=== PATIENT | female | born 1940 | race Caucasian/White ===

== ENCOUNTER 2016-09-17 12:41 | Inpatient (IN) | payer MEDICARE, MEDICAID ==
[~2016-09-17] VITALS: Ht 165.1 cm; Wt 102.2 kg
[2016-09-17] VITALS (13 sets, daily range): BP systolic 119–141; BP diastolic 63–98
[~2016-09-17 12:41] MED LIST: ANTIVERT GENERI25 MG PO; ASPIRIN 325MG325 MG PO; ATORVASTATIN CA10 M1 PO; CAPTOPRIL50 MG PO; CARTIA XT240 MG PO; DITROPAN 5MG TAB5 MG PO; FUROSEMIDE 40MG40 M1 PO; GLIMEPIRIDE 4MG4 MG PO; MELOXICAM15 MG PO; METFORMIN 500M500 M1 PO; METOPROLOL SUCC50 M4 PO
[2016-09-17] MEDS ORDERED: CARVEDILOL 25MG25 MG PO (13:00)
[2016-09-17] MEDS ORDERED: CLOPIDOGREL75 M2 PO (13:01)
[2016-09-17] MEDS ORDERED: ALDACTONE 25MG25 MG PO (13:01)
[2016-09-17] MEDS ORDERED: PANTOPRAZOLE SO40 M1 PO (13:01)
[2016-09-17] MEDS ORDERED: ISOSORBIDE DINI30 MG PO (13:02)
[2016-09-17] MEDS ORDERED: IRON325 M1 PO (13:02)
--- OUTSIDE RECORDS SUMMARY | 2016-09-17 13:04 | External Medical Summary Rpt ---
Author Author [facility] Organization [facility] Address Unknown Phone Unavailable Care Team Providers Care Records Officer Name Role Phone MATHEW, (REF) PCP [phone] Encounter [facility] [id number] Date(s): 12/15/15 - 01/17/16 [facility] [address] [place] [phone]- [phone] Discharge Disposition: OP Self Care or Home Attending Physician: VIKKI CANO MD Admitting Physician: VIKKI CANO MD Referring Physician: VIKKI CANO MD Reason for Visit PAROXYSMAL ATRIAL FIBRILLATION Vital Signs Most recent 1 2 3 to oldest [Reference Range]: Temperature Oral (01/17/16 Oral (01/17/16 Oral (01/17/16 Source 3:00 PM) 11:00 AM) 7:30 AM) Temperature Fahrenheit Fahrenheit Fahrenheit Mode (01/17/16 3:00 (01/17/16 11:00 (01/17/16 7:30 PM) AM) AM) Temperature, 98.1 Deg F 97.9 Deg F 97.6 Deg F Fahrenheit (01/17/16 3:00 (01/17/16 11:00 (01/17/16 7:30 [96.8-99.7 PM) AM) AM) Deg F] Clinical 36.7 Deg C 36.6 Deg C 36.4 Deg C Temperature, (01/17/16 3:00 (01/17/16 11:00 (01/17/16 7:30 C PM) AM) AM) Heart Rate, 70 bpm (01/17/16 Apical 10:45 AM) [60-100 bpm] Heart Rate 66 bpm (01/17/16 61 bpm (01/17/16 56 bpm Monitored 3:00 PM) 11:00 AM) *LOW*(01/17/16 [60-100 bpm] 7:30 AM) Respiratory 18 Breaths/Min 20 Breaths/Min 18 Breaths/Min Rate [14-20 (01/17/16 3:00 (01/17/16 11:00 (01/17/16 7:30 Breaths/Min] PM) AM) AM) Blood 135/67 mmHg 141/74 mmHg 147/53 mmHg Pressure (01/17/16 3:00 *HI*(01/17/16 *HI*(01/17/16 [90-140/60-9 PM) 11:00 AM) 7:30 AM) 0 mmHg] Mean 75 (01/17/16 3:00 102 (01/17/16 105 (01/17/16 Arterial PM) 11:00 AM) 7:30 AM) Pressure (MAP)-BMDI Oxygen 91 % 91 % 93 % Saturation *LOW*(01/17/16 *LOW*(01/17/16 *LOW*(01/17/16 [94-100 %] 3:00 PM) 11:00 AM) 9:31 AM) Oxygen Room air Room air Room air Therapy Mode (01/17/16 3:00 (01/17/16 11:00 (01/17/16 9:31 PM) AM) AM) Oxygen Flow 3 Liter/Min 2 Liter/Min 2 Liter/Min Rate (01/17/16 7:30 (01/16/16 8:00 (01/16/16 5:00 AM) PM) PM) Problem List Condition Effective Status Health Informant Dates Status Arthritis(Co Active patient nfirmed) Atrial Active patient fibrillation (Confirmed) Bronchitis(C Active patient onfirmed) Cataract(Con Active patient firmed) Coronary Active patient artery disease(Conf irmed) Diabetes Active patient mellitus type II(Confirmed ) H/O Active patient hyperlipidem ia(Confirmed ) Hyperlipidem Active patient ia(Confirmed ) Hypertension Active patient (Confirmed) Pneumonia(Co Active patient nfirmed) Sleep Active patient apnea(Confir med) Allergies, Adverse Reactions, Alerts Substance Reaction Severity Status codeine severe abdominal pain Active Medications atenolol (atenolol 25 mg oral tablet) 1 Tab, Oral, Every Day, Refills: 6 Ordering provider: Elisabeth Davis APRN potassium chloride (potassium chloride 20 mEq oral tablet, extended release)1 Tab, Oral, Every Day, Refills: 6Ordering provider: Elisabeth Davis APRN Results GENERAL CHEMISTRY Most recent 1 2 3 to oldest [Reference Range]: Sodium Level 139 mmol/L 142 mmol/L [136-146 (01/17/16 7:08 (01/16/16 9:25 mmol/L] AM) AM) Potassium 3.8 mmol/L 4.1 mmol/L Level (01/17/16 7:08 (01/16/16 9:25 [3.5-5.1 AM) AM) mmol/L] Chloride 98 mmol/L 100 mmol/L Level *LOW*(01/17/16 *LOW*(01/16/16 [102-112 7:08 AM) 9:25 AM) mmol/L] Carbon 32 mmol/L 37 mmol/L Dioxide (01/17/16 7:08 *HI*(01/16/16 Level [21-32 AM) 9:25 AM) mmol/L] Anion Gap 13 (01/17/16 7:08 9 (01/16/16 9:25 [9-20] AM) AM) Glucose 90 mg/dL 74 mg/dL Level (01/17/16 7:08 (01/16/16 9:25 [74-106 AM) AM) mg/dL] Blood Urea 23 mg/dL 25 mg/dL Nitrogen *HI*(01/17/16 *HI*(01/16/16 [7-22 mg/dL] 7:08 AM) 9:25 AM) Creatinine 1.10 mg/dL 1.20 mg/dL Level *HI*(01/17/16 *HI*(01/16/16 [0.55-1.02 7:08 AM) 9:25 AM) mg/dL] eGFR 59 mL/min/1.73m2 53 mL/min/1.73m2 [>=60 *LOW*(01/17/16 *LOW*(01/16/16 mL/min/1.73m 7:08 AM) 9:39 AM) 2] eGFR 49 mL/min/1.73m2 44 mL/min/1.73m2 NonAfrican *LOW*(01/17/16 *LOW*(01/16/16 [>=60 7:08 AM) 9:39 AM) mL/min/1.73m 2] Bun/Creatini 20.9 20.8 ne *HI*(01/17/16 *HI*(01/16/16 [8.0-20.0] 7:08 AM) 9:25 AM) Calcium 9.2 mg/dL 9.5 mg/dL Level (01/17/16 7:08 (01/16/16 9:25 [8.5-10.1 AM) AM) mg/dL] Protein 6.9 Gram/dL Total (01/16/16 9:25 [6.4-8.2 AM) Gram/dL] Albumin 3.6 Gram/dL Level (01/16/16 9:25 [3.4-5.0 AM) Gram/dL] Globulin 3.3 Gram/dL [1.5-4.5 (01/16/16 9:25 Gram/dL] AM) A/G Ratio 1.1 (01/16/16 [1.1-2.5] 9:25 AM) Bilirubin 0.5 mg/dL Total (01/16/16 9:25 [0.2-1.0 AM) mg/dL] Alk Phos 92 Units/Liter [27-136 (01/16/16 9:25 Units/Liter] AM) AST [5-37 10 Units/Liter Units/Liter] (01/16/16 9:25 AM) ALT [12-78 11 Units/Liter Units/Liter] *LOW*(01/16/16 9:25 AM) Magnesium 2.1 mg/dL Level (01/16/16 9:25 [1.5-2.4 AM) mg/dL] Glucose POC 77 mg/dL [70-105 (01/16/16 9:17 mg/dL] AM) Glucose POC2 128 mg/dL 101 mg/dL 88 mg/dL [60-110 1*HI*(01/17/16 2(01/17/16 11:42 3(01/17/16 6:35 mg/dL] 3:45 PM) AM) AM) 1Result Comment: Nurse Notified of [id number] Comment: Nurse Notified of [id number] Comment: Nurse Notified of ResultCARDIAC SPECIFIC MARKERS Most recent 1 2 3 to oldest [Reference Range]: ProBNP 2018 pg/mL [0-125 *HI*(01/16/16 pg/mL] 9:39 AM) HEMATOLOGY Most recent 1 2 3 to oldest [Reference Range]: WBC 7.3 K/uL 5.7 K/uL [4.0-10.0 (01/17/16 7:08 (01/16/16 9:39 K/uL] AM) AM) RBC 3.31 Million/uL 3.04 Million/uL [3.93-5.22 *LOW*(01/17/16 *LOW*(01/16/16 Million/uL] 7:08 AM) 9:39 AM) Hgb 9.6 g/dL 8.9 g/dL [11.2-15.7 *LOW*(01/17/16 *LOW*(01/16/16 g/dL] 7:08 AM) 9:39 AM) Hct 32.9 % 29.8 % [34.1-44.9 *LOW*(01/17/16 *LOW*(01/16/16 %] 7:08 AM) 9:39 AM) MCV 99.4 fL 98.0 fL [79.0-94.8 *HI*(01/17/16 *HI*(01/16/16 fL] 7:08 AM) 9:39 AM) MCH 29.0 pg (01/17/16 29.3 pg (01/16/16 [25.6-32.2 7:08 AM) 9:39 AM) pg] MCHC 29.2 Gram/dL 29.9 Gram/dL [32.2-36.5 *LOW*(01/17/16 *LOW*(01/16/16 Gram/dL] 7:08 AM) 9:39 AM) Platelet 247 K/uL 219 K/uL Count (01/17/16 7:08 (01/16/16 9:39 [163-369 AM) AM) K/uL] MPV 10.5 fL (01/17/16 10.4 fL (01/16/16 [9.4-12.4 7:08 AM) 9:39 AM) fL] RDW 17.0 % 17.2 % [11.6-14.4 *HI*(01/17/16 *HI*(01/16/16 %] 7:08 AM) 9:39 AM) Neut % 68.3 % (01/17/16 [34.0-71.0 7:08 AM) %] Neut # 4.98 K/uL [1.56-6.13 (01/17/16 7:08 K/uL] AM) Lymph % 18.5 % [19.3-53.1 *LOW*(01/17/16 %] 7:08 AM) Lymph # 1.35 x10(3)/uL [1.00-3.90 (01/17/16 7:08 x10(3)/uL] AM) [place] % 8.1 % (01/17/16 [3.0-9.0 %] 7:08 AM) [place] # 0.59 K/uL [0.16-1.00 (01/17/16 7:08 K/uL] AM) Eos % 4.2 % (01/17/16 [0.0-7.0 %] 7:08 AM) Eos # 0.31 x10(3)/uL [0.00-0.80 (01/17/16 7:08 x10(3)/uL] AM) Baso % 0.5 % (01/17/16 [0.0-1.5 %] 7:08 AM) Baso # 0.04 x10(3)/uL [0.00-0.20 (01/17/16 7:08 x10(3)/uL] AM) Slide Review No (01/17/16 7:08 No (01/16/16 9:39 AM) AM) IG# 0.03 x10(3)/uL [0.00-0.05 (01/17/16 7:08 x10(3)/uL] AM) IG% 0.40 % (01/17/16 [0.00-0.60 7:08 AM) %] ENDOCRINOLOGY Most recent 1 2 3 to oldest [Reference Range]: TSH 4.440 mcInt [0.358-3.740 Units/mL mcInt *HI*(01/16/16 Units/mL] 9:25 AM) Immunizations No data available for this section Procedures Procedure Date Related Body Site Diagnosis cardioversion Social History Social History Response Type Tobacco Use in Last 12 Months: No. Assessment and Plan Extracted from: Title: EP Progress Author: Ryan, Date: 01/17/16 Note- Shukri Nazario APRN SubjectiveFollow up: AT fib- persistent post ECV 10!7!6- recurrent At fib, SVR - now in high 50s- low 60s.Chief Complaint: none. Up in roomINDICATIONS:01/16/16Patient was seen in the [facility]. She did have moderate lower extremity edemaand some orthopnea. We gave her Lasix intravenously 80 mg and she did haverest diuresis. She is also getting a breathing treatment.DESCRIPTION OF PROCEDURE:Patient was then taken to the electrophysiology laboratory. AnesthesiaService provided Diprivan. After appropriate anesthesia level was achieved,200 joules was delivered synchronous to the QRS converting atrialfibrillation to sinus bradycardia, heart rate 38 to 50 beats per minute. Itseemed to be getting a little bit better and she went back to the [facility].After she was fully awake about a half hour after the case, her heart ratewas still 38 to 40 beats per minute, sinus bradycardia. At this time, and decided to admit the patient on a monitored bed. She had been onCardizem that should have been stopped one week ago when I saw her in theoffice. She has two beta blockers listed, atenolol and metoprolol. She was only on metoprolol and she has been on amiodarone. CardizemCD, atenolol, and metoprolol. We will leave her on the amiodarone. Cardizem that should have been stopped one week ago when I saw her in the office. She has two beta blockers listed, atenolol and metoprolol. She was only on metoprolol and she has been on amiodarone. Cardizem CD, atenolol, and metoprolol. We will leave her on the amiodarone. Health StatusAllergies:Allergic Reactions (All)Severity Not DocumentedCodeine- Severe abdominal pain.,Allergies (1) ActiveReactioncodeinesevere abdominal painCurrent medications: (Selected)Inpatient MedicationsOrderedDextrose 5% in Water 1,000 mL: 50 mL/Hr, IntraVENousLasix: 40 mg, Oral, DailyLovenox: 100 mg, SubCutaneous, [id number]: 200 mg, Oral, Dailyaspirin: 325 mg, Oral, Dailyatorvastatin: 10 mg, Oral, At Bedtimecaptopril: 50 mg, Oral, BIDglimepiride: 4 mg, Oral, BIDoxybutynin: 5 mg, Oral, BIDDocumented MedicationsDocumentedCartia XT 300 mg/24 hours oral capsule, extended release: 1 Cap, Oral, Daily, 30 Cap, 0 Refill(s)Lasix: 40 mg, Oral, Daily, 0 Refill(s)Metoprolol Succinate ER: 50 mg, Oral, Daily, 0 Refill(s)Xarelto: 20 mg, Oral, Daily, 0 Refill(s)amiodarone 200 mg oral tablet: 1 Tab, Oral, Daily, 30 Tab, 0 Refill(s)aspirin: 325 mg, Oral, Daily, 0 Refill(s)atorvastatin: 10 mg, Oral, At Bedtime, 0 Refill(s)captopril: 50 mg, Oral, BID, 0 Refill(s)glimepiride: 4 mg, Oral, BID, 0 Refill(s)meloxicam: 15 mg, Oral, Daily, 0 Refill(s)metFORMIN: 500 mg, Oral, BID, 0 Refill(s)oxybutynin: 5 mg, Oral, BID, 0 Refill(s),Home Medications (12) Activeamiodarone 200 mg oral tablet 200 mg = 1 Tab, Oral, Dailyaspirin 325 mg, Oral, Dailyatorvastatin 10 mg, Oral, At Bedtimecaptopril 50 mg, Oral, BIDCartia XT 300 mg/24 hours oral capsule, extended release 300 mg = 1 Cap, Oral, Dailyglimepiride 4 mg, Oral, BIDLasix 40 mg, Oral, Dailymeloxicam 15 mg, Oral, DailymetFORMIN 500 mg, Oral, BIDMetoprolol Succinate ER 50 mg, Oral, Dailyoxybutynin 5 mg, Oral, BIDXarelto 20 mg, Oral, Daily,Medications (9) ActiveScheduled: (8)amiodarone 200 mg tab 200 mg 1 Tab, Oral, Dailyaspirin 325 mg tab 325 mg 1 Tab, Oral, Dailyatorvastatin 10 mg tab 10 mg 1 Tab, Oral, At Bedtimecaptopril 12.5 mg tab 50 mg 4 Tab, Oral, BIDenoxaparin 100 mg/1 mL inj 100 mg 1 mL, SubCutaneous, [id number] 40 mg tab 40 mg 1 Tab, Oral, Dailyglimepiride 4 mg tab 4 mg 1 Tab, Oral, BIDoxybutynin 5 mg tab 5 mg 1 Tab, Oral, BIDContinuous: (1)Dextrose 5% in Water 1,000 mL 1,000 mL, IntraVENous, 50 mL/HrPRN: (0)Problem list:All ProblemsArthritis / SNOMED CT 4635141 / ConfirmedAtrial fibrillation / SNOMED CT 00422627 / ConfirmedBronchitis / SNOMED CT 40467274 / ConfirmedCataract / SNOMED CT 254963179 / ConfirmedCoronary artery disease / SNOMED CT 8111906250 / ConfirmedDiabetes mellitus type II / SNOMED CT 69278046 / ConfirmedH/O hyperlipidemia / SNOMED CT 921859975 / ConfirmedHyperlipidemia / SNOMED CT 89386779 / ConfirmedHypertension / SNOMED CT 71790048 / ConfirmedPneumonia / SNOMED CT 932553482 / ConfirmedSleep apnea / SNOMED CT 395868562 / Confirmed,Active Problems (11)Arthritis Atrial fibrillation Bronchitis Cataract Coronary artery disease Diabetes mellitus type II H/O hyperlipidemia Hyperlipidemia Hypertension Pneumonia Sleep apnea metFORMIN 500 mg, Oral, BID Metoprolol Succinate ER 50 mg, Oral, Daily oxybutynin 5 mg, Oral, BID Xarelto 20 mg, Oral, Daily , Medications (9) Active Scheduled: (8) amiodarone 200 mg tab 200 mg 1 Tab, Oral, Daily aspirin 325 mg tab 325 mg 1 Tab, Oral, Daily atorvastatin 10 mg tab 10 mg 1 Tab, Oral, At Bedtime captopril 12.5 mg tab 50 mg 4 Tab, Oral, BID enoxaparin 100 mg/1 mL inj 100 mg 1 mL, SubCutaneous, [id number] furosemide 40 mg tab 40 mg 1 Tab, Oral, Daily glimepiride 4 mg tab 4 mg 1 Tab, Oral, BID oxybutynin 5 mg tab 5 mg 1 Tab, Oral, BID Continuous: (1) Dextrose 5% in Water 1,000 mL 1,000 mL, IntraVENous, 50 mL/Hr PRN: (0) Problem list: All Problems Arthritis / SNOMED CT 0840892 / Confirmed Atrial fibrillation / SNOMED CT 15969469 / Confirmed Bronchitis / SNOMED CT 26879296 / Confirmed Cataract / SNOMED CT 062747624 / Confirmed Coronary artery disease / SNOMED CT 1929811821 / Confirmed Diabetes mellitus type II / SNOMED CT 41661626 / Confirmed H/O hyperlipidemia / SNOMED CT 288781349 / Confirmed Hyperlipidemia / SNOMED CT 19276714 / Confirmed Hypertension / SNOMED CT 08004848 / Confirmed Pneumonia / SNOMED CT 759022218 / Confirmed Sleep apnea / SNOMED CT 495110970 / Confirmed, Active Problems (11) Arthritis Atrial fibrillation Bronchitis Cataract Coronary artery disease Diabetes mellitus type II H/O hyperlipidemia Hyperlipidemia Hypertension Pneumonia Sleep apnea ObjectiveVitals Signs (last 24 hrs) Last Charted Minimum MaximumTemp 97.6 (OCT 18 07:30)97.6 (OCT 18 07:30)97.8 (OCT 17 16:45)Mon HR 56 (OCT 18 07:30)38 (OCT 17 12:45)68 (OCT 17 12:30)Resp Rate 18 (OCT 18 07:30)18 (OCT 17 19:30)H 36 (OCT 17 13:15)SBP H 147 (OCT 18 07:30)117 (OCT 17 12:30)H 187 (OCT 17 19:30)DBP L 53 (OCT 18 07:30)L 48 (OCT 17 12:30)90 (OCT 17 18:00)MAP 105 (OCT 18 07:30)77 (OCT 17 12:30)127 (OCT 17 19:30)SpO2 L 93 (OCT 18 09:31)L 93 (OCT 18 09:31)100 (OCT 17 12:30)Intake and OutputIntake & Output Totals Last 24 Hours (7a-7a)Intake (2 Events) Medications (54 mL)Output (2 Events) Vasques Catheter (1700 mL) Urine Voided (Volume) (800 mL)Input Total: 54 mLOutput Total: 2500 mLBalance: -2446 mLVS/MeasurementsVital Signs/Vital Zvofdcce63/18/2016 9:31 EDT Oxygen Saturation 93 % LOW Oxygen Therapy Mode Room air01/17/2016 7:30 EDT Temperature Source Oral Temperature Mode Fahrenheit Heart Rate Monitored 56 bpm LOW Respiratory Rate 18 Breaths/Min Systolic Blood Pressure 147 mmHg HI Diastolic Blood Pressure 53 mmHg LOW Mean Arterial Pressure (MAP)-BMDI 105 Oxygen Saturation 99 % Oxygen Therapy Mode Nasal cannula Oxygen Flow Rate 3 Liter/Min,Vitals Signs (last 24 hrs) Last Charted Minimum MaximumTemp 97.6 (JAN 16 07:30)97.6 (JAN 16 07:30)97.8 (JAN 15 16:45)Mon HR 56 (JAN 16 07:30)38 (JAN 15 12:45)68 (JAN 15 12:30)Resp Rate 18 (JAN 16 07:30)18 (JAN 15 19:30)H 36 (JAN 15 13:15)SBP H 147 (JAN 16 07:30)117 (JAN 15 12:30)H 187 (JAN 15 19:30)DBP L 53 (JAN 16 07:30)L 48 (JAN 15 12:30)90 (JAN 15 18:00)MAP 105 (JAN 16 07:30)77 (JAN 15 12:30)127 (JAN 15 19:30)SpO2 L 93 (JAN 16 09:31)L 93 (JAN 16 09:31)100 (JAN 15 12:30)TELE: EKG: PHYSICAL EXAM:Neuro -Neck -Heart -Lungs -Abd -Ext -Skin -Procedure Site - Radiology Results (Last 48 hours)[id number] -- 01/16/2016 08:34CR Chest 1 Vw Portable (01/16/2016 10:24) Result: PORTABLE CHEST 01/16/2016 10:11 AM HISTORY: Atrial fibrillation.COMPARISON: September 30, 2015.FINDINGS: The patient is status post median sternotomy. The heart isenlarged. The mediastinum is unremarkable. The lungs are clear. There isno pneumothorax. The osseous structures are unremarkable. IMPRESSION: No acute cardiopulmonary process.Images reviewed, interpreted, and dictated by Dr. Hunter.Transcribed by Syemour Collier (N), [facility] SERVICESI have personally viewed, interpreted and dictated the examination. Ihave read and agree with the above final transcribed report.General: Alert and oriented, No acute distress.Eye: Pupils are equal, round and reactive to light, Extraocular movements are intact, Normal conjunctiva.HENT: Normocephalic.Neck: Supple, Non-tender, No carotid bruit, No jugular venous distention.Respiratory: Breath sounds: Bilateral, Base, Diminished. Support: Oxygen.Cardiovascular: Irregularly irregular rhythm, Bradycardia. Edema: Bilateral, Lower extremity, 2+.Gastrointestinal: Soft, Non-tender, Non-distended, Normal bowel sounds. Abdomen: Obese.Musculoskeletal: Normal range of motion.Integumentary: Warm, Dry, [place].Neurologic: Alert, Oriented, No focal deficits.Psychiatric: Cooperative, Appropriate mood & affect. Neuro - Neck - Heart - Lungs - Abd - Ext - Skin - Procedure Site - Radiology Results (Last 48 hours) [id number] -- 01/16/2016 08:34 CR Chest 1 Vw Portable (01/16/2016 10:24) Result: PORTABLE CHEST 01/16/2016 10:11 AM HISTORY: Atrial fibrillation.COMPARISON: September 30, 2015.FINDINGS: The patient is status post median sternotomy. The heart isenlarged. The mediastinum is unremarkable. The lungs are clear. There isno pneumothorax. The osseous structures are unremarkable. IMPRESSION: No acute cardiopulmonary process.Images reviewed, interpreted, and dictated by Kleber Hunter.Transcribed by Seymour Collier (N), [facility] have personally viewed, interpreted and dictated the examination. Ihave read and agree with the above final transcribed report. General: Alert and oriented, No acute distress. Eye: Pupils are equal, round and reactive to light, Extraocular movements are intact, Normal conjunctiva. HENT: Normocephalic. Neck: Supple, Non-tender, No carotid bruit, No jugular venous distention. Respiratory: Breath sounds: Bilateral, Base, Diminished. Support: Oxygen. Cardiovascular: Irregularly irregular rhythm, Bradycardia. Edema: Bilateral, Lower extremity, 2+. Gastrointestinal: Soft, Non-tender, Non-distended, Normal bowel sounds. Abdomen: Obese. Musculoskeletal: Normal range of motion. Integumentary: Warm, Dry, [place]. Neurologic: Alert, Oriented, No focal deficits. Psychiatric: Cooperative, Appropriate mood & affect. Results Review JAN 16 07:08 139 | L 98 | H 23 / 90 3.8 | 32 | H 1.10 \\ JAN 16 07:08 \\ L 9.6 / 7.3 247 / L 32.9 \\Labs (Last four charted values)WBC 7.3(JAN 16)5.7(JAN 15)HB L 9.6(DEC 18)L 8.9(JAN 15)HCT L 32.9(DEC 18)L 29.8(JAN 15)Plt 247(JAN 16)219(JAN 15)Na 139(JAN 16)142(JAN 15)K 3.8(DEC 18)4.1(JAN 15)Cl L 98(DEC 18)L 100(JAN 15)CO2 32(DEC 18)H 37(JAN 15)BUN H 23(JAN 16)H 25(JAN 15)Cr H 1.10(JAN 16)H 1.20(JAN 15)Glu R 90(JAN 16)74(JAN 15)Ca 9.2(DEC 18)9.5(JAN 15)AST 10(JAN 15)ALT L 11(JAN 15)ALK P 92(JAN 15)T Bili 0.5(JAN 15)PTN 6.9(JAN 15)ALB 3.6(JAN 15)PROBNP H 2018(JAN 15)CMP Results (Current Encounter/Past 24 Hours)A/G Ratio 1.1 01/16/2016 10:19Globulin 3.3 Gram/dL 01/16/2016 10:19eGFR NonAfrican 49 mL/min/1.73m2 LOW 01/17/2016 07:42Bun/Creatinine 20.9 HI 01/17/2016 07:57Creatinine Level 1.10 mg/dL HI 01/17/2016 07:57eGFR 59 mL/min/1.73m2 LOW 01/17/2016 07:42Protein Total 6.9 Gram/dL 01/16/2016 10:19Sodium Level 139 mmol/L 01/17/2016 07:42Potassium Level 3.8 mmol/L 01/17/2016 07:42Chloride Level 98 mmol/L LOW 01/17/2016 07:57Carbon Dioxide Level 32 mmol/L 01/17/2016 07:42Anion Gap 13 01/17/2016 07:42Alk Phos 92 Units/Liter 01/16/2016 10:19ALT 11 Units/Liter LOW 01/16/2016 10:19AST 10 Units/Liter 01/16/2016 10:19Blood Urea Nitrogen 23 mg/dL HI 01/17/2016 07:57Glucose Level 90 mg/dL 01/17/2016 07:42Albumin Level 3.6 Gram/dL 01/16/2016 10:19Bilirubin Total 0.5 mg/dL 01/16/2016 10:19Calcium Level 9.2 mg/dL 01/17/2016 07:42Magnesium Level 2.1 mg/dL 01/16/2016 10:19 Ca 9.2(JAN 16)9.5(JAN 15) AST 10(JAN 15) ALT L 11(JAN 15) ALK P 92(JAN 15) T Bili 0.5(JAN 15) PTN 6.9(JAN 15) ALB 3.6(JAN 15) PROBNP H 2018(JAN 15) CMP Results (Current Encounter/Past 24 Hours)A/G Ratio 1.1 01/16/2016 10:19 Globulin 3.3 Gram/dL 01/16/2016 10:19 eGFR NonAfrican 49 mL/min/1.73m2 LOW 01/17/2016 07:42 Bun/Creatinine 20.9 HI 01/17/2016 07:57 Creatinine Level 1.10 mg/dL HI 01/17/2016 07:57 eGFR 59 mL/min/1.73m2 LOW 01/17/2016 07:42 Protein Total 6.9 Gram/dL 01/16/2016 10:19 Sodium Level 139 mmol/L 01/17/2016 07:42 Potassium Level 3.8 mmol/L 01/17/2016 07:42 Chloride Level 98 mmol/L LOW 01/17/2016 07:57 Carbon Dioxide Level 32 mmol/L 01/17/2016 07:42 Anion Gap 13 01/17/2016 07:42 Alk Phos 92 Units/Liter 01/16/2016 10:19 ALT 11 Units/Liter LOW 01/16/2016 10:19 AST 10 Units/Liter 01/16/2016 10:19 Blood Urea Nitrogen 23 mg/dL OH 01/17/2016 07:57 Glucose Level 90 mg/dL 01/17/2016 07:42 Albumin Level 3.6 Gram/dL 01/16/2016 10:19 Bilirubin Total 0.5 mg/dL 01/16/2016 10:19 Calcium Level 9.2 mg/dL 01/17/2016 07:42 Magnesium Level 2.1 mg/dL 01/16/2016 10:19 Impression and Plan 1. At fib- persistent, on Amiodarone , Xarelto. - post ECV 01/16/16- intially successful SB in 40s, back in at fib with SVR last evneign, now Hr 50s-low 60s2. CAD, prior CABg3. DM,II4. HTN5. Morbid obeisty6. DJD7. rEspinsufficiency- on chronic home O2Paln:1. HOme today , on Atenolol 25 daily - off Metoprolol and Diltiazem2. Resume Xarelto3. Fup EP 2 weeks. to eval rate and determine ?AVN / pacer as next step- not good candidate for at fib ablation 5. Morbid obeisty 6. DJD 7. rEspinsufficiency- on chronic home O2 Paln: 1. HOme today , on Atenolol 25 daily - off Metoprolol and Diltiazem 2. Resume Xarelto 3. Fup EP 2 weeks. to eval rate and determine ?AVN / pacer as next step- not good candidate for at fib ablation Hospital Discharge Instructions Patient EducationAtrial Fibrillation Electrical Cardioversion Heart-Healthy Eating Plan"
--- OUTSIDE RECORDS SUMMARY | 2016-09-17 13:04 | External Medical Summary Rpt ---
Author Author [facility] Organization [facility] Address Unknown Phone Unavailable Care Team Providers Care Records Management Director Name Role Phone MATHEW, (REF) PCP [phone] Encounter [facility] DANYA [id number] Date(s): 12/15/15 - 01/17/16 [facility] [address] [place] [address]- Discharge Disposition: OP Self Care or Home [...] AM) AM) 1Result Comment: Nurse Notified of [id number] Comment: Nurse Notified of [id number] Comment: Nurse Notified of ResultCARDIAC SPECIFIC MARKERS [...] 1.35 x10(3)/uL [1.00-3.90 (01/17/16 7:08 x10(3)/uL] AM) Whitley % 8.1 % (01/17/16 [3.0-9.0 %] 7:08 AM) Whitley # 0.59 K/uL [0.16-1.00 (01/17/16 7:08 K/uL] [...] Up in roomINDICATIONS:01/16/16Patient was seen in the [facility]. She did have moderate lower extremity edemaand [...] better and she went back to the [facility].After she was fully awake about a half [...] 40 mg, Oral, DailyLovenox: 100 mg, SubCutaneous, [id number]: 200 mg, Oral, Dailyaspirin: 325 mg, Oral, [...] mL inj 100 mg 1 mL, SubCutaneous, Z19KRqhadkrolbrws 40 mg tab 40 mg 1 Tab, Oral, Dailyglimepiride 4 mg tab 4 mg 1 Tab, Oral, BIDoxybutynin 5 mg tab 5 mg 1 Tab, Oral, BIDContinuous: (1)Dextrose 5% in Water 1,000 mL 1,000 mL, IntraVENous, 50 mL/HrPRN: (0)Problem list:All ProblemsArthritis / SNOMED CT 9309370 / ConfirmedAtrial fibrillation / SNOMED CT 23306890 / ConfirmedBronchitis / SNOMED CT 02831707 / ConfirmedCataract / SNOMED CT 592366849 / ConfirmedCoronary artery disease / SNOMED CT 4106649649 / ConfirmedDiabetes mellitus type II / SNOMED CT 14927879 / ConfirmedH/O hyperlipidemia / SNOMED CT 669417811 / ConfirmedHyperlipidemia / SNOMED CT 26179538 / ConfirmedHypertension / SNOMED CT 88047458 / ConfirmedPneumonia / SNOMED CT 020151721 / ConfirmedSleep apnea / SNOMED CT 256808033 / Confirmed,Active Problems (11)Arthritis Atrial fibrillation Bronchitis [...] mL inj 100 mg 1 mL, SubCutaneous, A94SDet furosemide 40 mg tab 40 mg 1 Tab, Oral, Daily glimepiride 4 mg tab 4 mg 1 Tab, Oral, BID oxybutynin 5 mg tab 5 mg 1 Tab, Oral, BID Continuous: (1) Dextrose 5% in Water 1,000 mL 1,000 mL, IntraVENous, 50 mL/Hr PRN: (0) Problem list: All Problems Arthritis / SNOMED CT 7809592 / Confirmed Atrial fibrillation / SNOMED CT 85758477 / Confirmed Bronchitis / SNOMED CT 89878623 / Confirmed Cataract / SNOMED CT 497363953 / Confirmed Coronary artery disease / SNOMED CT 7940576897 / Confirmed Diabetes mellitus type II / SNOMED CT 40949091 / Confirmed H/O hyperlipidemia / SNOMED CT 638377227 / Confirmed Hyperlipidemia / SNOMED CT 58453941 / Confirmed Hypertension / SNOMED CT 82564912 / Confirmed Pneumonia / SNOMED CT 787088738 / Confirmed Sleep apnea / SNOMED CT 691505999 / Confirmed, Active Problems (11) Arthritis Atrial [...] mLOutput Total: 2500 mLBalance: -2446 mLVS/MeasurementsVital Signs/Vital Ecytswwu17/18/2016 9:31 EDT Oxygen Saturation 93 % LOW [...] -Procedure Site - Radiology Results (Last 48 hours)[id number] -- 01/16/2016 08:34CR Chest 1 Vw Portable (01/16/2016 10:24) Result: PORTABLE CHEST 01/16/2016 10:11 AM HISTORY: Atrial fibrillation.COMPARISON: September 30, 2015.FINDINGS: The patient is status post median sternotomy. The heart isenlarged. The mediastinum is unremarkable. The lungs are clear. There isno pneumothorax. The osseous structures are unremarkable. IMPRESSION: No acute cardiopulmonary process.Images reviewed, interpreted, and dictated by Dr. Hunter.Transcribed by Seymour Collier (N), [facility] have personally viewed, interpreted and dictated the [...] Obese.Musculoskeletal: Normal range of motion.Integumentary: Warm, Dry, [place].Neurologic: Alert, Oriented, No focal deficits.Psychiatric: Cooperative, Appropriate mood & affect. Neuro - Neck - Heart - Lungs - Abd - Ext - Skin - Procedure Site - Radiology Results (Last 48 hours) [id number] -- 01/16/2016 08:34 CR Chest 1 Vw [...] by Kleber Hunter.Transcribed by Seymour Collier (N), [facility] have personally viewed, interpreted and dictated the [...] Normal range of motion. Integumentary: Warm, Dry, [place]. Neurologic: Alert, Oriented, No focal deficits. Psychiatric: [...] 01/16/2016 10:19 Blood Urea Nitrogen 23 mg/dL [place] 01/17/2016 07:57 Glucose Level 90 mg/dL 01/17/2016 [...]
--- OUTSIDE RECORDS SUMMARY | 2016-09-17 13:05 | External Medical Summary Rpt ---
Author Author [facility] Organization [facility] Address Unknown Phone Unavailable Care Team Providers Care Coal Screener Name Role Phone NO, (REF) PCP Unavailable Encounter [facility] DANYA [id number] Date(s): 03/14/16 - 03/19/16 [facility] [place] [address] [place] [address]- [phone] Discharge Disposition: OP Self Care or Home Attending Physician: ERIBERTO CASTILLO MD-CAR Admitting Physician: ERIBERTO CASTILLO MD-CAR Referring Physician: ERIBERTO CASTILLO MD-CAR Reason for Visit OTHER FATIGUE Vital Signs No data available for this section Problem List Condition Effective Status Health Informant [...] Status codeine severe abdominal pain Active Medications No data available for this section Results No data available for this section Immunizations No data available for this section Procedures No data available for this section Social History Social History Response Type Tobacco Use in Last 12 Months: No. Assessment and Plan No data available for this section Hospital Discharge Instructions No data available for this section
--- OUTSIDE RECORDS SUMMARY | 2016-09-17 13:05 | External Medical Summary Rpt ---
Author Author [facility] Organization [facility] Address Unknown Phone Unavailable Care Team Providers Care Property Insurance Claims Examiner Name Role Phone NO, (REF) PCP Unavailable Encounter [facility] DANYA [id number] Date(s): 03/14/16 - 03/19/16 [facility] [address] [place] [address]- [phone] Discharge Disposition: OP Self Care or Home [...]
--- OUTSIDE RECORDS SUMMARY | 2016-09-17 13:05 | External Medical Summary Rpt ---
Author Author [facility] Organization [facility] Address Unknown Phone Unavailable Care Team Providers Care Suggestion Clerk Name Role Phone MATHEW, (REF) PCP [phone] Encounter [facility] DANYA [id number] Date(s): 01/06/16 - 02/01/16 [facility] [address] [place] [address]- Discharge Disposition: OP Self Care or Home Attending Physician: GINA, UNKNOWN Admitting Physician: GINA, KRISTINA Referring Physician: VALENTINE STANLEY, APR Reason for Visit R09.02 Vital Signs No data available for this [...]
--- OUTSIDE RECORDS SUMMARY | 2016-09-17 13:05 | External Medical Summary Rpt ---
Author Author [facility] Organization [facility] Address Unknown Phone Unavailable Care Team Providers Care Esol Instructor Name Role Phone MATHEW, (REF) PCP [phone] Encounter [facility] DANYA [id number] Date(s): 01/06/16 - 02/01/16 [facility] [address] [place] [address]- Discharge Disposition: OP Self Care or Home [...]
--- OUTSIDE RECORDS SUMMARY | 2016-09-17 13:09 | External Medical Summary Rpt ---
Author Author , Organization [employer] Address Unknown Phone Unavailable Care Team Providers Care Bulk Picker Name Role Phone MATHEW, MATHEW Unavailable Unavailable MATHEW AMA, Unavailable Unavailable MATHEW AMA MATHEW AMA, Unavailable Unavailable MATHEW AMA MATHEW, FATMATA, Unavailable Unavailable MATHEW, FATMATA [facility], Unavailable Unavailable [facility], Unavailable Unavailable [facility] PENNY LES, PENNY Unavailable Unavailable LES DIAZ BEN, DIAZ BEN Unavailable Unavailable DIAZ BEN, DIAZ BEN Unavailable Unavailable VIKKI DIAZ G, Unavailable Unavailable DIAZVIKKI VILLEGAS G BROWN ALL, BROWN ALL Unavailable Unavailable [facility] GOODMAN, GOODMAN Unavailable Unavailable GOODMAN JENNIFER, GOODMAN JENNIFER Unavailable Unavailable GOODMAN, DONYA, Unavailable Unavailable GOODMAN, DONYA BREAZEALE GRA, Unavailable Unavailable BREAZEALE GRA JOSE MIGUEL GAUDENCIO, JOSE MIGUEL Unavailable Unavailable [facility] Unavailable Unavailable [facility] Unavailable Unavailable [facility], [facility] IQ[facility] GRACIE, IQBAL Unavailable Unavailable GRACIE CORNEA, CORNEA Unavailable Unavailable FALLIS MOLLY, FALLIS Unavailable Unavailable MOLLY FALLUJI HAKAN, FALLUJI Unavailable Unavailable [facility] Unavailable Unavailable [facility], [facility] Un[facility], Unavailable [facility]available [facility] Unavailable Unavailable [facility], [facility], Unavailable Unavailable [facility], Unavailable Unavailable [facility] HAGENSCHNEABHILASH BEARD, Unavailable Unavailable HAGCHROCKY BEARD [facility] Unavailable Unavailable INC, [facility] Unavailable Unavailable HOSPITAL P, [facility] ANGELA MILLER Unavailable Unavailable ANGELA SNYDER, ANGELA Unavailable Unavailable LILLIAN PEE MILLER, Unavailable Unavailable PEE MILLER [facility] Unavailable Unavailable AGENCY, [facility], Unavailable Unavailable [facility] Unavailable Unavailable [facility], [facility] Unavailable Unavailable MEDICAL G, [facility] G APRIL JR DWI, APRIL Unavailable Unavailable JR DWI [facility] Unavailable Unavailable [facility] Unavailable Unavailable [facility], [facility] Unavailable Unavailable [facility] MAGALI, MAGALI Unavailable Unavailable NEHEMIAH HURTADO, Unavailable Unavailable CERNAJANUSZ CERNA JAM, Unavailable Unavailable CERNA JAM [facility] Unavailable Unavailable ASSOCIAT, [facility] Unavailable Unavailable MEDICAL, [facility] MEDICAL [facility], Unavailable Unavailable [facility] NICK PIRES, Unavailable Unavailable NICK PIRES [facility] Un[facility] Un[facility] Unavailable Unavailable [facility], Unavailable Unavailable [facility], Unavailable Unavailable [facility], Unavailable Unavailable [facility] JEROMEJEROME PATTEN Unavailable Unavailable BEN GIGI, GIGI Unavailable Unavailable [facility] Unavailable Unavailable EQUIPME, [facility] Unavailable Unavailable [facility], [facility], Unavailable Unavailable [facility], Unavailable Unavailable [facility], [facility] Unavailable Unavailable JONATHAN III, JONATHAN Unavailable Unavailable III [facility] # Unavailable Unavailable 2, [facility] # 2 [facility] Unavailable Unavailable #2, [facility]2 [facility] Unavailable Unavailable #2, [facility] IVAN CONNORS Unavailable Unavailable IVAN PORTER Unavailable Unavailable CARY Purpose Continuity of Care Document - 04-28-2007 through 2016 Problems Code Diagnosis DOS Provider Status E119 TYPE 2 08-22-2016 [facility] DIABETES PHYSICIANS MELLITUS GROUP WITHOUT COMPLICATIO NS E669 OBESITY 08-22-2016 [facility] UNSPECIFIED PHYSICIANS GROUP E785 HYPERLIPIDE 08-22-2016 [facility] RICKY PHYSICIANS UNSPECIFIED GROUP G4733 OBSTRUCTIVE 08-22-2016 [facility] SLEEP PHYSICIANS APNEA ADULT GROUP PEDIATRIC I10 ESSENTIAL 08-22-2016 [facility] PRIMARY PHYSICIANS HYPERTENSIO GROUP N I2510 ASHD MENOMINEE 08-22-2016 [facility] 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 ANGINA PECTORIS I4891 UNSPECIFIED 08-22-2016 [facility] ATRIAL PHYSICIANS FIBRILLATIO GROUP N R5383 OTHER 08-22-2016 [facility] FATIGUE PHYSICIANS GROUP I480 PAROXYSMAL 08-17-2016 [facility] FIB[facility]LL[facility] MEDICAL N EQUIPME R600 LOCALIZED 08-17-2016 [facility]ICAL EQUIPME E6601 MORBID 06-21-2016 [facility] SEVERE PHYSICIANS OBESITY DUE GROUP TO EXCESS CALORIES [id number] ATHEROSCLER 06-21-2016 [facility] OSIS CABG PHYSICIANS WITHOUT GROUP ANGINA PECTORIS I5020 UNSPECIFIED 06-21-2016 [facility] SYSTOLIC PHYSICIANS CONGESTIVE GROUP HEART FAILURE N182 CHRONIC 06-01-2016 [facility] DISE[facility] MEDICAL STAGE 2 MILD R0602 SHORTNESS 05-24-2016 [facility] OF BREATH PHYSICIANS GROUP J449 CHRONIC 05-17-2016 [facility] AREA PULMONARY AGENCY ON DISEASE UNS Z6838 BODY MASS 05-14-2016 FAMILY INDEX BMI MEDICINE 38.0-38.9 ASSOC ADULT [facility] Z789 OTHER 05-14-2016 FAMILY SPECIFIED MEDICINE HEALTH ASSOC STATUS [facility] I129 HYPERTENSIV 04-24-2016 [facility] W/STAGE 1-4 AGENCY CKD OR UNS CKD Q00133 ASHD MENOMINEE 04-24-2016 [facility] W/UNSTABLE AGENCY ANGINA PECTORIS P71084 CELLULITIS 04-24-2016 [facility] OF LEFT HOME HLTH LOWER LIMB AGENCY U76503 PRESSURE 04-24-2016 [facility] RIGHT AGENCY BUTTOCK STAGE 2 N183 CHRONIC 04-24-2016 [facility] DISEASE AGENCY STAGE 3 MODERATE I200 UNSTABLE 04-20-2016 [facility] ANGINA HEART I208 OTHER FORMS 04-19-2016 [facility] OF ANGINA PHYSICIANS PECTORIS GROUP R0902 HYPOXEMIA 04-19-2016 [facility] Z720 TOBACCO USE 04-19-2016 [facility] Z951 PRESENCE OF 04-19-2016 [facility] AORTOCORONA ASSOCIAT RY BYPASS GRAFT I252 OLD 03-19-2016 [facility] MYOCARDIAL HEALTH INFARCTION MEDICAL G I481 PERSISTENT 03-19-2016 [facility] FIBRILLATIO N R9439 ABNORMAL 03-19-2016 [facility] CARDIOVASCU LR FUNCTION STUDY I255 ISCHEMIC 02-18-2016 [facility] CARDIOMYOPA HOME THY MEDICAL EQUIPME E538 DEFICIENCY 02-16-2016 FAMILY OF OTHER MEDICINE SPECIFIED B ASSOC GROUP NOHELIA VITAMINS R531 WEAKNESS 02-07-2016 [facility] NOHELIA Z6841 BODY MASS 02-07-2016 FAMILY INDEX BMI MEDICINE 40.0-44.9 ASSOC ADULT NOHELIA I509 HEART 02-01-2016 [facility] FAILURE HEALTH UNSPECIFIED MEDICAL G J309 ALLERGIC 11-22-2015 [facility] UNSPECIFIED R918 OTHER 11-22-2015 [facility] ABNORMAL FINDING OF LUNG FIELD R400 SOMNOLENCE 11-09-2015 [facility] MEDICAL G C52107 OTHER LONG 09-30-2015 [facility] CURRENT DRUG THERAPY 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 [facility] CURRENT USE HEALTH OF MEDICAL G ANTICOAGULA NTS E782 MIXED 09-06-2015 [facility] R079 CHEST PAIN 09-06-2015 [facility] UNSPECIFIED RADIOLOGY ASSOCIAT E1142 TYPE 2 09-02-2015 [facility] MELLITUS W/DIAB POLYNEUROPA THY M1990 UNSPECIFIED 09-02-2015 [facility] OSTEOARTHRI TIS UNSPECIFIED SITE Z885 ALLERGY 09-02-2015 [facility] STATUS TO HOSPITAL NARCOTIC AGENT STATUS E1165 TYPE 2 08-22-2015 [facility] DI[facility]ES MEDICAL MELLITUS WITH HYPERGLYCEM IA 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 E1140 TYPE 2 DM 07-13-2015 MATHEW WITH AMA DIABETIC NEUROPATHY UNSPECIFIED H8123 VESTIBULAR 06-14-2015 [facility] BILATERAL PRACTICE H8303 LABYRINTHIT 05-31-2015 [facility] P K54162 PERSONAL 05-31-2015 [facility] OF [facility] P DEPENDENCE 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 MOLLY ARTHROPATHY RIGHT ANKLE AND FOOT M2570 OSTEOPHYTE 05-19-2015 [facility] MO[facility] UNSPECIFIED JOINT M6688 SPONTANEOUS 05-19-2015 [facility] MOLLY RUPTURE OF OTHER TENDONS OTHER I76853 PAIN IN 05-19-2015 [facility] MOLLY RIGHT FOOT M1711 UNILATERAL 04-14-2015 [facility] OSTEO[facility]RI IMAGING ASS TIS RIGHT KNEE H63225 PRIMARY 04-14-2015 [facility] OSTE[facility] MEDICAL TIS RIGHT IMAGING ASS ANKLE AND FOOT M2140 FLAT FOOT 04-14-2015 [facility] PES [facility]US [facility]ICAL ACQUIRED IMAGING ASS UNSPECIFIED FOOT M27139 PAIN IN 04-14-2015 [facility] RIGHT ANKLE MEDICAL IMAGING ASS J069 ACUTE UPPER 02-14-2015 DIAZ BEN RESPIRATORY INFECTION UNSPECIFIED J329 CHRONIC 02-11-2015 [facility] SINUSITIS UNSPECIFIED R0600 DYSPNEA 01-31-2015 [facility] UNSPECIFIED RADIOLOGY ASSOCIAT N72747 FOOT DROP 01-06-2015 PROGRESSIVE RIGHT FOOT PODIATRY K56639 SPONTANEOUS 01-06-2015 PROGRESSIVE RUPTURE PODIATRY FLEXOR TENDONS RT ANKLE FOOT 06385 DIAB W/O 12-08-2014 [facility] MENTION MEDICAL COMP TYPE II/UNS TYPE UNCNTRL 70730 OSTEOARTHRO 11-11-2014 [facility] SIS UNSPEC MEDICAL WHETHER IMAGING ASS GEN/LOC ANK&FOOT 30273 PAIN IN 11-11-2014 [facility] JOINT, MEDICAL ANKLE AND IMAGING ASS FOOT 83893 CALCANEAL 11-11-2014 [facility] SPUR [facility]ICAL [facility] 7295 PAIN IN 11-11-2014 [facility] SOFT MEDICAL TISSUES OF IMAGING ASS LIMB 734 FLAT FOOT 11-11-2014 [facility] 27838 DIAB W/O 08-30-2014 [facility] COMP TYPE [facility]ARMACY #2 II/UNS NOT STATED UNCNTRL 4659 ACUTE URIS 07-14-2014 DIAZ BEN OF UNSPECIFIED SITE V4989 OTHER SPEC 07-14-2014 DIAZ BEN CONDITIONS INFLUENCING HEALTH STATUS V8541 BODY MASS 07-14-2014 DIAZ BEN INDEX 40.0-44.9 ADULT 87075 VITREOUS 10-07-2013 [facility] DEGENERATIO JAM N 49609 NUCLEAR 09-15-2013 [facility] SCLEROSIS JAM 97091 OTHER 08-18-2013 DIAZ BEN SPECIFIED CARDIAC DYSRHYTHMIA S 7851 PALPITATION 08-18-2013 DIAZ BEN S V8539 BODY MASS 08-18-2013 DIAZ BEN INDEX 39.0-39.9 ADULT 60139 PAIN IN 02-09-2013 DIAZ BEN JOINT, LOWER LEG 462 ACUTE 04-18-2012 FAMILY PHARYNGITIS MEDICINE ASSOC F[facility] 4293 CARDIOMEGAL 12-31-2011 [facility] Y [facility]IOLOG[facility] ASSOCIAT 55058 OTHER 12-31-2011 [facility] RESPIRATORY ABNORMALITI ES V4581 POSTSURGICA 12-31-2011 [facility] L RADIOLOGY AORTOCORONA ASSOCIAT RY BYPASS STATUS 66412 OTHER 01-08-2011 FAMILY ACQUIRED MEDICINE DEFORMITY ASSOC OF ANKLE FLEMIN AND FOOT OTHER 43724 DIAB 01-04-2011 [facility] MANIFESTS TYPE II/UNS NOT UNCNTRL 58465 EFFUSION OF 12-13-2010 [facility] LOWER LEG RADIOLOGY JOINT ASSOCIAT 9599 INJURY 12-13-2010 [facility] OTHER AND RADIOLOGY UNSPECIFIED ASSOCIAT UNSPECIFIED SITE 2722 MIXED 11-14-2010 FAMILY HYPERLIPIDE MEDICINE RICKY ASSOC FLEMIN 4011 ESSENTIAL 11-14-2010 FAMILY HYPERTENSIO MEDICINE N, BENIGN ASSOC FLE[facility] 486 PNEUMONIA, 03-01-2010 FAMILY ORGANISM MEDICINE UNSPECIFIED ASSOC FLEMIN 4660 ACUTE 02-27-2010 [facility] 64451 OTHER 02-27-2010 [facility] DISEASES OF RADIOLOGY LUNG NOT ASSOCIAT ELSEWHERE CLASSIFIED 7931 NONSPEC 02-27-2010 [facility] FIND RAD RADIOLOGY OTH EXAM ASSOCIAT BODY STRUCT LUNG FIELD 78671 COR 02-13-2010 FAMILY ATHEROSLERO MEDICINE UNSPEC ASSOC TYPE VESSEL FLEMIN MENOMINEE/BABITA T 490 BRONCHITIS 02-13-2010 FAMILY NOT MEDICINE SPECIFIED ASSOC ACUTE OR FLEMIN CHRONIC 21201 SWELLING OF 11-30-2009 [facility] LIMB RADIOLOGY ASSOCIAT 2724 OTHER AND 11-28-2009 FAMILY UNSPECIFIED MEDICINE ASSOC HYPERLIPIDE FLEMIN RICKY 4019 UNSPECIFIED 11-28-2009 FAMILY ESSENTIAL MEDICINE HYPERTENSIO ASSOC N FLEMIN 4739 UNSPECIFIED 03-16-2009 FAMILY SINUSITIS MEDICINE ASSOC [place] 05183 UNSPECIFIED 03-15-2009 FAMILY MEDICINE CONJUNCTIVI ASSOC TIS [place] 53537 CHEST PAIN 03-15-2009 FAMILY UNSPECIFIED MEDICINE ASSOC [place] 71999 ACUTE 03-03-2009 FAMILY LARYNGITIS, MEDICINE WITHOUT ASSOC MENTION OF [place] OBSTRUCTIO V0481 NEED 03-03-2009 FAMILY PROPHYLACTI MEDICINE C ASSOC VACCINATION [place] &INOCULATIO N FLU 16804 TIBIALIS 06-15-2008 PAWSAT, TENDINITIS NICK Kleber 5642 UNSPECIFIED 03-29-2008 FAMILY CYSTITIS MEDICINE ASSOC [place] 69807 OTHER 02-12-2008 FAMILY ABNORMAL MEDICINE GLUCOSE ASSOC [place] 7862 COUGH 01-30-2008 [facility]ILY MEDICINE ASSOC [place] 4254 OTHER 01-28-2008 [facility] CARDIOMYOPA JABARI 70690 SHORTNESS 01-28-2008 [facility] 4779 ALLERGIC 09-19-2007 FAMILY RHINITIS MEDICINE CAUSE ASSOC UNSPECIFIED SANDY D64.9 ANEMIA, UNSPECIFIED H83.09 LABYRINTHIT IS, UNSPECIFIED EAR R06.02 SHORTNESS OF BREATH Allergies, Adverse Reactions, Alerts Clinical Alert Notifications Alert Diabetes: no A1C in the last 6 months Diabetes: no eye exam in the last 365 days Diabetes: no influenza vaccine in the last 365 days Diabetes: no lipid panel in the last 365 days Diabetes: no urine protein screening in the last 365 days Medications Na ND Rx Da Fi Fi Am Da Di Ph RX Ph St me C No te ll ll ou ys ag ar # ys at rm s nt no ma ic us Or Da si cy ia de te s n re d BE 68 11 03 5 30 7 TO 71 BA Ac NZ 38 -1 -1 .0 TA 16 CO ti ON 20 5- 2- 00 L 46 N ve AT 24 20 20 CA 0 WI AT 70 10 11 RE LL E 1 IA 10 PH M 0 AR G MG MA CY CA # PS 2 UL E 00 05 03 5 90 90 TO 70 BA Ac PI 60 -2 -0 .0 TA 85 CO ti RI 30 4- 7- 00 L 91 N ve N 16 20 20 CA 4 WI EC 93 10 11 RE LL 2 IA 32 PH M 5 AR G MG MA CY TA # BL 2 ET 00 05 12 5 90 90 TO 70 BA Ac PI 60 -2 -1 .0 TA 85 CO ti RI 30 4- 5- 00 L 91 N ve N 16 20 20 CA 4 WI EC 93 10 10 RE LL 2 IA 32 PH M 5 AR G MG MA CY TA # BL 2 ET 00 05 09 5 90 90 TO 70 BA Ac PI 60 -2 -1 .0 TA 85 CO ti RI 30 4- 7- 00 L 91 N ve N 16 20 20 CA 4 WI EC 93 10 10 RE LL 2 IA 32 PH M 5 AR G MG MA CY TA # BL 2 ET 00 05 06 5 90 90 TO 70 BA Ac PI 60 -2 -1 .0 TA 85 CO ti RI 30 4- 0- 00 L 91 N ve N 16 20 20 CA 4 WI EC 93 10 10 RE LL 2 IA 32 PH M 5 AR G MG MA CY TA # BL 2 ET 00 05 05 3 30 30 TO 70 BA Ac PI 60 -1 -1 .0 TA 20 CO ti RI 30 3- 0- 00 L 60 N ve N 16 20 20 CA 3 WI EC 93 09 10 RE LL 2 IA 32 PH M 5 AR G MG MA CY TA # BL 2 ET 00 05 04 3 30 30 TO 70 BA Ac PI 60 -1 -0 .0 TA 20 CO ti RI 30 3- 8- 00 L 60 N ve N 16 20 20 CA 3 WI EC 93 09 10 RE LL 2 IA 32 PH M 5 AR G MG MA CY TA # BL 2 ET 00 05 03 3 30 30 TO 70 BA Ac PI 60 -1 -0 .0 TA 20 CO ti RI 30 3- 9- 00 L 60 N ve N 16 20 20 CA 3 WI EC 93 09 10 RE LL 2 IA 32 PH M 5 AR G MG MA CY TA # BL 2 ET 00 05 02 [address] 70 BA Ac PI 60 -1 -2 .0 AZ 20 CO ti RI 30 3- 6- 00 A 60 N ve N 16 20 20 PH 3 WI EC 93 09 10 AR LL 2 MA IA 32 CY M 5 G MG TA BL ET 00 05 01 [address] 70 BA Ac PI 60 -1 -1 .0 AZ 20 CO ti RI 30 3- 4- 00 A 60 N ve N 16 20 20 PH 3 WI EC 93 09 10 AR LL 2 MA IA 32 CY M 5 G MG TA BL ET 50 12 12 [address] 70 No Ac 11 -0 -1 .0 AZ 55 t ti 10 7- 7- 00 A 42 Av ve 85 20 20 PH 2 ai 10 09 09 AR la 1 MA bl CY e 00 05 12 [address] 70 BA Ac PI 60 -1 -1 .0 AZ 20 CO ti RI 30 3- 7- 00 A 60 N ve N 16 20 20 PH 3 WI EC 93 09 09 AR LL 2 MA IA 32 CY M 5 G MG TA BL ET 00 05 [address] 70 BA Ac PI 60 -1 -1 .0 AZ 20 CO ti RI 30 3- 9- 00 A 60 N ve N 16 20 20 PH 3 WI EC 93 09 09 AR LL 2 MA IA 32 CY M 5 G MG TA BL ET 00 05 [address] 70 BA Ac PI 60 -1 -2 .0 AZ 20 CO ti RI 30 3- 2- 00 A 60 N ve N 16 20 20 PH 3 WI EC 93 09 09 AR LL 2 MA IA 32 CY M 5 G MG TA BL ET 60 09 [address] 70 BA Ac 25 -2 -0 0. AZ 42 CO ti 80 9- 8- 00 A 64 N ve 23 20 20 0 PH 0 WI 91 09 09 AR LL 6 MA IA CY M G 00 05 09 [address] 70 BA Ac PI 60 -1 -1 .0 AZ 20 CO ti RI 30 3- 0- 00 A 60 N ve N 16 20 20 PH 3 WI EC 93 09 09 AR LL 2 MA IA 32 CY M 5 G MG TA BL ET 00 10 05 [address] 69 BA Ac PI 60 -2 -2 .0 AZ 88 CO ti RI 30 8- 1- 00 A 61 N ve N 16 20 20 PH 6 WI EC 93 08 09 AR LL 2 MA IA 32 CY M 5 G MG TA BL ET 00 10 04 [address] 69 BA Ac PI 60 -2 -2 .0 AZ 88 CO ti RI 30 8- 3- 00 A 61 N ve N 16 20 20 PH 6 WI EC 93 08 09 AR LL 2 MA IA 32 CY M 5 G MG TA BL ET 00 10 01 [address] 69 BA Ac PI 60 -2 -3 .0 AZ 88 CO ti RI 30 8- 0- 00 A 61 N ve N 16 20 20 PH 6 WI EC 93 08 09 AR LL 2 MA IA 32 CY M 5 G MG TA BL ET 00 10 [address] 69 BA Ac PI 60 -2 -0 .0 AZ 88 CO ti RI 30 8- 1- 00 A 61 N ve N 16 20 20 PH 6 WI EC 93 08 09 AR LL 2 MA IA 32 CY M 5 G MG TA BL ET 00 10 [address] 69 BA Ac PI 60 -2 -0 .0 AZ 88 CO ti RI 30 8- 4- 00 A 61 N ve N 16 20 20 PH 6 WI EC 93 08 08 AR LL 2 MA IA 32 CY M 5 G MG TA BL ET 00 10 [address] 69 BA Ac PI 60 -2 -0 .0 AZ 88 CO ti RI 30 8- 7- 00 A 61 N ve N 16 20 20 PH 6 WI EC 93 08 08 AR LL 2 MA IA 32 CY M 5 G MG TA BL ET 60 05 [address] 69 No Ac 25 -0 -2 0. AZ 63 t ti 80 7- 2- 00 A 37 Av ve 23 20 20 0 PH 2 ai 91 08 08 AR la 6 MA bl CY e Immunization Name Date Route CVX Reacti Commen Provid Is Given on t er Refuse d IIV3 DIAZ, No VACCIN 2007 E WILLIA SPLIT M G VIRUS 0.5 ML DOSAGE IM USE Procedures Procedure DOS Code Location Performer Comment ECG [id number] [facility] GIGI ROUTINE 7 PHYSICIAN ECG S GROUP W/LEAST 12 LDS W/I&R STANDARD K0001 MAY[facility] MAYA WHEELCHAI 7 HOME HOME R MEDICAL MEDICAL EQUIPME EQUIPME STANDARD K0001 MAYA MAYA WHEELCHAI 7 HOME HOME R MEDICAL MEDICAL EQUIPME [facility]QUIPME [facility] ECG S GROUP W/LEAST 12 LDS W/I&R STANDARD K0001 MAYA MAYA WHEELCHAI 7 HOME HOME R MEDICAL MEDICAL EQUIPME EQUIPME COLLECTIO 42996 [facility] ME[facility] N VENOUS 7 W W BLOOD REGIONAL REGIONAL VENIPUNCT MEDICAL MEDICAL URE BASIC 57476 [facility] MEADOW[facility]IE METABOLIC 7 W W PANEL REGIONAL REGIONAL CALCIUM MEDICAL MEDICAL TOTAL BASIC 17832 [facility] ME[facility]IE METABOLIC 7 W W PANEL REGIONAL REGIONAL CALCIUM MEDICAL MEDICAL TOTAL COLLECTIO 92695 [facility] MEADOWVIE N VENOUS 7 W W BLOOD REGIONAL REGIONAL VENIPUNCT MEDICAL MEDICAL URE STANDARD K0001 MAYA MAYA WHEELCHAI 7 HOME HOME R MEDICAL MEDICAL EQUIPME EQUIPME ECG 52137 [facility] PHYSICIAN ECG S GROUP W/LEAST 12 LDS W/I&R ADLT SZD T4528 DAVID HERNANDEZ DISPBL 7 HOME HLTH HOME HLTH INCONT AGENCY AGENCY PROD UNDWEAR XTRA LG EA INCONTINE T4541 DAVID HERNANDEZ NCE 7 HOME HLTH HOME HLTH PRODUCT AGENCY AGENCY DISPOSABL E UNDPAD LARGE EA ECHO 80872 [facility] R-T 7 VALLEY 2D HEART W/WOM-MOD E COMPL SPEC&COLR D ECG 56419 [facility] GIGI ROUTINE 7 PHYSICIAN ECG S GROUP W/LEAST 12 LDS W/I&R STANDARD K0001 MAY[facility] CUNNINGHAM 7 HOME HOME R MEDICAL MEDICAL EQUIPME EQUIPME RADIOLOGI 48190 [facility] EXAM 7 CHEST 2 RADIOLOGY VIEWS ASSOCIAT FRONTAL&L ATERAL TECHNETIU A9502 [facility] TC-99M [address] [place] [address] TETROFOSM IN DX PER STUDY DOSE CV STRS [address] XERS&/OR RX CONT ECG TRCG ONLY INJECTION [id number] [address] [place] ON 0.1 MG CV STRS 18412 [facility] TST 6 NE HEALTH III XERS&/OR MEDICAL RX CONT G ECG I&R ONLY STANDARD K0001 MAY[facility] KERRI 6 HOME HOME R MEDICAL MEDICAL EQUIPME EQUIPME MYOCARDIA 22894 [facility] SPECT [address] [place] [address] MULTIPLE STUDIES ECG 24562 [facility] ROUTINE 6 NE HEALTH NE HEALTH ECG MEDICAL MEDICAL W/LEAST G G 12 LDS W/I&R CONTINUOU E0601 MAYA TREJO S 6 HOME HOME POSITIVE MEDICAL MEDICAL AIRWAY EQUIPME EQUIPME PRESSURE DEVICE STANDARD K0001 MAY[facility] CUNNINGHAM 6 HOME HOME R MEDICAL MEDICAL EQUIPME EQUIPME INJECTION J3420 FAMILY GOODMAN VIT B-12 6 MEDICINE ASSOC CYANOCOBA FLEMIN VIPUL TO 1000 MCG THERAPEUT 66260 FAMILY GOODMAN IC 6 MEDICINE PROPHYLAC ASSOC TIC/DX FLEMIN INJECTION SUBQ/IM PRTBLE E0431 MAY[facility] TREJO GASEOUS 6 HOME HOME O2 SYS MEDICAL MEDICAL RENT; EQUIPME EQUIPME FLWMTR HUMIDFR&M ASK O2 CONC 1 E1390 MAYA BUTTS PORT 6 HOME HOME 85%/>02 MEDICAL MEDICAL CONC AT EQUIPME EQUIPME PRSC FLW RATE INJECTION J3420 FAMILY VIT B-12 6 MEDICINE MEDICINE ASSOC ASSOC CYANOCOBA FLEMIN FLEMIN VIPUL TO 1000 MCG INJECTION J3420 FAMILY MONTAGUEGATE VIT B-12 6 MEDICINE AMA ASSOC CYANOCOBA FLEMIN VIPUL TO 1000 MCG THERAPEUT 39657 FAMILY CARMONA IC 6 MEDICINE AMA PROPHYLAC ASSOC TIC/DX FLEMIN INJECTION SUBQ/IM ECG 53371 [facility] ROUTINE 6 NE HEALTH NE HEALTH ECG MEDICAL MEDICAL W/LEAST G G 12 LDS W/I&R INJECTION J3420 FAMILY GOODMAN JENNIFER VIT B-12 6 MEDICINE ASSOC CYANOCOBA FLEMIN VIPUL TO 1000 MCG THERAPEUT 06776 FAMILY GOODMAN JENNIFER IC 6 MEDICINE PROPHYLAC ASSOC TIC/DX FLEMIN INJECTION SUBQ/IM STANDARD K0001 MAYA HUNTCHAI 6 HOME HOME R MEDICAL MEDICAL EQUIPME EQUIPME CONTINUOU E0601 [facility] TREJO S 6 HOME HOME POSITIVE MEDICAL MEDICAL AIRWAY EQUIPME EQUIPME PRESSURE DEVICE CARDIOVER [id number] ELECTIVE ARRHYTHMI A EXTERNAL ANES [id number] ANESTHESI CORNEA INTEG SYS 6 A ELEC ASSOCIATE CONVERSIO S PSC N ARRHYTHMI RADIOLOGI [id number] EXAMINATI ON CHEST SINGLE VIEW FRONTAL [facility] A4258 ARRIVA 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 A4235 ARRIVA ARRIVA LITHIUM 6 MEDICAL MEDICAL MED NECES SADIA BG MON OWN PT EA NORMAL A4256 ARRIVA ARRIVA LOW AND 6 MEDICAL MEDICAL HIGH CALIBRATO R SOLUTION/ CHIPS BLD GLU A4253 ARRIVA ARRIVA TEST/REAG 6 MEDICAL MEDICAL T STRIPS HOME BLD GLU MON-50 LANCETS A4259 ARRIVA ARRIVA PER BOX 6 MEDICAL MEDICAL OF 100 PRTBLE E0431 [facility] TREJO GASEOUS 6 HOME HOME O2 SYS MEDICAL MEDICAL RENT; EQUIPME EQUIPME [facility] HUMIDFR&M ASK O2 CONC 1 E1390 MAYA TREJO DEL PORT 6 HOME HOME 85%/>02 MEDICAL MEDICAL CONC AT EQUIPME EQUIPME [facility] RATE CONTINUOU E0601 MAYA RICHARDSONRELL S 6 HOME HOME POSITIVE MEDICAL MEDICAL AIRWAY EQUIPME EQUIPME PRESSURE DEVICE NASL A7034 [facility] MAYA INTRFCE 6 HOME HOME POS ARWAY MEDICAL MEDICAL PRSS EQUIPME EQUIPME DEVC W/WO HEAD STRAP HEADGEAR A7035 MAYA MAYA USED 6 HOME HOME W/POSITIV MEDICAL MEDICAL E AIRWAY EQUIPME EQUIPME PRESSURE DEVICE ECG 81510 [facility] ECG MEDICAL MEDICAL W/LEAST G G 12 LDS W/I&R PRTBLE E0431 [facility] TREJO GASEOUS 6 HOME HOME O2 SYS MEDICAL MEDICAL RENT; EQUIPME EQUIPME FLWMTR HUMIDFR&M ASK O2 CONC 1 E1390 MAYA MAYA DEL PORT 6 HOME HOME 85%/>02 MEDICAL MEDICAL CONC AT EQUIPME EQUIPME PRSC FLW RATE CT THORAX [address] W/[place] [address] [facility] DIFFUSING 6 [facility] GRA CAPACITY MEDICAL G PLETHYSMO 70693 [facility] GRAPHY 6 [facility] GRA LUNG MEDICAL VOLUMES G W/WO AIRWAY RESIST BRNCDILAT 40167 [facility] RSPSE 6 [facility] GRA SPMTRY MEDICAL PRE&POST- G BRNCDILAT ADMN TUBING A7037 [facility] TREJO USED WITH 6 HOME HOME POSITIVE MEDICAL MEDICAL AIRWAY EQUIPME EQUIPME PRESSURE DEVICE HUMDIFIR E0562 MAY[facility] TREJO HEATED 6 HOME HOME USED MEDICAL MEDICAL W/POS EQUIPME EQUIPME ARWAY PRESSURE DEVICE FILTER A7038 [facility] DISPBL 6 HOME HOME USED MEDICAL MEDICAL W/POS EQUIPME EQUIPME ARWAY PRESSURE DEVICE FILTER A7039 [facility] NON 6 HOME HOME DISPBL MEDICAL MEDICAL USED EQUIPME EQUIPME W/POS ARWAY PRESS DEVICE CONTINUOU E0601 [facility] S 6 HOME HOME POSITIVE MEDICAL MEDICAL AIRWAY EQUIPME EQUIPME PRESSURE DEVICE POLYSOM 51028 [facility] 6/>YRS 6 [facility] SLEEP 4/> [facility] G0463 [facility] OUTPATIEN 6 [facility] T [facility]IN VISIT ASSESS & MGMT PT PRTBLE E0431 MY[facility] TREJO GASEOUS 6 HOME HOME O2 SYS MEDICAL MEDICAL RENT; EQUIPME EQUIPME FLWMTR HUMIDFR&M ASK O2 CONC 1 E1390 [facility] TREJO DEL PORT 6 HOME HOME 85%/>02 MEDICAL MEDICAL CONC AT EQUIPME EQUIPME PRSC FLW RATE PULMONARY 13403 [facility] STRESS 6 [facility] TESTING MEDICAL MEDICAL SIMPLE G G ECG 55623 [facility] ROUTINE 6 [facility] ECG MEDICAL MEDICAL W/LEAST G G 12 LDS W/I&R RADIOLOGI 54202 [facility] C EXAM [address] [place] [address] CHEST 2 VIEWS FRONTAL&L ATERAL NATRIURET [address] PEPTIDE ECG 47557 [facility] ROUTINE 6 [facility] ECG MEDICAL MEDICAL W/LEAST G G 12 LDS W/I&R ECG 64748 [facility] ROUTINE 6 [facility] ECG MEDICAL MEDICAL W/LEAST G G 12 LDS W/I&R RADIOLOGI 47521 [facility] C EXAM 6 [facility] CHEST 2 RADIOLOGY VIEWS ASSOCIAT FRONTAL&L ATERAL CARDIOVER [address] ELECTIVE ARRHYTHMI A EXTERNAL ECG 55907 [facility] ROUTINE 6 [facility] III ECG MEDICAL W/LEAST G 12 LDS W/I&R NORMAL A4256 ARRIVA ARRIVA LOW AND 6 MEDICAL MEDICAL HIGH CALIBRATO R SOLUTION/ CHIPS ECG 36550 [facility] ROUTINE 6 [facility] ECG MEDICAL MEDICAL W/LEAST G G 12 LDS W/I&R CARDIOVER 41504 [facility] HAKAN ELECTIVE MEDICAL ARRHYTHMI G A EXTERNAL ECG 08072 [facility] MATHEW ROUTINE 6 AMA AMA ECG W/LEAST 12 LDS W/I&R ECG 45318 [facility]PH[facility] STEPH[facility] ROUTINE 6 [facility] ECG INC INC W/LEAST 12 LDS TRCG ONLY W/O I&R CREATINE 87788 STEPH[facility] MITCHELL KINASE 6 [facility] TOTAL INC INC URNLS DIP 17611 [facility] MITCHELL 6 [facility] STICK/TAB INC INC LET REAGENT AUTO MICROSCOP Y BLOOD 62843 STEPHEN MITCHELL COUNT 6 [facility] COMPLETE INC INC AUTO&[place] [address] STEPHEN MITCHELL TROPONIN 6 [facility] QUANTITAT INC INC NANCY ECG 53520 STEPHEN CHEN JR ROUTINE 6 [facility] W/LEAST P 12 LDS I&R ONLY CREATINE 87676 STEPHEN MITCHELL KINASE MB 6 [facility] FRACTION INC INC ONLY COMPREHEN 81720 STEPHEN MITCHELL SIVE 6 [facility] METABOLIC INC INC PANEL NORMAL A4256 ARRIVA ARRIVA LOW AND 6 MEDICAL MEDICAL HIGH CALIBRATO R SOLUTION/ [facility] G8427 FALLIS JOSE MIGUEL ATTSTS 6 MOLLY GAUDENCIO DOC M REC OBTD UPD/REV PT MEDS BMI DOC G8420 FALLIS JOSE MIGUEL W/I 6 MOLLY GAUDENCIO NORMAL ANDREW & NO F/U PLAN REQUIRED NORMAL G8783 FALLIS JOSE MIGUEL BLOOD 6 [facility] GAUDENC[facility] PRESS READING DOC F/U NOT REQUIRED MOST 3046F FALLIS JOSE MIGUEL RECENT 6 MOLLY GAUDENCIO HEMOGLOBI N A1C LEVEL >9.0% INFLUENZA G8484 FALLIS JOSE MIGUEL IMMUN 6 MO[facility] GAUDENC[facility] NOT ADMINISTE RED RSN NOT GIVEN PAIN G8730 FALLIS JOSE MIGUEL ASSESS 6 MOLLY GAUDENCIO DOC POS USING STANDARD TOOL F/U PLAN FALLS 3288F FALLIS JOSE MIGUEL RISK 6 MOLLY GAUDENCIO ASSESSMEN T DOCUMENTE D PNEUMOCOC 4040F FALLIS JOSE MIGUEL FRANCISCO 6 MOLLY GAUDENCIO VACCINE ADMIN RCVD PRIOR CURRENT 1036F FALLIS JOSE MIGUEL TOBACCO 6 MOLLY GAUDENCIO NON-USER CAD CAP COPD PV DM DISCHRG 1111F FALLIS JOSE MIGUEL MEDS 6 MOLLY RATLIFF RECONCILE D W/CURRENT MED LIST PT FALLS 1100F FALLIS JOSE MIGUEL ASSESS 6 MOLLY RATLIFF DOCD 2/> FALLS/FAL L W/INJURY/ YR CT LOWER 76092 STEPHEN MITCHELL EXTREMITY 6 [facility] W/O INC INC CONTRAST MATERIAL [facility] A4258 ARRIVA ARRIVA WERED 5 MEDICAL 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 DIRECTOR FOR LANCET EACH REPL DENZEL A4235 ARRIVA ARRIVA LITHIUM 5 MEDICAL MEDICAL MED NECES SADIA BG MON OWN PT EA BLD GLU A4253 ARRIVA ARRIVA TEST/REAG 5 MEDICAL MEDICAL T STRIPS HOME BLD GLU SAT-50 LANCETS A4259 ARRIVA ARRIVA PER BOX 5 MEDICAL MEDICAL OF 100 NORMAL A4256 ARRIVA ARRIVA LOW AND 5 MEDICAL MEDICAL HIGH CALIBRATO R SOLUTION/ CHIPS INJECTION J0696 DIAZ BEN DIAZ BEN 5 CEFTRIAXO NE SODIUM PER 250 MG INJECTION J3301 DIAZ BEN DIAZ BEN 5 TRIAMCINO LONE ACETONIDE NOS 10 MG INJECTION J2010 IVAN LOVE 5 CARY CARY LINCOMYCI N HCL UP TO 300 MG INJECTION J1100 IVAN LOVE 5 CARY CARY DEXAMETHO SONE SODIUM PHOSPHATE 1 MG RADIOLOGI 97049 [facility] C EXAM [address] HOSPITAL VIEWS FRONTAL&L ATERAL ADD LW L2820 PROGRESSI PROGRESSI EXT ORTH 5 VE VE SFT PODIATRY PODIATRY INTERFCE MOLD BELW KNEE AFO L1970 PROGRESSI PROGRESSI PLASTIC 5 VE VE WITH PODIATRY PODIATRY ANKLE JOINT CUSTOM FABRICATE D NORMAL A4256 ARRIVA ARRIVA LOW AND 5 MEDICAL MEDICAL HIGH CALIBRATO R SOLUTION/ CHIPS RADEX 72514 [facility] FOOT 5 MEDICAL COMPLETE IMAGING MINIMUM 3 ASS VIEWS RADEX 42225 [facility] ALL ANKLE 5 MEDICAL COMPLETE IMAGING MINIMUM 3 ASS VIEWS NORMAL A4256 ARRIVA ARRIVA LOW AND 5 MEDICAL MEDICAL HIGH CALIBRATO R SOLUTION/ CHIPS FOR DIAB A5513 TOTAL TOTAL ONLY MX 5 CARE CARE DNSITY PHARMACY PHARMACY INSRT #2 #2 CSTM MOLD CSTM EA DIAB ONLY A5500 TOTAL TOTAL FIT CSTM 5 CARE CARE PREP&SPL PHARMACY PHARMACY SHOE MX #2 #2 DNSITY INSRT INJECTION J2010 DIAZ BEN DIAZ BEN 5 LINCOMYCI N HCL UP TO 300 MG INJECTION J1030 DIAZ BEN DIAZ BEN 5 METHYLPRE DNISOLONE ACETATE 40 MG SPRING-PO A4258 ARRIVA ARRIVA WERED 5 MEDICAL PLANT DIRECTOR FOR LANCET EACH REPL DENZEL A4235 ARRIVA ARRIVA LITHIUM 5 MEDICAL MEDICAL MED NECES SADIA BG MON OWN PT EA LANCETS A4259 ARRIVA ARRIVA PER BOX 5 MEDICAL MEDICAL OF 100 NORMAL A4256 ARRIVA ARRIVA LOW AND 5 MEDICAL MEDICAL HIGH CALIBRATO R SOLUTION/ CHIPS BLD GLU A4253 ARRIVA ARRIVA TEST/REAG 5 MEDICAL MEDICAL T STRIPS HOME BLD GLU MON-50 LANCETS A4259 ARRIVA ARRIVA PER BOX 4 MEDICAL MEDICAL OF 100 NORMAL A4256 ARRIVA ARRIVA LOW AND 4 MEDICAL MEDICAL HIGH CALIBRATO R SOLUTION/ CHIPS BLD GLU A4253 ARRIVA ARRIVA TEST/REAG 4 MEDICAL MEDICAL T STRIPS HOME BLD GLU MON-50 SPRING-PO A4258 ARRIVA ARRIVA WERED 4 MEDICAL PLANT DIRECTOR FOR LANCET EACH REPL DENZEL A4235 ARRIVA ARRIVA LITHIUM 4 MEDICAL MEDICAL MED NECES SADIA BG MON OWN PT EA BLD GLU A4253 ARRIVA ARRIVA TEST/REAG 4 MEDICAL MEDICAL T STRIPS HOME BLD GLU MON-50 LANCETS A4259 ARRIVA ARRIVA PER BOX 4 MEDICAL MEDICAL OF 100 NORMAL A4256 ARRIVA ARRIVA LOW AND 4 MEDICAL MEDICAL HIGH CALIBRATO R SOLUTION/ CHIPS OPHTHALMO 76279 NEHE[facility] CERNA SCPY 4 GENESIS HURTADO EXTENDED RETINAL DRAWING I&R 1ST OPHTHALMO 77984 NEHEMIAH CERNA SCPY 4 GENESIS HURTADO EXTENDED RETINAL DRAWING I&R 1ST CATARACT 82209 [place] [facility] REMOVAL 4 [facility] DIAB ONLY A5500 TOTAL TOTAL FIT CSTM 4 CARE CARE PREP&SPL PHARMACY PHARMACY SHOE MX #2 #2 DNSITY INSRT NORMAL A4256 ARRIVA ARRIVA LOW AND 4 MEDICAL MEDICAL HIGH CALIBRATO R SOLUTION/ CHIPS LANCETS A4259 ARRIVA ARRIVA PER BOX 4 MEDICAL MEDICAL OF 100 BLD GLU A4253 ARRIVA ARRIVA TEST/REAG 4 MEDICAL MEDICAL T STRIPS HOME BLD GLU MON-50 OPHTHALMO 45998 NEHEMIAH CERNA SCPY 4 JAM JAM EXTENDED RETINAL DRAWING I&R 1ST ECG 17628 DIAZ BEN DIAZ BEN ROUTINE 4 ECG W/LEAST 12 LDS W/I&R OPHTHALMO 20986 NEHEMIAH CERNA SCPY 4 JAM JAM EXTENDED RETINAL DRAWING I&R 1ST CATARACT 49711 [facility] CERNA REMOVAL 4 JAM JAM INSERTION OF LENS SPRING-PO A4258 ARRIVA ARRIVA WERED 4 MEDICAL PLANT DIRECTOR FOR LANCET EACH LANCETS A4259 ARRIVA ARRIVA PER BOX 4 MEDICAL MEDICAL OF 100 NORMAL A4256 ARRIVA ARRIVA LOW AND 4 MEDICAL MEDICAL HIGH CALIBRATO R SOLUTION/ CHIPS BLD GLU A4253 ARRIVA ARRIVA TEST/REAG 4 MEDICAL MEDICAL T STRIPS HOME BLD GLU MON-50 REPL DENZEL A4235 ARRIVA ARRIVA LITHIUM 4 MEDICAL MEDICAL MED NECES SADIA BG MON OWN PT EA INJECTION J2010 DIAZ BEN DIAZ BEN 3 LINCOMYCI N HCL UP TO 300 MG INJECTION J1885 DIAZ EBN DIAZ BEN 3 KETOROLAC TROMETHAM INE PER 15 MG NORMAL A4256 ARRIVA ARRIVA LOW AND 3 MEDICAL MEDICAL HIGH CALIBRATO R SOLUTION/ CHIPS BLD GLU A4253 ARRIVA ARRIVA TEST/REAG 3 MEDICAL MEDICAL T STRIPS HOME BLD GLU MON-50 LANCETS A4259 ARRIVA ARRIVA PER BOX 3 MEDICAL MEDICAL OF 100 DIAB ONLY A5500 TOTAL TOTAL FIT CSTM 3 CARE CARE PREP&SPL PHARMACY PHARMACY SHOE MX #2 #2 DNSITY INSRT HOME E0607 ARRIVA ARRIVA BLOOD 3 MEDICAL MEDICAL GLUCOSE MONITOR BLD GLU A4253 ARRIVA ARRIVA TEST/REAG 3 MEDICAL MEDICAL T STRIPS HOME BLD GLU MON-50 LANCETS A4259 ARRIVA ARRIVA PER BOX 3 MEDICAL MEDICAL OF 100 INJECTION J2010 FAMILY MATHEW 3 MEDICINE AMA LINCOMYCI ASSOC N HCL UP FLEMIN TO 300 MG BLD GLU A4253 [facility] TEST/REAG 2 MEDICAL MEDICAL T STRIPS SUPPLY SUPPLY HOME BLD INC. INC. GLU MON-50 NORMAL A4256 [facility]ERTY LOW AND 2 MEDICAL MEDICAL HIGH SUPPLY SUPPLY CALIBRATO INC. INC. R SOLUTION/ CHIPS LANCETS A4259 [facility] LIBERTY PER BOX 2 MEDICAL MEDICAL OF 100 SUPPLY SUPPLY INC. INC. RADIOLOGI 64013 [facility] C EXAM 2 LILLIAN CHEST 2 RADIOLOGY VIEWS ASSOCIAT FRONTAL&L ATERAL LANCETS A4259 [facility]ERTY PER BOX 2 MEDICAL MEDICAL OF 100 SUPPLY SUPPLY INC. INC. NORMAL A4256 [facility]ERTY LOW AND 2 MEDICAL MEDICAL HIGH SUPPLY SUPPLY CALIBRATO INC. INC. R SOLUTION/ CHIPS BLD GLU A4253 [facility] TEST/REAG 2 MEDICAL MEDICAL T STRIPS SUPPLY SUPPLY HOME BLD INC. INC. GLU MON-50 SPRING-PO A4258 [facility] LIBERTY WERED 2 MEDICAL PLANT DIRECTOR SUPPLY SUPPLY FOR INC. INC. LANCET EACH NORMAL A4256 [facility]ERTY LOW AND 2 MEDICAL MEDICAL HIGH SUPPLY SUPPLY CALIBRATO R SOLUTION/ CHIPS LANCETS A4259 LIB[facility] LIBERTY PER BOX 2 MEDICAL MEDICAL OF 100 SUPPLY SUPPLY BLD GLU A4253 [facility] TEST/REAG 2 MEDICAL MEDICAL T STRIPS SUPPLY SUPPLY HOME BLD GLU SAT-50 REPL DENZEL A4235 [facility] LIBERTY LITHIUM 2 MEDICAL MEDICAL MED NECES SUPPLY SUPPLY SADIA BG MON OWN PT EA FOR DIAB A5512 [facility] ONLY MX 1 O AND P O AND P DNSITY [facility] INSRT DIR FORMD PRFAB EA ADD LW L2820 [facility] EXT ORTH 1 O AND P O AND P SFT [facility] INTERFCE MOLD BELW KNEE ADD LW L2275 [facility] EXTRM 1 O AND P O AND P VARUS/VUL [facility] CORNELIO DARRYL PLSTC MOD PADD/LN DIAB ONLY A5500 [facility] FIT CSTM 1 O AND P O AND P PREP&SPL [facility] SHOE MX DNSITY INSRT AFO L1960 [facility] POSTERIOR 1 O AND P O AND P SOLID [facility] ANK PLASTIC CUSTOM XOCHITL INJECTION J1885 FAMILY DIAZ BEN 1 MEDICINE KETOROLAC ASSOC FLEMIN TROMETHAM INE PER 15 MG INJECTION J1030 FAMILY DIAZ BEN 1 MEDICINE METHYLPRE ASSOC DNISOLONE FLEMIN ACETATE 40 MG RADIOLOGI 56608 [facility] C EXAM 1 CO [facility] COMPLETE 4/MORE VIEWS LANCETS A4259 [facility]ERTY PER BOX 1 MEDICAL MEDICAL OF 100 SUPPLY SUPPLY BLD GLU A4253 [facility] TEST/REAG 1 MEDICAL MEDICAL T STRIPS SUPPLY SUPPLY HOME BLD GLU MON-50 NORMAL A4256 [facility] LOW AND 1 MEDICAL MEDICAL HIGH SUPPLY SUPPLY CALIBRATO R SOLUTION/ CHIPS LANCETS A4259 [facility] LIBERTY PER BOX 1 MEDICAL MEDICAL OF 100 SUPPLY SUPPLY BLD GLU A4253 [facility] TEST/REAG 1 MEDICAL MEDICAL T STRIPS SUPPLY SUPPLY HOME BLD GLU MON-50 REPL DENZEL A4235 [facility]ERTY LITHIUM 1 MEDICAL MEDICAL MED NECES SUPPLY SUPPLY SADIA BG MON OWN PT EA SPRING-PO A4258 [facility] LIBERTY WERED 1 MEDICAL PLANT DIRECTOR SUPPLY SUPPLY FOR LANCET EACH BLD GLU A4253 [facility] TEST/REAG 1 MEDICAL MEDICAL T STRIPS SUPPLY SUPPLY HOME BLD GLU MON-50 INJECTION J0696 FAMILY DIAZ BEN 0 MEDICINE CEFTRIAXO ASSOC NE SODIUM FLEMIN PER 250 MG RADIOLOGI 72783 [facility] C EXAM 0 CO AL CHEST 2 [facility] VIEWS FRONTAL&L ATERAL INJECTION J0696 FAMILY DIAZ BEN 0 MEDICINE CEFTRIAXO ASSOC NE SODIUM FLEMIN PER 250 MG INJECTION J2010 FAMILY DIAZ BEN 0 MEDICINE LINCOMYCI ASSOC N HCL UP FLEMIN TO 300 MG BLD GLU A4253 [facility] TEST/REAG 0 MEDICAL MEDICAL T STRIPS SUPPLY SUPPLY HOME BLD GLU MON-50 LANCETS A4259 [facility] LIBERTY PER BOX 0 MEDICAL MEDICAL OF 100 SUPPLY SUPPLY NORMAL A4256 [facility] LOW AND 0 MEDICAL MEDICAL HIGH SUPPLY SUPPLY CALIBRATO R SOLUTION/ CHIPS DUP-SCAN 61689 [facility] IQBAL XTR VEINS 0 [facility]AC[facility] RADIOLOGY UN[facility]ATERA ASSOCIAT L/LIMITED STUDY LANCETS A4259 [facility]ERTY PER BOX 0 MEDICAL MEDICAL OF 100 SUPPLY SUPPLY BLD GLU A4253 [facility] TEST/REAG 0 MEDICAL MEDICAL T STRIPS SUPPLY SUPPLY HOME BLD GLU MON-50 NORMAL A4256 [facility]ERTY LOW AND 0 MEDICAL MEDICAL HIGH SUPPLY SUPPLY CALIBRATO R SOLUTION/ CHIPS BLD GLU A4253 [facility] TEST/REAG 0 MEDICAL MEDICAL T STRIPS SUPPLY SUPPLY HOME BLD GLU MON-50 LANCETS A4259 LIB[facility] LIBERTY PER BOX 0 MEDICAL MEDICAL OF 100 SUPPLY SUPPLY NORMAL A4256 [facility] LOW AND 0 MEDICAL MEDICAL HIGH SUPPLY SUPPLY CALIBRATO R SOLUTION/ CHIPS RADIOLOGI 32011 NAVARRE Min MILLER EXAM 9 PEE S CHEST 2 RADIOLOGY VIEWS FRONTAL&L ASSOCIATE ATERAL S PSC INJECTION J2010 FAMILY DIAZ, 9 MEDICINE VIKKI Downey LINCOMYCI ASSOC N HCL UP FLEMINGSB TO 300 MG INJECTION J2010 FAMILY DIAZ, 9 MEDICINE VIKKI Downey LINCOMYCI ASSOC N HCL UP FLEMINGSB TO 300 MG ADMINISTR G0008 FAMILY KATZON, ATION OF 9 MEDICINE VIKKI Downey INFLUENZA ASSOC VIRUS [place] VACCINE INJECTION J2010 FAMILY DIAZ, 9 MEDICINE VIKKI Downey LINCOMYCI ASSOC N HCL UP FLEMINGSB TO 300 MG DIAB ONLY A5501 [facility] FIT CSTM 9 PHARMACY PHARMACY PREP&SPL SHOE MOLD PTS FT FOR DIAB A5513 [facility] ONLY MX 9 PHARMACY PHARMACY DNSITY INSRT CSTM MOLD CSTM EA LANCETS A4259 [facility] PER BOX 9 MEDICAL MEDICAL OF 100 SUPPLY SUPPLY BLD GLU A4253 [facility] TEST/REAG 9 MEDICAL MEDICAL T STRIPS SUPPLY SUPPLY HOME BLD GLU MON-50 LANCETS A4259 LIB[facility] LIBERTY PER BOX 9 MEDICAL MEDICAL OF 100 SUPPLY SUPPLY BLD GLU A4253 [facility] TEST/REAG 9 MEDICAL MEDICAL T STRIPS SUPPLY SUPPLY HOME BLD GLU MON-50 HEMOGLOBI 43900 [facility] N 9 [facility] SURY A1C LIPID 65166 [facility] PANEL 9 [facility] COMPREHEN 99009 [facility] SIVE 9 [facility] PANEL COLLECTIO 47379 [facility] VENOUS 9 [facility] VENIPUNCT URE RADIOLOGI 43186 [place] [facility]IR[facility], C 9 NICK Shahid EXAMINATI ON FOOT 2 VIEWS STRAPPING 77008 [place] [facility] UNNA 9 NICK Shahid BOOT SPRING-PO A4258 LIB[facility] LIBERTY WERED 9 MEDICAL PLANT DIRECTOR SUPPLY SUPPLY FOR LANCET EACH LANCETS A4259 [facility] LIBERTY PER BOX 9 MEDICAL MEDICAL OF 100 SUPPLY SUPPLY BLD GLU A4253 [facility] TEST/REAG 9 MEDICAL MEDICAL T STRIPS SUPPLY SUPPLY HOME BLD GLU MON-50 NORMAL A4256 [facility]ERTY LOW AND 9 MEDICAL MEDICAL HIGH SUPPLY SUPPLY CALIBRATO R SOLUTION/ CHIPS INJECTION J2010 FAMILY DIAZ, 8 MEDICINE VIKKI Downey LINCOMYCI ASSOC N HCL UP FLEMINGSB TO 300 MG URINLS 69085 FAMILY DIAZ, DIP 8 MEDICINE VIKKI Downey STICK/TAB ASSOC LET [place] REAGNT NON-AUTO MICRSCPY HEMOGLOBI 69028 [facility] 8 [facility] SURY A1C COLLECTIO 42947 [facility] VENOUS 8 [facility] VENIPUNCT URE BLD GLU A4253 [facility] TEST/REAG 8 MEDICAL MEDICAL T STRIPS SUPPLY SUPPLY HOME BLD GLU MON-50 INJECTION J2010 [facility] MAT[facility]W 8 MEDICINE , [place] LINCOMYCI ASSOC N HCL UP FLEMINGSB TO 300 MG INJECTION J1100 [facility] 8 MEDICINE , [place] DEXAMETHO ASSOC SONE [place] SODIUM PHOSPHATE 1 MG RADIOLOGI 02034 [facility] C EXAM 8 CO AL CHEST 2 [facility] VIEWS FRONTAL&L ATERAL NATRIURET 12658 [facility] IC 8 CO AL PEPTIDE [facility] HEMOGLOBI 81069 [facility] N 8 CO AL GLYCOSYLA [facility] SURY A1C LIPID 94643 [facility] PANEL 8 CO [facility] COMPREHEN 62004 [facility] SIVE 8 CO [facility] PANEL COLLECTIO 51407 [facility] N VENOUS 8 CO [facility] VENIPUNCT URE ADMINISTR G0008 FAMILY DIAZ, ATION OF 8 MEDICINE VIKKI G INFLUENZA ASSOC VIRUS F[place]SB VACCINE IIV3 77489 FAMILY DIAZ, VACCINE 8 MEDICINE VIKKI G SPLIT ASSOC VIRUS 0.5 [place] ML DOSAGE IM USE A4258 LIB[facility] LIBERTY WERED 8 MEDICAL PLANT DIRECTOR SUPPLY SUPPLY FOR LANCET EACH LANCETS A4259 LIB[facility] LIBERTY PER BOX 8 MEDICAL MEDICAL OF 100 SUPPLY SUPPLY BLD GLU A4253 [facility] TEST/REAG 8 MEDICAL MEDICAL T STRIPS SUPPLY SUPPLY HOME BLD GLU MON-50 INJECTION J2010 FAMILY MATHEW 8 MEDICINE , [place] LINCOMYCI ASSOC N HCL UP FLEMINGSB TO 300 MG INJECTION J1100 [facility] 8 MEDICINE , [place] DEXAMETHO ASSOC SONE [place] SODIUM PHOSPHATE 1 MG LANCETS A4259 LIB[facility] LIBERTY PER BOX 8 MEDICAL MEDICAL OF 100 SUPPLY SUPPLY NORMAL A4256 [facility] LOW AND 8 MEDICAL MEDICAL HIGH SUPPLY SUPPLY CALIBRATO R SOLUTION/ CHIPS BLD GLU A4253 [facility] TEST/REAG 8 MEDICAL MEDICAL T STRIPS SUPPLY SUPPLY HOME BLD GLU SAT-50 INJECTION J0696 [facility] D[facility]Z, 8 MEDICINE VIKKI Downey CEFTRIAXO ASSOC NE SODIUM FLEMINGSB PER 250 MG INJECTION J3301 FAMILY DIAZ, 8 MEDICINE VIKKI Downey TRIAMCINO ASSOC LONE [place] ACETONIDE NOS 10 MG INJECTION J2010 FAMILY DIAZ, 8 MEDICINE VIKKI Downey LINCOMYCI ASSOC N HCL UP FLEMINGSB TO 300 MG INJECTION J1100 [facility] DIAZ, 8 MEDICINE VIKKI Downey DEXAMETHO ASSOC SONE [place] SODIUM PHOSPHATE 1 MG INJECTION J1100 [facility] 8 MEDICINE MEDICINE DEXAMETHO ASSOC ASSOC SONE FLEMINGSB F[place]INGSB SODIUM PHOSPHATE 1 MG INJECTION J0696 [facility] 8 MEDICINE MEDICINE CEFTRIAXO ASSOC ASSOC NE SODIUM FLEMINGSB FLEMINGSB PER 250 MG NORMAL A4256 [facility] LOW AND 8 MEDICAL MEDICAL HIGH SUPPLY SUPPLY CALIBRATO R SOLUTION/ CHIPS SPRING-PO A4258 LIB[facility] LIBERTY WERED 8 MEDICAL PLANT DIRECTOR SUPPLY SUPPLY FOR LANCET EACH LANCETS A4259 [facility]ERTY PER BOX 8 MEDICAL MEDICAL OF 100 SUPPLY SUPPLY BLD GLU A4253 [facility] TEST/REAG 8 MEDICAL MEDICAL T STRIPS SUPPLY SUPPLY HOME BLD GLU Encounters Encounter Start End Date Code Location Performer Type Date OFFICE 39896 [facility] GIIG OUTPATIEN 7 7 PHYSICIAN T VISIT S GROUP 25 MINUTES OFFICE 39626 [facility] GIGI OUTPATIEN 7 7 PHYSICIAN T VISIT S GROUP 25 MINUTES [facility] 7 7 W OUTPATIEN REGIONAL T MEDICAL OFFICE 42080 [facility] GIGI OUTPATIEN 7 7 PHYSICIAN T VISIT S GROUP 25 MINUTES [facility] - 7 7 W OUTPATIEN REGIONAL T MEDICAL [facility]ICE 20325 [facility] 7 7 MEDICINE T VISIT ASSOC 25 FLEMIN MINUTES HOME [facility], 7 7 HOME [facility] INPATIENT AGENCY OFFICE 01130 [facility] 7 7 PHYSICIAN T NEW 60 S GROUP MINUTES HOSPITAL [address] T OFFICE [address]1847 PATRIA CANO [facility] 6 6 [facility] BEN T VISIT MEDICAL 15 G MINUTES OFFICE 94435 [facility] 6 6 [facility] BEN T VISIT MEDICAL 25 G MINUTES [facility] [address] T OFFICE 50601 [facility] [address] [place] [address] 45 HEMATOLOG MINUTES [facility] [address] [place] - [address] [place] [address] T OFFICE 57404 PATRIA CASTILLO [facility] 6 6 [facility] III T VISIT MEDICAL 15 G MINUTES [facility] [address] OFFICE 74059 BOMAGGIE FRANCIS [facility] 6 6 PHYSCIAN LES T NEW 30 PRACTICE MINUTES [facility] - 6 6 [facility] OUTPATIEN INC T EMERGENCY 63120 [facility] 6 6 [facility] DEPARTMEN INC T VISIT MODERATE SEVERITY OFFICE 87886 FALLIS JOSE MIGUEL OUTPATIEN 6 6 MOLLY GAUDENCIO T VISIT 15 MINUTES OFFICE 86683 JOSE MIGUEL JOSE MIGUEL OUTPATIEN 6 6 GAUDENCIO GAUDENCIO T VISIT 15 MINUTES HOSP[facility] - 6 6 [facility] [id number] [facility] VE VE T VISIT PODIATRY PODIATRY 15 MINUTES OFFICE 73003 DIAZ BEN DIAZ BEN OUTPATIEN 5 5 T VISIT 25 MINUTES OFFICE 95656 IVAN RAYAER [facility] 5 5 [place] T VISIT 25 MINUTES [facility] [address] [facility] - 5 5 [facility] OFF[facility] 90203 DIAZ BEN DIAZ BEN OUTPATIEN 5 5 T VISIT 25 MINUTES OFFICE 31823 FAMILY MATHEW OUTPATIEN 3 3 MEDICINE AMA T VISIT ASSOC 25 FLEMIN MINUTES [facility] - 2 2 [facility] T OFFICE 22832 FAMILY DIAZ BEN OUTPATIEN 1 1 MEDICINE T VISIT ASSOC 25 FLEMIN MINUTES OFFICE 14903 FAMILY DIAZ BEN OUTPATIEN 1 1 MEDICINE T VISIT ASSOC 25 FLEMIN MINUTES [facility] - 1 1 [facility] T OFFICE 91097 FAMILY DIAZ BEN OUTPATIEN 1 1 MEDICINE T VISIT ASSOC 25 FLEMIN MINUTES OFFICE 61089 FAMILY DIAZ BEN OUTPATIEN 0 0 MEDICINE T VISIT [facility] 15 FLEMIN MINUTES [facility] - 0 0 [facility] T OFFICE 74057 FAMILY DIAZ BEN OUTPATIEN 0 0 MEDICINE T VISIT ASSOC 25 FLEMIN MINUTES OFFICE 18297 FAMILY DIAZ BEN OUTPATIEN 0 0 MEDICINE T VISIT ASSOC 25 FLEMIN MINUTES [facility] MAYES - 0 0 [facility] T OFFICE 51390 FAMILY DIAZ BEN OUTPATIEN 0 0 MEDICINE T VISIT ASSOC 25 FLEMIN MINUTES [facility] MAYES - 9 9 [facility] T OFFICE 86278 FAMILY DIAZ, OUTPATIEN 9 9 MEDICINE VIKKI [place] T VISIT [facility] 15 [place] MINUTES OFFICE 56141 FAMILY DIAZ, OUTPATIEN 9 9 MEDICINE VIKKI [place] T [facility] 15 [place] MINUTES OFFICE 54201 FAMILY DIAZ, OUTPATIEN 9 9 MEDICINE VIKKI [place] T [facility]IS[facility] 15 [place] MINUTES OFFICE 42532 FAMILY DIAZ, OUTPATIEN 9 9 MEDICINE VIKKI Downey T VISIT [facility]OC 15 [place] MINUTES [facility] MAYES - 9 9 [facility] T OFFICE 84436 FAMILY DIAZ, OUTPATIEN 9 9 MEDICINE VIKKI [place]ney T VISIT [facility] 25 [place] MINUTES OFFICE 47906 FAMILY DIAZ, OUTPATIEN 9 9 MEDICINE VIKKI [place] T [facility] 15 [place] MINUTES OFFICE 65422 PAWSAT, PAWSAT, OUTPATIEN 9 9 NICK Shahid T VISIT 10 MINUTES OFFICE 43554 FAMILY DIAZ, OUTPATIEN 9 9 MEDICINE VIKKI [place] T VISIT [facility] 15 [place] MINUTES OFFICE 61798 PAWSAT, PAWSAT, OUTPATIEN 9 9 NICK Shahid T VISIT 15 MINUTES OFFICE 71479 FAMILY DIAZ, OUTPATIEN 9 9 MEDICINE VIKKI [place] T VISIT [facility] 15 [place] MINUTES OFFICE 28241 FAMILY DIAZ, OUTPATIEN 9 9 MEDICINE VIKKI G T VISIT ASSOC 25 [place] MINUTES OFFICE 19535 FAMILY DIAZ, OUTPATIEN 8 8 MEDICINE VIKKI Oliva VISIT [facility] 15 [place] MINUTES [facility] - 8 8 [facility] T OFFICE 45003 FAMILY DIAZ, OUTPATIEN 8 8 MEDICINE [facility] 15 [place] MINUTES OFFICE 69981 FAMILY DIAZ, OUTPATIEN 8 8 MEDICINE VIKKI [facility] 15 [place] MINUTES OFFICE 62631 FAMILY MATHEW OUTPATIEN 8 8 MEDICINE [place] T VISIT ASSOC 15 [place] MINUTES [facility] - 8 8 [facility] T OFFICE 79904 FAMILY DIAZ, OUTPATIEN 8 8 MEDICINE VIKKI [facility] 25 [place] MINUTES OFFICE 03251 FAMILY MATHEW OUTPATIEN 8 8 MEDICINE [place] T VISIT [facility] 15 [place] MINUTES OFFICE 10739 FAMILY DIAZ, OUTPATIEN 8 8 MEDICINE [facility] 25 [place] MINUTES OFFICE 35163 FAMILY DIAZ, OUTPATIEN 8 8 [facility] 15 [place] MINUTES OFFICE 62811 FAMILY DIAZ, OUTPATIEN 8 8 MEDICINE [facility] 15 [place] MINUTES OFFICE [id number] FAMILY FAMILY OUTPATIEN 8 8 MEDICINE MEDICINE T VISIT ASSOC ASSOC 15 FLEMINGSB FLEMINGSB MINUTES
--- OUTSIDE RECORDS SUMMARY | 2016-09-17 13:09 | External Medical Summary Rpt ---
Author Author , Organization [employer] Address Unknown Phone Unavailable Care Team Providers Care [employer] Worker Name Role Phone MATHEW, MATHEW Unavailable Unavailable [...] MIGUEL GAUDENCIO, JOSE MIGUEL Unavailable Unavailable GAUD[facility] Unavailable Unavailable [facility], [facility] Unavailable Unavailable [facility], [facility] GRAC[facility], IQBAL Unavailable Unavailable GRACIE CORNEA, CORNEA Unavailable Unavailable FALLIS MOLLY, FALLIS Unavailable Unavailable MOLLY FALLUJI HAKAN, FALLUJI Unavailable Unavailable [facility] Unavailable Unavailable [facility], [facility], Unavailable Unavailable [facility] Unavailable Unavailable [facility], Unavailable Unavailable [facility], Unavailable Unavailable [facility]AG[facility]IL[facility] BEARD, Unavailable Unavailable [facility] Unavailable Unavailable INC, [facility] Unavailable Unavailable HOSPITAL P, [facility] P ANGELA MILLER Unavailable Unavailable ANGELA SNYDER, ANGELA Unavailable Unavailable LILLIAN PEE MILLER, Unavailable Unavailable PEE MILLER [facility] Unavailable Unavailable AGENCY, [facility], Unavailable Unavailable [facility] Unavailable Unavailable [facility], [facility] Unavailable Unavailable MEDICAL G, [facility] APRIL JR DWI, APRIL Unavailable Unavailable JR DWI [facility] Unavailable Unavailable CENTER, [facility] Unavailable Unavailable [facility], [facility] Unavailable Unavailable [facility] MAGALI, MAGALI Unavailable Unavailable NEHEMIAH HURTADO, Unavailable Unavailable CERNAJANUSZ CERNA JAM, Unavailable Unavailable ECRNA JAM [facility] Unavailable Unavailable ASSOCIAT, [facility] Unavailable Unavailable MEDICAL, [facility] MEDICAL [facility], Unavailable Unavailable [facility] NICK PIRES, Unavailable Unavailable NICK PIRES [...] Unavailable Unavailable EQUIPME, [facility], Unavailable Unavailable [facility], Unavailable Unavailable [facility] SUHL ELLEN, SUHL ELLEN Unavailable Unavailable JONATHAN [...] DOS Provider Status E119 TYPE 2 08-22-2016 [facility] DIABETES PHYSICIANS MELLITUS GROUP WITHOUT COMPLICATIO NS E669 OBESITY 08-22-2016 [facility] UNSPECIFIED PHYSICIANS GROUP E785 HYPERLIPIDE 08-22-2016 [facility] RICKY PHYSICIANS UNSPECIFIED GROUP G4733 OBSTRUCTIVE 08-22-2016 [facility] SLEEP PHYSICIANS APNEA ADULT GROUP PEDIATRIC I10 ESSENTIAL 08-22-2016 [facility] PRIMARY PHYSICIANS HYPERTENSIO GROUP N I2510 ASHD BENT[place] 08-22-2016 [facility] 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 ANGINA PECTORIS I4891 UNSPECIFIED 08-22-2016 [facility] ATRIAL PHYSICIANS FIBRILLATIO GROUP N R5383 OTHER 08-22-2016 [facility] FATIGUE PHYSICIANS GROUP I480 PAROXYSMAL 08-17-2016 [facility] ATRIAL HOME FIBRILLATIO MEDICAL N EQUIPME R600 LOCALIZED 08-17-2016 [facility] EDEMA HOME MEDICAL EQUIPME E6601 MORBID 06-21-2016 [facility] SEVERE PHYSICIANS OBESITY DUE GROUP TO EXCESS CALORIES [id number] ATHEROSCLER 06-21-2016 [facility] OSIS CABG PHYSICIANS WITHOUT GROUP ANGINA PECTORIS I5020 UNSPECIFIED 06-21-2016 [facility] SYSTOLIC PHYSICIANS CONGESTIVE GROUP HEART FAILURE N182 CHRONIC 06-01-2016 [facility] DISEASE MEDICAL STAGE 2 MILD R0602 SHORTNESS 05-24-2016 [facility] OF BREATH PHYSICIANS GROUP J449 CHRONIC 05-17-2016 [facility] PULMONARY AGENCY ON DISEASE UNS Z6838 BODY MASS 05-14-2016 FAMILY INDEX BMI MEDICINE 38.0-38.9 ASSOC ADULT [facility] Z789 OTHER 05-14-2016 FAMILY SPECIFIED MEDICINE HEALTH ASSOC STATUS FLEMIN I129 HYPERTENSIV 04-24-2016 [facility] W/STAGE 1-4 AGENCY CKD OR UNS CKD [id number] ASHD BENT[place] 04-24-2016 [facility] W/UNSTABLE AGENCY ANGINA PECTORIS E85358 CELLULITIS 04-24-2016 [facility] LEFT HOME HL[facility] LOWER LIMB AGENCY O28767 PRESSURE 04-24-2016 [facility] RIGHT AGENCY BUTTOCK STAGE 2 N183 CHRONIC 04-24-2016 [facility] DISEASE AGENCY STAGE 3 MODERATE I200 UNSTABLE 04-20-2016 [facility] ANGINA HEART I208 OTHER FORMS 04-19-2016 [facility] OF ANGINA PHYSICIANS PECTORIS GROUP R0902 HYPOXEMIA 04-19-2016 [facility] Z720 TOBACCO USE 04-19-2016 [facility] Z951 PRESENCE OF 04-19-2016 [facility] A[facility]ORONA ASSOCIAT RY BYPASS GRAFT I252 OLD 03-19-2016 [facility] MYOCARDIAL HEALTH INFARCTION MEDICAL G I481 PERSISTENT 03-19-2016 [facility] FIBRILLATIO N R9439 ABNORMAL 03-19-2016 [facility] CARDIOVASCU LR FUNCTION STUDY I255 ISCHEMIC 02-18-2016 [facility] CARDIOMYOPA HOME THY MEDICAL EQUIPME E538 DEFICIENCY 02-16-2016 FAMILY OF OTHER MEDICINE SPECIFIED B ASSOC GROUP NOHELIA VITAMINS R531 WEAKNESS 02-07-2016 [facility] NOHELIA Z6841 BODY MASS 02-07-2016 FAMILY INDEX BMI MEDICINE 40.0-44.9 ASSOC ADULT NOHELIA I509 HEART 02-01-2016 [facility] FAILURE HEALTH UNSPECIFIED MEDICAL G J309 ALLERGIC 11-22-2015 [facility] UNSPECIFIED R918 OTHER 11-22-2015 [facility] ABNORMAL FINDING OF LUNG FIELD R400 SOMNOLENCE 11-09-2015 [facility] MEDICAL G F53885 OTHER LONG 09-30-2015 [facility] CURRENT DRUG THERAPY 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 [facility] CURRENT USE HEALTH OF MEDICAL G ANTICOAGULA NTS E782 MIXED 09-06-2015 [facility] R079 CHEST PAIN 09-06-2015 [facility] UNSPECIFIED RADIOLOGY ASSOCIAT E1142 TYPE 2 09-02-2015 [facility] MELLITUS W/DIAB POLYNEUROPA THY M1990 UNSPECIFIED 09-02-2015 [facility] OSTEOARTHRI TIS UNSPECIFIED SITE Z885 ALLERGY 09-02-2015 [facility] STATUS TO HOSPITAL NARCOTIC AGENT STATUS E1165 TYPE 2 08-22-2015 [facility] DI[facility]ES MEDICAL MELLITUS WITH HYPERGLYCEM IA 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 AND FOOT M2570 OSTEOPHYTE 05-19-2015 FALLIS MOLLY UNSPECIFIED JOINT M6688 SPONTANEOUS 05-19-2015 FALLIS MOLLY RUPTURE OF OTHER TENDONS OTHER F05474 PAIN IN 05-19-2015 [place] MOLLY RIGHT FOOT M1711 UNILATERAL 04-14-2015 [place] [facility] OSTEOARTHRI IMAGING ASS TIS RIGHT KNEE V75532 PRIMARY 04-14-2015 [place] OSTEOARTHRI MEDICAL TIS RIGHT IMAGING ASS ANKLE AND FOOT M2140 FLAT FOOT 04-14-2015 [place] PES [facility]US [facility]ICAL ACQUIRED IMAGING ASS UNSPECIFIED FOOT R97157 PAIN IN 04-14-2015 [place] RIGHT ANKLE MEDICAL IMAGING ASS J069 ACUTE UPPER 02-14-2015 [facility] B[facility] RESPIRATORY INFECTION UNSPECIFIED J329 CHRONIC 02-11-2015 [facility] SINUSITIS UNSPECIFIED R0600 DYSPNEA 01-31-2015 [facility] UNSPECIFIED [facility]IOLOGY ASSOCIAT T68755 FOOT DROP 01-06-2015 PROGRESSIVE RIGHT FOOT PODIATRY F92218 SPONTANEOUS 01-06-2015 PROGRESSIVE RUPTURE PODIATRY FLEXOR TENDONS RT ANKLE FOOT 48746 DIAB W/O 12-08-2014 [facility] MENTION MEDICAL COMP TYPE II/UNS TYPE UNCNTRL 81348 OSTEOARTHRO 11-11-2014 [place] SIS UNSPEC MEDICAL WHETHER IMAGING ASS GEN/LOC ANK&FOOT 40986 PAIN IN 11-11-2014 [place] JOINT, MEDICAL ANKLE AND IMAGING ASS FOOT 26550 CALCANEAL 11-11-2014 [place] SPUR [facility] 7295 PAIN IN 11-11-2014 [place] SOFT MEDICAL TISSUES OF IMAGING ASS LIMB 734 FLAT FOOT 11-11-2014 [facility] 91036 DIAB W/O 08-30-2014 [facility] COMP TYPE PHARMACY #2 II/UNS NOT STATED UNCNTRL 4659 ACUTE URIS 07-14-2014 DIA[facility] BEN OF UNSPECIFIED SITE V4989 OTHER SPEC 07-14-2014 [facility] CONDITIONS INFLUENCING HEALTH STATUS V8541 BODY MASS 07-14-2014 [facility] BEN INDEX 40.0-44.9 ADULT 09859 VITREOUS 10-07-2013 [facility] DEGENERATIO JAM N 95827 NUCLEAR 09-15-2013 [facility] SCLEROSIS JAM 98754 OTHER 08-18-2013 [facility] BEN SPECIFIED CARDIAC DYSRHYTHMIA S 7851 PALPITATION 08-18-2013 [facility] BEN S V8539 BODY MASS 08-18-2013 [facility] BEN INDEX 39.0-39.9 ADULT 19453 PAIN IN 02-09-2013 [facility] BEN JOINT, LOWER LEG 462 ACUTE 04-18-2012 FAMILY PHARYNGITIS MEDICINE ASSOC FLE[facility] 4293 CARDIOMEGAL 12-31-2011 [facility] 07382 OTHER 12-31-2011 [place] RESPIRATORY ABNORMALITI ES V4581 POSTSURGICA 12-31-2011 [facility] L [facility] AORTOCORONA ASSOCIAT RY BYPASS STATUS 09960 OTHER 01-08-2011 FAMILY ACQUIRED MEDICINE DEFORMITY ASSOC OF ANKLE FLEMIN AND FOOT OTHER 72687 DIAB 01-04-2011 [facility] MANIFESTS TYPE II/UNS NOT UNCNTRL 68143 EFFUSION OF 12-13-2010 [facility] LOWER LEG RADIOLOGY JOINT ASSOCIAT 9599 INJURY 12-13-2010 [facility] OTHER AND RADIOLOGY UNSPECIFIED ASSOCIAT UNSPECIFIED SITE 2722 MIXED 11-14-2010 FAMILY HYPERLIPIDE MEDICINE RICKY ASSOC FLEMIN 4011 ESSENTIAL 11-14-2010 FAMILY HYPERTENSIO MEDICINE N, BENIGN ASSOC FLEMIN 486 PNEUMONIA, 03-01-2010 FAMILY ORGANISM MEDICINE UNSPECIFIED ASSOC FLEMIN 4660 ACUTE 02-27-2010 [facility] 81005 OTHER 02-27-2010 [facility] DISEASES OF RADIOLOGY LUNG NOT ASSOCIAT ELSEWHERE CLASSIFIED 7931 NONSPEC 02-27-2010 [facility] FIND RAD RADIOLOGY OTH EXAM ASSOCIAT BODY STRUCT LUNG FIELD 74253 COR 02-13-2010 FAMILY ATHEROSLERO MEDICINE UNSPEC ASSOC TYPE VESSEL FLEMIN BENTON/BABITA T 490 BRONCHITIS 02-13-2010 FAMILY NOT MEDICINE SPECIFIED ASSOC ACUTE OR FLEMIN CHRONIC 06895 SWELLING OF 11-30-2009 [facility] LIMB RADIOLOGY ASSOCIAT 2724 OTHER AND 11-28-2009 FAMILY UNSPECIFIED MEDICINE ASSOC HYPERLIPIDE FLEMIN RICKY 4019 UNSPECIFIED 11-28-2009 FAMILY ESSENTIAL MEDICINE HYPERTENSIO ASSOC N FLEMIN 4739 UNSPECIFIED 03-16-2009 FAMILY SINUSITIS MEDICINE ASSOC [place] 30714 UNSPECIFIED 03-15-2009 FAMILY MEDICINE CONJUNCTIVI ASSOC TIS [place] 60757 CHEST PAIN 03-15-2009 FAMILY UNSPECIFIED MEDICINE ASSOC [place] 55707 ACUTE 03-03-2009 FAMILY LARYNGITIS, MEDICINE WITHOUT ASSOC MENTION OF [place] OBSTRUCTIO V0481 NEED 03-03-2009 FAMILY PROPHYLACTI MEDICINE C ASSOC VACCINATION [place] &INOCULATIO N FLU 39579 TIBIALIS 06-15-2008 PAWSAT, TENDINITIS NICK Kleber 8423 UNSPECIFIED 03-29-2008 FAMILY CYSTITIS MEDICINE ASSOC [place] 75212 OTHER 02-12-2008 FAMILY ABNORMAL MEDICINE GLUCOSE ASSOC [place] 7862 COUGH 01-30-2008 [facility] MEDICINE ASSOC [place] 4254 OTHER 01-28-2008 [facility] CARDIOMYOPA JABARI 10825 SHORTNESS 01-28-2008 [facility] 4779 ALLERGIC 09-19-2007 FAMILY RHINITIS MEDICINE [...] Procedure DOS Code Location Performer Comment ECG 94833 [facility] GIGI ROUTINE 7 PHYSICIAN ECG S GROUP W/LEAST 12 LDS W/I&R STANDARD K0001 [facility] WHEELCHAI 7 HOME HOME R MEDICAL MEDICAL EQUIPME EQUIPME STANDARD K0001 [facility] MAYA WHEELCHAI 7 HOME HOME R MEDICAL MEDICAL EQUIPME EQUIPME ECG 71427 [facility] PHYSICIAN ECG S GROUP W/LEAST 12 LDS W/I&R STANDARD K0001 [facility] MAYA WHEELCHAI 7 HOME HOME R MEDICAL MEDICAL EQUIPME EQUIPME COLLECTIO 23745 [facility] ME[facility] N VENOUS 7 W W BLOOD REGIONAL REGIONAL VENIPUNCT MEDICAL MEDICAL URE BASIC 86723 [facility] METABOLIC 7 W W PANEL REGIONAL REGIONAL CALCIUM MEDICAL MEDICAL TOTAL BASIC 87521 [facility] ME[facility] METABOLIC 7 W W PANEL REGIONAL REGIONAL CALCIUM MEDICAL MEDICAL TOTAL COLLECTIO 64145 [facility] MEADOW[facility]IE N VENOUS 7 W W BLOOD REGIONAL REGIONAL VENIPUNCT MEDICAL MEDICAL URE STANDARD K0001 MAYA MAYA WHEELCHAI 7 HOME HOME R MEDICAL MEDICAL EQUIPME EQUIPME ECG 92697 [facility] 7 PHYSICIAN ECG S GROUP W/LEAST 12 LDS W/I&R ADLT SZD T4528 DAVID HERNANDEZ DISPBL 7 HOME HLTH HOME HLTH INCONT AGENCY AGENCY PROD UNDWEAR XTRA LG EA INCONTINE T4541 DAVID HERNANDEZ NCE 7 HOME HLTH HOME HLTH PRODUCT AGENCY AGENCY DISPOSABL E UNDPAD LARGE EA ECHO 84014 [facility] R-T 7 VALLEY 2D HEART W/WOM-MOD E COMPL SPEC&COLR D ECG 29353 [facility] GIGI ROUTINE 7 PHYSICIAN ECG S GROUP W/LEAST 12 LDS W/I&R STANDARD K0001 [facility] CUNNINGHAM 7 HOME HOME R MEDICAL MEDICAL EQUIPME EQUIPME RADIOLOGI 35713 [facility] EXAM 7 CHEST 2 RADIOLOGY VIEWS ASSOCIAT FRONTAL&L ATERAL TECHNETIU A9502 [facility] TC-[address]M [address] [place] [address] TETROFOSM IN DX PER STUDY DOSE CV STRS [address] XERS&/OR RX CONT ECG TRCG ONLY INJECTION J2785 [address] [place] 0.1 MG CV STRS 05704 [facility] TST 6 [facility] III XERS&/OR MEDICAL RX CONT G ECG I&R ONLY STANDARD K0001 [facility] KERRI 6 HOME HOME R MEDICAL MEDICAL EQUIPME EQUIPME MYOCARDIA 12650 [facility] SPECT [address] [place] [address] MULTIPLE STUDIES ECG 40331 [facility] ROUTINE 6 NE HEALTH NE HEALTH ECG MEDICAL MEDICAL W/LEAST G G 12 LDS W/I&R CONTINUOU E0601 [facility] TREJO S 6 HOME HOME POSITIVE MEDICAL MEDICAL AIRWAY EQUIPME EQUIPME PRESSURE DEVICE STANDARD K0001 [facility] CUNNINGHAM 6 HOME HOME R MEDICAL MEDICAL EQUIPME EQUIPME INJECTION J3420 FAMILY GOODMAN VIT B-12 6 MEDICINE ASSOC CYANOCOBA FLEMIN VIPUL TO 1000 MCG THERAPEUT 58455 FAMILY GOODMAN IC 6 MEDICINE PROPHYLAC ASSOC [...] CYANOCOBA FLEMIN VIPUL TO 1000 MCG THERAPEUT 47151 FAMILY CARMONA IC 6 MEDICINE AMA PROPHYLAC ASSOC TIC/DX FLEMIN INJECTION SUBQ/IM ECG 43822 [facility] ROUTINE 6 NE HEALTH NE HEALTH ECG MEDICAL MEDICAL W/LEAST G G 12 LDS W/I&R INJECTION J3420 FAMILY GOODMAN JENNIFER VIT B-12 6 MEDICINE ASSOC CYANOCOBA FLEMIN VIPUL TO 1000 MCG THERAPEUT 11765 [facility] JENNIFER IC 6 MEDICINE PROPHYLAC ASSOC TIC/DX FLEMIN INJECTION SUBQ/IM STANDARD K0001 [facility] HUNTCHAI 6 HOME HOME R MEDICAL MEDICAL EQUIPME EQUIPME CONTINUOU E0601 [facility] TREJO S 6 HOME HOME POSITIVE MEDICAL MEDICAL AIRWAY EQUIPME EQUIPME PRESSURE DEVICE CARDIOVER [address] ELECTIVE ARRHYTHMI A EXTERNAL ANES 93682 ANESTHESI COR[facility] INTEG SYS 6 A ELEC ASSOCIATE CONVERSIO S PSC N ARRHYTHMI RADIOLOGI [address] EXAMINATI ON CHEST SINGLE VIEW FRONTAL [facility] A4258 ARRIVA ARRIVA WERED 6 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 FOR LANCET EACH REPL DENZEL A4235 ARRIVA [...] O2 SYS MEDICAL MEDICAL RENT; EQUIPME EQUIPME [facility] HUMIDFR&M ASK O2 CONC 1 E1390 [facility] TREJO DEL PORT 6 HOME HOME 85%/>02 MEDICAL MEDICAL CONC AT EQUIPME EQUIPME [facility] RATE CONTINUOU E0601 MAYA RICHARDSONRELL S 6 HOME HOME POSITIVE MEDICAL MEDICAL AIRWAY EQUIPME EQUIPME PRESSURE DEVICE NASL A7034 MAYA MAYA INTRFCE 6 HOME HOME POS ARWAY MEDICAL MEDICAL PRSS EQUIPME EQUIPME DEVC W/WO HEAD STRAP HEADGEAR A7035 MAYA MAYA USED 6 HOME HOME W/POSITIV MEDICAL MEDICAL E AIRWAY EQUIPME EQUIPME PRESSURE DEVICE ECG 56661 [facility] ROUTINE 6 NE HEALTH NE HEALTH ECG MEDICAL MEDICAL W/LEAST G G 12 LDS W/I&R PRTBLE E0431 [facility] TREJO GASEOUS 6 HOME HOME O2 SYS MEDICAL MEDICAL RENT; EQUIPME EQUIPME FLWMTR HUMIDFR&M ASK O2 CONC 1 E1390 MAYA MAYA DEL PORT 6 HOME HOME 85%/>02 MEDICAL MEDICAL CONC AT EQUIPME EQUIPME PRSC FLW RATE CT THORAX [address] W/[place] [address] [facility] DIFFUSING 6 NE HEALTH GRA CAPACITY MEDICAL G PLETHYSMO 28618 [facility] GRAPHY 6 NE HEALTH GRA LUNG MEDICAL VOLUMES G W/WO AIRWAY RESIST BRNCDILAT 66742 [facility] RSPSE 6 NE HEALTH GRA SPMTRY MEDICAL [...] MEDICAL AIRWAY EQUIPME EQUIPME PRESSURE DEVICE POLYSOM 74699 [facility] 6/>YRS 6 [facility] SLEEP 4/> [facility] G0463 [facility] OUTPATIEN 6 [facility] VISIT ASSESS & MGMT PT PRTBLE E0431 [facility] TREJO GASEOUS 6 HOME HOME O2 SYS MEDICAL MEDICAL RENT; EQUIPME EQUIPME FLWMTR HUMIDFR&M ASK O2 CONC 1 E1390 [facility] TREJO DEL PORT 6 HOME HOME 85%/>02 MEDICAL MEDICAL CONC AT EQUIPME EQUIPME PRSC FLW RATE PULMONARY 35282 [facility] STRESS 6 [facility] TESTING MEDICAL MEDICAL SIMPLE G G ECG 71284 [facility] ROUTINE 6 [facility] ECG MEDICAL MEDICAL W/LEAST G G 12 LDS W/I&R RADIOLOGI 89738 [facility] C EXAM [address] [place] [address] CHEST 2 VIEWS FRONTAL&L ATERAL NATRIURET [address] PEPTIDE ECG 44540 [facility] ROUTINE 6 [facility] ECG MEDICAL MEDICAL W/LEAST G G 12 LDS W/I&R ECG 53791 [facility] ROUTINE 6 [facility] ECG MEDICAL MEDICAL W/LEAST G G 12 LDS W/I&R RADIOLOGI 47859 [facility] EXAM 6 [facility] KISHA CHEST 2 RADIOLOGY VIEWS ASSOCIAT FRONTAL&L ATERAL CARDIOVER [address] ELECTIVE ARRHYTHMI A EXTERNAL ECG 47769 [facility] ROUTINE 6 [facility] III ECG MEDICAL W/LEAST G 12 LDS W/I&R NORMAL A4256 ARR[facility] ARRIVA LOW AND 6 MEDICAL MEDICAL HIGH CALIBRATO R SOLUTION/ CHIPS ECG 70932 [facility] ROUTINE 6 [facility] ECG MEDICAL MEDICAL W/LEAST G G 12 LDS W/I&R CARDIOVER 61774 [facility] HAKAN ELECTIVE MEDICAL ARRHYTHMI G A EXTERNAL ECG 82557 MATHEW MATHEW ROUTINE 6 AMA AMA ECG W/LEAST 12 LDS W/I&R ECG 14843 [facility] STEPH[facility] ROUTINE 6 [facility] ECG INC INC W/LEAST 12 LDS TRCG ONLY W/O I&R CREATINE 85169 [facility] MITCHELL KINASE 6 [facility] TOTAL INC INC URNLS DIP 86379 [facility]CHELL 6 [facility] STICK/TAB INC INC LET REAGENT AUTO MICROSCOP Y BLOOD 24393 [facility] MITCHELL COUNT 6 [facility] COMPLETE INC INC AUTO&[place] [address] [facility] MITCHELL TROPONIN 6 [facility] QUANTITAT INC INC NANCY ECG 18962 [facility] CHEN JR ROUTINE 6 [facility] W/LEAST P 12 LDS I&R ONLY CREATINE 70759 [facility] MITCHELL KINASE MB 6 [facility] FRACTION INC INC ONLY COMPREHEN 59326 [facility] MITCHELL SIVE 6 [facility] MEM [...] 2/> FALLS/FAL L W/INJURY/ YR CT LOWER 72866 [facility] MITCHELL EXTREMITY 6 [facility] W/O INC INC CONTRAST MATERIAL [facility] A4258 ARRIVA ARRIVA WERED 5 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 FOR LANCET EACH REPL DENZEL A4235 ARRIVA [...] DEXAMETHO SONE SODIUM PHOSPHATE 1 MG RADIOLOGI 01936 [facility] C EXAM [address] HOSPITAL VIEWS FRONTAL&L ATERAL ADD LW L2820 PROGRESSI PROGRESSI EXT ORTH 5 VE VE SFT PODIATRY PODIATRY INTERFCE MOLD BELW KNEE AFO L1970 PROGRESSI PROGRESSI PLASTIC 5 VE VE WITH PODIATRY PODIATRY ANKLE JOINT CUSTOM FABRICATE D NORMAL A4256 ARRIVA ARRIVA LOW AND 5 MEDICAL MEDICAL HIGH CALIBRATO R SOLUTION/ [place] RADEX 06548 [place] [facility] ALL FOOT 5 MEDICAL COMPLETE IMAGING MINIMUM 3 ASS VIEWS RADEX 89968 [place] [facility] ALL ANKLE 5 MEDICAL COMPLETE IMAGING [...] SPRING-PO A4258 ARRIVA ARRIVA WERED 5 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 FOR LANCET EACH REPL DENZEL A4235 ARRIVA [...] SPRING-PO A4258 ARRIVA ARRIVA WERED 4 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 FOR LANCET EACH REPL DENZEL A4235 ARRIVA ARRIVA LITHIUM 4 MEDICAL MEDICAL MED NECES SADIA BG MON OWN PT EA BLD GLU A4253 ARRIVA ARRIVA TEST/REAG 4 MEDICAL MEDICAL T STRIPS HOME BLD GLU MON-50 LANCETS A4259 ARRIVA ARRIVA PER BOX 4 MEDICAL MEDICAL OF 100 NORMAL A4256 ARRIVA ARRIVA LOW AND 4 MEDICAL MEDICAL HIGH CALIBRATO R SOLUTION/ [facility]IPS OPHTHALMO 68432 NEHEMIAH CERNA SCPY 4 GENESIS HURTADO EXTENDED RETINAL DRAWING I&R 1ST OPHTHALMO 26518 [facility] CERNA SCPY 4 GENESIS HURTADO EXTENDED RETINAL DRAWING I&R 1ST CATARACT 25993 [place] REMOVAL 4 SURGERY SURGERY INSERTION [...] T STRIPS HOME BLD GLU MON-50 OPHTHALMO 32300 [facility] CERNA SCPY 4 JAM JAM EXTENDED RETINAL DRAWING I&R 1ST ECG 73431 DIAZ BEN DIAZ BEN ROUTINE 4 ECG W/LEAST 12 LDS W/I&R OPHTHALMO 39253 [facility] CERNA SCPY 4 JAM JAM EXTENDED RETINAL DRAWING I&R 1ST CATARACT 80258 [facility] C[facility]NA REMOVAL 4 JAM JAM INSERTION OF LENS SPRING-PO A4258 ARRIVA ARRIVA WERED 4 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 FOR LANCET EACH LANCETS A4259 ARRIVA ARRIVA [...] UP TO 300 MG INJECTION J1885 DIAZ BEN DIAZ BEN 3 KETOROLAC TROMETHAM INE PER [...] OF 100 SUPPLY SUPPLY INC. INC. RADIOLOGI 95318 [facility] C EXAM 2 [...] SPRING-PO A4258 LIBERTY LIBERTY WERED 2 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 SUPPLY FOR INC. INC. LANCET EACH [...] MON OWN PT EA FOR DIAB A5512 [facility] ONLY MX 1 O AND P O AND P DNSITY [facility] INSRT DIR FORMD PRFAB EA ADD LW L2820 [facility] EXT ORTH 1 O AND P O AND P SFT [facility] INTERFCE MOLD BELW KNEE ADD LW L2275 [facility] EXTRM 1 O AND P O AND P VARUS/VUL [facility] CORNELIO DARRYL PLSTC MOD PADD/LN DIAB ONLY A5500 [facility] FIT CSTM 1 O AND P O AND P PREP&SPL [facility] SHOE MX DNSITY INSRT AFO L1960 [facility] POSTERIOR 1 O AND P O AND P SOLID [facility] ANK PLASTIC CUSTOM XOCHITL INJECTION J1885 FAMILY DIAZ BEN 1 MEDICINE KETOROLAC ASSOC FLEMIN TROMETHAM INE PER 15 MG INJECTION J1030 FAMILY DIAZ BEN 1 MEDICINE METHYLPRE ASSOC DNISOLONE FLEMIN ACETATE 40 MG RADIOLOGI 41902 [facility] MAYES C EXAM 1 CO [facility] COMPLETE 4/MORE VIEWS LANCETS A4259 LIBERTY LIBERTY [...] SPRING-PO A4258 LIBERTY LIBERTY WERED 1 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 SUPPLY FOR LANCET EACH BLD GLU A4253 LIBERTY LIBERTY TEST/REAG 1 MEDICAL MEDICAL T STRIPS SUPPLY SUPPLY HOME BLD GLU MON-50 INJECTION J0696 FAMILY DAIZ BEN 0 MEDICINE CEFTRIAXO ASSOC NE SODIUM FLEMIN PER 250 MG RADIOLOGI 35441 GERBER MAYES C EXAM 0 [place] CHEST 2 [facility] VIEWS FRONTAL&L ATERAL INJECTION J0696 FAMILY [...] SUPPLY SUPPLY CALIBRATO R SOLUTION/ [facility] DUP-SCAN 83149 [place] IQBAL XTR VEINS 0 [facility] RADIOLOGY UNILATERA [...] SUPPLY SUPPLY CALIBRATO R SOLUTION/ [facility] RADIOLOGI 71666 [place] Min MILLER EXAM 9 PEE S CHEST [...] SUPPLY SUPPLY HOME BLD GLU MON-50 HEMOGLOBI 13616 [facility] N 9 [facility] SURY A1C LIPID 87702 [facility] PANEL 9 [facility] COMPREHEN 05312 [facility] SIVE 9 [facility] PANEL COLLECTIO 46334 [facility] VENOUS 9 [facility] VENIPUNCT URE RADIOLOGI 73063 [place] PIR[place], C 9 NICK Shahid EXAMINATI ON FOOT 2 VIEWS STRAPPING 05049 LEXIS PIRES UNNA 9 NICK Shahid BOOT SPRING-PO A4258 LIBERTY LIBERTY WERED 9 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 SUPPLY FOR LANCET EACH LANCETS A4259 [...] HCL UP [place] TO 300 MG URINLS [id number] FAMILY DIAZ, DIP 8 MEDICINE VIKKI Downey STICK/TAB ASSOC LET [place] REAGNT NON-AUTO MICRSCPY HEMOGLOBI 42643 [facility] 8 [facility] SURY A1C COLLECTIO 54559 [facility] VENOUS 8 [facility] VENIPUNCT URE BLD GLU A4253 LIB[facility] LIBERTY TEST/REAG 8 MEDICAL MEDICAL T STRIPS SUPPLY SUPPLY HOME BLD GLU MON-50 INJECTION J2010 [facility] MATHEW 8 MEDICINE , [place] LINCOMYCI ASSOC N HCL UP [place] TO 300 MG INJECTION J1100 [facility] MATHEW 8 MEDICINE , [place] DEXAMETHO ASSOC SONE [place] SODIUM PHOSPHATE 1 MG RADIOLOGI 13455 [facility] C EXAM 8 [place] CHEST 2 [facility] VIEWS FRONTAL&L ATERAL NATRIURET 86030 [facility] IC 8 [place] PEPTIDE [facility] HEMOGLOBI 39984 [facility] N 8 CO [place] GLYCOSYLA [facility] SURY A1C LIPID 75301 [facility] PANEL 8 CO [facility] COMPREHEN 18897 [facility] SIVE 8 CO [facility] PANEL COLLECTIO 55825 [facility] N VENOUS 8 CO [facility] VENIPUNCT URE ADMINISTR G0008 FAMILY DIAZ, ATION OF 8 MEDICINE VIKKI G INFLUENZA ASSOC VIRUS [place] VACCINE IIV3 [id number] FAMILY DIAZ, VACCINE 8 MEDICINE VIKKI G SPLIT ASSOC VIRUS 0.5 [place] ML DOSAGE IM USE A4258 LIBERTY LIBERTY WERED 8 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 SUPPLY FOR LANCET EACH LANCETS A4259 LIBERTY LIBERTY PER BOX 8 MEDICAL MEDICAL OF 100 SUPPLY SUPPLY BLD GLU A4253 [facility] LIBERTY TEST/REAG 8 MEDICAL MEDICAL T STRIPS SUPPLY SUPPLY HOME BLD GLU MON-50 INJECTION J2010 FAMILY MATHEW 8 MEDICINE , [place] [facility] N HCL UP [place] TO 300 MG INJECTION J1100 [facility] MATHEW 8 MEDICINE , [place] DEXAMETHO ASSOC SONE [place] SODIUM PHOSPHATE 1 MG LANCETS A4259 LIBERTY LIBERTY PER BOX 8 MEDICAL MEDICAL OF 100 SUPPLY SUPPLY NORMAL A4256 LIBERTY LIBERTY LOW AND 8 MEDICAL MEDICAL HIGH SUPPLY SUPPLY CALIBRATO R SOLUTION/ CHIPS BLD GLU A4253 LIBERTY LIBERTY TEST/REAG 8 MEDICAL MEDICAL T STRIPS SUPPLY SUPPLY HOME BLD GLU SAT-50 INJECTION J0696 [facility] DIAZ, 8 MEDICINE VIKKI Downey CEFTRIAXO ASSOC NE SODIUM [place] PER 250 MG INJECTION J3301 FAMILY DIAZ, 8 MEDICINE VIKKI Downey TRIAMCINO [facility] LONE [place] ACETONIDE NOS 10 MG INJECTION J2010 FAMILY DIAZ, 8 MEDICINE VIKKI Downey [facility] N HCL UP [place] TO 300 MG INJECTION J1100 [facility] DIAZ, 8 MEDICINE VIKKI Downey DEXAMETHO ASSOC SONE [place] SODIUM PHOSPHATE 1 MG INJECTION J1100 [facility] 8 MEDICINE MEDICINE DEXAMETHO ASSOC ASSOC SONE [place] SODIUM PHOSPHATE 1 MG INJECTION J0696 [facility] 8 MEDICINE MEDICINE CEFTRIAXO ASSOC ASSOC NE SODIUM [place] PER 250 MG NORMAL A4256 LIBERTY LIBERTY LOW AND 8 MEDICAL MEDICAL HIGH SUPPLY SUPPLY CALIBRATO R SOLUTION/ CHIPS SPRING-PO A4258 LIBERTY LIBERTY WERED 8 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 SUPPLY FOR LANCET EACH LANCETS A4259 LIBERTY LIBERTY PER BOX 8 MEDICAL MEDICAL OF 100 SUPPLY SUPPLY BLD GLU A4253 LIBERTY LIBERTY TEST/REAG 8 MEDICAL MEDICAL T STRIPS SUPPLY SUPPLY HOME BLD GLU Encounters Encounter Start End Date Code Location Performer Type Date OFFICE 08612 [facility] 7 7 PHYSICIAN T VISIT S GROUP 25 MINUTES OFFICE 60823 [facility] 7 7 PHYSICIAN T VISIT S GROUP 25 MINUTES [facility] 7 W OUTPATIEN REGIONAL T MEDICAL OFFICE 35765 [facility] 7 7 PHYSICIAN T VISIT S GROUP 25 MINUTES [facility] - 7 7 W OUTPATIEN REGIONAL T MEDICAL OFFICE 646[address] [facility] 7 MEDICINE T [facility]ISIT ASSOC 25 FLEMIN MINUTES HOME [facility], 7 7 HOME [facility] OFF[facility] 68134 [facility] 7 7 PHYSICIAN T NEW 60 S GROUP MINUTES HOSPITAL [address] T OFFICE [address] [facility] 6 6 [facility] BEN T VISIT MEDICAL 15 G MINUTES OFFICE 04744 [facility] 6 6 [facility] BEN T VISIT MEDICAL 25 G MINUTES [facility] [address] T OFFICE [address] [facility] [address] [place] [address] 45 HEMATOLOG MINUTES [facility] [address] [facility] - [address] [place] [address] T OFFICE 26198 PATRIA CASTILLO [facility] 6 6 [facility] III T VISIT MEDICAL 15 G MINUTES [facility] [address] OFFICE [address] [facility] FRANCIS [facility] 6 6 PHYSCIAN LES T NEW 30 PRACTICE MINUTES [facility] STEPH[facility] - 6 6 [facility] OUTPATIEN INC T EMERGENCY 95938 [facility] 6 6 [facility] DEPARTMEN INC T VISIT MODERATE SEVERITY OFFICE 71441 FALLIS JOSE MIGUEL OUTPATIEN 6 6 MOLLY GAUDENCIO T VISIT 15 MINUTES OFFICE 20733 JOSE MIGUEL JOSE MIGUEL OUTPATIEN 6 6 GAUDENCIO GAUDENCIO T VISIT 15 MINUTES [facility]OSP[facility] - 6 6 [facility] OFFICE 42594 [facility] 6 6 VE VE T VISIT PODIATRY PODIATRY 15 MINUTES OFFICE 49930 DIAZ BEN DIAZ BEN OUTPATIEN 5 5 T VISIT 25 MINUTES OFFICE 50425 IVAN RAYAER [facility] 5 5 CARY CARY T VISIT 25 MINUTES [facility] - 5 5 [facility] - 5 5 [facility] T OFFICE 02539 DIAZ BEN DIAZ BEN OUTPATIEN 5 5 T VISIT 25 MINUTES OFFICE 92781 FAMILY MATHEW OUTPATIEN 3 3 MEDICINE AMA T VISIT ASSOC 25 FLEMIN MINUTES [facility] - 2 2 [facility] T OFFICE 31235 FAMILY DIAZ BEN OUTPATIEN 1 1 MEDICINE T VISIT ASSOC 25 FLEMIN MINUTES OFFICE 14942 FAMILY DIAZ BEN OUTPATIEN 1 1 MEDICINE T VISIT ASSOC 25 FLEMIN MINUTES [facility] - 1 1 [facility] T OFFICE 69728 FAMILY DIAZ BEN OUTPATIEN 1 1 MEDICINE T VISIT ASSOC 25 FLEMIN MINUTES OFFICE 49774 FAMILY DIAZ BEN OUTPATIEN 0 0 MEDICINE T VISIT ASSOC 15 FLEMIN MINUTES [facility] - 0 0 [facility] T OFFICE 28703 FAMILY DIAZ BEN OUTPATIEN 0 0 MEDICINE T VISIT ASSOC 25 FLEMIN MINUTES OFFICE 49944 FAMILY DIAZ BEN OUTPATIEN 0 0 MEDICINE T VISIT ASSOC 25 FLEMIN MINUTES [facility] - 0 0 [facility] T OFFICE 19959 FAMILY DIAZ BEN OUTPATIEN 0 0 MEDICINE T VISIT ASSOC 25 FLEMIN MINUTES [facility] - 9 9 [facility] T OFFICE 34156 FAMILY DIAZ, OUTPATIEN 9 9 MEDICINE VIKKI Downey T VISIT ASSOC 15 [place] MINUTES OFFICE 77731 FAMILY DIAZ, OUTPATIEN 9 9 MEDICINE VIKKI Downey T VISIT ASSOC 15 [place] MINUTES OFFICE 18094 FAMILY DIAZ, OUTPATIEN 9 9 MEDICINE VIKKI Downey T VISIT ASSOC 15 [place] MINUTES OFFICE 93034 FAMILY DIAZ, OUTPATIEN 9 9 MEDICINE VIKKI Downey T VISIT ASSOC 15 [place] MINUTES [facility] - 9 9 [facility] T OFFICE 17853 FAMILY DIAZ, OUTPATIEN 9 9 MEDICINE VIKKI Downey T VISIT ASSOC 25 [place] MINUTES OFFICE 61784 FAMILY DIAZ, OUTPATIEN 9 9 MEDICINE VIKKI Downey T VISIT ASSOC 15 [place] MINUTES OFFICE 81195 PAWSAT, PAWSAT, OUTPATIEN 9 9 NICK Shahid T VISIT 10 MINUTES OFFICE 62982 FAMILY DIAZ, OUTPATIEN 9 9 MEDICINE VIKKI Downey T VISIT ASSOC 15 [place] MINUTES OFFICE 32436 PAWSAT, PAWSAT, OUTPATIEN 9 9 NICK Shahid T VISIT 15 MINUTES OFFICE 64276 FAMILY DIAZ, OUTPATIEN 9 9 MEDICINE VIKKI Downey T VISIT ASSOC 15 [place] MINUTES OFFICE 38312 FAMILY DIAZ, OUTPATIEN 9 9 MEDICINE VIKKI G T VISIT ASSOC 25 [place] MINUTES OFFICE 35438 FAMILY DIAZ, OUTPATIEN 8 8 MEDICINE VIKKI Oliva VISIT ASSOC 15 [place] MINUTES [facility] - 8 8 [facility] T OFFICE 85592 FAMILY DIAZ, OUTPATIEN 8 8 MEDICINE VIKKI Oliva VISIT ASSOC 15 [place] MINUTES OFFICE 19983 FAMILY DIAZ, OUTPATIEN 8 8 MEDICINE VIKKI Oliva VISIT ASSOC 15 [place] MINUTES OFFICE 07605 FAMILY MATHEW OUTPATIEN 8 8 MEDICINE [place] T VISIT ASSOC 15 [place] MINUTES [facility] - 8 8 [facility] T OFFICE 10526 FAMILY DIAZ, OUTPATIEN 8 8 MEDICINE VIKKI Oliva VISIT ASSOC 25 [place] MINUTES OFFICE 37735 FAMILY MATHEW OUTPATIEN 8 8 MEDICINE [place] T VISIT ASSOC 15 [place] MINUTES OFFICE 76963 FAMILY DIAZ, OUTPATIEN 8 8 MEDICINE VIKKI Oliva VISIT ASSOC 25 [place] MINUTES OFFICE 08403 FAMILY DIAZ, OUTPATIEN 8 8 MEDICINE VIKKI Oliva VISIT ASSOC 15 [place] MINUTES OFFICE 65634 FAMILY DIAZ, OUTPATIEN 8 8 MEDICINE VIKKI Oliva VISIT ASSOC 15 [place] MINUTES OFFICE 54205 FAMILY FAMILY OUTPATIEN 8 8 MEDICINE MEDICINE T VISIT ASSOC ASSOC 15 [place] MINUTES
--- OUTSIDE RECORDS SUMMARY | 2016-09-17 13:14 | External Medical Summary Rpt ---
Author Author , Organization [employer] Address Unknown Phone Unavailable Care Team Providers Care Naphthalene Operator Helper Name Role Phone MATHEW, MATHEW Unavailable Unavailable [...] Unavailable Unavailable DIAZVIKKI VILLEGAS G BROWN ALL, BRWON ALL Unavailable Unavailable [facility] GOODMAN, GOODMAN Unavailable Unavailable GOODMAN JENNIFER, GOODMAN JENNIFER Unavailable Unavailable GOODMAN DONYA, Unavailable Unavailable GOODMAN, DONYA BREAZEALE GRA, Unavailable Unavailable BREAZEALE GRA JOSE MIGUEL GAUDENCIO, JOSE MIGUEL Unavailable Unavailable [facility] Unavailable Unavailable [facility], [facility] Unavailable Unavailable [facility], [facility] FARIDA BOWMAN, IQBAL Unavailable Unavailable GRACIE CORNEA, CORNEA Unavailable Unavailable FALLIS MOLLY, FALLIS Unavailable Unavailable MOLLY FALLUMC HAKAN, FALLUJI Unavailable Unavailable [facility] Unavailable Unavailable [facility], [facility]available Unavailable [facility], [facility], [facility]available [facility]available [facility] Unavailable Unavailable [facility], Unavailable Unavailable [facility], Unavailable Unavailable [facility] CICI BEARD, Unavailable Unavailable CICI BEARD [facility] Unavailable Unavailable INC, [facility] Unavailable Unavailable HOSPITAL P, [facility] ANGELA MILLER Unavailable Unavailable ANGELA SNYDER, ANGELA Unavailable Unavailable LILLIAN PEE MILLER, Unavailable Unavailable PEE MILLER [facility] Unavailable Unavailable [facility]ENCY, [facility], Unavailable Unavailable [facility] WILLIE III SYLVIE, Unavailable Unavailable WILLIE III SYLVIE [facility] Un[facility] Unavailable [facility], [facility] Unavailable Unavailable MEDICAL G, [facility] APRIL JR DWI, APRIL Unavailable Unavailable JR DWI [facility] Unavailable Unavailable [facility], [facility] Unavailable Unavailable [facility] MAGALI, MAGALI Unavailable Unavailable CERNA JAM, Unavailable Unavailable CERNA JAM CERNA JAM, Unavailable Unavailable CERNA JAM [facility] Unavailable Unavailable ASSOCIAT, [facility] Unavailable Unavailable MEDICAL, [facility] MED[facility], Unavailable Unavailable [facility] NICK PIRES, Unavailable Unavailable NICK PIRES [facility] Un[facility] Unavailable Unavailable [facility], Unavailable Unavailable [facility], Unavailable Unavailable [facility], Unavailable Unavailable [facility] SCALF LILLIAN, SCALF LILLIAN Unavailable Unavailable JEROME BEN, JEROME Unavailable Unavailable BEN GIGI, GIGI Unavailable Unavailable [facility] Unavailable Unavailable [facility], [facility] Unavailable Unavailable [facility], Unavailable Unavailable [facility] Unavailable Unavailable [facility] SUHL ELLEN, [facility] ELLEN Unavailable Unavailable JONATHAN [...] DOS Provider Status E119 TYPE 2 08-22-2016 [facility] DIABETES PHYSICIANS MELLITUS GROUP WITHOUT COMPLICATIO NS E669 OBESITY 08-22-2016 [facility] UNSPECIFIED PHYSICIANS GROUP E785 HYPERLIPIDE 08-22-2016 [facility] RICKY PHYSICIANS UNSPECIFIED GROUP G4733 OBSTRUCTIVE 08-22-2016 [facility] SLEEP PHYSICIANS APNEA ADULT GROUP PEDIATRIC I10 ESSENTIAL 08-22-2016 [facility] PRIMARY PHYSICIANS HYPERTENSIO GROUP N I2510 ASHD INAJA 08-22-2016 [facility] 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 ANGINA PECTORIS I4891 UNSPECIFIED 08-22-2016 [facility] ATRIAL PHYSICIANS FIBRILLATIO GROUP N R5383 OTHER 08-22-2016 [facility] FATIGUE PHYSICIANS GROUP I480 PAROXYSMAL 08-17-2016 [facility] HOME FIBRILLATIO MEDICAL N EQUIPME R600 LOCALIZED 08-17-2016 [facility]DEMA [facility]ICAL EQUIPME E6601 MORBID 06-21-2016 [facility] SEVERE PHYSICIANS OBESITY DUE GROUP TO EXCESS CALORIES E51119 ATHEROSCLER 06-21-2016 [facility] OSIS CABG PHYSICIANS WITHOUT GROUP ANGINA PECTORIS I5020 UNSPECIFIED 06-21-2016 [facility] SYSTOLIC PHYSICIANS CONGESTIVE GROUP HEART FAILURE N182 CHRONIC 06-01-2016 [facility] DISEASE MEDICAL STAGE 2 MILD R0602 SHORTNESS 05-24-2016 [facility] OF BREATH PHYSICIANS GROUP J449 CHRONIC 05-17-2016 [facility] PULMONARY AGENCY ON DISEASE UNS Z6838 BODY MASS 05-14-2016 [facility] INDEX BMI MEDICINE 38.0-38.9 ASSOC ADULT [facility]LE[facility] Z789 OTHER 05-14-2016 FAMILY SPECIFIED MEDICINE HEALTH ASSOC STATUS FLEMIN I129 HYPERTENSIV 04-24-2016 [facility] W/STAGE 1-4 AGENCY CKD OR UNS CKD M81624 ASHD INAJA 04-24-2016 [facility] W/UNSTABLE AGENCY ANGINA PECTORIS J19752 CELLULITIS 04-24-2016 [facility] HOME HL[facility] LOWER LIMB AGENCY R87560 PRESSURE 04-24-2016 [facility] RIGHT AGENCY BUTTOCK STAGE 2 N183 CHRONIC 04-24-2016 [facility] DISEASE AGENCY STAGE 3 MODERATE I200 UNSTABLE 04-20-2016 [facility] ANGINA HEART I208 OTHER FORMS 04-19-2016 [facility] OF ANGINA PHYSICIANS PECTORIS GROUP R0902 HYPOXEMIA 04-19-2016 [facility] Z720 TOBACCO USE 04-19-2016 [facility] Z951 PRESENCE OF 04-19-2016 [facility] [place] ASS[facility]IAT RY BYPASS GRAFT I252 OLD 03-19-2016 [facility] INFARCTION MEDICAL G I481 PERSISTENT 03-19-2016 [facility] FIBRILLATIO N R9439 ABNORMAL 03-19-2016 [facility] CARDIOVASCU LR FUNCTION STUDY I255 ISCHEMIC 02-18-2016 [facility] CARDIOMYOPA HOME THY MEDICAL EQUIPME E538 DEFICIENCY 02-16-2016 FAMILY OF OTHER MEDICINE SPECIFIED B ASSOC GROUP NOHELIA VITAMINS R531 WEAKNESS 02-07-2016 [facility] NOHELIA Z6841 BODY MASS 02-07-2016 [facility] INDEX BMI MEDICINE 40.0-44.9 ASSOC ADULT NOHELIA I509 HEART 02-01-2016 [facility] UNSPECIFIED MEDICAL G J309 ALLERGIC 11-22-2015 [facility] UNSPECIFIED R918 OTHER 11-22-2015 [facility] ABNORMAL FINDING OF LUNG FIELD R400 SOMNOLENCE 11-09-2015 [facility] S14036 OTHER LONG 09-30-2015 [facility] CURRENT DRUG THERAPY Z7901 BEHAVIORIST 09-16-2015 [facility] CURRENT USE HEALTH OF MEDICAL G ANTICOAGULA NTS E782 MIXED 09-06-2015 [facility] R079 CHEST PAIN 09-06-2015 [facility] UNSPECIFIED RADIOLOGY ASSOCIAT E1142 TYPE 2 09-02-2015 [facility] MELLITUS W/DIAB POLYNEUROPA THY M1990 UNSPECIFIED 09-02-2015 [facility] OSTEOARTHRI TIS UNSPECIFIED SITE Z885 ALLERGY 09-02-2015 [facility] STATUS TO HOSPITAL NARCOTIC AGENT STATUS E1165 TYPE 2 08-22-2015 [facility] DIABETES MEDICAL MELLITUS WITH HYPERGLYCEM IA 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 E1140 TYPE 2 DM 07-13-2015 MATHEW WITH [facility] DIABETIC NEUROPATHY UNSPECIFIED H8123 VESTIBULAR 06-14-2015 [facility] BILATERAL PRACTICE H8303 LABYRINTHIT 05-31-2015 [facility] IS [facility] P V02115 PERSONAL 05-31-2015 [facility] H[facility]ORY OF [facility] P DEPENDENCE 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 M2570 OSTEOPHYTE 05-19-2015 FALL[facility] MOLLY UNSPECIFIED JOINT M6688 SPONTANEOUS 05-19-2015 FALLIS MOLLY RUPTURE OF OTHER TENDONS OTHER Z89055 PAIN IN 05-19-2015 [facility] MOLLY RIGHT FOOT M1711 UNILATERAL 04-14-2015 [place] [facility]STE[facility] TIS RIGHT KNEE R21986 PRIMARY 04-14-2015 [place] OSTEO[facility]ICAL TIS RIGHT IMAGING ASS ANKLE AND FOOT M2140 FLAT FOOT 04-14-2015 [place] PES [facility]US [facility]ICAL ACQUIRED IMAGING ASS UNSPECIFIED FOOT V48207 PAIN IN 04-14-2015 [place] RIGHT ANKLE MEDICAL IMAGING ASS J069 ACUTE UPPER 02-14-2015 DIAZ BEN RESPIRATORY INFECTION UNSPECIFIED J329 CHRONIC 02-11-2015 [place] [place] SINUSITIS UNSPECIFIED R0600 DYSPNEA 01-31-2015 [facility] UNSPECIFIED RADIOLOGY ASSOCIAT P29406 FOOT DROP 01-06-2015 PROGRESSIVE RIGHT FOOT PODIATRY E20689 SPONTANEOUS 01-06-2015 PROGR[facility]IVE RUPTURE PODIATRY FLEXOR TENDONS RT ANKLE FOOT 60417 DIAB W/O 12-08-2014 [facility] MENTION MEDICAL COMP TYPE II/UNS TYPE UNCNTRL 96552 OSTEOARTHRO 11-11-2014 [place] SIS UNSPEC MEDICAL WHETHER IMAGING ASS GEN/LOC ANK&FOOT 63327 PAIN IN 11-11-2014 [place] JOINT, MEDICAL ANKLE AND IMAGING ASS FOOT 18425 CALCANEAL 11-11-2014 [place] SPUR [facility] 7295 PAIN IN 11-11-2014 [place] SOFT MEDICAL TISSUES OF IMAGING ASS LIMB 734 FLAT FOOT 11-11-2014 [facility] 10166 DIAB W/O 08-30-2014 [facility] TYPE PHARMACY #2 II/UNS NOT STATED UNCNTRL 4659 ACUTE URIS 07-14-2014 DIAZ BEN OF UNSPECIFIED SITE V4989 OTHER SPEC 07-14-2014 [facility]IA[facility] BEN CONDITIONS INFLUENCING HEALTH STATUS V8541 BODY MASS 07-14-2014 DIAZ BEN INDEX 40.0-44.9 ADULT 17585 VITREOUS 10-07-2013 C[facility] DEGENERATIO JAM N 99595 NUCLEAR 09-15-2013 [facility] SCLEROSIS JAM 29896 OTHER 08-18-2013 DIAZ BEN SPECIFIED CARDIAC DYSRHYTHMIA S 7851 PALPITATION 08-18-2013 DIAZ BEN S V8539 BODY MASS 08-18-2013 DIAZ BEN INDEX 39.0-39.9 ADULT 76877 PAIN IN 02-09-2013 DIAZ BEN JOINT, LOWER LEG 462 ACUTE 04-18-2012 FAMILY PHARYNGITIS MEDICINE ASSOC FLE[facility] 4293 CARDIOMEGAL 12-31-2011 [facility] Y RADIOLOGY ASSOCIAT 09204 OTHER 12-31-2011 [facility] RESPIRATORY ABNORMALITI ES V4581 POSTSURGICA 12-31-2011 [facility] L RADIOLOGY AORTOCORONA ASSOCIAT RY BYPASS STATUS 21878 OTHER 01-08-2011 FAMILY ACQUIRED MEDICINE DEFORMITY ASSOC OF ANKLE FLEMIN AND FOOT OTHER 16928 DIAB 01-04-2011 [facility] MANIFESTS TYPE II/UNS NOT UNCNTRL 08060 EFFUSION OF 12-13-2010 [facility] LOWER LEG RADIOLOGY JOINT ASSOCIAT 9599 INJURY 12-13-2010 [facility] OTHER AND RADIOLOGY UNSPECIFIED ASSOCIAT UNSPECIFIED SITE 2722 MIXED 11-14-2010 FAMILY HYPERLIPIDE MEDICINE RICKY ASSOC FLEMIN 4011 ESSENTIAL 11-14-2010 FAMILY HYPERTENSIO MEDICINE N, BENIGN ASSOC FLEMIN 486 PNEUMONIA, 03-01-2010 FAMILY ORGANISM MEDICINE UNSPECIFIED ASSOC FLEMIN 4660 ACUTE 02-27-2010 [facility] 48721 OTHER 02-27-2010 [facility] DISEASES OF RADIOLOGY LUNG NOT ASSOCIAT ELSEWHERE CLASSIFIED 7931 NONSPEC 02-27-2010 [facility] FIND RAD RADIOLOGY OTH EXAM ASSOCIAT BODY STRUCT LUNG FIELD 37780 COR 02-13-2010 FAMILY ATHEROSLERO MEDICINE UNSPEC ASSOC TYPE VESSEL FLEMIN INAJA/BABITA T 490 BRONCHITIS 02-13-2010 FAMILY NOT MEDICINE SPECIFIED ASSOC ACUTE OR FLEMIN CHRONIC 34745 SWELLING OF 11-30-2009 [facility] LIMB RADIOLOGY ASSOCIAT 2724 OTHER AND 11-28-2009 FAMILY UNSPECIFIED MEDICINE ASSOC HYPERLIPIDE FLEMIN RICKY 4019 UNSPECIFIED 11-28-2009 FAMILY ESSENTIAL MEDICINE HYPERTENSIO ASSOC N FLEMIN 4739 UNSPECIFIED 03-16-2009 FAMILY SINUSITIS MEDICINE ASSOC [place] 45115 UNSPECIFIED 03-15-2009 FAMILY MEDICINE CONJUNCTIVI ASSOC TIS [place] 21283 CHEST PAIN 03-15-2009 FAMILY UNSPECIFIED MEDICINE ASSOC [place] 57644 ACUTE 03-03-2009 FAMILY LARYNGITIS, MEDICINE WITHOUT ASSOC MENTION OF [place] OBSTRUCTIO V0481 NEED 03-03-2009 FAMILY PROPHYLACTI MEDICINE C ASSOC VACCINATION [place] &INOCULATIO N FLU 15026 TIBIALIS 06-15-2008 PAWSAT, TENDINITIS NICK D 2281 UNSPECIFIED 03-29-2008 FAMILY CYSTITIS MEDICINE ASSOC [place] 16448 OTHER 02-12-2008 FAMILY ABNORMAL MEDICINE GLUCOSE ASSOC [place] 7862 COUGH 01-30-2008 [facility] MEDICINE ASSOC [place] 4254 OTHER 01-28-2008 [facility] CARDIOMYOPA JABARI 20486 SHORTNESS 01-28-2008 [facility] 4779 ALLERGIC 09-19-2007 FAMILY RHINITIS MEDICINE CAUSE ASSOC UNSPECIFIED [facility] Medications Na ND Rx Da Fi Fi [...] G MG TA BL ET 00 05 [address] [...] 1 MA bl CY e 00 05 [address] [...] Procedure DOS Code Location Performer Comment ECG 42792 [facility] GIGI ROUTINE 7 PHYSICIAN ECG S GROUP W/LEAST 12 LDS W/I&R STANDARD K0001 MAY[facility] MAYA WHEELCHAI 7 HOME HOME R MEDICAL MEDICAL EQUIPME EQUIPME STANDARD K0001 [facility] TREJO WHEELCHAI 7 HOME HOME R MEDICAL MEDICAL EQUIPME EQUIPME ECG 45949 [facility] GIGI ROUTINE 7 PHYSICIAN ECG S GROUP W/LEAST 12 LDS W/I&R STANDARD K0001 [facility] TREJO WHEELCHAI 7 HOME HOME R MEDICAL MEDICAL EQUIPME EQUIPME BASIC 16781 [facility] METABOLIC 7 W W PANEL REGIONAL REGIONAL CALCIUM MEDICAL MEDICAL TOTAL COLLECTIO 53920 [facility] MEADOW[facility] N VENOUS 7 W W BLOOD REGIONAL REGIONAL VENIPUNCT MEDICAL MEDICAL URE COLLECTIO 42297 [facility] N VENOUS 7 W W BLOOD REGIONAL REGIONAL VENIPUNCT MEDICAL MEDICAL URE BASIC 23035 [facility] METABOLIC 7 W W PANEL REGIONAL REGIONAL CALCIUM MEDICAL MEDICAL TOTAL STANDARD K0001 MAYA TREJO WHEELCHAI 7 HOME HOME R MEDICAL MEDICAL EQUIPME EQUIPME ECG 90565 [facility] GIGI ROUTINE 7 PHYSICIAN ECG S GROUP W/LEAST 12 LDS W/I&R ADLT SZD T4528 [facility] ScanNICOLE MONRO[place]kin ScanNICOLE DISPBL 7 HOME HLTH HOME HLTH INCONT AGENCY AGENCY PROD UNDWEAR XTRA LG EA INCONTINE T4541 [facility] CompeteOOD NCE 7 HOME HLTH HOME HLTH PRODUCT AGENCY AGENCY DISPOSABL E UNDPAD LARGE EA ECHO 20970 [facility] TTC R-T 7 VALLEY 2D HEART W/WOM-MOD E COMPL SPEC&COLR D RADIOLOGI 36988 [facility] EXAM 7 CHEST 2 RADIOLOGY VIEWS ASSOCIAT FRONTAL&L ATERAL STANDARD K0001 [facility] TREJO WHEELCHAI 7 HOME HOME R MEDICAL MEDICAL EQUIPME EQUIPME ECG 55451 [facility] GIGI ROUTINE 7 PHYSICIAN ECG S GROUP W/LEAST 12 LDS W/I&R CV STRS [address] XERS&/OR RX CONT ECG TRCG ONLY INJECTION J2785 [address] REGADENOS ON 0.1 MG STANDARD K0001 [facility] KERRI 6 HOME HOME R MEDICAL MEDICAL EQUIPME EQUIPME CV STRS 72949 [facility] TST 6 [facility] III XERS&/OR MEDICAL RX CONT G ECG I&R ONLY MYOCARDIA 55718 [facility] L SPECT [address] [place] [address] MULTIPLE STUDIES TECHNETIU A9502 [facility] TC-99M [address] [place] [address] TETROFOSM IN DX PER STUDY DOSE ECG 31984 [facility] ROUTINE 6 [facility] ECG MEDICAL MEDICAL W/LEAST G G 12 LDS W/I&R CONTINUOU E0601 [facility] TREJO S 6 HOME HOME POSITIVE MEDICAL MEDICAL AIRWAY EQUIPME EQUIPME PRESSURE DEVICE STANDARD K0001 [facility] TREJO USHAI 6 HOME HOME R MEDICAL MEDICAL EQUIPME EQUIPME THERAPEUT 64802 FAMILY [facility] IC 6 MEDICINE PROPHYLAC ASSOC TIC/DX FLEMIN INJECTION SUBQ/IM INJECTION J3420 FAMILY [facility]MAN VIT B-12 6 MEDICINE ASSOC CYANOCOBA FLEMIN VIPUL TO 1000 MCG PRTBLE E0431 MAYA MAYA GASEOUS 6 HOME HOME O2 SYS MEDICAL MEDICAL RENT; EQUIPME EQUIPME FLWMTR HUMIDFR&M ASK O2 CONC 1 E1390 MAY[facility] TREJO DEL PORT 6 HOME HOME 85%/>02 MEDICAL MEDICAL CONC AT EQUIPME EQUIPME PRSC FLW RATE INJECTION J3420 FAMILY VIT B-12 6 MEDICINE MEDICINE ASSOC ASSOC CYANOCOBA FLEMIN FLEMIN VIPUL TO 1000 MCG THERAPEUT 79137 [facility] MATHEW IC 6 MEDICINE AMA PROPHYLAC ASSOC TIC/DX FLEMIN INJECTION SUBQ/IM INJECTION J3420 [facility]HEW VIT B-12 6 MEDICINE AMA ASSOC CYANOCOBA FLEMIN VIPUL TO 1000 MCG ECG 84968 [facility] ROUTINE 6 [facility] ECG MEDICAL MEDICAL W/LEAST G G 12 LDS W/I&R THERAPEUT 37595 FAMILY REX JENNIFER IC 6 MEDICINE PROPHYLAC ASSOC TIC/DX FLEMIN INJECTION SUBQ/IM INJECTION J3420 FAMILY GOODMAN JENNIFER VIT B-12 6 MEDICINE ASSOC CYANOCOBA FLEMIN VIPUL TO 1000 MCG CONTINUOU E0601 MAYA TREJO S 6 HOME HOME POSITIVE MEDICAL MEDICAL AIRWAY EQUIPME EQUIPME PRESSURE DEVICE STANDARD K0001 MAYA TREJO WHEELCHAI 6 HOME HOME R MEDICAL MEDICAL EQUIPME EQUIPME ANES 91851 ANESTHESI CORNEA INTEG SYS 6 A ELEC ASSOCIATE CONVERSIO S PSC N ARRHYTHMI RADIOLOGI 29236 [facility] [place] WILLIE C 6 RADIOLOGY III SYLVIE EXAMINATI ON CHEST SINGLE VIEW FRONTAL CARDIOVER 65124 [facility] JEROME [place] 6 NE HEALTH BEN ELECTIVE MEDICAL ARRHYTHMI G A EXTERNAL REPL DENZEL A4235 [facility] LITHIUM 6 MEDICAL MEDICAL MED NECES SADIA BG MON OWN PT EA SPRING-PO A4258 [facility] AR[facility]IV[facility] WERED 6 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 A4259 [facility] ARRIVA PER BOX 6 MEDICAL MEDICAL OF 100 BLD GLU A4253 [facility] TEST/REAG 6 MEDICAL MEDICAL T STRIPS HOME BLD GLU MON-50 NORMAL A4256 [facility] LOW AND 6 MEDICAL MEDICAL HIGH CALIBRATO R SOLUTION/ CHIPS PRTBLE E0431 [facility] TREJO GASEOUS 6 HOME HOME O2 SYS MEDICAL MEDICAL RENT; EQUIPME EQUIPME FLWMTR HUMIDFR&M ASK O2 CONC 1 E1390 [facility] TREJO DEL PORT 6 HOME HOME 85%/>02 MEDICAL MEDICAL CONC AT EQUIPME EQUIPME PRSC FLW RATE CONTINUOU E0601 MAY[facility] TREJO S 6 HOME HOME POSITIVE MEDICAL MEDICAL AIRWAY EQUIPME EQUIPME PRESSURE DEVICE HEADGEAR A7035 [facility] TREJO USED 6 HOME HOME W/POSITIV MEDICAL MEDICAL E AIRWAY EQUIPME EQUIPME PRESSURE DEVICE NASL A7034 [facility] TREJO INTRFCE 6 HOME HOME POS ARWAY MEDICAL MEDICAL PRSS EQUIPME EQUIPME DEVC W/WO HEAD STRAP ECG 14780 [facility] ROUTINE 6 NE HEALTH NE HEALTH ECG MEDICAL MEDICAL W/LEAST G G 12 LDS W/I&R O2 CONC 1 E1390 MAY[facility] TREJO DEL PORT 6 HOME HOME 85%/>02 MEDICAL MEDICAL CONC AT EQUIPME EQUIPME PRSC FLW RATE PRTBLE E0431 MAYA MAYA GASEOUS 6 HOME HOME O2 SYS MEDICAL MEDICAL RENT; EQUIPME EQUIPME FLWMTR HUMIDFR&M ASK PLETHYSMO 53744 [facility] GRAPHY 6 NE HEALTH GRA LUNG MEDICAL VOLUMES G W/WO AIRWAY RESIST BRNCDILAT 71393 [facility] RSPSE 6 NE HEALTH GRA SPMTRY MEDICAL PRE&POST- G BRNCDILAT ADMN CT THORAX [address] W/[place] [address] [facility] DIFFUS[facility] 6 NE HEALTH GRA CAPACITY MEDICAL G CONTINUOU E0601 MAYANORTH TREJO S 6 HOME HOME POSITIVE MEDICAL MEDICAL AIRWAY EQUIPME EQUIPME PRESSURE DEVICE HUMDIFIR E0562 MAYA MAYA HEATED 6 HOME HOME USED MEDICAL MEDICAL W/POS EQUIPME EQUIPME ARWAY PRESSURE DEVICE TUBING A7037 MAYA RICHARDSONRELL USED WITH 6 HOME HOME POSITIVE MEDICAL MEDICAL AIRWAY EQUIPME EQUIPME PRESSURE DEVICE FILTER A7039 MAYA RICHARDSONRELL NON 6 HOME HOME DISPBL MEDICAL MEDICAL USED EQUIPME EQUIPME W/POS ARWAY PRESS DEVICE FILTER A7038 MAYA MAYA DISPBL 6 HOME HOME USED MEDICAL MEDICAL W/POS EQUIPME EQUIPME ARWAY PRESSURE DEVICE POLYSOM 40034 [facility] ELLEN 6/>YRS 6 FREDY SLEEP 4/> HEMATOLOG ADDL Y [facility] G[facility] [address] T CLIN VISIT ASSESS & MGMT PT O2 CONC 1 E1390 MAYA RICHARDSONRELL DEL PORT 6 HOME HOME 85%/>02 MEDICAL MEDICAL CONC AT EQUIPME EQUIPME PRSC FLW RATE PULMONARY 08-10-201 23456 [facility] STRESS 6 NE HEALTH NE HEALTH TESTING MEDICAL MEDICAL SIMPLE G G PRTBLE E0431 MAYA MAYA GASEOUS 6 HOME HOME O2 SYS MEDICAL MEDICAL RENT; EQUIPME EQUIPME FLWMTR HUMIDFR&M ASK ECG 86775 [facility] ROUTINE 6 [facility] NE HEALTH ECG MEDICAL MEDICAL W/LEAST G G 12 LDS W/I&R ECG 23778 [facility] ROUTINE 6 NE [facility] HEALTH ECG MEDICAL MEDICAL W/LEAST G G 12 LDS W/I&R NATRIURET [address] PEPTIDE RADIOLOGI 54[address] [facility] [place] SCALF LILLIAN C EXAM 6 RADIOLOGY CHEST 2 VIEWS FRONTAL&L ATERAL ECG 98023 [facility] ROUTINE 6 [facility] HEALTH ECG MEDICAL MEDICAL W/LEAST G G 12 LDS W/I&R RADIOLOGI 49259 [facility] C EXAM 6 EIDER KISHA CHEST 2 RADIOLOGY VIEWS ASSOCIAT FRONTAL&L ATERAL CARDIOVER [address] ELECTIVE ARRHYTHMI A EXTERNAL ECG 21574 [facility] ROUTINE 6 [facility] III ECG MEDICAL W/LEAST G 12 LDS W/I&R NORMAL A4256 [facility] AR[facility]IV[facility] LOW AND 6 MEDICAL MEDICAL HIGH CALIBRATO R SOLUTION/ CHIPS ECG 50369 [facility] ROUTINE 6 [facility] HEALTH ECG MEDICAL MEDICAL W/LEAST G G 12 LDS W/I&R CARDIOVER 95671 [facility] FALLUJI [place] 6 [facility] HAKAN ELECTIVE MEDICAL ARRHYTHMI G A EXTERNAL ECG 11135 [facility]HEW ROUTINE 6 AMA AMA ECG W/LEAST 12 LDS W/I&R CREATINE 24343 STEPH[facility] MITCHELL KINASE 6 [facility] TOTAL INC INC ECG 71315 STE[facility] MITCHELL ROUTINE 6 [facility] ECG INC INC W/LEAST 12 LDS TRCG ONLY W/O I&R ECG 55243 STE[facility] CHEN JR ROUTINE 6 [facility] W/LEAST P 12 LDS I&[place] [address] STEPH[facility] MITCHELL TROPONIN 6 [facility] QUANTITAT INC INC NANCY BLOOD 51115 STEPHEN MITCHELL COUNT 6 [facility] COMPLETE INC INC AUTO&AUTO DIFRNTL WBC URNLS DIP 58522 STE[facility] MITCHELL 6 [facility] STICK/TAB INC INC LET REAGENT AUTO MICROSCOP Y COMPREHEN 14887 STEPHEN MITCHELL SIVE 6 [facility] METABOLIC INC INC PANEL CREATINE 64336 STEPHEN MITCHELL KINASE MB 6 [facility] FRACTION INC INC ONLY NORMAL A4256 ARRIVA ARRIVA LOW AND 6 MEDICAL MEDICAL HIGH CALIBRATO R SOLUTION/ [facility] ELIG CLIN G8427 FALLIS JOSE MIGUEL ATTSTS 6 [facility] DOC M REC OBTD UPD/REV PT MEDS PNEUMOCOC 4040F FALLIS JOSE MIGUEL FRANCISCO 6 [facility] VACCINE ADMIN RCVD PRIOR FALLS 3288F FALLIS JOSE MIGUEL RISK 6 [facility] ASSESSMEN T DOCUMENTE D BMI DOC G8420 FALLIS JOSE MIGUEL W/I 6 [facility] NORMAL ANDREW & NO F/U PLAN REQUIRED DISCHRG 1111F FALLIS JOSE MIGUEL MEDS 6 [facility] RECONCILE D W/CURRENT MED LIST CURRENT 1036F FALLIS JOSE MIGUEL TOBACCO 6 [facility] NON-USER CAD CAP COPD PV DM PT FALLS 1100F FALLIS JOSE MIGUEL ASSESS 6 [facility] DOCD 2/> FALLS/FAL L W/INJURY/ YR PAIN G8730 FALLIS JOSE MIGUEL ASSESS 6 [facility] DOC POS USING STANDARD TOOL F/U PLAN INFLUENZA G8484 FALLIS JOSE MIGUEL IMMUN 6 [facility] NOT ADMINISTE RED RSN NOT GIVEN MOST 3046F FALLIS JOSE MIGUEL RECENT 6 [facility] HEMOGLOBI N A1C LEVEL >9.0% NORMAL G8783 FALLIS JOSE MIGUEL BLOOD 6 [facility] PRESS READING DOC F/U NOT REQUIRED CT LOWER 78720 [place] ALL EXTREMITY 6 MEDICAL W/O IMAGING CONTRAST ASS MATERIAL REPL DENZEL [id number] ARRIVA ARRIVA LITHIUM 5 MEDICAL MEDICAL MED NECES SADIA BG MON OWN PT EA SPRING-PO A4258 ARRIVA ARRIVA WERED 5 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 NORMAL A4256 ARRIVA ARRIVA LOW AND 5 MEDICAL MEDICAL HIGH CALIBRATO R SOLUTION/ [facility]IPS LANCETS A4259 ARRIVA ARRIVA PER BOX 5 MEDICAL MEDICAL OF 100 BLD GLU A4253 ARRIVA ARRIVA TEST/REAG 5 MEDICAL MEDICAL T STRIPS HOME BLD GLU MON-50 INJECTION J0696 DIAZ BEN DIAZ BEN 5 CEFTRIAXO NE SODIUM PER 250 MG INJECTION J3301 DIAZ BEN DIAZ BEN 5 TRIAMCINO LONE ACETONIDE NOS 10 MG INJECTION J2010 IVAN IVAN 5 [place] LINCOMYCI N HCL UP TO 300 MG INJECTION J1100 IVAN IVAN 5 [place] DEXAMETHO SONE SODIUM PHOSPHATE 1 MG RADIOLOGI 09658 [facility] C EXAM 5 LILLIAN CHEST 2 RADIOLOGY VIEWS ASSOCIAT FRONTAL&L ATERAL AFO L1970 PROGRESSI PROGRESSI PLASTIC 5 VE VE WITH PODIATRY PODIATRY ANKLE JOINT CUSTOM FABRICATE D ADD LW L2820 PROGRESSI PROGRESSI EXT ORTH 5 VE VE SFT PODIATRY PODIATRY INTERFCE MOLD BELW KNEE NORMAL A4256 ARRIVA ARRIVA LOW AND 5 MEDICAL MEDICAL HIGH CALIBRATO R SOLUTION/ [facility] RADEX 89006 [place] ALL FOOT 5 MEDICAL COMPLETE IMAGING MINIMUM 3 ASS VIEWS RADEX 42402 STEPHEN MITCHELL ANKLE 5 [facility] COMPLETE INC INC MINIMUM 3 VIEWS NORMAL A4256 ARRIVA ARRIVA LOW AND 5 MEDICAL MEDICAL HIGH CALIBRATO R SOLUTION/ CHIPS FOR DIAB A5513 TOTAL TOTAL ONLY MX 5 CARE CARE [facility] PHARMACY INSRT #2 #2 CSTM MOLD CSTM EA DIAB ONLY A5500 TOTAL TOTAL FIT CSTM 5 CARE CARE PREP&SPL PHARMACY PHARMACY SHOE MX #2 #2 DNSITY INSRT INJECTION J1030 DIAZ BEN DIAZ BEN 5 METHYLPRE DNISOLONE ACETATE 40 MG INJECTION J2010 DIAZ BEN DIAZ BEN 5 LINCOMYCI N HCL UP TO 300 MG REPL DENZEL A4235 ARRIVA ARRIVA LITHIUM 5 MEDICAL MEDICAL MED NECES [facility] BG MON OWN PT EA A4258 ARRIVA ARRIVA WERED 5 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 A4253 ARRIVA ARRIVA TEST/REAG 5 MEDICAL MEDICAL T STRIPS HOME BLD GLU SAT-50 NORMAL A4256 ARRIVA ARRIVA LOW AND 5 MEDICAL MEDICAL HIGH CALIBRATO R SOLUTION/ CHIPS LANCETS A4259 ARRIVA ARRIVA PER BOX 5 MEDICAL MEDICAL OF 100 BLD GLU A4253 ARRIVA ARRIVA TEST/REAG 4 MEDICAL MEDICAL T STRIPS HOME BLD GLU MON-50 NORMAL A4256 ARRIVA ARRIVA LOW AND 4 [...] MEDICAL T STRIPS HOME BLD GLU SAT-50 REPL DENZEL A4235 ARRIVA ARRIVA LITHIUM 4 MEDICAL MEDICAL MED [facility] MON OWN PT EA A4258 ARRIVA ARRIVA WERED 4 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 OPHTHALMO 11185 [facility] SCPY 4 JAM JAM EXTENDED RETINAL DRAWING I&R 1ST OPHTHALMO 41478 NEHEMIA[facility] CERNA SCPY 4 JAM JAM EXTENDED RETINAL DRAWING I&R 1ST CATARACT 99202 NEHEMIAH CERNA REMOVAL 4 JAM JAM INSERTION OF LENS DIAB ONLY A5500 TOTAL TOTAL FIT CSTM 4 CARE CARE PREP&SPL PHARMACY PHARMACY SHOE MX #2 #2 DNSITY INSRT BLD GLU A4253 ARRIVA ARRIVA TEST/REAG 4 MEDICAL MEDICAL T STRIPS HOME BLD GLU SAT-50 LANCETS A4259 ARRIVA ARRIVA PER BOX 4 MEDICAL MEDICAL OF 100 NORMAL A4256 ARRIVA ARRIVA LOW AND 4 MEDICAL MEDICAL HIGH CALIBRATO R SOLUTION/ CHIPS OPHTHALMO 56457 NEHEMIAH CERNA SCPY 4 JAM JAM EXTENDED RETINAL DRAWING I&R 1ST ECG 20920 DIAZ BEN DIAZ BEN ROUTINE 4 ECG W/LEAST 12 LDS W/I&R OPHTHALMO 22769 NEHEMIAH CERNA SCPY 4 JAM JAM EXTENDED RETINAL DRAWING I&R 1ST CATARACT 80440 NEHEM[facility]H CERNA REMOVAL 4 JAM JAM INSERTION OF LENS REPL DENZEL A4235 ARRIVA ARRIVA LITHIUM 4 MEDICAL MEDICAL MED NECES [place] BG MON OWN PT EA SPRING-PO A4258 ARRIVA ARRIVA WERED 4 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 A4259 ARRIVA ARRIVA PER BOX 4 MEDICAL MEDICAL OF 100 BLD GLU A4253 ARRIVA ARRIVA TEST/REAG 4 MEDICAL MEDICAL T STRIPS HOME BLD GLU MON-50 NORMAL A4256 ARRIVA ARRIVA LOW AND 4 MEDICAL MEDICAL HIGH CALIBRATO R SOLUTION/ CHIPS INJECTION J2010 DIAZ BEN DIAZ BEN 3 LINCOMYCI N HCL UP TO 300 MG INJECTION J1885 DIAZ BNE DIAZ BEN 3 KETOROLAC TROMETHAM INE PER 15 MG LANCETS A4259 ARRIVA ARRIVA PER BOX 3 MEDICAL MEDICAL OF 100 BLD GLU A4253 ARRIVA ARRIVA TEST/REAG 3 MEDICAL MEDICAL T STRIPS HOME BLD GLU MON-50 NORMAL A4256 ARRIVA ARRIVA LOW AND 3 MEDICAL MEDICAL HIGH CALIBRATO R SOLUTION/ CHIPS DIAB ONLY A5500 TOTAL TOTAL FIT CSTM 3 CARE CARE PREP&SPL PHARMACY PHARMACY SHOE MX #2 #2 DNSITY INSRT HOME E0607 ARRIVA ARRIVA BLOOD 3 MEDICAL MEDICAL GLUCOSE MONITOR LANCETS A4259 ARRIVA ARRIVA PER BOX 3 MEDICAL MEDICAL OF 100 BLD GLU A4253 ARRIVA ARRIVA TEST/REAG 3 MEDICAL MEDICAL T STRIPS HOME BLD GLU MON-50 INJECTION J2010 FAMILY MATHEW 3 MEDICINE AMA LINCOMYCI ASSOC N HCL UP FLEMIN TO 300 MG LANCETS A4259 LIBERTY LIBERTY PER BOX 2 MEDICAL MEDICAL OF 100 SUPPLY SUPPLY INC. INC. NORMAL A4256 LIBERTY LIBERTY LOW AND 2 MEDICAL MEDICAL HIGH SUPPLY SUPPLY CALIBRATO INC. INC. R SOLUTION/ CHIPS BLD GLU A4253 LIBERTY LIBERTY TEST/REAG 2 MEDICAL MEDICAL T STRIPS SUPPLY SUPPLY HOME BLD INC. INC. GLU SAT-50 RADIOLOGI 91735 [facility] C EXAM 2 CO CO CHEST 2 [facility] VIEWS FRONTAL&L ATERAL BLD GLU A4253 [facility]ERTY TEST/REAG 2 MEDICAL MEDICAL T STRIPS SUPPLY SUPPLY HOME BLD INC. INC. GLU SAT-50 NORMAL A4256 LIBERTY LIBERTY LOW AND 2 MEDICAL MEDICAL HIGH SUPPLY SUPPLY CALIBRATO INC. INC. R SOLUTION/ CHIPS LANCETS A4259 LIBERTY LIBERTY PER BOX 2 MEDICAL MEDICAL OF 100 SUPPLY SUPPLY INC. INC. 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 INC. LANCET EACH REPL DENZEL A4235 LIBERTY LIBERTY LITHIUM 2 MEDICAL MEDICAL MED NECES SUPPLY SUPPLY [place]IA BG MON OWN PT EA BLD GLU A4253 LIB[facility] LIBERTY TEST/REAG 2 MEDICAL MEDICAL T STRIPS SUPPLY SUPPLY HOME BLD GLU SAT-50 LANCETS A4259 LIBERTY LIBERTY PER BOX 2 MEDICAL MEDICAL OF 100 SUPPLY SUPPLY NORMAL A4256 LIBERTY LIBERTY LOW AND 2 MEDICAL MEDICAL HIGH SUPPLY SUPPLY CALIBRATO R SOLUTION/ CHIPS ADD LW L2275 [employer] EXTRM 1 O AND P O AND P VARUS/VUL [facility] CORNELIO DARRYL PLSTC MOD PADD/LN ADD LW L2820 [employer] EXT ORTH 1 O AND P O AND P SFT [facility] INTERFCE MOLD BELW KNEE FOR DIAB A5512 [employer] ONLY MX 1 O AND P O AND P DNSITY [facility] INSRT DIR FORMD PRFAB EA AFO L1960 [facility] POSTERIOR 1 O AND P O AND P SOLID [facility] ANK PLASTIC CUSTOM XOCHITL DIAB ONLY A5500 [facility] FIT CSTM 1 O AND P O AND P PREP&SPL [facility] SHOE MX DNSITY INSRT INJECTION J1030 FAMILY DIAZ BEN 1 MEDICINE METHYLPRE ASSOC DNISOLONE FLEMIN ACETATE 40 MG INJECTION J1885 FAMILY DIAZ BEN 1 MEDICINE KETOROLAC ASSOC FLEMIN TROMETHAM INE PER 15 MG RADIOLOGI 45847 [facility] C EXAM 1 CO [facility] COMPLETE 4/MORE VIEWS BLD GLU A4253 LIB[facility] LIBERTY TEST/REAG 1 MEDICAL MEDICAL T STRIPS SUPPLY SUPPLY HOME BLD GLU MON-50 LANCETS A4259 LIBERTY LIBERTY PER BOX 1 MEDICAL MEDICAL OF 100 SUPPLY SUPPLY BLD GLU A4253 [facility] TEST/REAG 1 MEDICAL MEDICAL T STRIPS SUPPLY SUPPLY HOME BLD GLU MON-50 LANCETS A4259 LIBERTY LIBERTY PER BOX 1 MEDICAL MEDICAL OF 100 SUPPLY SUPPLY NORMAL A4256 [facility] LIBERTY LOW AND 1 MEDICAL MEDICAL HIGH SUPPLY SUPPLY CALIBRATO R SOLUTION/ [facility] A4258 LIBERTY LIBERTY WERED 1 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 EACH REPL DENZEL A4235 LIB[facility] LIBERTY LITHIUM 1 MEDICAL MEDICAL MED NECES SUPPLY SUPPLY [place] BG MON OWN PT EA BLD GLU A4253 [facility] TEST/REAG 1 MEDICAL MEDICAL T STRIPS SUPPLY SUPPLY HOME BLD GLU MON-50 INJECTION J0696 FAMILY DIAZ BEN 0 MEDICINE CEFTRIAXO ASSOC NE SODIUM FLEMIN PER 250 MG RADIOLOGI 01971 [facility] C EXAM 0 EIDER KISHA CHEST 2 RADIOLOGY VIEWS ASSOCIAT FRONTAL&L ATERAL INJECTION J0696 FAMILY DIAZ BEN 0 MEDICINE CEFTRIAXO ASSOC NE SODIUM FLEMIN PER 250 MG INJECTION J2010 FAMILY DIAZ BEN 0 MEDICINE LINCOMYCI ASSOC N HCL UP FLEMIN TO 300 MG NORMAL A4256 [facility]ERTY LOW AND 0 MEDICAL MEDICAL HIGH SUPPLY SUPPLY CALIBRATO R SOLUTION/ CHIPS LANCETS A4259 [facility] LIBERTY PER BOX 0 MEDICAL MEDICAL OF 100 SUPPLY SUPPLY BLD GLU A4253 [facility] TEST/REAG 0 MEDICAL MEDICAL T STRIPS SUPPLY SUPPLY HOME BLD GLU MON-50 DUP-SCAN 27046 [facility] XTR VEINS 0 GRACIE RADIOLOGY UNILATERA ASSOCIAT L/LIMITED STUDY NORMAL A4256 [facility] LIBERTY LOW AND 0 [...] CHIPS LANCETS A4259 [facility] LIBERTY PER BOX 0 MEDICAL MEDICAL OF 100 SUPPLY SUPPLY BLD GLU A4253 [facility] TEST/REAG 0 MEDICAL MEDICAL T STRIPS SUPPLY SUPPLY HOME BLD GLU SAT-50 RAD[facility]OLOGI 40064 [facility] PEE S CHEST 2 RADIOLOGY VIEWS FRONTAL&L ASSOCIATE ATERAL S PSC INJECTION J2010 FAMILY DIAZ, 9 MEDICINE VIKKI Downey LINCOMYCI ASSOC N HCL UP [place] TO 300 MG INJECTION J2010 FAMILY DIAZ, 9 MEDICINE VIKKI Downey LINCOMYCI ASSOC N HCL UP [place] TO 300 MG ADMINISTR G0008 FAMILY DIAZ, ATION OF 9 MEDICINE VIKKI Downey INFLUENZA ASSOC VIRUS [place] VACCINE INJECTION J2010 FAMILY DIAZ, 9 MEDICINE VIKKI Downey LINCOMYCI ASSOC N HCL UP [place] TO 300 MG DIAB ONLY A5501 [facility] FIT CSTM 9 PHARMACY PHARMACY PREP&SPL SHOE MOLD PTS FT FOR DIAB A5513 [facility] ONLY MX 9 PHARMACY PHARMACY DNSITY INSRT CSTM MOLD CSTM EA BLD GLU A4253 [facility] TEST/REAG 9 MEDICAL MEDICAL T STRIPS SUPPLY SUPPLY HOME BLD GLU MON-50 LANCETS A4259 LIBERTY LIBERTY PER BOX 9 MEDICAL MEDICAL OF 100 SUPPLY SUPPLY BLD GLU A4253 [facility]ERTY TEST/REAG 9 MEDICAL MEDICAL T STRIPS SUPPLY SUPPLY HOME BLD GLU MON-50 LANCETS A4259 LIBERTY LIBERTY PER BOX 9 MEDICAL MEDICAL OF 100 SUPPLY SUPPLY LIPID 60251 [facility] PANEL 9 [facility] HEMOGLOBI 85173 [facility] N 9 [facility] SURY A1C COLLECTIO 78397 [facility] N VENOUS 9 [facility] VENIPUNCT URE COMPREHEN 14385 [facility] SIVE 9 [facility] PANEL RADIOLOGI 01607 [facility] 9 NICK Shahid EXAMINATI ON FOOT 2 VIEWS STRAPPING 31094 [facility] UNNA 9 NICK Shahid BOOT SPRING-PO A4258 LIBERTY LIBERTY WERED 9 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 EACH NORMAL A4256 [facility]ERTY LOW AND 9 MEDICAL MEDICAL HIGH SUPPLY SUPPLY CALIBRATO R SOLUTION/ CHIPS BLD GLU A4253 [facility] LIBERTY TEST/REAG 9 MEDICAL MEDICAL T STRIPS SUPPLY SUPPLY HOME BLD GLU MON-50 LANCETS A4259 LIBERTY LIBERTY PER BOX 9 MEDICAL MEDICAL OF 100 SUPPLY SUPPLY INJECTION J2010 FAMILY DIAZ, 8 MEDICINE VIKKI Shayan LINCOMYCI ASSOC N HCL UP [place] TO 300 MG URINLS 06914 FAMILY DIAZ, DIP 8 MEDICINE VIKKI G STICK/TAB ASSOC LET [place] REAGNT NON-AUTO MICRSCPY COLLECTIO 85724 [facility] N VENOUS 8 [facility] VENIPUNCT URE HEMOGLOBI 52215 [facility] N 8 [facility] SURY A1C BLD GLU A4253 [facility] LIBERTY TEST/REAG 8 MEDICAL MEDICAL T STRIPS SUPPLY SUPPLY HOME BLD GLU MON-50 INJECTION J2010 FAMILY MATHEW 8 MEDICINE , [place] LINCOMYCI ASSOC N HCL UP [place] TO 300 MG INJECTION J1100 FAMILY MATHEW 8 MEDICINE , [place] DEXAMETHO ASSOC SONE [place] SODIUM PHOSPHATE 1 MG COLLECTIO 27609 [facility] N VENOUS 8 CO PR BLOOD [facility] VENIPUNCT URE COMPREHEN 31857 GER[facility] MAYES SIVE 8 CO [facility] PANEL RADIOLOGI 99357 RAMin SEGUNDO EXAM 8 PEE S CHEST 2 RADIOLOGY VIEWS FRONTAL&L ASSOCIATE ATERAL S PSC LIPID 36700 MAYES GERBER PANEL 8 CO [facility] HEMOGLOBI 87952 [facility] MA[facility] N 8 CO [facility] SURY A1C NATRIURET 20200 GERBER MAYES IC 8 CO [facility] IIV3 82833 FAMILY DIAZ, VACCINE 8 MEDICINE VIKKI Shayan SPLIT ASSOC VIRUS 0.5 [place] ML DOSAGE IM USE ADMINISTR G0008 FAMILY DIAZ ATION OF 8 MEDICINE VIKKI Shayan INFLUENZA ASSOC VIRUS [place] VACCINE SPRING-PO A4258 LIBERTY LIBERTY WERED 8 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 EACH LANCETS A4259 LIBERTY LIBERTY PER BOX 8 MEDICAL MEDICAL OF 100 SUPPLY SUPPLY BLD GLU A4253 [facility] LIBERTY TEST/REAG 8 MEDICAL MEDICAL T STRIPS SUPPLY SUPPLY HOME BLD GLU MON-50 INJECTION J1100 [facility] MAT[facility]W 8 MEDICINE , [place] DEXAMETHO ASSOC SONE [place] SODIUM PHOSPHATE 1 MG INJECTION J2010 [facility]W 8 MEDICINE , [place] LINCOMYCI ASSOC N HCL UP [place] TO 300 MG BLD GLU A4253 LIBERTY LIBERTY TEST/REAG 8 MEDICAL MEDICAL T STRIPS SUPPLY SUPPLY HOME BLD GLU MON-50 LANCETS A4259 LIBERTY LIBERTY PER BOX 8 MEDICAL MEDICAL OF 100 SUPPLY SUPPLY NORMAL A4256 [facility]ERTY LOW AND 8 MEDICAL MEDICAL HIGH SUPPLY SUPPLY CALIBRATO R SOLUTION/ [facility] INJECTION J0696 FAMILY DIAZ 8 MEDICINE VIKKI Shayan CEFTRIAXO ASSOC NE SODIUM [place] PER 250 MG INJECTION J3301 FAMILY DIAZ, 8 MEDICINE VIKKI Downey TRIAMCINO ASSOC LONE [place] ACETONIDE NOS 10 MG INJECTION J2010 [facility] MEDICINE VIKKI Downey LINCOMYCI ASSOC N HCL UP [place] TO 300 MG INJECTION J1100 [facility] DIAZ, 8 MEDICINE VIKKI Downey DEXAMETHO ASSOC SONE [place] SODIUM PHOSPHATE 1 MG INJECTION J0696 [place] [address] MEDICINE MEDICINE CEFTRIAXO ASSOC ASSOC NE SODIUM [place] PER 250 MG INJECTION J1100 [facility] 8 MEDICINE MEDICINE DEXAMETHO ASSOC ASSOC SONE [place] SODIUM PHOSPHATE 1 MG SPRING-PO A4258 LIBERTY LIBERTY WERED 8 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 EACH BLD GLU A4253 LIBERTY LIBERTY TEST/REAG 8 MEDICAL MEDICAL T STRIPS SUPPLY SUPPLY HOME BLD GLU MON-50 LANCETS A4259 LIBERTY LIBERTY PER BOX 8 MEDICAL MEDICAL OF 100 SUPPLY SUPPLY NORMAL A4256 LIB[facility]ERTY LOW AND 8 MEDICAL MEDICAL HIGH SUPPLY SUPPLY CALIBRATO R SOLUTION/ [facility]IPS Encounters Encounter Start End Date Code Location Performer Type Date OFFICE 67192 [facility] GIGI OUTPATIEN 7 7 PHYSICIAN T VISIT S GROUP 25 MINUTES OFFICE 81695 [facility] GIGI OUTPATIEN 7 7 PHYSICIAN T VISIT S GROUP 25 MINUTES [facility] - 7 7 W OUTPATIEN REGIONAL T MEDICAL OFFICE 87740 [facility] GIGI OUTPATIEN 7 7 PHYSICIAN T VISIT S GROUP 25 MINUTES [facility] - 7 7 W OUTPATIEN REGIONAL MEDICAL OFFICE 52279 [facility] OUTPATIEN 7 7 MEDICINE T VISIT ASSOC 25 FLEMIN MINUTES HOME [facility] 7 7 HOME [facility] INPATIENT AGENCY OFFICE 16569 [facility] GIGI OUTPATIEN 7 7 PHYSICIAN T NEW 60 S GROUP MINUTES HOSPITAL [address] T OFFICE [address] T VISIT MEDICAL 15 G MINUTES [facility] [address] T OFFICE [address] CANO [address] T VISIT MEDICAL 25 G MINUTES [facility] [address] T OFFICE [address] 45 HEMATOLOG MINUTES Y ONCO [facility] [address] T OFFICE [address] [address]O [address] T VISIT MEDICAL 15 G MINUTES [facility] [address] T OFFICE 76272 [facility] 6 6 PHYSCIAN LES T NEW 30 PRACTICE MINUTES LL EMERGENCY 76953 [facility] 6 6 [facility] T VISIT MODERATE SEVERITY [facility] - 6 6 [facility] T OFFICE 66590 FALLIS JOSE MIGUEL OUTPATIEN 6 6 MOLLY GAUDENCIO T VISIT 15 MINUTES OFFICE 96115 JOSE MIGUEL JOSE MIGUEL OUTPATI 6 6 GAUDENCIO GAUDENCIO T VISIT 15 MINUTES HOSPITAL [facility] - 6 6 [facility] T OFFICE 20119 PROGRESSI [facility] 6 6 VE VE T VISIT PODIATRY PODIATRY 15 MINUTES OFFICE 05152 DIAZ BEN DIAZ BEN OUTPATIEN 5 5 T VISIT 25 MINUTES OFFICE 13239 IVAN RAYAER [facility] 5 5 [place] T VISIT 25 MINUTES [facility] - 5 5 [facility] STEPHEN - [address] [facility] T OFFICE 94577 DIAZ BEN DIAZ BEN OUTPATIEN 5 5 T VISIT 25 MINUTES OFFICE 18362 FAMILY MATHEW OUTPATIEN 3 3 MEDICINE AMA T VISIT ASSOC 25 FLEMIN MINUTES HOSPITAL [facility] - 2 2 [facility] T OFFICE 87777 FAMILY DIAZ BEN OUTPATIEN 1 1 MEDICINE T VISIT ASSOC 25 FLEMIN MINUTES OFFICE 01287 FAMILY DIAZ BEN OUTPATIEN 1 1 MEDICINE T VISIT ASSOC 25 FLEMIN MINUTES [facility]OSPITAL [facility] - 1 1 [facility] T OFFICE 04769 FAMILY DIAZ BEN OUTPATIEN 1 1 MEDICINE T VISIT ASSOC 25 FLEMIN MINUTES OFFICE 94162 FAMILY DIAZ BEN OUTPATIEN 0 0 MEDICINE T VISIT ASSOC 15 FLEMIN MINUTES OFFICE 99823 FAMILY DIAZ BEN OUTPATIEN 0 0 MEDICINE T VISIT ASSOC 25 FLEMIN MINUTES [facility]OSPITAL [facility] - 0 0 [facility] T OFFICE 22591 FAMILY DIAZ BEN OUTPATIEN 0 0 MEDICINE T VISIT ASSOC 25 FLEMIN MINUTES [facility]OSPITAL [facility] - 0 0 [facility] T OFFICE 88199 FAMILY DIAZ BEN OUTPATIEN 0 0 MEDICINE T VISIT ASSOC 25 FLEMIN MINUTES [facility]OSPITAL [facility] - 9 9 [facility] T OFFICE 34803 FAMILY DIAZ, OUTPATIEN 9 9 MEDICINE VIKKI Oliva VISIT ASSOC 15 [place] MINUTES OFFICE 24645 FAMILY DIAZ, OUTPATIEN 9 9 MEDICINE VIKKI Oliva VISIT ASSOC 15 [place] MINUTES OFFICE 91529 FAMILY DIAZ, OUTPATIEN 9 9 MEDICINE VIKKI Oliva VISIT ASSOC 15 [place] MINUTES OFFICE 49380 FAMILY DIAZ, OUTPATIEN 9 9 MEDICINE VIKKI Oliva VISIT ASSOC 15 [place] MINUTES [facility] MAYES - 9 9 [facility] T OFFICE 30855 FAMILY DIAZ, OUTPATIEN 9 9 MEDICINE VIKKI Oliva VISIT ASSOC 25 [place] MINUTES OFFICE 45126 FAMILY DIAZ, OUTPATIEN 9 9 MEDICINE VIKKI Oliva VISIT ASSOC 15 [place] MINUTES OFFICE 86611 PAWSAT, PAWSAT, OUTPATIEN 9 9 NICK Oliva VISIT 10 MINUTES OFFICE 03538 FAMILY DIAZ, OUTPATIEN 9 9 MEDICINE VIKKI Oliva VISIT ASSOC 15 [place] MINUTES OFFICE 06968 PAWSAT, PAWSAT, OUTPATIEN 9 9 NICK Oliva VISIT 15 MINUTES OFFICE 65169 FAMILY DIAZ, OUTPATIEN 9 9 MEDICINE VIKKI Oliva VISIT ASSOC 15 [place] MINUTES OFFICE 12026 FAMILY DIAZ, OUTPATIEN 9 9 MEDICINE VIKKI Oliva VISIT ASSOC 25 [place] MINUTES OFFICE 30239 FAMILY DIAZ, OUTPATIEN 8 8 MEDICINE VIKKI Oliva VISIT ASSOC 15 [place] MINUTES OFFICE 79084 FAMILY DIAZ, OUTPATIEN 8 8 MEDICINE VIKKI G T VISIT ASSOC 15 [place] MINUTES [facility]OSPITAL [facility] - 8 8 [facility] T OFFICE 20231 FAMILY DIAZ, OUTPATIEN 8 8 MEDICINE VIKKI Oliva VISIT ASSOC 15 [place] MINUTES OFFICE 38007 FAMILY MATHEW OUTPATIEN 8 8 MEDICINE FATM[place] T VISIT ASSOC 15 [place] MINUTES [facility] MAYES - 8 8 [facility] T OFFICE 71387 FAMILY DIAZ, OUTPATIEN 8 8 MEDICINE VIKKI Oliva VISIT ASSOC 25 [place] MINUTES OFFICE 88525 [facility] MEDICINE [place] VISIT ASSOC 15 [place] MINUTES OFFICE 98283 FAMILY DIAZ, OUTPATIEN 8 8 MEDICINE VIKKI Oliva VISIT ASSOC 25 [place] MINUTES OFFICE 55784 FAMILY DIAZ, OUTPATIEN 8 8 MEDICINE VIKKI Oliva VISIT ASSOC 15 [place] MINUTES OFFICE 94346 FAMILY DIAZ, OUTPATIEN 8 8 MEDICINE VIKKI Oliva VISIT ASSOC 15 [place] MINUTES OFFICE 91837 FAMILY FAMILY OUTPATIEN 8 8 MEDICINE MEDICINE T VISIT ASSOC ASSOC 15 [place] MINUTES
--- OUTSIDE RECORDS SUMMARY | 2016-09-17 13:14 | External Medical Summary Rpt ---
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 Name Role Phone MATHEW, MATHEW Unavailable Unavailable [...] MIGUEL GAUDENCIO, JOSE MIGUEL Unavailable Unavailable GAUDENCIO [facility] Unavailable Unavailable [facility], [facility] Unavailable Unavailable [facility], [facility] FARIDA BOWMAN, IQBAL Unavailable Unavailable GRACIE CORNEA, CORNEA Unavailable Unavailable FALLIS MOLLY, FALLIS Unavailable Unavailable MOLLY FALLUMC HAKAN, FALLUJI Unavailable Unavailable [facility] Unavailable Unavailable [facility], [facility] Unavailable Unavailable [facility], [facility], Unavailable Unavailable [facility] Unavailable Unavailable [facility], [facility]available Unavailable [facility], Unavailable Unavailable [facility] CICI BEARD, Unavailable Unavailable CICI BEARD [facility] Unavailable Unavailable INC, [facility] Unavailable Unavailable HOSPITAL P, [facility] ANGELA MILLER Unavailable Unavailable ANGELA SNYDER, ANGELA Unavailable Unavailable LILLIAN PEE MILLER, Unavailable Unavailable PEE MILLER [facility] Unavailable Unavailable AGENCY, [facility], Unavailable Unavailable [facility] WILLIE III SYLVIE, Unavailable Unavailable WILLIE III SYLVIE [facility] Unavailable Unavailable [facility], [facility] Unavailable Unavailable MEDICAL G, [facility] APRIL JR DWI, APRLI Unavailable Unavailable JR DWI [facility] Unavailable Unavailable [facility], [facility] Unavailable Unavailable [facility] MAGALI, MAGALI Unavailable Unavailable CERNA JAM, Unavailable Unavailable CERNA JAM CERNA JAM, Unavailable Unavailable CERNA JAM [facility] Unavailable Unavailable ASSOCIAT, [facility] Unavailable Unavailable MEDICAL, [facility] MEDICAL [facility], Unavailable Unavailable [facility] NICK PIRES, Unavailable Unavailable NICK [...] Unavailable Unavailable EQU[facility], [facility], Unavailable Unavailable [facility] Unavailable Unavailable [facility] SUHL ELLEN, SUHL ELLEN Unavailable [...] DOS Provider Status E119 TYPE 2 08-22-2016 [facility] DIABETES PHYSICIANS MELLITUS GROUP WITHOUT COMPLICATIO NS E669 OBESITY 08-22-2016 [facility] UNSPECIFIED PHYSICIANS GROUP E785 HYPERLIPIDE 08-22-2016 [facility] RICKY PHYSICIANS UNSPECIFIED GROUP G4733 OBSTRUCTIVE 08-22-2016 [facility] SLEEP PHYSICIANS APNEA ADULT GROUP PEDIATRIC I10 ESSENTIAL 08-22-2016 [facility] PRIMARY PHYSICIANS HYPERTENSIO GROUP N I2510 [facility] [place] 08-22-2016 [facility] 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 ANGINA PECTORIS I4891 UNSPECIFIED 08-22-2016 [facility] ATRIAL PHYSICIANS FIBRILLATIO GROUP N R5383 OTHER 08-22-2016 [facility] FATIGUE PHYSICIANS GROUP I480 PAROXYSMAL 08-17-2016 [facility]TRIAL HOME FIBRILLATIO MEDICAL N EQUIPME R600 LOCALIZED 08-17-2016 [facility] EDEMA HOME MEDICAL EQUIPME E6601 MORBID 06-21-2016 [facility] SEVERE PHYSICIANS OBESITY DUE GROUP TO EXCESS CALORIES R30415 ATHEROSCLER 06-21-2016 [facility] OSIS CABG PHYSICIANS WITHOUT GROUP ANGINA PECTORIS I5020 UNSPECIFIED 06-21-2016 [facility] SYSTOLIC PHYSICIANS CONGESTIVE GROUP HEART FAILURE N182 CHRONIC 06-01-2016 [facility] DISE[facility] MEDICAL STAGE 2 MILD R0602 SHORTNESS 05-24-2016 [facility] OF BREATH PHYSICIANS GROUP J449 CHRONIC 05-17-2016 [facility] AREA PULMONARY AGENCY ON DISEASE UNS Z6838 BODY MASS 05-14-2016 [facility] INDEX BMI MEDICINE 38.0-38.9 ASSOC ADULT [facility] Z789 OTHER 05-14-2016 [facility]ILY SPECIFIED MEDICINE HEALTH ASSOC STATUS FLE[facility] I129 HYPERTENSIV 04-24-2016 [facility] W/STAGE 1-4 AGENCY CKD OR UNS CKD P29708 ASHD [place] 04-24-2016 [facility] W/UNSTABLE AGENCY ANGINA PECTORIS R15730 CELLULITIS 04-24-2016 [facility] LEFT HOME HLTH LOWER LIMB AGENCY U19684 PRESSURE 04-24-2016 [facility] RIGHT AGENCY BUTTOCK STAGE 2 N183 CHRONIC 04-24-2016 [facility] DISEASE AGENCY STAGE 3 MODERATE I200 UNSTABLE 04-20-2016 [facility] ANGINA HEART I208 OTHER FORMS 04-19-2016 [facility] OF ANGINA PHYSICIANS PECTORIS GROUP R0902 HYPOXEMIA 04-19-2016 [facility] Z720 TOBACCO USE 04-19-2016 [facility] Z951 PRESENCE OF 04-19-2016 [facility] AORTOCORONA ASSOCIAT RY BYPASS GRAFT I252 OLD 03-19-2016 [facility] MEDICAL G I481 PERSISTENT 03-19-2016 [facility] FIBRILLATIO N R9439 ABNORMAL 03-19-2016 [facility] CARDIOVASCU LR FUNCTION STUDY I255 ISCHEMIC 02-18-2016 [facility] CARDIOMYOPA HOME THY MEDICAL EQUIPME E538 DEFICIENCY 02-16-2016 FAMILY OF OTHER MEDICINE SPECIFIED B ASSOC GROUP NOHELIA VITAMINS R531 WEAKNESS 02-07-2016 [facility] NOHELIA Z6841 BODY MASS 02-07-2016 FAMILY INDEX BMI MEDICINE 40.0-44.9 ASSOC ADULT NOHELIA I509 HEART 02-01-2016 [facility] HEALTH UNSPECIFIED MEDICAL G J309 ALLERGIC 11-22-2015 [facility] UNSPECIFIED R918 OTHER 11-22-[address] 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 09-16-2015 [facility] CURRENT USE HEALTH OF MEDICAL G ANTICOAGULA NTS E782 MIXED 09-06-2015 [facility] HYPERLIPIDE [facility] R079 CHEST PAIN 09-06-2015 [facility] UNSPECIFIED RADIOLOGY ASSOCIAT E1142 TYPE 2 09-02-2015 [facility] MELLITUS W/DIAB POLYNEUROPA THY M1990 UNSPECIFIED 09-02-2015 [facility] OSTEOARTHRI TIS UNSPECIFIED SITE Z885 ALLERGY 09-02-2015 [facility] STATUS TO HOSPITAL NARCOTIC AGENT STATUS E1165 TYPE 2 08-22-2015 [facility] DI[facility]ETES MEDICAL MELLITUS WITH HYPERGLYCEM IA 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 MOLLY ARTHROPATHY RIGHT ANKLE AND FOOT M2570 OSTEOPHYTE 05-19-2015 FALLIS MOLLY UNSPECIFIED JOINT M6688 SPONTANEOUS 05-19-2015 FALLIS MOLLY RUPTURE OF OTHER TENDONS OTHER F68402 PAIN IN 05-19-2015 FALLIS MOLLY RIGHT FOOT M1711 UNILATERAL 04-14-2015 [facility] OSTEO[facility] IMAGING ASS TIS RIGHT KNEE M90691 PRIMARY 04-14-2015 [facility] OSTEOAR[facility]ICAL TIS RIGHT IMAGING ASS ANKLE AND FOOT M2140 FLAT FOOT 04-14-2015 [facility] PES [facility] ACQUIRED IMAGING ASS UNSPECIFIED FOOT H04252 PAIN IN 04-14-2015 [facility] RIGHT ANKLE MEDICAL IMAGING ASS J069 ACUTE UPPER 02-14-2015 [facility] RESPIRATORY INFECTION UNSPECIFIED J329 CHRONIC 02-11-2015 [facility] [place] SINUSITIS UNSPECIFIED R0600 DYSPNEA 01-31-2015 [facility] UNSPECIFIED RADIOLOGY ASSOCIAT S65615 FOOT DROP 01-06-2015 PROGRESSIVE RIGHT FOOT PODIATRY L22799 SPONTANEOUS 01-06-2015 PROGRESSIVE RUPTURE PODIATRY FLEXOR TENDONS RT ANKLE FOOT 11238 DIAB W/O 12-08-2014 [facility] MENTION MEDICAL COMP TYPE II/UNS TYPE UNCNTRL 11232 OSTEOARTHRO 11-11-2014 [place] SIS UNSPEC MEDICAL WHETHER IMAGING ASS GEN/LOC ANK&FOOT 46083 PAIN IN 11-11-2014 [place] JOINT, MEDICAL ANKLE AND IMAGING ASS FOOT 73778 CALCANEAL 11-11-2014 [facility] SPUR [facility] 7295 PAIN IN 11-11-2014 [facility] SOFT [facility]ICAL TISSUES OF IMAGING ASS LIMB 734 FLAT FOOT 11-11-2014 [facility] 03672 DIAB W/O 08-30-2014 [facility] COMP TYPE PHARMACY #2 II/UNS NOT STATED UNCNTRL 4659 ACUTE URIS 07-14-2014 DIAZ BEN OF UNSPECIFIED SITE V4989 OTHER SPEC 07-14-2014 [facility] CONDITIONS INFLUENCING HEALTH STATUS V8541 BODY MASS 07-14-2014 [facility] BEN INDEX 40.0-44.9 ADULT 64418 VITREOUS 10-07-2013 CERNA DEGENERATIO JAM N 71047 NUCLEAR 09-15-2013 [facility] SCLEROSIS JAM 48887 OTHER 08-18-2013 [facility] SPECIFIED CARDIAC DYSRHYTHMIA S 7851 PALPITATION 08-18-2013 [facility] BEN S V8539 BODY MASS 08-18-2013 [facility] BEN INDEX 39.0-39.9 ADULT 77995 PAIN IN 02-09-2013 DIA[facility] BEN JOINT, LOWER LEG 462 ACUTE 04-18-2012 [facility]ILY PHARYNGITIS MEDICINE ASSOC FLE[facility] 4293 CARDIOMEGAL 12-31-2011 [facility] Y [facility]IOLOGY ASSOCIAT 25918 OTHER 12-31-2011 [facility] RESPIRATORY ABNORMALITI ES V4581 POSTSURGICA 12-31-2011 [facility] L [facility] AORTOCORONA ASSOCIAT RY BYPASS STATUS 37709 OTHER 01-08-2011 FAMILY ACQUIRED MEDICINE DEFORMITY ASSOC OF ANKLE FLEMIN AND FOOT OTHER 48416 DIAB 01-04-2011 [facility] MANIFESTS TYPE II/UNS NOT UNCNTRL 92148 EFFUSION OF 12-13-2010 [facility] LOWER LEG RADIOLOGY JOINT ASSOCIAT 9599 INJURY 12-13-2010 [facility] OTHER AND RADIOLOGY UNSPECIFIED ASSOCIAT UNSPECIFIED SITE 2722 MIXED 11-14-2010 FAMILY HYPERLIPIDE MEDICINE RICKY ASSOC FLEMIN 4011 ESSENTIAL 11-14-2010 FAMILY HYPERTENSIO MEDICINE N, BENIGN ASSOC FLEMIN 486 PNEUMONIA, 03-01-2010 FAMILY ORGANISM MEDICINE UNSPECIFIED ASSOC FLEMIN 4660 ACUTE 02-27-2010 [facility] HOSPITAL 08393 OTHER 02-27-2010 [facility] DISEASES OF RADIOLOGY LUNG NOT ASSOCIAT ELSEWHERE CLASSIFIED 7931 NONSPEC 02-27-2010 [facility] FIND RAD RADIOLOGY OTH EXAM ASSOCIAT BODY STRUCT LUNG FIELD 15314 COR 02-13-2010 FAMILY ATHEROSLERO MEDICINE UNSPEC ASSOC TYPE VESSEL FLEMIN [place]/BABITA T 490 BRONCHITIS 02-13-2010 FAMILY NOT MEDICINE SPECIFIED ASSOC ACUTE OR FLEMIN CHRONIC 89387 SWELLING OF 11-30-2009 [facility] LIMB RADIOLOGY ASSOCIAT 2724 OTHER AND 11-28-2009 FAMILY UNSPECIFIED MEDICINE ASSOC HYPERLIPIDE FLEMIN RICKY 4019 UNSPECIFIED 11-28-2009 FAMILY ESSENTIAL MEDICINE HYPERTENSIO ASSOC N FLEMIN 4739 UNSPECIFIED 03-16-2009 FAMILY SINUSITIS MEDICINE ASSOC [place] 41040 UNSPECIFIED 03-15-2009 FAMILY MEDICINE CONJUNCTIVI ASSOC TIS [place] 99483 CHEST PAIN 03-15-2009 FAMILY UNSPECIFIED MEDICINE ASSOC [place] 41835 ACUTE 03-03-2009 FAMILY LARYNGITIS, MEDICINE WITHOUT ASSOC MENTION OF [place] OBSTRUCTIO V0481 NEED 03-03-2009 FAMILY PROPHYLACTI MEDICINE C ASSOC VACCINATION [place] &INOCULATIO N FLU 44809 TIBIALIS 06-15-2008 PAWSAT, TENDINITIS NICK D 2515 UNSPECIFIED 03-29-2008 FAMILY CYSTITIS MEDICINE ASSOC [place] 02831 OTHER 02-12-2008 FAMILY ABNORMAL MEDICINE GLUCOSE ASSOC [place] 7862 COUGH 01-30-2008 [facility] MEDICINE [facility]OC [place] 4254 OTHER 01-28-2008 [facility] CARDIOMYOPA JABARI 39503 SHORTNESS 01-28-2008 [facility] 4779 ALLERGIC 09-19-2007 FAMILY RHINITIS MEDICINE CAUSE ASSOC UNSPECIFIED [facility] Medications Na ND Rx Da Fi Fi [...] Procedure DOS Code Location Performer Comment ECG 92289 [facility] GIGI ROUTINE 7 PHYSICIAN ECG S GROUP W/LEAST 12 LDS W/I&R STANDARD K0001 MAYA MAYA WHEELCHAI 7 HOME HOME R MEDICAL MEDICAL EQUIPME EQUIPME STANDARD K0001 [facility] TREJO WHEELCHAI 7 HOME HOME R MEDICAL MEDICAL EQUIPME EQUIPME ECG 36279 [facility] GIGI ROUTINE 7 PHYSICIAN ECG S GROUP W/LEAST 12 LDS W/I&R STANDARD K0001 [facility] TREJO WHEELCHAI 7 HOME HOME R MEDICAL MEDICAL EQUIPME EQUIPME BASIC 18697 [facility] ME[facility] METABOLIC 7 W W PANEL REGIONAL REGIONAL CALCIUM MEDICAL MEDICAL TOTAL COLLECTIO 85991 [facility] MEADOWVIE N VENOUS 7 W W BLOOD REGIONAL REGIONAL VENIPUNCT MEDICAL MEDICAL URE COLLECTIO 06450 [facility] MEADOWVIE N VENOUS 7 W W BLOOD REGIONAL REGIONAL VENIPUNCT MEDICAL MEDICAL URE BASIC 01565 [facility] MEADOW[facility]IE METABOLIC 7 W W PANEL REGIONAL REGIONAL CALCIUM MEDICAL MEDICAL TOTAL STANDARD K0001 [facility]A TREJO WHEELCHAI 7 HOME HOME R MEDICAL MEDICAL EQUIPME EQUIPME ECG 47667 [facility] GIGI ROUTINE 7 PHYSICIAN ECG S GROUP W/LEAST 12 LDS W/I&R ADLT SZD T4528 PORFIRIOBreezeplayNICOLE MONROYBreezeplayNICOLE DISPBL 7 HOME HLTH HOME HLTH INCONT AGENCY AGENCY PROD UNDWEAR XTRA LG EA INCONTINE T4541 [facility] EgoscueOOD NCE 7 HOME HLTH HOME HLTH PRODUCT AGENCY AGENCY DISPOSABL E UNDPAD LARGE EA ECHO 14471 [facility] TTC R-T 7 VALLEY 2D HEART W/WOM-MOD E COMPL SPEC&COLR D RADIOLOGI 08212 [facility] EXAM 7 CHEST 2 RADIOLOGY VIEWS ASSOCIAT FRONTAL&L ATERAL STANDARD K0001 [facility] TREJO WHEELCHAI 7 HOME HOME R MEDICAL MEDICAL EQUIPME EQUIPME ECG 69443 [facility] GIGI ROUTINE 7 PHYSICIAN ECG S GROUP W/LEAST 12 LDS W/I&R CV STRS [address] XERS&/OR RX CONT ECG TRCG ONLY INJECTION J2785 [address] REGADENOS ON 0.1 MG STANDARD K0001 [facility] KERRI 6 HOME HOME R MEDICAL MEDICAL EQUIPME EQUIPME CV STRS 45013 [facility] TST 6 [facility] III XERS&/OR MEDICAL RX CONT G ECG I&R ONLY MYOCARDIA 43499 [facility] L SPECT [address] [place] [address] MULTIPLE STUDIES TECHNETIU A9502 [facility] TC-99M [address] [place] [address] TETROFOSM IN DX PER STUDY DOSE ECG 91924 [facility] ROUTINE 6 [facility] ECG MEDICAL MEDICAL W/LEAST G G 12 LDS W/I&R CONTINUOU E0601 [facility] TREJO S 6 HOME HOME POSITIVE MEDICAL MEDICAL AIRWAY EQUIPME EQUIPME PRESSURE DEVICE STANDARD K0001 [facility] TREJO USHAI 6 HOME HOME R MEDICAL MEDICAL EQUIPME EQUIPME THERAPEUT 50259 FAMILY GOODMAN IC 6 MEDICINE PROPHYLAC ASSOC [...] FLEMIN FLEMIN VIPUL TO 1000 MCG THERAPEUT 60061 [facility] MATHEW IC 6 MEDICINE AMA PROPHYLAC ASSOC TIC/DX FLEMIN INJECTION SUBQ/IM INJECTION J3420 [facility] MATHEW VIT B-12 6 MEDICINE AMA ASSOC CYANOCOBA FLEMIN VIPUL TO 1000 MCG ECG 49807 [facility] ROUTINE 6 [facility] ECG MEDICAL MEDICAL W/LEAST G G 12 LDS W/I&R THERAPEUT 95631 FAMILY REX JENNIFER IC 6 MEDICINE PROPHYLAC ASSOC TIC/DX FLEMIN INJECTION SUBQ/IM INJECTION J3420 FAMILY GOODMAN JENNIFER VIT B-12 6 MEDICINE ASSOC CYANOCOBA FLEMIN VIPUL TO 1000 MCG CONTINUOU E0601 [facility] TREJO S 6 HOME HOME POSITIVE MEDICAL MEDICAL AIRWAY EQUIPME EQUIPME PRESSURE DEVICE STANDARD K0001 [facility] TREJO WHEELCHAI 6 HOME HOME R MEDICAL MEDICAL EQUIPME EQUIPME ANES 18100 ANESTHESI CORNEA INTEG SYS 6 A ELEC ASSOCIATE CONVERSIO S PSC N ARRHYTHMI RADIOLOGI 80900 [facility] [place] WILLIE C 6 RADIOLOGY III SYLVIE EXAMINATI ON CHEST SINGLE VIEW FRONTAL CARDIOVER 62325 [facility] JEROME [place] 6 NE HEALTH BEN ELECTIVE MEDICAL ARRHYTHMI G A EXTERNAL REPL DENZEL A4235 ARRIVA ARRIVA LITHIUM 6 MEDICAL MEDICAL MED NECES SADIA BG MON OWN PT EA SPRING-PO A4258 ARRIVA ARRIVA WERED 6 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 LANCETS A4259 ARRIVA [...] EQUIPME EQUIPME DEVC W/WO HEAD STRAP ECG 08605 [facility] ROUTINE 6 NE [facility]ALTH NE HEALTH ECG MEDICAL MEDICAL W/LEAST G G 12 LDS W/I&R O2 CONC 1 E1390 MAY[facility] TREJO DEL PORT 6 HOME HOME 85%/>02 MEDICAL MEDICAL CONC AT EQUIPME EQUIPME PRSC FLW RATE PRTBLE E0431 MAYA MAYA GASEOUS 6 HOME HOME O2 SYS MEDICAL MEDICAL RENT; EQUIPME EQUIPME FLWMTR HUMIDFR&M ASK PLETHYSMO 93782 [facility] GRAPHY 6 NE HEALTH GRA LUNG MEDICAL VOLUMES G W/WO AIRWAY RESIST BRNCDILAT 35691 [facility] RSPSE 6 NE HEALTH GRA SPMTRY MEDICAL PRE&POST- G BRNCDILAT ADMN CT THORAX [address] W/[place] [address] [facility] DIFFUSING 6 NE HEALTH GRA [...] W/POS EQUIPME EQUIPME ARWAY PRESSURE DEVICE POLYSOM 65606 [facility] ELLEN 6/>YRS 6 FREDY SLEEP 4/> HEMATOLOG ADDL Y [facility]CO [facility] G0463 [facility] OUTPATI[address] T CLIN VISIT ASSESS & MGMT PT O2 CONC 1 E1390 MAYA RICHARDSONRELL DEL PORT 6 HOME HOME 85%/>02 MEDICAL MEDICAL CONC AT EQUIPME EQUIPME PRSC FLW RATE PULMONARY 08-10-201 84213 [facility] STRESS 6 NE HEALTH NE HEALTH TESTING MEDICAL MEDICAL SIMPLE G G PRTBLE E0431 MAYA MAYA GASEOUS 6 HOME HOME O2 SYS MEDICAL MEDICAL RENT; EQUIPME EQUIPME FLWMTR HUMIDFR&M ASK ECG 89970 [facility] ROUTINE 6 [facility] NE HEALTH ECG MEDICAL MEDICAL W/LEAST G G 12 LDS W/I&R ECG 04132 [facility] ROUTINE 6 NE [facility] NE HEALTH ECG MEDICAL MEDICAL W/LEAST G G 12 LDS W/I&R NATRIURET [address] PEPTIDE RADIOLOGI 80129 [facility] [place] SCALF LILLIAN C EXAM 6 RADIOLOGY CHEST 2 VIEWS FRONTAL&L ATERAL ECG 96517 [facility] ROUTINE 6 [facility] HEALTH ECG MEDICAL MEDICAL W/LEAST G G 12 LDS W/I&R RADIOLOGI 81804 [facility] C EXAM 6 EIDER KISHA CHEST 2 RADIOLOGY VIEWS ASSOCIAT FRONTAL&L ATERAL CARDIOVER [address] ELECTIVE ARRHYTHMI A EXTERNAL ECG 66767 [facility] ROUTINE 6 [facility] III ECG MEDICAL W/LEAST G 12 LDS W/I&R NORMAL A4256 ARRIVA ARRIVA LOW AND 6 MEDICAL MEDICAL HIGH CALIBRATO R SOLUTION/ CHIPS ECG 94684 [facility] ROUTINE 6 [facility] HEALTH ECG MEDICAL MEDICAL W/LEAST G G 12 LDS W/I&R CARDIOVER 61191 [facility] FALLUJI [place] 6 NE HEALTH HAKAN ELECTIVE MEDICAL ARRHYTHMI G A EXTERNAL ECG 67727 [facility] MATHEW ROUTINE 6 AMA AMA ECG W/LEAST 12 LDS W/I&R CREATINE 25564 [facility] MIT[facility]LL KINASE 6 [facility] TOTAL INC INC ECG 96230 [facility] MITCHELL ROUTINE 6 [facility] ECG INC INC W/LEAST 12 LDS TRCG ONLY W/O I&R ECG 43733 [facility] CHEN JR ROUTINE 6 [facility] W/LEAST P 12 LDS I&[place] [address] [facility] MITCHELL TROPONIN 6 [facility] QUANTITAT INC INC NANCY BLOOD 81361 [facility] MITCHELL COUNT 6 [facility] COMPLETE INC INC AUTO&AUTO DIFRNTL WBC URNLS DIP 88562 [facility] MITCHELL 6 [facility] STICK/TAB INC INC LET REAGENT AUTO MICROSCOP Y COMPREHEN 99271 [facility] MITCHELL SIVE 6 [facility] METABOLIC INC INC PANEL CREATINE 98712 [facility] MITCHELL KINASE MB 6 [facility] [...] READING DOC F/U NOT REQUIRED CT LOWER 99554 [place] [facility] ALL EXTREMITY 6 MEDICAL W/O IMAGING CONTRAST ASS MATERIAL REPL DENZEL A4235 ARRIV[facility] ARRIVA LITHIUM 5 MEDICAL MEDICAL MED NECES SADIA BG MON OWN PT EA SPRING-PO A4258 ARRIVA ARRIVA WERED 5 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.] ARRIVA LITHIUM 5 MEDICAL MEDICAL MED NECES [facility] BG MON OWN PT EA A4258 ARRIVA ARRIVA WERED 5 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 BLD GLU A4253 ARRIVA [...] T STRIPS HOME BLD GLU SAT-50 REPL DNEZEL A4235 ARRIVA ARRIVA LITHIUM 4 MEDICAL MEDICAL MED [facility] BG MON OWN PT EA A4258 ARRIVA ARRIVA WERED 4 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 OPHTHALMO 77045 NEHE[facility]IAH CERNA SCPY 4 JAM JAM EXTENDED RETINAL DRAWING I&R 1ST OPHTHALMO 00653 NEHEMIAH CERNA SCPY 4 JAM JAM EXTENDED RETINAL DRAWING I&R 1ST CATARACT 96027 NEHEMIAH CERNA REMOVAL 4 JAM JAM INSERTION [...] MEDICAL HIGH CALIBRATO R SOLUTION/ CHIPS OPHTHALMO 86397 NEHEMIAH CERNA SCPY 4 JAM JAM EXTENDED RETINAL DRAWING I&R 1ST ECG 45123 DIAZ BEN DIAZ BEN ROUTINE 4 ECG W/LEAST 12 LDS W/I&R OPHTHALMO 21541 NEHEMIAH CERNA SCPY 4 JAM JAM EXTENDED RETINAL DRAWING I&R 1ST CATARACT 86113 NEHEMIAH CERNA REMOVAL 4 JAM JAM INSERTION OF LENS REPL DENZEL A4235 ARRIVA ARRIVA LITHIUM 4 MEDICAL MEDICAL MED NECES SADIA BG MON OWN PT EA SPRING-PO A4258 ARRIVA ARRIVA WERED 4 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 INC. GLU SAT-50 RADIOLOGI 13920 [facility] C EXAM 2 CO CO CHEST 2 [facility] VIEWS FRONTAL&L ATERAL BLD GLU A4253 [facility] TEST/REAG 2 MEDICAL MEDICAL T STRIPS SUPPLY SUPPLY HOME [employer] INC. GLU SAT-50 NORMAL A4256 [facility] LOW AND 2 MEDICAL MEDICAL HIGH SUPPLY SUPPLY CALIBRATO INC. INC. R SOLUTION/ CHIPS LANCETS A4259 [facility]ERTY PER BOX 2 MEDICAL MEDICAL OF 100 SUPPLY SUPPLY INC. INC. SPRING-PO A4258 [facility] LIBERTY WERED 2 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 SUPPLY SUPPLY FOR [employer]. INC. LANCET EACH REPL DENZEL A4235 LIBERTY [...] CALIBRATO R SOLUTION/ CHIPS ADD LW L2275 [employer] EXTRM 1 O AND P O AND P VARUS/VUL [facility] CORNELIO DARRYL PLSTC MOD PADD/LN ADD LW L2820 [employer] EXT ORTH 1 O AND P O AND P SFT [facility] INTERFCE MOLD BELW KNEE FOR DIAB A5512 [employer] ONLY MX 1 O AND P O AND P DNSITY [facility] INSRT DIR FORMD PRFAB EA AFO L1960 [employer] POSTERIOR 1 O AND P O AND P SOLID [facility] ANK PLASTIC CUSTOM XOCHITL DIAB ONLY A5500 [facility] FIT CSTM 1 O AND P O AND P PREP&SPL [facility] SHOE MX DNSITY INSRT INJECTION J1030 FAMILY DIAZ BEN 1 MEDICINE METHYLPRE ASSOC DNISOLONE FLEMIN ACETATE 40 MG INJECTION J1885 FAMILY DIZA BEN 1 MEDICINE KETOROLAC ASSOC FLEMIN TROMETHAM INE PER 15 MG RADIOLOGI 29977 [facility] C EXAM 1 CO [facility] COMPLETE 4/MORE VIEWS BLD GLU A4253 [facility]ERTY [...] HIGH SUPPLY SUPPLY CALIBRATO R SOLUTION/ CHIPS [facility] A4258 LIBERTY LIBERTY WERED 1 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 SUPPLY SUPPLY FOR LANCET EACH REPL DENZEL A4235 [facility] LIBERTY LITHIUM 1 MEDICAL MEDICAL MED NECES SUPPLY SUPPLY SADIA BG MON OWN PT EA BLD GLU A4253 [facility] TEST/REAG 1 MEDICAL MEDICAL T STRIPS SUPPLY SUPPLY HOME BLD GLU MON-50 INJECTION J0696 FAMILY DIAZ BEN 0 MEDICINE CEFTRIAXO ASSOC NE SODIUM FLEMIN PER [address] [facility] C EXAM 0 EIDER KISHA CHEST [...] SUPPLY SUPPLY HOME BLD GLU MON-50 DUP-SCAN 59494 [facility] XTR VEINS 0 GRACIE RADIOLOGY UNILATERA [...] SUPPLY SUPPLY HOME BLD GLU SAT-50 [facility] PEE S CHEST 2 [...] MEDICAL MEDICAL OF 100 SUPPLY SUPPLY LIPID 07924 [facility] PANEL 9 [facility] HEMOGLOBI 18259 [facility] N 9 [facility] SURY A1C COLLECTIO 76939 [facility] N VENOUS 9 [facility] VENIPUNCT URE COMPREHEN 03771 [facility] SIVE 9 [facility] PANEL RADIOLOGI 61104 [facility] PIRES C 9 NICK Shahid EXAMINATI ON FOOT 2 VIEWS STRAPPING 95797 [facility] PIRES UNNA 9 NICK Shahid BOOT SPRING-PO A4258 [facility] LIBERTY WERED 9 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 SUPPLY FOR LANCET EACH NORMAL A4256 [...] HCL UP FLEMINGSB TO 300 MG URINLS 41685 FAMILY DIAZ, DIP 8 MEDICINE VIKKI G STICK/TAB ASSOC LET FLEMINGSB REAGNT NON-AUTO MICRSCPY COLLECTIO 58380 [facility] N VENOUS 8 [facility] VENIPUNCT URE HEMOGLOBI 99988 [facility] N 8 OZ[facility]KS [facility] A[facility]C BLD GLU [id number] LIBERTY LIBERTY TEST/REAG 8 MEDICAL MEDICAL T STRIPS SUPPLY SUPPLY HOME BLD GLU MON-50 INJECTION J2010 FAMILY MATHEW 8 MEDICINE , [place] [facility] N HCL UP [place] TO 300 MG INJECTION J1100 FAMILY [facility]W 8 MEDICINE , [place] DEXAMETHO ASSOC SONE [place] SODIUM PHOSPHATE 1 MG COLLECTIO [id number] GEBRER MAYES N VENOUS 8 CO [place] BLOOD [facility] VENIPUNCT URE COMPREHEN 32926 GERBER MAYES SIVE 8 CO [facility] PANEL RADIOLOGI 36431 RAMin SEGUNDO EXAM 8 PEE S CHEST 2 RADIOLOGY VIEWS FRONTAL&L ASSOCIATE ATERAL S PSC LIPID 87972 MAYES GERBER PANEL 8 CO [facility] HEMOGLOBI 03659 GERBER MAYES N 8 CO [facility] SURY A1C NATRIURET 97186 GERBER MAYES IC 8 CO [facility] IIV3 [id number] FAMILY DIAZ, VACCINE 8 MEDICINE VIKKI Shayan SPLIT ASSOC VIRUS 0.5 [place] ML DOSAGE IM USE ADMINISTR G0008 FAMILY DIAZ ATION OF 8 MEDICINE VIKKI Shayan INFLUENZA ASSOC VIRUS [place] VACCINE SPRING-PO A4258 LIBERTY LIBERTY WERED 8 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 SUPPLY SUPPLY FOR LANCET EACH LANCETS A4259 LIBERTY LIBERTY PER BOX 8 MEDICAL MEDICAL OF 100 SUPPLY SUPPLY BLD GLU A4253 LIBERTY LIBERTY TEST/REAG 8 MEDICAL MEDICAL T STRIPS SUPPLY SUPPLY HOME BLD GLU MON-50 INJECTION J1100 [facility] MATHEW 8 MEDICINE , [place] DEXAMETHO ASSOC SONE [place] SODIUM PHOSPHATE 1 MG INJECTION J2010 [facility] MAT[facility]W 8 MEDICINE , [place] [facility]OC [...] [place] ACETONIDE NOS 10 MG INJECTION J2010 [facility] VIKKI Downey LIN[facility]YCI [facility] N HCL UP [place] TO 300 MG INJECTION J1100 [facility] DIAZ, 8 MEDICINE VIKKI Downey DEXAMETHO ASSOC SONE [place] SODIUM PHOSPHATE 1 MG INJECTION J0696 [place] [address] MEDICINE MEDICINE CEFTRIAXO ASSOC ASSOC NE SODIUM [place] PER 250 MG INJECTION J1100 [facility] 8 MEDICINE MEDICINE DEXAMETHO ASSOC ASSOC SONE [place] SODIUM PHOSPHATE 1 MG SPRING-PO A4258 LIBERTY LIBERTY WERED 8 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 SUPPLY SUPPLY FOR LANCET EACH BLD GLU A4253 LIBERTY LIBERTY TEST/REAG 8 MEDICAL MEDICAL T STRIPS SUPPLY SUPPLY HOME BLD GLU MON-50 LANCETS A4259 LIBERTY LIBERTY PER BOX 8 MEDICAL MEDICAL OF 100 SUPPLY SUPPLY NORMAL A4256 [facility] LIBERTY LOW AND 8 MEDICAL MEDICAL HIGH SUPPLY SUPPLY CALIBRATO R SOLUTION/ CHIPS Encounters Encounter Start End Date Code Location Performer Type Date OFFICE 02411 [facility] GIGI OUTPATIEN 7 7 PHYSICIAN T VISIT S GROUP 25 MINUTES OFFICE 48527 [facility] GIGI OUTPATIEN 7 7 PHYSICIAN T VISIT S GROUP 25 MINUTES [facility] - 7 7 W OUTPATIEN REGIONAL T MEDICAL OFFICE 49824 [facility] GIGI OUTPATIEN 7 7 PHYSICIAN T VISIT S GROUP 25 MINUTES [facility]OSPITAL [facility] - 7 7 W OUTPATIEN REGIONAL MEDICAL OFFICE 48679 [facility]W OUTPATIEN 7 7 MEDICINE T VISIT ASSOC 25 FLEMIN MINUTES HOME [facility] 7 7 HOME [facility] INPATIENT AGENCY OFFICE 98564 [facility] GIGI OUTPATIEN 7 7 PHYSICIAN T NEW 60 S GROUP MINUTES [facility]OSPITAL [address] T OFFICE [address] T VISIT MEDICAL 15 G MINUTES [facility] [address] T OFFICE [address] T VISIT MEDICAL 25 G MINUTES [facility] [address] T OFFICE [address] 45 HEMATOLOG MINUTES Y ONCO [facility] [address] T OFFICE [address] PATRI[address] CASTILLO [address] T VISIT MEDICAL 15 G MINUTES [facility] [address] T OFFICE 17705 [facility] 6 6 PHYSCIAN LES T NEW 30 PRACTICE MINUTES LL EMERGENCY 28912 [facility] 6 6 [facility] T VISIT MODERATE SEVERITY [facility]OSP[facility] - 6 6 [facility] OUTPATIEN INC T OFFICE 80655 FALLIS JOSE MIGUEL OUTPATIEN 6 6 MOLLY GAUDENCIO T VISIT 15 MINUTES OFFICE 29590 JOSE MIGUEL JOSE MIGUEL OUTPATI 6 6 GAUDENCIO GAUDENCIO T VISIT 15 MINUTES HOSPITAL [facility] - 6 6 [facility] OUTPATIEN INC T OFFICE 27173 PROGRESSI [facility] 6 6 VE VE T VISIT PODIATRY PODIATRY 15 MINUTES OFFICE 98964 DIAZ BEN DIAZ BEN OUTPATIEN 5 5 T VISIT 25 MINUTES OFFICE 68280 IVAN RAYAER [facility] 5 5 CARY CARY T VISIT 25 MINUTES [facility]OSP[facility] - [facility] 5 [facility] - 5 5 [facility] T OFFICE 37657 DIAZ BEN DIAZ BEN OUTPATIEN 5 5 T VISIT 25 MINUTES OFFICE 73376 [facility]ILY MAT[facility]W OUTPATIEN 3 3 MEDICINE AMA T VISIT ASSOC 25 FLEMIN MINUTES HOSPITAL MAYES - 2 2 [facility] T OFFICE 98291 FAMILY DIAZ BEN OUTPATIEN 1 1 MEDICINE T VISIT ASSOC 25 FLEMIN MINUTES OFFICE 19594 FAMILY DIAZ BEN OUTPATIEN 1 1 MEDICINE T VISIT ASSOC 25 FLEMIN MINUTES HOSPITAL MAYES - 1 1 [facility] T OFFICE 26358 FAMILY DIAZ BEN OUTPATIEN 1 1 MEDICINE T VISIT ASSOC 25 FLEMIN MINUTES OFFICE 99149 FAMILY DIAZ BEN OUTPATIEN 0 0 MEDICINE T VISIT ASSOC 15 FLEMIN MINUTES OFFICE 32480 FAMILY DIAZ BEN OUTPATIEN 0 0 MEDICINE T VISIT ASSOC 25 FLEMIN MINUTES HOSPITAL [facility] - 0 0 [facility] T OFFICE 32846 FAMILY DIAZ BEN OUTPATIEN 0 0 MEDICINE T VISIT ASSOC 25 FLEMIN MINUTES HOSPITAL MAYES - 0 0 [facility] T OFFICE 67352 FAMILY DIAZ BEN OUTPATIEN 0 0 MEDICINE T VISIT ASSOC 25 FLEMIN MINUTES HOSPITAL [facility] - 9 9 [facility] T OFFICE 74396 FAMILY DIAZ, OUTPATIEN 9 9 MEDICINE VIKKI Oliva VISIT ASSOC 15 [place] MINUTES OFFICE 06303 FAMILY DIAZ, OUTPATIEN 9 9 MEDICINE VIKKI Oliva VISIT ASSOC 15 [place] MINUTES OFFICE 25344 FAMILY DIAZ, OUTPATIEN 9 9 MEDICINE VIKKI Oliva VISIT ASSOC 15 [place] MINUTES OFFICE 75953 FAMILY DIAZ, OUTPATIEN 9 9 MEDICINE VIKKI Oliva VISIT ASSOC 15 [place] MINUTES [facility] - 9 9 [facility] T OFFICE 31351 FAMILY DIAZ, OUTPATIEN 9 9 MEDICINE VIKKI Oliva VISIT ASSOC 25 [place] MINUTES OFFICE 36129 FAMILY DIAZ, OUTPATIEN 9 9 MEDICINE VIKKI Oliva VISIT ASSOC 15 [place] MINUTES OFFICE 28155 PAWSAT, PAWSAT, OUTPATIEN 9 9 NICK Oliva VISIT 10 MINUTES OFFICE 86799 FAMILY DIAZ, OUTPATIEN 9 9 MEDICINE VIKKI Oliva VISIT ASSOC 15 [place] MINUTES OFFICE 71421 PAWSAT, PAWSAT, OUTPATIEN 9 9 NICK Oliva VISIT 15 MINUTES OFFICE 18501 FAMILY DIAZ, OUTPATIEN 9 9 MEDICINE VIKKI Oliva VISIT ASSOC 15 [place] MINUTES OFFICE 02770 FAMILY DIAZ, OUTPATIEN 9 9 MEDICINE VIKKI Oliva VISIT ASSOC 25 [place] MINUTES OFFICE 07457 FAMILY DIAZ, OUTPATIEN 8 8 MEDICINE VIKKI Oliva VISIT ASSOC 15 [place] MINUTES OFFICE 72448 FAMILY DIAZ, OUTPATIEN 8 8 MEDICINE VIKKI G T VISIT ASSOC 15 [place] MINUTES [facility]OSPITAL [facility] - 8 8 [facility] T OFFICE 26125 FAMILY DIAZ, OUTPATIEN 8 8 MEDICINE VIKKI Oliva VISIT ASSOC 15 [place] MINUTES OFFICE 36613 FAMILY MATHEW OUTPATIEN 8 8 MEDICINE FATMATA T VISIT ASSOC 15 [place] MINUTES [facility] - 8 8 [facility] T OFFICE 04253 FAMILY DIAZ, OUTPATIEN 8 8 MEDICINE VIKKI Oliva VISIT ASSOC 25 [place] MINUTES OFFICE 14269 [facility]INE [place] VISIT ASSOC 15 [place] MINUTES OFFICE 04701 FAMILY DIAZ, OUTPATIEN 8 8 MEDICINE VIKKI Oliva VISIT ASSOC 25 [place] MINUTES OFFICE 80516 FAMILY DIAZ, OUTPATIEN 8 8 MEDICINE VIKKI Oliva VISIT ASSOC 15 [place] MINUTES OFFICE 77262 FAMILY DIAZ, OUTPATIEN 8 8 MEDICINE VIKKI Oliva VISIT ASSOC 15 [place] MINUTES OFFICE 44994 FAMILY FAMILY OUTPATIEN 8 8 MEDICINE MEDICINE T VISIT ASSOC ASSOC 15 [place] MINUTES
--- OUTSIDE RECORDS SUMMARY | 2016-09-17 13:15 | External Medical Summary Rpt ---
Author Author , Organization [employer] Address Unknown Phone Unavailable Purpose Continuity of Care Document - 01-27-1998 through 2016 Immunization Name Date Route CVX Reacti Commen Provid Is Given on t er Refuse d PPV23 Histor H135 No 1997 ical Inform ation - Source Unspec ified
--- OUTSIDE RECORDS SUMMARY | 2016-09-17 13:16 | External Medical Summary Rpt ---
Author Author [employer], [employer] Organization [employer] Address Unknown Phone Unavailable Results Basic metabolic panel in Blood Observa Value Referen Units Interpr Notes Date tion ce etation Range Urea 7 - 18 mg/dL High No Sep 17 nitrogen informati 2016 7:15 [Mass/vol on in AM ume] in source Serum or data Plasma Calcium 8.5 - mg/dL Normal No Sep 17 [Mass/vol 10.1 informati 2016 7:15 ume] in on in AM Serum or source Plasma data Chloride 98 - 107 mmoL/L Normal No Sep 17 [Moles/vo informati 2016 7:15 lume] in on in AM Serum or source Plasma data Carbon 21.0 - mmoL/L Normal No Sep 17 dioxide, 32.0 informati 2016 7:15 total on in AM [Moles/vo source lume] in data Serum or Plasma Creatinin 0.55 - mg/dL High No Sep 17 e 1.02 informati 2016 7:15 [Mass/vol on in AM ume] in source Serum or data Plasma Estimated 59- ML/MIN Low REFERENCE Sep 17 RANGE: 2017 7:15 glomerula >60 AM r ML/MIN/1. filtratio 73 SQUARE n rate METERSIf (GF this patient is -A merican, then multiply theresult by 1.210. Glucose 74 - 106 mg/dL High No Sep 17 [Mass/vol informati 2016 7:15 ume] in on in AM Serum or source Plasma data Potassium 3.5 - 5.1 mmoL/L Normal No Sep 17 informati 2016 7:15 [Moles/vo on in AM lume] in source Serum or data Plasma Sodium 136 - 145 mmoL/L Normal No Sep 17 [Moles/vo informati 2017 7:15 lume] in on in AM Serum or source Plasma data Thyroxine (T4) free [Mass/volume] in Serum or Plasma Observa Value Referen Units Interpr Notes Date ti etation Range Thyroxine 0.76 - ng/dL Normal No Sep 17 (T4) 1.46 informati 2017 7:15 free on in AM [Mass/vol source ume] in data Serum or Plasma Thyrotropin [Units/volume] in Serum or Plasma Observa Value Referen Units Interpr Notes Date tion ce etation Range Thyrotrop 0.358 - uIU/ml High No Sep 17 in 3.740 informati 2016 7:15 [Units/vo on in AM lume] in source Serum or data Plasma CBC W Auto Differential panel in Blood Observa Value Referen Units Interpr Notes Date tion ce etation Range Basophils 0 - 0.2 K/MM3 Normal No Sep 17 informati 2017 7:15 [#/volume on in AM ] in source Blood by data Automated count Basophils 0.1 - 2.0 % Normal No Sep 17 /100 informati 2017 7:15 leukocyte on in AM s in source Blood by data Automated count Eosinophi 0.0 - 0.4 K/mm3 Normal No Sep 17 ls informati 2016 7:15 [#/volume on in AM ] in source Blood by data Automated count Eosinophi 0.1 - % Normal No Sep 17 ls/100 12.0 informati 2016 7:15 leukocyte on in AM s in source Blood by data Automated count Granulocy 1.8 - 7.8 K/mm3 Normal No Sep 17 ciro informati 2016 7:15 [#/volume on in AM ] in source Blood by data Automated count Granulocy 37.0 - % Normal No Sep 17 ciro/100 80.0 informati 2016 7:15 leukocyte on in AM s in source Blood by data Automated count Hematocri 37.0 - % Low No Sep 17 t [Volume 47.0 informati 2016 7:15 on in AM Fraction] source of Blood data Hemoglobi 12.2 - g/dL Low Sep 17 n 16.2 2016 7:15 [Mass/vol CRITICAL AM ume] in RESULTS Blood RESU LTS CALLED TO: NORAH Benítez 7 0900 Debra Staley Lymphocyt 0.7 - 4.5 K/mm3 Normal No Sep 17 es informati 2016 7:15 [#/volume on in AM ] in source Unspecifi data ed specimen by Automated count Lymphocyt 10 - 50.0 % Normal No Aug 19 es informati 2016 7:15 [#/volume on in AM ] in source Unspecifi data ed specimen by Automated count Erythrocy 27 - 31.2 pg High No Aug 19 te mean informati 2016 7:15 corpuscul on in AM ar source hemoglobi data n [Entitic mass] Erythrocy 31.8 - g/dl Low No Sep 17 te mean 35.4 informati 2016 7:15 corpuscul on in AM ar source hemoglobi data n concentra tion [Mass/vol ume] by Automated count Erythrocy 82.2 - fl High No Aug 19 te mean 97.8 informati 2016 7:15 corpuscul on in AM ar volume source [Entitic data volume] by Automated count Monocytes 0.1 - 1.0 K/mm3 Normal No Aug 19 informati 2016 7:15 [#/volume on in AM ] in source Blood by data Automated count Monocytes 1.7 - 9.3 % Normal No Aug 19 /100 informati 2017 7:15 leukocyte on in AM s in source Blood by data Automated count Platelet 7.4 - fl Normal No Sep 17 mean 10.4 informati 2016 7:15 volume on in AM [Entitic source volume] data in Blood by Automated count Platelets 142 - 424 K/mm3 No No Aug 19 informati informati 2017 7:15 [#/volume on in on in AM ] in source source Blood data data Erythrocy 4.2 - 5.4 M/mm3 Low No Aug 19 ciro informati 2017 7:15 [#/volume on in AM ] in source Amniotic data fluid Erythrocy 11.5 - % Normal No Sep 17 te 17.5 informati 2016 7:15 distribut on in AM ion width source [Entitic data volume] by Automated count Leukocyte 4.8 - K/MM3 Normal No Aug 19 s 10.8 informati 2016 7:15 [#/volume on in AM ] in source Blood data Aspartate aminotransferase [Enzymatic activity/volume] in Serum or Plasma by With P-5'-P Observa Value Referen Units Interpr Notes Date tion ce etation Range Asparta 9 15 - 37 IU/L Low No Aug 7 te inform 2016 aminotr tion in 1:56 PM ansfera source se data [Enzyma tic activit y/volum e] in Serum or Plasma Thyrotropin [Units/volume] in Serum or Plasma by Detection limit <= 0.05 mIU/L Observa Value Referen Units Interpr Notes Date tion ce etation Range Thyrotr 4.05 0.36 - uIU/mL High No Aug 7 opin 3.74 informa 2015 [Units/ tion in 1:56 PM volume] source in data Serum or Plasma by Detecti on limit <= 0.05 mIU/L XR CHEST AP LA Observa Value Referen Units Interpr Notes Date tion ce etation Range XR \.br\ No No No No Sep 05 CHEST informa informa informa informa 2015 AP LA tion in tion in tion in tion in 12:50 source source source source PM data data data data [facility] L\.br\ [address]br \ [facility] [place] [address]\. br\\.br \ ------- --NAME- ------- - NUMBER SEX AGE ADMIT DISC. XRAY# F/C TYPE\.b r\ FRYMAN ROSA [id number] F 75 09/06/15 09/06/15 51373 MB O/P\.br \ DATE OF : [birth year] M/R# [id number] #: RM\.br\ LOCATIO N: TRANSCR IBED: 6 17:11\. br\ [place] [address] COMPLET ED:060 10/14 15:41 RLH [id number]\. br\ {REASON FOR CHEST: CHEST PAIN\.b r\\.br\ PHYSICI AN: JONATHAN GRACIE\.br \\.br\\ .br\=== ======= ======= ======= ======= ======= ======= ======= ======= ======= ======= ======\ .br\ RADIOLO GY REPORT\ .br\=== ======= ======= ======= ======= ======= ======= ======= ======= ======= ======= ======\ .br\ORD ER DATE and TIME: 016 1250\.b r\\.br\ \.br\PA AND LATERAL CHEST, 6:\.br\ \.br\CL INICAL HISTORY : Chest pain.\. br\\.br \COMPAR CAMI: PA and lateral chest, 02/01/20 15\.br\ \.br\FI NDINGS: The heart is mildly enlarge d status post median sternot bere. There\. br\is a stable calcifi ed nodule in the right upper lobe. There is stable\ .br\bruno ntratio n of the right diaphra gm. There is no pleural fluid or focal\. br\pneu monia. 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 br\\.br \IMPRES [place]:\. br\\.br \1. Stable cardiom egaly without evidenc e of acute cardiop ulmonar y disease .\.br\\ .br\\.b r\Elect ronical ly Signed By:\.br \ROSARIO ONTIVEROS MD,RADI OLOGIST \.br\Da te/Time : 6 17:11 6.1722. RLH.to BA\.br\ CHEST AP LA Observa Value Referen Units Interpr Notes Date tion ce etation Range CHEST No No No No Nov 2 AP LA informa informa informa informa 2014 tion in tion in tion in tion in 12:47 source source source source PM data data data data [facility] L\.br\ [address]br \ [place] [address]\. br\\.br \ RADIOLO GY REPORT\ .br\ Name: SKYLER LEE\.b r\ Patient #: [id number] Stay Type: O/P\.br \ Age: 74 Room:\. br\ : 942 Sex: F\.br\ Orderin g Phys: EMILY SAGASTUME MR#: [id number]\. br\ Family Phys: EMILY SAGASTUME Pt Phone: [phone] /[phone]\. br\ Admitti ng Phys: EMILY WM\.br\ Unsig monica Transcr iptions represe nt a prelimi nary report and do\.br\ not reflect a medical or legal documen t.\.b r\\.br\ \.br\ [place] [address] COMPLET E:01/31 14:07 RLH 7412\.b r\ (REASON FOR CHEST: DYSPNEA \.br\\. 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 Compare d to previou s study dated 12/31/19 12.\.br \\.br\ FINDING S: PA and lateral project ions obtaine d. Patient is status post median sternot bere. Heart\. br\ remains enlarge d. No evidenc e of acute failure . Right hilar contour remains somewha t promine nt\.br\ but unchang ed. No acute airspac e disease or effusio n. 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 No acute cardiop ulmonar y\.br\ abnorma lity. No signifi cant interva l change. \.br\\. br\ Electro nically reviewe d and signed by:\.br \ PEE MILLER MD\.br\ RADIOLO GIST/ 16:33\. br\\.br \ Dictati on Date/Ti me: 01/31/15 /13:46 Dictate d By: PEE MILLER MD RADIOLO GIST\.b r\ Transcr . Date/Ti me: :52 Transcr . Init.: [facility]\.br \\.br\ Copy for: EMILY FLOREZ M.D. via fax\.br \\.br\ CHEST AP LA Observa Value Referen Units Interpr Notes Date tion ce etation Range CHEST No No No No Oct 1 AP LA informa informa informa informa 2011 tion in tion in tion in tion in 11:36 source source source source AM data data data data [facility] L\.br\ [address]br \ [place] [address]\. br\\.br \ RADIOLO GY REPORT\ .br\ Name: SKYLER LEE\.b r\ Patient #: [id number] Stay Type: O/P\.br \ Age: 71 Room:\. br\ : 942 Sex: F\.br\ Orderin g Phys: EMILY WM MR#: [id number]\. br\ Family Phys: EMILY WM Pt Phone: [phone]\. br\ Admitti ng Phys: DIAZ WM\.br\ Unsig monica Transcr iptions represe nt a prelimi nary report and do\.br\ not reflect a medical or legal documen t.\.b r\\.br\ [place] [address] COMPLET E:12/30 11:53 CGS 01817\. br\ Diagnos is: DYSPNEA \.br\\. br\ HISTORY /INDICA TION: Shortne ss of breath. History of CABG and diabete s. Compari son to\.br\ prior 02/27 study.\ .br\\.b r\ FINDING S: 2 view study of the chest shows the heart is enlarge d and the aorta is ectatic and the\.br \ patient is status post CABG. The lateral images degrade d by respira tory motion. Central \.br\ vascula ture is slightl y promine nt but I see no interst itial edema or effusio n. No focal infiltr ate. I\.br\ suspect some chronic scarrin g in the medial right lung base.\. br\\.br \ IMPRESS ION:\.b r\ Stable cardiom egaly without evidenc e of failure or other acute cardiop ulmonar y disease .\.br\ Electro nically reviewe d and signed by:\.br \ PEE MILLER MD\.br\ RADIOLO GIST/ 10:20\. br\\.br \ Dictati on Date/Ti me: 12/31/11 /15:02 Dictate d By: PEE MILLER MD RADIOLO GIST\.b r\ Transcr . Date/Ti me: :18 Transcr . Init.: olivia\.br \\.br\ Copy for: EMILY FLOREZ M.D. via fax\.br \\.br\
--- OUTSIDE RECORDS SUMMARY | 2016-09-17 13:16 | External Medical Summary Rpt ---
[...] source source PM data data data data [facility] L\.br\ [address]br \ [facility] [place] [address]\. br\\.br \ ------- --NAME- ------- - NUMBER SEX AGE ADMIT DISC. XRAY# F/C TYPE\.b r\ FRYMAN ROSA [id number] F 75 09/06/15 09/06/15 22392 MB O/P\.br \ DATE OF : 9[birth year] M/R# [id number] #: RM\.br\ LOCATIO N: TRANSCR IBED: 6 17:11\. br\ [place] [address] COMPLET ED:060 10/14 15:41 RLH 17887\. br\ {REASON FOR CHEST: CHEST PAIN\.b r\\.br\ [...] source source PM data data data data [facility] L\.br\ [address]br \ [place] [address]\. br\\.br \ RADIOLO GY REPORT\ .br\ Name: SKYLER LEE\.b r\ Patient #: [id number] Stay Type: O/P\.br \ Age: 74 Room:\. br\ : 942 Sex: F\.br\ Orderin g Phys: EMILY SAGASTUME MR#: [id number]\. br\ Family Phys: EMILY SAGASTUME Pt Phone: [phone] /[phone]\. br\ Admitti ng Phys: EMILY WM\.br\ Unsig monica Transcr iptions represe nt a prelimi nary report and do\.br\ not reflect a medical or legal documen t.\.b r\\.br\ \.br\ [place] [address] COMPLET E:01/31 14:07 RLH 7412\.b r\ (REASON [...] . Date/Ti me: :52 Transcr . Init.: [facility]\.br \\.br\ Copy for: EMILY FLOREZ M.D. via fax\.br \\.br\ CHEST AP LA Observa Value Referen Units Interpr Notes Date tion ce etation Range CHEST No No No No Oct 1 AP LA informa informa informa informa 2011 tion in tion in tion in tion in 11:36 source source source source AM data data data data [facility] L\.br\ [address]\.br \ [place] [address]\. br\\.br \ RADIOLO GY REPORT\ .br\ Name: SKYLER LEE\.b r\ Patient #: [id number] Stay Type: O/P\.br \ Age: 71 Room:\. br\ : 942 Sex: F\.br\ Orderin g Phys: EMILY WM MR#: [id number]\. br\ Family Phys: EMILY WM Pt Phone: [phone] /[phone]\. br\ Admitti ng Phys: DIAZ WM\.br\ Unsig monica Transcr iptions represe nt a prelimi nary report and do\.br\ not reflect a medical or legal documen t.\.b r\\.br\ [place] [address] COMPLET E:12/30 11:53 CGS 05623\. br\ Diagnos is: DYSPNEA \.br\\. br\ HISTORY [...]
--- NOTE | 2016-09-17 13:24 | Emergency Room Report ---
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 REPORTS STRESS TEST WAS ABNORMAL AND THAT PT IS ANEMIC ON BLOOD WORK. PT REPORTS SHE HAS BEEN FEELING WEAK FOR APPROX 1 MONTH. PT REPORTS SHE HAD TO HAVE A BLOOD TRANSFUSION IN [facility]. 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 N Clinical Suspician of Infection? N Mental Status: 1 - Regular (Normal Baseline) Sepsis Risk:Low Sepsis Risk Have you (or family members/close friends) recently traveled outside the [place]? N If Yes, where/when: Have you had exposure to infectious disease within the past month? N TB? Other? Specify: Patient with chronic anemia, takes iron; patient of Dr. Kirkpatrick; received blood transfusion approximately six months ago in [place]. Underwent stress test today per Dr. Vincent and was told to go to ER for evaluation of anemia. No abdominal pain, denies blood from above or below. Andrés Mccarty states would like the patient admitted to service doctor, transfused to a hemoglobin of 10, then reassessed by Dr. Vincent as he may need to repeat testing to see if correcting the anemia will resolve her abnormal stress test. ALLERGIES Coded Allergies: codeine (05/31/15) Home Medications Reported Medications Metformin HCl (Metformin) 500 MG PO BID 90 Days Furosemide 40 MG PO DAILY 90 Days Atorvastatin Calcium 10 MG PO QHS 90 Days Carvedilol (Carvedilol 25MG) 25 MG PO BID #180 Pantoprazole Sodium 40 MG PO DAILY #90 CLOPIDOGREL BISULFATE (Clopidogrel) 75 MG PO DAILY #90 Spironolactone (Aldactone) 25 MG PO DAILY #180 Ferrous Sulfate 325 MG PO BID #180 Isosorbide Dinitrate 30 MG PO DAILY #90 History Medical History General CAD? Yes Angina: No ID: Yes Hypertension? Yes Hyperlipidemia? Yes CHF? Yes DVT? No PE? No COPD? No Asthma? No Anemia? No GERD? No Gastric ulcers? No GI Bleed? No Hernia? No Thyroid Problems? No Hypothyroidism? No CVA? No Seizures? No Diabetes? Yes Insulin Dependent: No Insulin Pump: No Home FSBS? Yes Renal Insuffiency? No End Stage Renal Disease? No UTI? No Stones? No BPH? No GB Disease: No Nephritic Syndrome? No Asplenia? No Hepatitis? No Sickle Cell Disease? No Arthritis? No Migraines? No Cataracts? Yes Glaucoma? No MRSA? No HIV? No TB? No Anxiety? No Depression? No Cancer? No More? No Immunization Hx DT/Tetanus Unknown Surgical Hx Previous Surgery?Y OPEN HEART SURGERY Tubal Ligation GALLBLADDER CARDIAC STENT X2 Social History Smoking Hx Smoker: Never Smoker Tobacco: No Alcohol Alcohol: No Review of Systems All Other Systems Reviewed and Negative Cardiovascular denies no symptoms reported Comment chronic anemia, see hpi Physical Exam Vital Signs Vital Signs Date Time Temp Pulse Resp B/P Pulse O2 O2 Flow FiO2 Ox Delivery Rate 09/17 1249 98.0 72 18 140/64 90 General Appearance normal appearance, WD/WN, no apparent distress Eye Exam - bilateral eye normal exam, bilateral eye PERRL, bilateral eye pale conjunctivae Neck normal inspection, non-tender, supple, full range of motion Respiratory Status Yes: trachea midline, chest symmetrical, non tender chest. No: respiratory distress, tender on palpation, use of accessory muscles, pain on inspiration, pain on expiration, productive cough, non productive cough. Lung Sounds bilateral: normal breath sounds, lungs clear. Cardiovascular normal exam, regular rate/rhythm, no peripheral edema, no gallop, no JVD, no murmur, no rub, normal peripheral pulses Gastrointestinal normal bowel sounds, normal exam, non tender, soft, no organomegaly, no pulsatile mass, no guarding, no rebound Extremities non-tender, normal range of motion, normal inspection, normal capillary refill, no calf tenderness, no pedal edema Rectal normal exam, normal rectal tone (stool sent to lab on card) Nurse present during exam? 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 No Valdez was queried for this patient? No Results/Orders Laboratory Tests 09/17/16 1335: Sodium 142, Potassium 4.9, Chloride 105, Carbon Dioxide 30, BUN 53 H, Creatinine 2.2 H, Estimated Creat Clear 35 L, Estimated GFR (MDRD) 22 L, Glucose 193 H, Calcium 9.2, Total Bilirubin 0.7, AST 3 L, ALT 13, Alkaline Phosphatase 88, Total Protein 7.3, Albumin 3.6, Globulin 3.7 H, Albumin/ Globulin Ratio 1.0 L, PT 14.6 H, INR 1.36 H, APTT 27.8, WBC 6.5, RBC 2.80 L, Hgb 8.7 L, Hct 28.3 L, MCV 100.8 H, RDW 15.3, Plt Count 247, MPV 7.3 L, Gran % 82.2 H, Gran # 5.4, Lymphocytes % 11.3, Monocytes % 5.0, Eosinophils % 1.2, Basophils % 0.3, Lymphocytes # 0.7, Monocytes # 0.3, Eosinophils # 0.1, Basophils # 0.0, PUBS MCHC 30.8 L, MCH 31.0 Current Medication Orders Sig/Uosmane Start time Last Medication Dose Route Stop Time Status Admin Sodium Chloride 10 ML PRN PRN 09/17 1300 AC IV 09/18 1251 Orders Procedure Date/time Status OP COURTSEY MEAL 09/17 1312 Active IV SALINE LOCK 09/17 1253 Active STOOL OCCULT BLOOD 09/17 1253 Active PARTIAL THROMBOPLASTIN TIME 09/17 1253 Complete PROTHROMBIN TIME 09/17 1253 Complete CBC WITH AUTO DIFF 09/17 1253 Complete CHEM 12 PROFILE 09/17 1253 Complete Consult MD Physician Consult Consult/PCP Dr. Ross to admit Time Called 1413 Reason Admission Comments Service call MD paged. Departure Departure Time of Disposition 1413 Disposition Still a Patient Clinical Impression Primary Impression: Anemia Qualifiers: Anemia type: unspecified type Qualified Code: D64.9 - Anemia, unspecified Secondary Impressions: Abnormal stress test Condition STABLE Referrals FATMATA KIRKPATRICK (Family) ED Critical Care Critical Care No at 1439
[2016-09-17 14:00] LABS: HEMOGLOBIN 8.7 g/dL (12.2-16.2); LYMPH # 0.7 K/mm3 (0.7-4.5); LYMPH % 11.3 % (10-50.0)
--- OUTSIDE RECORDS SUMMARY | 2016-09-17 14:51 | External Medical Summary Rpt ---
Author Author , Organization [employer] Address Unknown Phone Unavailable Care Team Providers Care Insole Channeler Name Role Phone MATHEW, MATHEW Unavailable Unavailable [...] MIGUEL GAUDENCIO, JOSE MIGUEL Unavailable Unavailable GAUDENCIO [facility] Unavailable Unavailable AGENCY ON, [facility] Unavailable Unavailable AGENCY ON, [facility] AGENCY ON IQBAL GRACIE, IQBAL Unavailable Unavailable GRACIE CORNEA, CORNEA Unavailable Unavailable FALLIS MOLLY, FALLIS Unavailable Unavailable MOLLY FALLUJI HAKAN, FALLUJI Unavailable Unavailable [facility] Unavailable Unavailable [facility], [facility] Un[facility], Unavailable [facility]available [facility] Unavailable Unavailable [facility], [facility], Unavailable Unavailable [facility], Unavailable Unavailable [facility] HAGENSCHNEABHILASH BEARD, Unavailable Unavailable HAGCHROCKY BEARD [facility] Unavailable Unavailable INC, [facility] Unavailable Unavailable HOSPITAL P, [facility] P ANGELA MILLER Unavailable Unavailable ANGELA SNYDER, ANGELA Unavailable Unavailable LILLIAN PEE MILLER, Unavailable Unavailable PEE MILLER [facility] Unavailable Unavailable AGENCY, [facility], Unavailable Unavailable [facility] WILLIE III SYLVIE, Unavailable Unavailable WILLIE III SYLVIE [facility] Unavailable Unavailable [facility], [facility] Unavailable Unavailable MEDICAL G, [facility] APRIL JR DWI, APRIL Unavailable Unavailable JR DWI [facility] Unavailable Unavailable [facility], [facility] Unavailable Unavailable [facility] MAGAL[facility] Unavailable Unavailable CERNA JAM, Unavailable Unavailable CERNA JAM CERNA JAM, Unavailable Unavailable CERNA JAM [facility] Unavailable Unavailable ASSOCIAT, [facility] Unavailable Unavailable MEDICAL, [facility], Unavailable Unavailable [facility] NICK PIRES, Unavailable Unavailable NICK [...] Unavailable Unavailable EQUIPME, [facility], Unavailable Unavailable [facility] Unavailable Unavailable [facility] SUHL ELLEN, [facility] ELLEN Unavailable Unavailable [...] DOS Provider Status E119 TYPE 2 08-22-[address] [facility] DIABETES PHYSICIANS MELLITUS GROUP WITHOUT COMPLICATIO NS E669 OBESITY 08-22-[address] [facility] UNSPECIFIED PHYSICIANS GROUP E785 HYPERLIPIDE 08-22-[address] [facility] RICKY PHYSICIANS UNSPECIFIED GROUP G4733 OBSTRUCTIVE 08-22-[address] [facility] SLEEP PHYSICIANS APNEA ADULT GROUP PEDIATRIC I10 ESSENTIAL 08-22-[address] [facility] PRIMARY PHYSICIANS HYPERTENSIO GROUP N I2510 [facility] [place] 08-22-[address] 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 ATRIAL PHYSICIANS FIBRILLATIO GROUP N R5383 OTHER 08-22-[address] [facility] FATIGUE PHYSICIANS GROUP I480 PAROXYSMAL 08-17-2016 [facility] HOME FIBRILLATIO MEDICAL N EQUIPME R600 LOCALIZED 08-17-2016 [facility] EDEMA HOME MEDICAL EQUIPME E6601 MORBID 06-21-[address] [facility] SEVERE PHYSICIANS OBESITY DUE GROUP TO EXCESS CALORIES M16013 ATHEROSCLER 06-21-[address] [facility] OSIS CABG PHYSICIANS WITHOUT GROUP ANGINA PECTORIS I5020 UNSPECIFIED 06-21-[address] [facility] SYSTOLIC PHYSICIANS CONGESTIVE GROUP HEART FAILURE N182 CHRONIC 06-01-2016 [facility] DIS[facility] MEDICAL STAGE 2 MILD R0602 SHORTNESS 05-24-[address] [facility] OF BREATH PHYSICIANS GROUP J449 CHRONIC 05-17-2016 [facility] PULMONARY AGENCY ON DISEASE UNS Z6838 BODY MASS 05-14-2016 FAMILY INDEX BMI MEDICINE 38.0-38.9 ASSOC ADULT FLE[facility] Z789 OTHER 05-14-2016 FAMILY SPECIFIED MEDICINE HEALTH ASSOC STATUS FLEMIN I129 HYPERTENSIV 04-24-2016 [facility] W/STAGE 1-4 AGENCY CKD OR UNS CKD Y13259 [facility] [place] 04-24-2016 [facility] W/UNSTABLE AGENCY ANGINA PECTORIS W76191 CELLULITIS 04-24-2016 [facility] LEFT HOME HLTH LOWER LIMB AGENCY W39679 PRESSURE 04-24-2016 [facility] RIGHT AGENCY BUTTOCK STAGE 2 N183 CHRONIC 04-24-2016 [facility] DISEASE AGENCY STAGE 3 MODERATE I200 UNSTABLE 04-20-2016 [facility] ANGINA HEART I208 OTHER FORMS 04-19-[address] [facility] OF ANGINA PHYSICIANS PECTORIS GROUP R0902 HYPOXEMIA 04-19-2016 [facility] Z720 TOBACCO USE 04-19-2016 [facility] Z951 PRESENCE OF 04-19-2016 [facility] AORTOCORONA ASSOCIAT RY BYPASS GRAFT I252 OLD 03-19-2016 [facility] INFARCTION MEDICAL G I481 PERSISTENT 03-19-2016 [facility] FIBRILLATIO N R9439 ABNORMAL 03-19-2016 [facility] CARDIOVASCU LR FUNCTION STUDY I255 ISCHEMIC 02-18-2016 [facility] CARDIOMYOPA HOME THY MEDICAL EQUIPME E538 DEFICIENCY 02-16-2016 FAMILY OF OTHER MEDICINE SPECIFIED B ASSOC GROUP NOHELIA VITAMINS R531 WEAKNESS 02-07-2016 [facility] NOHELIA Z6841 BODY MASS 02-07-2016 [facility] INDEX BMI MEDICINE 40.0-44.9 ASSOC ADULT NOHELIA I509 HEART 02-01-2016 [facility] HEALTH UNSPECIFIED MEDICAL G J309 ALLERGIC 11-22-2015 [facility] UNSPECIFIED R918 OTHER 11-22-2015 [facility] ABNORMAL FINDING OF LUNG FIELD R400 SOMNOLENCE 11-09-2015 [facility] MEDICAL G P52120 OTHER LONG 09-30-2015 [facility] CURRENT DRUG THERAPY Z7901 ALF 09-16-2015 [facility] CURRENT USE HEALTH OF MEDICAL G ANTICOAGULA NTS E782 MIXED 09-06-2015 [facility] R079 CHEST PAIN 09-06-2015 [facility] UNSPECIFIED RADIOLOGY ASSOCIAT E1142 TYPE 2 09-02-2015 [facility] MELLITUS W/DIAB POLYNEUROPA THY M1990 UNSPECIFIED 09-02-2015 [facility] OSTEOARTHRI TIS UNSPECIFIED SITE Z885 ALLERGY 09-02-2015 [facility] STATUS TO HOSPITAL NARCOTIC AGENT STATUS E1165 TYPE 2 08-22-2015 [facility] DIABETES MEDICAL MELLITUS WITH HYPERGLYCEM IA 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 E1140 TYPE 2 DM 07-13-2015 MATHEW WITH AMA DIABETIC NEUROPATHY UNSPECIFIED H8123 VESTIBULAR 06-14-2015 [facility]SC[facility] BILATERAL PRACT[facility] LL H8303 LABYRINTHIT 05-31-2015 [facility] P N20565 PERSONAL 05-31-2015 [facility] P DEPENDENCE V35669 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 MOLLY ARTHROPATHY RIGHT ANKLE AND FOOT M2570 OSTEOPHYTE 05-19-2015 FALLIS MOLLY UNSPECIFIED JOINT M6688 SPONTANEOUS 05-19-2015 FALLIS MOLLY RUPTURE OF OTHER TENDONS OTHER C41208 PAIN IN 05-19-2015 FALLIS MOLLY RIGHT FOOT M1711 UNILATERAL 04-14-2015 [facility]STE[facility]AGING ASS TIS RIGHT KNEE A93128 PRIMARY 04-14-2015 [facility] OSTEOARTHRI MEDICAL TIS RIGHT IMAGING ASS ANKLE AND FOOT M2140 FLAT FOOT 04-14-2015 [facility] PES PL[facility]US [facility]ICAL ACQUIRED IMAGING ASS UNSPECIFIED FOOT C38382 PAIN IN 04-14-2015 [facility] RIGHT ANKLE MEDICAL IMAGING ASS J069 ACUTE UPPER 02-14-2015 [facility] B[facility] RESPIRATORY INFECTION UNSPECIFIED J329 CHRONIC 02-11-2015 [facility] SINUSITIS UNSPECIFIED R0600 DYSPNEA 01-31-2015 [facility] UNSPECIFIED RADIOLOGY ASSOCIAT H77588 FOOT DROP 01-06-2015 PROGR[facility] RIGHT FOOT PODIATRY Z24765 SPONTANEOUS 01-06-2015 PROGRESSIVE RUPTURE PODIATRY FLEXOR TENDONS RT ANKLE FOOT 64496 DIAB W/O 12-08-2014 [facility] MENTION MEDICAL COMP TYPE II/UNS TYPE UNCNTRL 03091 OSTEOARTHRO 11-11-2014 [facility] SIS UNSPEC MEDICAL WHETHER IMAGING ASS GEN/LOC ANK&FOOT 29626 PAIN IN 11-11-2014 [facility] JOINT, MEDICAL ANKLE AND IMAGING ASS FOOT 80870 CALCANEAL 11-11-2014 [facility] SPUR [facility] 7295 PAIN IN 11-11-2014 [facility] SOFT MEDICAL TISSUES OF IMAGING ASS LIMB 734 FLAT FOOT 11-11-2014 [facility] 17724 DIAB W/O 08-30-2014 [facility] COMP TYPE PHARMACY #2 II/UNS NOT STATED UNCNTRL 4659 ACUTE URIS 07-14-2014 DIAZ BEN OF UNSPECIFIED SITE V4989 OTHER SPEC 07-14-2014 [facility] BEN CONDITIONS INFLUENCING HEALTH STATUS V8541 BODY MASS 07-14-2014 [facility] BEN INDEX 40.0-44.9 ADULT 34567 VITREOUS 10-07-2013 CERNA DEGENERATIO JAM N 56614 NUCLEAR 09-15-2013 [facility] SCLEROSIS JAM 53892 OTHER 08-18-2013 [facility] BEN SPECIFIED CARDIAC DYSRHYTHMIA S 7851 PALPITATION 08-18-2013 [facility] BEN S V8539 BODY MASS 08-18-2013 [facility] BEN INDEX 39.0-39.9 ADULT 57202 PAIN IN 02-09-2013 DIA[facility] BEN JOINT, LOWER LEG 462 ACUTE 04-18-2012 [facility]ILY PHARYNGITIS MEDICINE ASSOC FLEMIN 4293 CARDIOMEGAL 12-31-2011 [facility] Y [facility] 32452 OTHER 12-31-2011 [facility] RESPIRATORY ABNORMALITI ES V4581 POSTSURGICA 12-31-2011 [facility] L RADIOLOGY AORTOCORONA ASSOCIAT RY BYPASS STATUS 42939 OTHER 01-08-2011 FAMILY ACQUIRED MEDICINE DEFORMITY ASSOC OF ANKLE FLEMIN AND FOOT OTHER 07233 DIAB 01-04-2011 [facility] MANIFESTS TYPE II/UNS NOT UNCNTRL 02863 EFFUSION OF 12-13-2010 [facility] LOWER LEG RADIOLOGY JOINT ASSOCIAT 9599 INJURY 12-13-2010 [facility] OTHER AND RADIOLOGY UNSPECIFIED ASSOCIAT UNSPECIFIED SITE 2722 MIXED 11-14-2010 FAMILY HYPERLIPIDE MEDICINE RICKY ASSOC FLEMIN 4011 ESSENTIAL 11-14-2010 FAMILY HYPERTENSIO MEDICINE N, BENIGN ASSOC FLEMIN 486 PNEUMONIA, 03-01-2010 FAMILY ORGANISM MEDICINE UNSPECIFIED ASSOC FLEMIN 4660 ACUTE 02-27-2010 [facility] 20763 OTHER 02-27-2010 [facility] DISEASES OF RADIOLOGY LUNG NOT ASSOCIAT ELSEWHERE CLASSIFIED 7931 NONSPEC 02-27-2010 [facility] FIND RAD RADIOLOGY OTH EXAM ASSOCIAT BODY STRUCT LUNG FIELD 76702 COR 02-13-2010 FAMILY ATHEROSLERO MEDICINE UNSPEC ASSOC TYPE VESSEL FLEMIN SIOUX/BABITA T 490 BRONCHITIS 02-13-2010 FAMILY NOT MEDICINE SPECIFIED ASSOC ACUTE OR FLEMIN CHRONIC 17577 SWELLING OF 11-30-2009 [facility] LIMB RADIOLOGY ASSOCIAT 2724 OTHER AND 11-28-2009 FAMILY UNSPECIFIED MEDICINE ASSOC HYPERLIPIDE FLEMIN RICKY 4019 UNSPECIFIED 11-28-2009 FAMILY ESSENTIAL MEDICINE HYPERTENSIO ASSOC N FLEMIN 4739 UNSPECIFIED 03-16-2009 FAMILY SINUSITIS MEDICINE ASSOC [place] 65783 UNSPECIFIED 03-15-2009 FAMILY MEDICINE CONJUNCTIVI ASSOC TIS [place] 52202 CHEST PAIN 03-15-2009 FAMILY UNSPECIFIED MEDICINE ASSOC [place] 43831 ACUTE 03-03-2009 FAMILY LARYNGITIS, MEDICINE WITHOUT ASSOC MENTION OF [place] OBSTRUCTIO V0481 NEED 03-03-2009 FAMILY PROPHYLACTI MEDICINE C ASSOC VACCINATION [place] &INOCULATIO N FLU 67691 TIBIALIS 06-15-2008 PAWSAT, TENDINITIS NICK D 4600 UNSPECIFIED 03-29-2008 FAMILY CYSTITIS MEDICINE ASSOC [place] 95920 OTHER 02-12-2008 FAMILY ABNORMAL MEDICINE GLUCOSE ASSOC [place] 7862 COUGH 01-30-2008 [facility] MEDICINE ASSOC [place] 4254 OTHER 01-28-2008 [facility] CARDIOMYOPA JABARI 93474 SHORTNESS 01-28-2008 [facility] 4779 ALLERGIC 09-19-2007 FAMILY RHINITIS MEDICINE CAUSE [...] er Refuse d IIV3 DIAZ, No VACCIN 2008 E WILLIA SPLIT M G VIRUS 0.5 ML DOSAGE IM USE Procedures Procedure DOS Code Location Performer Comment ECG [address] [facility] GIGI ROUTINE 7 PHYSICIAN ECG S GROUP W/LEAST 12 LDS W/I&R STANDARD K0001 MAY[facility] MAYA WHEELCHAI 7 HOME HOME R MEDICAL MEDICAL EQUIPME EQUIPME STANDARD K0001 MAYA MAYA WHEELCHAI 7 HOME HOME R MEDICAL MEDICAL EQUIPME EQUIPME ECG [address] [facility] GIGI ROUTINE 7 PHYSICIAN ECG S GROUP W/LEAST 12 LDS W/I&R STANDARD K0001 MAYA MAYA WHEELCHAI 7 HOME HOME R MEDICAL MEDICAL EQUIPME EQUIPME COLLECTIO 90986 [facility] MEADOWVIE N VENOUS 7 W W BLOOD REGIONAL REGIONAL VENIPUNCT MEDICAL MEDICAL URE BASIC 32377 [facility] METABOLIC 7 W W PANEL REGIONAL REGIONAL CALCIUM MEDICAL MEDICAL TOTAL BASIC 86467 [facility]IE MEADOW[facility]IE METABOLIC 7 W W PANEL REGIONAL REGIONAL CALCIUM MEDICAL MEDICAL TOTAL COLLECTIO 41271 [facility] MEADOWVIE N VENOUS 7 W W BLOOD REGIONAL REGIONAL VENIPUNCT MEDICAL MEDICAL URE STANDARD K0001 MAYA MAYA WHEELCHAI 7 HOME HOME R MEDICAL MEDICAL EQUIPME EQUIPME ECG [address] [facility] GIGI ROUTINE 7 PHYSICIAN ECG S GROUP W/LEAST 12 LDS W/I&R ADLT SZD T4528 [facility]OR[facility]IRIOGroup Therapy RecordsNICOLE HERNANDEZ DISPBL 7 HOME HLTH HOME HLTH INCONT AGENCY AGENCY PROD UNDWEAR XTRA LG EA INCONTINE T4541 DAVID CARTEROOD NCE 7 HOME HLTH HOME HLTH PRODUCT AGENCY AGENCY DISPOSABL E UNDPAD LARGE EA ECHO 68728 [facility] R-T 7 VALLEY 2D HEART W/WOM-MOD E COMPL SPEC&COLR D RADIOLOGI 99621 [facility] EXAM 7 CHEST 2 RADIOLOGY VIEWS ASSOCIAT FRONTAL&L ATERAL STANDARD K0001 [facility] [place] 7 HOME HOME R MEDICAL MEDICAL EQUIPME EQUIPME ECG [address] [facility] GIGI ROUTINE 7 PHYSICIAN ECG S GROUP W/LEAST 12 LDS W/I&R CV STRS [address] XERS&/OR RX CONT ECG TRCG ONLY INJECTION J2785 [address] REGADENOS ON 0.1 MG STANDARD K0001 [facility] [place] 6 HOME HOME R MEDICAL MEDICAL EQUIPME EQUIPME CV STRS 65569 [facility] TST 6 [facility] III XERS&/OR MEDICAL RX CONT G ECG I&R ONLY MYOCARDIA 17657 [facility] SPECT [address] [place] [address] MULTIPLE STUDIES TECHNETIU A9502 [facility] TC-99M [address] [place] [address] TETROFOSM IN DX PER STUDY DOSE ECG 69738 [facility] ROUTINE 6 [facility]ALTH ECG MEDICAL MEDICAL W/LEAST G G 12 LDS W/I&R STANDARD K0001 [facility] KERRI 6 HOME HOME R MEDICAL MEDICAL EQUIPME EQUIPME CONTINUOU E0601 MAYA Irving 6 HOME HOME POSITIVE MEDICAL MEDICAL AIRWAY EQUIPME EQUIPME PRESSURE DEVICE THERAPEUT 87740 FAMILY GOODMAN IC 6 MEDICINE PROPHYLAC ASSOC TIC/DX FLEMIN INJECTION SUBQ/IM INJECTION J3420 FAMILY GOODMAN VIT B-12 6 MEDICINE ASSOC CYANOCOBA FLEMIN VIPUL TO 1000 MCG PRTBLE E0431 [facility] TREJO GASEOUS 6 HOME HOME O2 SYS MEDICAL MEDICAL RENT; EQUIPME EQUIPME FLWMTR HUMIDFR&M ASK O2 CONC 1 E1390 [facility] [place] 6 HOME HOME 85%/>02 MEDICAL MEDICAL CONC AT EQUIPME EQUIPME PRSC FLW RATE INJECTION J3420 FAMILY SANTACRUZ VIT B-12 6 MEDICINE MEDICINE ASSOC ASSOC CYANOCOBA FLEMIN FLEMIN VIPUL TO 1000 MCG THERAPEUT 26234 FAMILY CARMONA IC 6 MEDICINE AMA PROPHYLAC ASSOC TIC/DX FLEMIN INJECTION SUBQ/IM INJECTION J3420 FAMILY CARMONA VIT B-12 6 MEDICINE AMA ASSOC CYANOCOBA FLEMIN VIPUL TO 1000 MCG ECG 44033 [facility] ROUTINE 6 NE HEALTH NE HEALTH ECG MEDICAL MEDICAL W/LEAST G G 12 LDS W/I&R THERAPEUT 21813 FAMILY GOODMAN JENNIFER IC 6 MEDICINE PROPHYLAC ASSOC TIC/DX FLEMIN INJECTION SUBQ/IM INJECTION J3420 FAMILY GOODMAN JENNIFER VIT B-12 6 MEDICINE ASSOC CYANOCOBA FLEMIN VIPUL TO 1000 MCG CONTINUOU E0601 MAYA TREJO S 6 HOME HOME POSITIVE MEDICAL MEDICAL AIRWAY EQUIPME EQUIPME PRESSURE DEVICE STANDARD K0001 MAYA TREJO WHEELCHAI 6 HOME HOME R MEDICAL MEDICAL EQUIPME EQUIPME ANES 41367 ANESTHESI CORNEA INTEG SYS 6 A ELEC ASSOCIATE CONVERSIO S PSC N ARRHYTHMI RADIOLOGI 70752 [facility] [place] WILLIE C 6 RADIOLOGY III SYLVIE EXAMINATI ON CHEST SINGLE VIEW FRONTAL CARDIOVER 04342 [facility] JEROME [place] 6 NE HEALTH BEN ELECTIVE MEDICAL ARRHYTHMI G A EXTERNAL REPL DENZEL A4235 ARRIV[facility] ARRIVA LITHIUM 6 MEDICAL MEDICAL MED NECES SADIA BG MON OWN PT EA SPRING-PO A4258 ARR[facility] ARRIVA WERED 6 MEDICAL SURFACE ROOM SHOP OPTICIAN FOR LANCET EACH LANCETS A4259 ARRIVA ARRIVA [...] CONC AT EQUIPME EQUIPME PRSC FLW RATE HEADGEAR A7035 [facility] TREJO USED 6 HOME HOME W/POSITIV MEDICAL MEDICAL E AIRWAY EQUIPME EQUIPME PRESSURE DEVICE NASL A7034 [facility] TREJO INTRFCE 6 HOME HOME POS ARWAY MEDICAL MEDICAL PRSS EQUIPME EQUIPME DEVC W/WO HEAD STRAP CONTINUOU E0601 MAYA TREJO S 6 HOME HOME POSITIVE MEDICAL MEDICAL AIRWAY EQUIPME EQUIPME PRESSURE DEVICE ECG 15515 [facility] ROUTINE 6 NE HEALTH NE HEALTH ECG MEDICAL MEDICAL W/LEAST G G 12 LDS W/I&R PRTBLE E0431 [facility] TREJO GASEOUS 6 HOME HOME O2 SYS MEDICAL MEDICAL RENT; EQUIPME EQUIPME FLWMTR HUMIDFR&M ASK O2 CONC 1 E1390 [facility] [place] 6 HOME HOME 85%/>02 MEDICAL MEDICAL CONC AT EQUIPME EQUIPME PRSC FLW RATE CT THORAX [address] W/CONTRAS T MATERIAL PLETHYSMO 26760 [facility] GRAPHY 6 NE HEALTH GRA LUNG MEDICAL VOLUMES G W/WO AIRWAY RESIST BRNCDILAT 30538 [facility] RSPSE 6 NE HEALTH GRA SPMTRY MEDICAL PRE&[place] [address] [facility] DIFFUSING 6 NE HEALTH GRA CAPACITY MEDICAL G CONTINUOU E0601 [facility] TREJO S 6 HOME HOME POSITIVE MEDICAL MEDICAL AIRWAY EQUIPME EQUIPME PRESSURE DEVICE TUBING A7037 [facility] T[facility] USED WITH 6 HOME HOME POSITIVE MEDICAL MEDICAL AIRWAY EQUIPME EQUIPME PRESSURE DEVICE FILTER A7039 [facility] T[facility] NON 6 HOME HOME DISPBL MEDICAL MEDICAL USED EQUIPME EQUIPME W/POS ARWAY PRESS DEVICE FILTER A7038 [facility] TREJO DISPBL 6 HOME HOME USED MEDICAL MEDICAL W/POS EQUIPME EQUIPME ARWAY PRESSURE DEVICE HUMDIFIR E0562 [facility] T[facility] HEATED 6 HOME HOME USED MEDICAL MEDICAL W/POS EQUIPME EQUIPME ARWAY PRESSURE DEVICE POLYSOM 92070 [facility]/>YRS 6 FREDY SLEEP 4/> HEMATOLOG ADDL Y ONCO ANDREW [facility] G0463 [facility] OUTPATIEN 6 [facility] T CLIN VISIT ASSESS & MGMT PT O2 CONC 1 E1390 MAYA TREJO DEL PORT 6 HOME HOME 85%/>02 MEDICAL MEDICAL CONC AT EQUIPME EQUIPME PRSC FLW RATE PRTBLE E0431 MAYA MAYA GASEOUS 6 HOME HOME O2 SYS MEDICAL MEDICAL RENT; EQUIPME EQUIPME FLWMTR HUMIDFR&M ASK PULMONARY 94561 [facility] STRESS 6 [facility] TESTING MEDICAL MEDICAL SIMPLE G G ECG 38256 [facility] ROUTINE 6 [facility] ECG MEDICAL MEDICAL W/LEAST G G 12 LDS W/I&R ECG 46624 [facility] ROUTINE 6 [facility] ECG MEDICAL MEDICAL W/LEAST G G 12 LDS W/I&R NATRIURET [address] PEPTIDE RADIOLOGI 68208 [facility] [place] SCALF LILLIAN C EXAM 6 RADIOLOGY CHEST 2 VIEWS FRONTAL&L ATERAL ECG 35262 [facility] ROUTINE 6 [facility] ECG MEDICAL MEDICAL W/LEAST G G 12 LDS W/I&R RADIOLOGI 12768 [facility] C EXAM 6 EIDER KISHA CHEST 2 RADIOLOGY VIEWS ASSOCIAT FRONTAL&L ATERAL CARDIOVER [address] ELECTIVE ARRHYTHMI A EXTERNAL ECG 06072 [facility] ROUTINE 6 [facility] III ECG MEDICAL W/LEAST G 12 LDS W/I&R NORMAL A4256 [facility] AR[facility]IV[facility] LOW AND 6 MEDICAL MEDICAL HIGH CALIBRATO R SOLUTION/ CHIPS ECG 80147 [facility] ROUTINE 6 [facility] NE [facility] ECG MEDICAL MEDICAL W/LEAST G G 12 LDS W/I&R CARDIOVER 11812 [facility] FALLUJI [place] 6 NE [facility] HAKAN ELECTIVE MEDICAL ARRHYTHMI G A EXTERNAL ECG 84292 MATHEW MATHEW ROUTINE 6 AMA AMA ECG W/LEAST 12 LDS W/I&R CREATINE 06531 [facility] KINASE 6 [facility] TOTAL INC INC ECG 51823 [facility] MITCHELL ROUTINE 6 [facility] ECG INC INC W/LEAST 12 LDS TRCG ONLY W/O I&R COMPREHEN 41506 [facility] SIVE 6 [facility] METABOLIC INC INC PANEL CREATINE 39877 [facility] MITCHELL KINASE MB 6 [facility] FRACTION INC INC ONLY ECG 66947 [facility] CHEN JR ROUTINE 6 [facility] W/LEAST P 12 LDS [place] [address] STEPH[facility] MITCHELL TROPONIN 6 [facility] QUANTITAT INC INC NANCY BLOOD 83824 [facility]PH[facility] MITCHELL COUNT 6 [facility] COMPLETE INC INC AUTO&AUTO DIFRNTL WBC URNLS DIP 15072 [facility] MITCHELL 6 [facility] STICK/TAB INC INC LET REAGENT AUTO MICROSCOP Y NORMAL A4256 [facility] ARRIVA LOW AND 6 MEDICAL MEDICAL HIGH CALIBRATO R SOLUTION/ CHIPS PAIN G8730 FALLIS JOSE MIGUEL ASSESS 6 MOLLY GAUDENCIO DOC POS USING STANDARD TOOL F/U PLAN INFLUENZA G8484 FALL[facility] JOSE MIGUEL IMMUN 6 MOLLY GAUDENCIO NOT ADMINISTE RED RSN NOT GIVEN MOST 3046F FALLIS JOSE MIGUEL RECENT 6 MOLLY GAUDENCIO HEMOGLOBI N A1C LEVEL >9.0% NORMAL G8783 FALLIS JOSE MIGUEL BLOOD 6 MOLLY GAUDENCIO PRESS READING DOC F/U NOT REQUIRED ELIG CLIN G8427 F[facility] JOSE MIGUEL ATTSTS 6 MOLLY GAUDENCIO DOC M REC OBTD UPD/REV PT MEDS PNEUMOCOC 4040F [facility] JOSE MIGUEL FRANCISCO 6 MOLLY GAUDENCIO VACCINE ADMIN RCVD PRIOR FALLS 3288F FALLIS JOSE MIGUEL RISK 6 MOLLY GAUDENCIO ASSESSMEN T DOCUMENTE D DISCHRG 1111F F[facility] JOSE MIGUEL MEDS 6 MOLLY GAUDENCIO RECONCILE D W/CURRENT MED LIST CURRENT 1036F [facility] JOSE MIGUEL TOBACCO 6 MOLLY GAUDENCIO NON-USER CAD CAP COPD PV DM PT FALLS 1100F [facility] JOSE MIGUEL ASSESS 6 MOLLY GAUDENCIO DOCD 2/> FALLS/FAL L W/INJURY/ YR BMI DOC [id number] [facility] JOSE MIGUEL W/I 6 MOLLY GAUDENCIO NORMAL ANDREW & NO F/U PLAN REQUIRED CT LOWER 22081 [place] [facility] ALL EXTREMITY 6 MEDICAL W/O IMAGING CONTRAST ASS MATERIAL NORMAL A4256 ARRIVA ARRIVA LOW AND 5 MEDICAL MEDICAL HIGH CALIBRATO R SOLUTION/ CHIPS LANCETS A4259 ARRIVA ARRIVA PER BOX 5 MEDICAL MEDICAL OF 100 BLD GLU A4253 ARRIVA ARRIVA TEST/REAG 5 MEDICAL MEDICAL T STRIPS HOME BLD GLU SAT-50 REPL DENZEL A4235 ARRIVA ARRIVA LITHIUM 5 MEDICAL MEDICAL MED NECES SADIA BG MON OWN PT EA SPRING-PO A4258 ARRIVA ARRIVA WERED 5 MEDICAL SURFACE ROOM SHOP OPTICIAN FOR LANCET EACH INJECTION J3301 DIAZ BEN DIAZ BEN 5 TRIAMCINO LONE ACETONIDE NOS 10 MG INJECTION J0696 DIAZ BEN DIAZ BEN 5 CEFTRIAXO NE SODIUM PER 250 MG INJECTION J2010 IVAN IVAN 5 CARY CARY LINCOMYCI N HCL UP TO 300 MG INJECTION J1100 IVAN IVAN 5 CARY CARY DEXAMETHO SONE SODIUM PHOSPHATE 1 MG RADIOLOGI 55913 [facility] EXAM 5 LILLIAN CHEST 2 RADIOLOGY VIEWS ASSOCIAT FRONTAL&L ATERAL AFO L1970 PROGRESSI PROGRESSI PLASTIC 5 VE VE WITH PODIATRY PODIATRY ANKLE JOINT CUSTOM FABRICATE D ADD LW L2820 PROGRESSI PROGRESSI EXT ORTH 5 VE VE SFT PODIATRY PODIATRY INTERFCE MOLD BELW KNEE NORMAL A4256 ARRIVA ARRIVA LOW AND 5 MEDICAL MEDICAL HIGH CALIBRATO R SOLUTION/ [facility]IPS RADEX 66449 [place] [facility] ALL FOOT 5 MEDICAL COMPLETE IMAGING MINIMUM 3 ASS VIEWS RADEX 39303 STEPHEN CHRISTIANSENON ANKLE 5 [facility] COMPLETE INC INC MINIMUM 3 VIEWS NORMAL A4256 ARRIVA ARRIVA LOW AND 5 MEDICAL MEDICAL HIGH CALIBRATO R SOLUTION/ CHIPS DIAB ONLY A5500 TOTAL TOTAL FIT CSTM 5 CARE CARE PREP&SPL PHARMACY PHARMACY SHOE MX #2 #2 DNSITY INSRT FOR DIAB A5513 TOTAL TOTAL ONLY MX 5 CARE CARE DNSITY PHARMACY PHARMACY INSRT #2 #2 CSTM MOLD CSTM EA INJECTION J1030 DIAZ EBN DIAZ BEN 5 METHYLPRE DNISOLONE ACETATE 40 MG INJECTION J2010 DIAZ BEN DIAZ BEN 5 LINCOMYCI N HCL UP TO 300 MG BLD GLU A4253 ARRIVA ARRIVA TEST/REAG 5 MEDICAL MEDICAL T STRIPS HOME BLD GLU SAT-50 NORMAL A4256 ARRIVA ARRIVA LOW AND 5 MEDICAL MEDICAL HIGH CALIBRATO R SOLUTION/ CHIPS LANCETS A4259 ARRIVA ARRIVA PER BOX 5 MEDICAL MEDICAL OF 100 REPL DENZEL A4235 ARRIVA ARRIVA LITHIUM 5 MEDICAL MEDICAL MED NECES SADIA BG MON OWN PT EA SPRING-PO A4258 ARRIVA ARRIVA WERED 5 MEDICAL SURFACE ROOM SHOP OPTICIAN FOR LANCET EACH BLD GLU A4253 ARRIVA ARRIVA TEST/REAG 4 MEDICAL MEDICAL T STRIPS HOME BLD GLU SAT-50 NORMAL A4256 ARRIVA ARRIVA LOW AND 4 [...] SPRING-PO A4258 ARRIVA ARRIVA WERED 4 MEDICAL SURFACE ROOM SHOP OPTICIAN FOR LANCET EACH OPHTHALMO 84027 NEHEMIAH CERNA SCPY 4 GENESIS HURTADO EXTENDED RETINAL DRAWING I&R 1ST OPHTHALMO 07310 NEHEMIAH CERNA SCPY 4 JAM JAM EXTENDED RETINAL DRAWING I&R 1ST CATARACT 75259 NEHEMIAH CERNA REMOVAL 4 JAM JAM INSERTION [...] MEDICAL HIGH CALIBRATO R SOLUTION/ CHIPS OPHTHALMO 92641 NEHEMIAH CERNA SCPY 4 JAM JAM EXTENDED RETINAL DRAWING I&R 1ST ECG 42882 DIAZ BEN DIAZ BEN ROUTINE 4 ECG W/LEAST 12 LDS W/I&R OPHTHALMO 37284 NEHEMIAH CERNA SCPY 4 JAM JAM EXTENDED RETINAL DRAWING I&R 1ST CATARACT 99710 NEHEMIAH CERNA REMOVAL 4 JAM JAM INSERTION OF LENS LANCETS A4259 ARRIVA ARRIVA PER BOX 4 MEDICAL MEDICAL OF 100 BLD GLU A4253 ARRIVA ARRIVA TEST/REAG 4 MEDICAL MEDICAL T STRIPS HOME BLD GLU MON-50 NORMAL A4256 ARRIVA ARRIVA LOW AND 4 MEDICAL MEDICAL HIGH CALIBRATO R SOLUTION/ CHIPS REPL DENZEL A4235 ARRIVA ARRIVA LITHIUM 4 MEDICAL MEDICAL MED NECES SADIA BG MON OWN PT EA SPRING-PO A4258 ARRIVA ARRIVA WERED 4 MEDICAL SURFACE ROOM SHOP OPTICIAN FOR LANCET EACH INJECTION J1885 DIAZ BEN DIAZ BEN 3 KETOROLAC TROMETHAM INE PER 15 MG INJECTION J2010 DIAZ BEN DIAZ BEN 3 LINCOMYCI N HCL UP TO 300 MG LANCETS A4259 ARRIVA ARRIVA PER BOX [...] AND 2 MEDICAL MEDICAL HIGH SUPPLY SUPPLY [employer] R SOLUTION/ CHIPS BLD GLU A4253 [facility]ERTY LIBERTY TEST/REAG 2 MEDICAL MEDICAL T STRIPS SUPPLY SUPPLY HOME BLD INC. INC. GLU MON-50 RADIOLOGI 61174 [facility] C EXAM 2 CO CO CHEST 2 [facility] VIEWS FRONTAL&L ATERAL BLD GLU A4253 [facility] LIBERTY TEST/REAG 2 MEDICAL MEDICAL T STRIPS SUPPLY SUPPLY HOME BLD INC. INC. GLU MON-50 NORMAL A4256 [facility] LIBERTY LOW AND 2 MEDICAL MEDICAL HIGH SUPPLY SUPPLY CAL[employer]RATO [employer] INC. R SOLUTION/ CHIPS LANCETS A4259 [facility]ERTY LIBERTY PER BOX 2 MEDICAL MEDICAL OF 100 SUPPLY SUPPLY INC. INC. PO A4258 LIBERTY LIBERTY WERED 2 MEDICAL SURFACE ROOM SHOP OPTICIAN SUPPLY SUPPLY FOR [employer] LANCET EACH REPL DENZEL A4235 [facility] LIBERTY LITHIUM 2 MEDICAL MEDICAL MED NECES SUPPLY SUPPLY SADIA BG MON OWN PT EA BLD GLU A4253 [facility] LIBERTY TEST/REAG 2 MEDICAL MEDICAL T STRIPS SUPPLY SUPPLY HOME BLD GLU MON-50 LANCETS A4259 LIBERTY LIBERTY PER BOX 2 MEDICAL MEDICAL OF 100 SUPPLY SUPPLY NORMAL A4256 LIBERTY LIBERTY LOW AND 2 MEDICAL MEDICAL HIGH SUPPLY SUPPLY CALIBRATO R SOLUTION/ CHIPS ADD LW L2275 [facility] EXTRM 1 O AND P O AND P VARUS/VUL LLC LLC CORNELIO DARRYL PLSTC MOD PADD/LN ADD LW L2820 [facility] EXT ORTH 1 O AND P O AND P SFT LLC LLC INTERFCE MOLD BELW KNEE FOR DIAB A5512 [facility] ONLY MX 1 O AND P O AND P DNSITY LLC LLC INSRT DIR FORMD PRFAB EA AFO L1960 [facility] POSTERIOR 1 O AND P O AND P SOLID LLC LLC ANK PLASTIC CUSTOM XOCHITL DIAB ONLY A5500 [facility] FIT CSTM 1 O AND P O AND P PREP&SPL LLC LLC SHOE MX DNSITY INSRT INJECTION J1030 FAMILY DIAZ BEN 1 MEDICINE METHYLPRE ASSOC DNISOLONE FLEMIN ACETATE 40 MG INJECTION J1885 FAMILY DIAZ BEN 1 MEDICINE KETOROLAC ASSOC FLEMIN TROMETHAM INE PER 15 MG RADIOLOGI 37012 [facility] C EXAM 1 CO [facility] COMPLETE 4/MORE VIEWS BLD GLU A4253 [...] HIGH SUPPLY SUPPLY CALIBRATO R SOLUTION/ CHIPS [facility] A4258 LIBERTY LIBERTY WERED 1 MEDICAL SURFACE ROOM SHOP OPTICIAN SUPPLY SUPPLY FOR LANCET EACH REPL DENZEL A4235 LIBERTY LIBERTY LITHIUM 1 MEDICAL MEDICAL MED NECES SUPPLY SUPPLY SADIA BG MON OWN PT EA BLD GLU A4253 [facility] LIBERTY TEST/REAG 1 MEDICAL MEDICAL T STRIPS SUPPLY SUPPLY HOME BLD GLU MON-50 INJECTION J0696 FAMILY DIAZ BEN 0 MEDICINE CEFTRIAXO ASSOC NE SODIUM FLEMIN PER 250 MG RADIOLOGI 59676 [facility] C EXAM 0 EIDER KISHA CHEST 2 [...] SUPPLY SUPPLY HOME BLD GLU MON-50 DUP-SCAN 39327 [facility] IQBAL XTR VEINS 0 GRACIE RADIOLOGY UNILATERA ASSOCIAT L/LIMITED STUDY NORMAL A4256 [facility] LIBERTY LOW AND 0 MEDICAL MEDICAL HIGH SUPPLY SUPPLY CALIBRATO R SOLUTION/ CHIPS BLD GLU A4253 [facility] LIBERTY TEST/REAG 0 MEDICAL MEDICAL T STRIPS SUPPLY SUPPLY HOME BLD GLU SAT-50 LANCETS A4259 LIBERTY LIBERTY PER BOX 0 MEDICAL MEDICAL OF 100 SUPPLY SUPPLY NORMAL A4256 LIB[facility] LIBERTY LOW AND 0 MEDICAL MEDICAL HIGH SUPPLY SUPPLY CALIBRATO R SOLUTION/ CHIPS LANCETS A4259 LIBERTY LIBERTY PER BOX 0 MEDICAL MEDICAL OF 100 SUPPLY SUPPLY BLD GLU A4253 [facility] LIBERTY TEST/REAG 0 MEDICAL MEDICAL T STRIPS SUPPLY SUPPLY HOME BLD GLU SAT-50 RADIOLOGI 64125 [facility] Min MILLER EXAM 9 PEE S CHEST [...] MEDICAL MEDICAL OF 100 SUPPLY SUPPLY LIPID 01485 [facility] PANEL 9 [facility] HEMOGLOBI 19790 [facility] N 9 [facility] SURY A1C COLLECTIO 62919 [facility] N VENOUS 9 [facility] VENIPUNCT URE COMPREHEN 59728 [facility] SIVE 9 [facility] METABOLIC [facility] PANEL RADIOLOGI 72885 [place] PIRES, Min 9 NICK Shahid EXAMINATI ON FOOT 2 VIEWS STRAPPING 19224 [place] PIRES UNNA 9 NICK Shahid BOOT SPRING-PO A4258 LIBERTY LIBERTY WERED 9 MEDICAL SURFACE ROOM SHOP OPTICIAN SUPPLY SUPPLY FOR LANCET EACH NORMAL A4256 [facility] LIBERTY LOW AND 9 MEDICAL MEDICAL HIGH SUPPLY SUPPLY CALIBRATO R SOLUTION/ CHIPS BLD GLU A4253 [facility] LIBERTY TEST/REAG 9 MEDICAL MEDICAL T STRIPS SUPPLY SUPPLY HOME BLD GLU MON-50 LANCETS A4259 LIBERTY LIBERTY PER BOX 9 MEDICAL MEDICAL OF 100 SUPPLY SUPPLY URINLS 15594 FAMILY DIAZ, DIP 8 MEDICINE VIKKI G STICK/TAB ASSOC LET [place] REAGNT NON-AUTO MICRSCPY INJECTION J2010 FAMILY DIAZ, 8 MEDICINE VIKKI Downey LINCOMYCI ASSOC N HCL UP [place] TO 300 MG COLLECTIO 28717 [facility] VENOUS 8 [facility] VENIPUNCT URE HEMOGLOBI 48212 [facility] N 8 [facility] SURY A1C BLD GLU A4253 LIBERTY LIBERTY TEST/REAG 8 MEDICAL MEDICAL T STRIPS SUPPLY SUPPLY HOME BLD GLU MON-50 INJECTION J2010 [facility] 8 MEDICINE , [place] LINCOMYCI ASSOC N HCL UP FLESB TO 300 MG INJECTION J1100 [facility] 8 MEDICINE , [place] DEXAMETHO ASSOC SONE [place] SODIUM PHOSPHATE 1 MG COLLECTIO 68269 [facility] N VENOUS 8 [facility] VENIPUNCT URE COMPREHEN 85725 [facility] SIVE 8 [facility] PANEL RADIOLOGI 00068 VARDAMANiMn SEGUNDO EXAM 8 PEE S CHEST 2 RADIOLOGY VIEWS FRONTAL&L ASSOCIATE FELIX Irving PSC LIPID 01671 [facility] PANEL 8 [facility] HEMOGLOBI 98844 [facility] 8 [facility] SURY A1C NATRIURET 37778 [facility] IC 8 [facility] IIV3 07837 FAMILY DIAZ, VACCINE 8 MEDICINE VIKKI Shayan SPLIT ASSOC VIRUS 0.5 [place] ML DOSAGE IM USE ADMINISTR G0008 DIAZ, ATION OF 8 MEDICINE VIKKI G INFLUENZA ASSOC VIRUS [place] VACCINE SPRING- A4258 LIBERTY LIBERTY WERED 8 MEDICAL SURFACE ROOM SHOP OPTICIAN SUPPLY SUPPLY FOR LANCET EACH LANCETS A4259 LIBERTY LIBERTY PER BOX 8 MEDICAL MEDICAL OF 100 SUPPLY SUPPLY BLD GLU A4253 [facility] LIBERTY TEST/REAG 8 MEDICAL MEDICAL T STRIPS SUPPLY SUPPLY HOME BLD GLU MON-50 INJECTION J2010 FAMILY [facility]W 8 MEDICINE , [place] LINCOMYCI ASSOC N HCL UP [place] TO 300 MG INJECTION J1100 [facility] 8 MEDICINE , [place] DEXAMETHO ASSOC SONE [place] SODIUM PHOSPHATE 1 MG BLD GLU A4253 [facility] LIBERTY TEST/REAG 8 MEDICAL MEDICAL T STRIPS SUPPLY SUPPLY HOME BLD GLU MON-50 LANCETS A4259 LIBERTY LIBERTY PER BOX 8 MEDICAL MEDICAL OF 100 SUPPLY SUPPLY NORMAL A4256 [facility]ERTY LOW AND 8 MEDICAL MEDICAL HIGH SUPPLY SUPPLY CALIBRATO R SOLUTION/ CHIPS INJECTION J0696 [facility], 8 MEDICINE VIKKI Downey CEFTRIAXO ASSOC NE SODIUM [place] PER 250 MG INJECTION J3301 [facility] DIAZ, 8 MEDICINE VIKKI Downey TRIAMCINO ASSOC LONE [place] ACETONIDE NOS 10 MG INJECTION J2010 [facility] DIAZ, 8 MEDICINE VIKKI Downey LINCOMYCI ASSOC N HCL UP [place] TO 300 MG INJECTION J1100 [facility], 8 MEDICINE VIKKI Downey DEXAMETHO ASSOC SONE [place] SODIUM PHOSPHATE 1 MG INJECTION J0696 [facility] 8 MEDICINE MEDICINE CEFTRIAXO ASSOC ASSOC NE SODIUM [place] PER 250 MG INJECTION J1100 [facility] 8 MEDICINE MEDICINE DEXAMETHO ASSOC ASSOC SONE [place] SODIUM PHOSPHATE 1 MG SPRING-PO A4258 LIBERTY LIBERTY WERED 8 MEDICAL SURFACE ROOM SHOP OPTICIAN SUPPLY SUPPLY FOR LANCET EACH BLD GLU A4253 [facility] LIBERTY TEST/REAG 8 MEDICAL MEDICAL T STRIPS SUPPLY SUPPLY HOME BLD GLU MON-50 LANCETS A4259 [facility]ERTY LIBERTY PER BOX 8 MEDICAL MEDICAL OF 100 SUPPLY SUPPLY NORMAL A4256 [facility] LIBERTY LOW AND 8 MEDICAL MEDICAL HIGH SUPPLY SUPPLY CALIBRATO R SOLUTION/ CHIPS Encounters Encounter Start End Date Code Location Performer Type Date OFFICE [address] [facility] GIGI OUTPATIEN 7 7 PHYSICIAN T VISIT S GROUP 25 MINUTES OFFICE [address] [facility] GIGI OUTPATIEN 7 7 PHYSICIAN T VISIT S GROUP 25 [facility]ES [facility] [address] [facility] 7 7 [facility] [address] [facility] PHYSICIAN T VISIT S GROUP 25 MINUTES OFFICE 78239 [facility] 7 MEDICINE T VISIT ASSOC 25 FLEMIN MINUTES HOME [facility], 7 7 HOME [facility] INPATIENT AGENCY [facility]ICE [address] [facility] 7 PHYSICIAN T NEW 60 S GROUP MINUTES HOSPITAL [address] OFFICE 17557 [facility] [address] [place] [address] T VISIT MEDICAL 15 G MINUTES OFFICE [address] T VISIT MEDICAL 25 G MINUTES [facility] [address] OFFICE [address] 45 HEMATOLOG MINUTES Y ONCO [facility] [address] [place] - [address] [place] [address] OFFICE 90770 PATRIA CASTILLO [address] III T VISIT MEDICAL 15 G MINUTES HOSPITAL [address] OFFICE 13294 [place] [address] PHYSCIAN LES T NEW 30 PRACTICE MINUTES [facility] STEPHEN - 6 6 [facility] OUTPATIEN INC T EMERGENCY 59349 [facility] 6 6 [facility] DEPARTMEN INC T VISIT MODERATE SEVERITY OFFICE 44413 [facility] JOSE MIGUEL OUTPATIEN 6 6 MOLLY GAUDENCIO T VISIT 15 MINUTES OFFICE 37803 JOSE MIGUEL JOSE MIGUEL OUTPATIEN 6 6 GAUDENCIO GAUDENCIO T VISIT 15 MINUTES [facility] 92039 PROGRESSI PROGRESSI OUTPATIEN 6 6 VE VE T VISIT PODIATRY PODIATRY 15 MINUTES OFFICE 50394 DIAZ BEN DIAZ BEN OUTPATIEN 5 5 T VISIT 25 MINUTES OFFICE 05510 [facility] 5 5 [place] T VISIT 25 MINUTES [facility] - 5 5 [facility] - 5 5 [facility] 87642 DIAZ BEN DIAZ BEN OUTPATIEN 5 5 T VISIT 25 MINUTES OFFICE 81342 FAMILY [facility]HEW OUTPATIEN 3 3 MEDICINE AMA T VISIT ASSOC 25 FLEMIN MINUTES HOSPITAL [facility] - 2 2 [facility] T OFFICE 90663 FAMILY DIAZ BEN OUTPATIEN 1 1 MEDICINE T VISIT ASSOC 25 FLEMIN MINUTES OFFICE 71544 FAMILY DIAZ BEN OUTPATIEN 1 1 MEDICINE T VISIT ASSOC 25 FLEMIN MINUTES [facility]OSPITAL [facility] - 1 1 [facility] T OFFICE 80845 FAMILY DIAZ BEN OUTPATIEN 1 1 MEDICINE T VISIT ASSOC 25 FLEMIN MINUTES OFFICE 38560 FAMILY DIAZ BEN OUTPATIEN 0 0 MEDICINE T VISIT ASSOC 15 FLEMIN MINUTES HOSPITAL [facility] - 0 0 [facility] T OFFICE 21688 FAMILY DIAZ BEN OUTPATIEN 0 0 MEDICINE T VISIT ASSOC 25 FLEMIN MINUTES OFFICE 81089 FAMILY EMILY BEN OUTPATIEN 0 0 MEDICINE T VISIT ASSOC 25 FLEMIN MINUTES [facility]OS[facility] - 0 0 [facility] T OFFICE 24086 FAMILY EMILY BEN OUTPATIEN 0 0 MEDICINE T VISIT ASSOC 25 FLEMIN MINUTES [facility]OS[facility]ITAL [facility] - 9 9 [facility] T OFFICE 71900 FAMILY DIAZ, OUTPATIEN 9 9 MEDICINE VIKKI Downey T VISIT ASSOC 15 [place] MINUTES OFFICE 09186 FAMILY DIAZ, OUTPATIEN 9 9 MEDICINE VIKKI Downey T VISIT ASSOC 15 [place] MINUTES OFFICE 25072 FAMILY DIAZ, OUTPATIEN 9 9 MEDICINE VIKKI Downey T VISIT ASSOC 15 [place] MINUTES OFFICE 53854 FAMILY DIAZ, OUTPATIEN 9 9 MEDICINE VIKKI Downey T VISIT ASSOC 15 [place] MINUTES [facility] MA[facility] - 9 9 [facility] T OFFICE 91956 FAMILY DIAZ, OUTPATIEN 9 9 MEDICINE VIKKI Downey T VISIT ASSOC 25 [place] MINUTES OFFICE 57945 FAMILY DIAZ, OUTPATIEN 9 9 MEDICINE VIKKI Downey T VISIT ASSOC 15 [place] MINUTES OFFICE 21004 PAWSAT, PAWSAT, OUTPATIEN 9 9 NICK Shahid T VISIT 10 MINUTES OFFICE 80499 FAMILY DIAZ, OUTPATIEN 9 9 MEDICINE VIKKI Downey T VISIT ASSOC 15 [place] MINUTES OFFICE 18154 PAWSAT, PAWSAT, OUTPATIEN 9 9 NICK Shahid T VISIT 15 MINUTES OFFICE 49874 FAMILY DIAZ, OUTPATIEN 9 9 MEDICINE VIKKI Downey T VISIT ASSOC 15 [place] MINUTES OFFICE 00826 FAMILY DIAZ, OUTPATIEN 9 9 MEDICINE VIKKI Oliva VISIT ASSOC 25 [place] MINUTES OFFICE 06215 FAMILY DIAZ, OUTPATIEN 8 8 MEDICINE VIKKI Oliva VISIT ASSOC 15 [place] MINUTES [facility]OSPITAL [facility] - 8 8 [facility] T OFFICE 81645 FAMILY DIAZ, OUTPATIEN 8 8 MEDICINE VIKKI Oliva VISIT ASSOC 15 [place] MINUTES OFFICE 08422 FAMILY DIAZ, OUTPATIEN 8 8 MEDICINE VIKKI Oliva VISIT ASSOC 15 [place] MINUTES OFFICE 32577 FAMILY MATHEW OUTPATIEN 8 8 MEDICINE FATMATA VISIT ASSOC 15 [place] MINUTES [facility] - 8 8 [facility] T OFFICE 72269 FAMILY DIAZ, OUTPATIEN 8 8 MEDICINE VIKKI Oliva VISIT ASSOC 25 [place] MINUTES OFFICE 54621 FAMILY MATHEW OUTPATIEN 8 8 MEDICINE FATMATA T VISIT ASSOC 15 [place] MINUTES OFFICE 93808 FAMILY DIAZ, OUTPATIEN 8 8 MEDICINE VIKKI Oliva VISIT ASSOC 25 [place] MINUTES OFFICE 15499 FAMILY DIAZ, OUTPATIEN 8 8 MEDICINE VIKKI Oliva VISIT ASSOC 15 [place] MINUTES OFFICE 55604 FAMILY DIAZ, OUTPATIEN 8 8 MEDICINE VIKKI Oliva VISIT ASSOC 15 [place] MINUTES OFFICE 32316 FAMILY FAMILY OUTPATIEN 8 8 MEDICINE MEDICINE T VISIT ASSOC ASSOC 15 [place] MINUTES
--- OUTSIDE RECORDS SUMMARY | 2016-09-17 14:51 | External Medical Summary Rpt ---
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 Name Role Phone MATHEW, MATHEW Unavailable Unavailable [...] MIGUEL GAUDENCIO, JOSE MIGUEL Unavailable Unavailable [facility] Unavailable Unavailable [facility], [facility] Unavailable Unavailable [facility], [facility] IQ[facility] GRACIE, IQBAL Unavailable Unavailable GRACIE CORNEA, CORNEA Unavailable Unavailable FALLIS MOLLY, FALLIS Unavailable Unavailable MOLLY FALLUJI HAKAN, FALLUJI Unavailable Unavailable [facility] Unavailable Unavailable [facility], [facility] Unavailable Unavailable [facility], Unavailable Unavailable [facility] Unavailable Unavailable [facility], [facility]available Unavailable [facility], [facility]available Unavailable [facility], Unavailable Unavailable [facility] Unavailable Unavailable INC, [facility] Unavailable Unavailable HOSPITAL P, [facility] P ANGELA MILLER Unavailable Unavailable ANGELA SNYDER, ANGELA Unavailable Unavailable LILLIAN PEE MILLER, Unavailable Unavailable PEE MILLER [facility] Unavailable Unavailable AGENCY, [facility], Unavailable Unavailable [facility] WILLIE III SYLVIE, Unavailable Unavailable WILLIE III SYLVIE [facility] Unavailable Unavailable [facility], [facility] Unavailable Unavailable MEDICAL G, [facility]ICAL G APRIL JR DWI, APRIL Unavailable Unavailable JR DWI [facility] Unavailable Unavailable [facility], [facility] Unavailable Unavailable [facility] Unavailable Unavailable CERNA JAM, Unavailable Unavailable CERNA JAM CERNA JAM, Unavailable Unavailable CERNA JAM [facility] Unavailable Unavailable ASSOCIAT, [facility] Unavailable Unavailable MEDICAL, [facility] MEDICAL [facility], Unavailable Unavailable [facility] NICK PIRES, Unavailable Unavailable NICK [...] Unavailable Unavailable EQU[facility], [facility], Unavailable Unavailable [facility] Unavailable Unavailable [facility] Unavailable Unavailable JONATHAN [...] DOS Provider Status E119 TYPE 2 08-22-2016 [facility] DIABETES [facility] MELLITUS GROUP WITHOUT COMPLICATIO NS E669 OBESITY 08-22-2016 [facility] UNSPECIFIED PHYSICIANS GROUP E785 HYPERLIPIDE 08-22-2016 [facility] RICKY PHYSICIANS UNSPECIFIED GROUP G4733 OBSTRUCTIVE 08-22-2016 [facility] SLEEP PHYSICIANS APNEA ADULT GROUP PEDIATRIC I10 ESSENTIAL 08-22-2016 [facility] PRIMARY PHYSICIANS HYPERTENSIO GROUP N I2510 ASHD COWLITZ 08-22-2016 [facility] 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 ANGINA PECTORIS I4891 UNSPECIFIED 08-22-2016 [facility] ATRIAL PHYSICIANS FIBRILLATIO GROUP N R5383 OTHER 08-22-2016 [facility] FATIGUE PHYSICIANS GROUP I480 PAROXYSMAL 08-17-2016 [facility]TR[facility] HOME FIBRILLATIO MEDICAL N EQUIPME R600 LOCALIZED 08-17-2016 [facility] EDEMA HOME MEDICAL EQUIPME E6601 MORBID 06-21-2016 [facility] SEVERE PHYSICIANS OBESITY DUE GROUP TO EXCESS CALORIES W09045 ATHEROSCLER 06-21-2016 [facility] OSIS CABG PHYSICIANS WITHOUT GROUP ANGINA PECTORIS I5020 UNSPECIFIED 06-21-2016 [facility] SYSTOLIC PHYSICIANS CONGESTIVE GROUP HEART FAILURE N182 CHRONIC 06-01-2016 [facility] DISEASE MEDICAL STAGE 2 MILD R0602 SHORTNESS 05-24-2016 [facility] OF BREATH PHYSICIANS GROUP J449 CHRONIC 05-17-2016 [facility] PULMONARY AGENCY ON DISEASE UNS Z6838 BODY MASS 05-14-2016 FAMILY INDEX BMI MEDICINE 38.0-38.9 ASSOC ADULT FLE[facility] Z789 OTHER 05-14-2016 [facility] SPECIFIED MEDICINE HEALTH ASSOC STATUS FLE[facility] I129 HYPERTENSIV 04-24-2016 [facility] W/STAGE 1-4 AGENCY CKD OR UNS CKD E42561 ASHD COWLITZ 04-24-2016 [facility] W/UNSTABLE AGENCY ANGINA PECTORIS W00212 CELLULITIS 04-24-2016 [facility] LOWER LIMB AGENCY C21114 PRESSURE 04-24-2016 [facility] RIGHT AGENCY BUTTOCK STAGE 2 N183 CHRONIC 04-24-2016 [facility] DISEASE AGENCY STAGE 3 MODERATE I200 UNSTABLE 04-20-2016 [facility] ANGINA HEART I208 OTHER FORMS 04-19-2016 [facility] OF ANGINA PHYSICIANS PECTORIS GROUP R0902 HYPOXEMIA 04-19-2016 [facility] Z720 TOBACCO USE 04-19-2016 [facility] Z951 PRESENCE OF 04-19-2016 [facility] AORTOCORONA ASSOCIAT RY BYPASS GRAFT I252 OLD 03-19-2016 [facility] INFARCTION MEDICAL G I481 PERSISTENT 03-19-2016 [facility] FIBRILLATIO N R9439 ABNORMAL 03-19-2016 [facility] CARDIOVASCU LR FUNCTION STUDY I255 ISCHEMIC 02-18-2016 [facility] CARDIOMYOPA HOME THY MEDICAL EQUIPME E538 DEFICIENCY 02-16-2016 FAMILY OF OTHER MEDICINE SPECIFIED B ASSOC GROUP NOHELIA VITAMINS R531 WEAKNESS 02-07-2016 [facility] NOHELIA Z6841 BODY MASS 02-07-2016 FAMILY INDEX BMI MEDICINE 40.0-44.9 ASSOC ADULT NOHELIA I509 HEART 02-01-2016 [facility] HEALTH UNSPECIFIED MEDICAL G J309 ALLERGIC 11-22-2015 [facility] UNSPECIFIED R918 OTHER 11-22-2015 [facility] ABNORMAL FINDING OF LUNG FIELD R400 SOMNOLENCE 11-09-2015 [facility] MEDICAL G B38303 OTHER LONG 09-30-2015 [facility] CURRENT DRUG THERAPY Z7901 SKILLED NURSING 09-16-2015 [facility] CURRENT USE HEALTH OF MEDICAL G ANTICOAGULA NTS E782 MIXED 09-06-2015 [facility]RICLIPIDE [facility] R079 CHEST PAIN 09-06-2015 [facility] UNSPECIFIED RADIOLOGY ASSOCIAT E1142 TYPE 2 09-02-2015 [facility] MELLITUS W/DIAB POLYNEUROPA THY M1990 UNSPECIFIED 09-02-2015 [facility] OSTEOARTHRI TIS UNSPECIFIED SITE Z885 ALLERGY 09-02-2015 [facility] STATUS TO HOSPITAL NARCOTIC AGENT STATUS E1165 TYPE 2 08-22-2015 [facility] MEDICAL MELLITUS WITH HYPERGLYCEM IA 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 E1140 TYPE 2 DM 07-13-2015 MATHEW WITH AMA DIABETIC NEUROPATHY UNSPECIFIED H8123 VESTIBULAR 06-14-2015 [facility]SC[facility] BILATERAL PRACT[facility] LL H8303 LABYRINTHIT 05-31-2015 STEPHEN IS [facility] P L67117 PERSONAL 05-31-2015 STEPHEN HISTORY OF [facility] P DEPENDENCE 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 ANKLE AND FOOT M2570 OSTEOPHYTE 05-19-2015 FALLIS MOLLY UNSPECIFIED JOINT M6688 SPONTANEOUS 05-19-2015 FALLIS MOLLY RUPTURE OF OTHER TENDONS OTHER C94414 PAIN IN 05-19-2015 FALL[facility] MOLLY RIGHT FOOT M1711 UNILATERAL 04-14-2015 [facility] OSTEO[facility]AG[facility] TIS RIGHT KNEE M49498 PRIMARY 04-14-2015 [place] OSTEO[facility]ICAL TIS RIGHT IMAGING ASS ANKLE AND FOOT M2140 FLAT FOOT 04-14-2015 [place] [facility] ACQUIRED IMAGING ASS UNSPECIFIED FOOT D25163 PAIN IN 04-14-2015 [place] RIGHT ANKLE [facility]ICAL IMAGING ASS J069 ACUTE UPPER 02-14-2015 DIAZ BEN RESPIRATORY INFECTION UNSPECIFIED J329 CHRONIC 02-11-2015 IVAN CARY SINUSITIS UNSPECIFIED R0600 DYSPNEA 01-31-2015 [facility] UNSPECIFIED [facility]OLOGY ASSOCIAT R54011 FOOT DROP 01-06-2015 PROGRESSIVE RIGHT FOOT PODIATRY U39309 SPONTANEOUS 01-06-2015 PROGRESSIVE RUPTURE PODIATRY FLEXOR TENDONS RT ANKLE FOOT 45423 DIAB W/O 12-08-2014 [facility] MENTION MEDICAL COMP TYPE II/UNS TYPE UNCNTRL 27626 OSTEOARTHRO 11-11-2014 [place] SIS UNSPEC MEDICAL WHETHER IMAGING ASS GEN/LOC ANK&FOOT 82281 PAIN IN 11-11-2014 [place] JOINT, MEDICAL ANKLE AND IMAGING ASS FOOT 31777 CALCANEAL 11-11-2014 [place] SPUR [facility] 7295 PAIN IN 11-11-2014 [place] SOFT MEDICAL TISSUES OF IMAGING ASS LIMB 734 FLAT FOOT 11-11-2014 [facility] 85232 DIAB W/O 08-30-2014 [facility] COMP TYPE PHARMACY #2 II/UNS NOT STATED UNCNTRL 4659 ACUTE URIS 07-14-2014 DIAZ BEN OF UNSPECIFIED SITE V4989 OTHER SPEC 07-14-2014 DIA[facility] BEN CONDITIONS INFLUENCING HEALTH STATUS V8541 BODY MASS 07-14-2014 DIAZ BEN INDEX 40.0-44.9 ADULT 65327 VITREOUS 10-07-2013 CERNA DEGENERATIO JAM N 97431 NUCLEAR 09-15-2013 CER[facility] SCLEROSIS JAM 99770 OTHER 08-18-2013 DIAZ BEN SPECIFIED CARDIAC DYSRHYTHMIA S 7851 PALPITATION 08-18-2013 DIAZ BEN S V8539 BODY MASS 08-18-2013 DIAZ BEN INDEX 39.0-39.9 ADULT 57248 PAIN IN 02-09-2013 DIAZ BEN JOINT, LOWER LEG 462 ACUTE 04-18-2012 [facility] PHARYNGITIS MEDICINE ASSOC [facility] 4293 CARDIOMEGAL 12-31-2011 [facility] 16528 OTHER 12-31-2011 [facility] RESPIRATORY ABNORMALITI ES V4581 POSTSURGICA 12-31-2011 [facility] AORTOCORONA ASSOCIAT RY BYPASS STATUS 11454 OTHER 01-08-2011 FAMILY ACQUIRED MEDICINE DEFORMITY ASSOC OF ANKLE FLEMIN AND FOOT OTHER 75751 DIAB 01-04-2011 [facility] MANIFESTS TYPE II/UNS NOT UNCNTRL 77667 EFFUSION OF 12-13-2010 [facility] LOWER LEG RADIOLOGY JOINT ASSOCIAT 9599 INJURY 12-13-2010 [facility] OTHER AND RADIOLOGY UNSPECIFIED ASSOCIAT UNSPECIFIED SITE 2722 MIXED 11-14-2010 FAMILY HYPERLIPIDE MEDICINE RICKY ASSOC FLEMIN 4011 ESSENTIAL 11-14-2010 FAMILY HYPERTENSIO MEDICINE N, BENIGN ASSOC FLEMIN 486 PNEUMONIA, 03-01-2010 FAMILY ORGANISM MEDICINE UNSPECIFIED ASSOC FLEMIN 4660 ACUTE 02-27-2010 [facility] 64771 OTHER 02-27-2010 [facility] DISEASES OF RADIOLOGY LUNG NOT ASSOCIAT ELSEWHERE CLASSIFIED 7931 NONSPEC 02-27-2010 [facility] FIND RAD RADIOLOGY OTH EXAM ASSOCIAT BODY STRUCT LUNG FIELD 96133 COR 02-13-2010 FAMILY ATHEROSLERO MEDICINE UNSPEC ASSOC TYPE VESSEL FLEMIN COWLITZ/BABITA T 490 BRONCHITIS 02-13-2010 FAMILY NOT MEDICINE SPECIFIED ASSOC ACUTE OR FLEMIN CHRONIC 37023 SWELLING OF 11-30-2009 [facility] LIMB RADIOLOGY ASSOCIAT 2724 OTHER AND 11-28-2009 FAMILY UNSPECIFIED MEDICINE ASSOC HYPERLIPIDE FLEMIN RICKY 4019 UNSPECIFIED 11-28-2009 FAMILY ESSENTIAL MEDICINE HYPERTENSIO ASSOC N FLEMIN 4739 UNSPECIFIED 03-16-2009 FAMILY SINUSITIS MEDICINE ASSOC [place] 70610 UNSPECIFIED 03-15-2009 FAMILY MEDICINE CONJUNCTIVI ASSOC TIS [place] 72054 CHEST PAIN 03-15-2009 FAMILY UNSPECIFIED MEDICINE ASSOC [place] 07998 ACUTE 03-03-2009 FAMILY LARYNGITIS, MEDICINE WITHOUT ASSOC MENTION OF [place] OBSTRUCTIO V0481 NEED 03-03-2009 FAMILY PROPHYLACTI MEDICINE C ASSOC VACCINATION [place] &INOCULATIO N FLU 37439 TIBIALIS 06-15-2008 PAWSAT, TENDINITIS NICK D 9589 UNSPECIFIED 03-29-2008 [facility] CYSTITIS MEDICINE ASSOC [place] 79594 OTHER 02-12-2008 FAMILY ABNORMAL MEDICINE GLUCOSE ASSOC [place] 7862 COUGH 01-30-2008 [facility] MEDICINE ASSOC [place] 4254 OTHER 01-28-2008 [facility] CARDIOMYOPA JABARI 28038 SHORTNESS 01-28-2008 [facility] 4779 ALLERGIC 09-19-2007 FAMILY RHINITIS MEDICINE CAUSE [...] Procedure DOS Code Location Performer Comment ECG 50300 [facility] GIGI ROUTINE 7 PHYSICIAN ECG S GROUP W/LEAST 12 LDS W/I&R STANDARD K0001 [facility] WHEELCHAI 7 HOME HOME R MEDICAL MEDICAL EQUIPME EQUIPME STANDARD K0001 [facility] MAYA WHEELCHAI 7 HOME HOME R MEDICAL MEDICAL EQUIPME EQUIPME ECG 08959 [facility] ROUTINE 7 PHYSICIAN ECG S GROUP W/LEAST 12 LDS W/I&R STANDARD K0001 [facility] MAYA WHEELCHAI 7 HOME HOME R MEDICAL MEDICAL EQUIPME EQUIPME COLLECTIO 86437 [facility] MEADOW[facility] N VENOUS 7 W W BLOOD REGIONAL REGIONAL VENIPUNCT MEDICAL MEDICAL URE BASIC 80453 [facility] ME[facility] METABOLIC 7 W W PANEL REGIONAL REGIONAL CALCIUM MEDICAL MEDICAL TOTAL BASIC 66690 ME[facility] MEADOW[facility] METABOLIC 7 W W PANEL REGIONAL REGIONAL CALCIUM MEDICAL MEDICAL TOTAL COLLECTIO 21198 ME[facility] MEADOWVIE N VENOUS 7 W W BLOOD REGIONAL REGIONAL VENIPUNCT MEDICAL MEDICAL URE STANDARD K0001 MAYA MAYA WHEELCHAI 7 HOME HOME R MEDICAL MEDICAL EQUIPME EQUIPME ECG 37273 [facility] G[facility] ROUTINE 7 PHYSICIAN ECG S GROUP W/LEAST 12 LDS W/I&R ADLT SZD T4528 PORFIRIOSinColaNICOLE HERNANDEZ DISPBL 7 HOME HLTH HOME HLTH INCONT AGENCY AGENCY PROD UNDWEAR XTRA LG EA INCONTINE T4541 DAVID CARTEROOD NCE 7 HOME HLTH HOME HLTH PRODUCT AGENCY AGENCY DISPOSABL E UNDPAD LARGE EA ECHO 13726 [facility] R-T 7 VALLEY 2D HEART W/WOM-MOD E COMPL SPEC&COLR D RADIOLOGI 48987 [facility] EXAM 7 CHEST 2 RADIOLOGY VIEWS ASSOCIAT FRONTAL&L ATERAL STANDARD K0001 [facility] [place] 7 HOME HOME R MEDICAL MEDICAL EQUIPME EQUIPME ECG 83821 [facility] GIG[facility] ROUTINE 7 PHYSICIAN ECG S GROUP W/LEAST 12 LDS W/I&R CV STRS [address] XERS&/OR RX CONT ECG TRCG ONLY INJECTION J2785 [address] REGADENOS ON 0.1 MG STANDARD K0001 [facility] [place] 6 HOME HOME R MEDICAL MEDICAL EQUIPME EQUIPME CV STRS 17658 [facility] TST 6 MA HEALTH III XERS&/OR MEDICAL RX CONT G ECG I&R ONLY MYOCARDIA 40026 [facility] SPECT [address] [place] [address] MULTIPLE STUDIES TECHNETIU A9502 [facility] TC-99M [address] [place] [address] TETROFOSM IN DX PER STUDY DOSE ECG 14549 [facility] ROUTINE 6 MA HEALTH NE HEALTH ECG MEDICAL MEDICAL W/LEAST G G 12 LDS W/I&R STANDARD K0001 [facility] KERRI 6 HOME HOME R MEDICAL MEDICAL EQUIPME EQUIPME CONTINUOU E0601 MAY[facility] Irving 6 HOME HOME POSITIVE MEDICAL MEDICAL AIRWAY EQUIPME EQUIPME PRESSURE DEVICE THERAPEUT 93214 FAMILY GOODMAN IC 6 MEDICINE PROPHYLAC ASSOC [...] FLEMIN FLEMIN VIPUL TO 1000 MCG THERAPEUT 35806 FAMILY CARMONA IC 6 MEDICINE AMA PROPHYLAC ASSOC TIC/DX FLEMIN INJECTION SUBQ/IM INJECTION J3420 FAMILY CARMONA VIT B-12 6 MEDICINE AMA ASSOC CYANOCOBA FLEMIN VIPUL TO 1000 MCG ECG 94103 [facility] ROUTINE 6 NE HEALTH NE HEALTH ECG MEDICAL MEDICAL W/LEAST G G 12 LDS W/I&R THERAPEUT 27898 FAMILY GOODMAN JENNIFER IC 6 MEDICINE PROPHYLAC ASSOC TIC/DX FLEMIN INJECTION SUBQ/IM INJECTION J3420 FAMILY GOODMAN JENNIFER VIT B-12 6 MEDICINE ASSOC CYANOCOBA FLEMIN VIPUL TO 1000 MCG CONTINUOU E0601 [facility] TREJO S 6 HOME HOME POSITIVE MEDICAL MEDICAL AIRWAY EQUIPME EQUIPME PRESSURE DEVICE STANDARD K0001 [facility] TREJO WHEELCHAI 6 HOME HOME R MEDICAL MEDICAL EQUIPME EQUIPME ANES 31233 ANESTHESI CORNEA INTEG SYS 6 A ELEC ASSOCIATE CONVERSIO S PSC N ARRHYTHMI RADIOLOGI 26391 [facility] [place] WILLIE C 6 RADIOLOGY III SYLVIE EXAMINATI ON CHEST SINGLE VIEW FRONTAL CARDIOVER 60931 [facility] JEROME [place] 6 NE HEALTH BEN ELECTIVE MEDICAL ARRHYTHMI G A EXTERNAL REPL DENZEL A4235 ARRIVA ARRIVA LITHIUM 6 MEDICAL MEDICAL MED NECES SADIA BG MON OWN PT EA SPRING-PO A4258 ARRIVA ARRIVA WERED 6 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 A4259 ARRIVA ARRIVA [...] MEDICAL AIRWAY EQUIPME EQUIPME PRESSURE DEVICE ECG 50241 [facility] ROUTINE 6 NE HEALTH NE HEALTH ECG MEDICAL MEDICAL W/LEAST G G 12 LDS W/I&R PRTBLE E0431 [facility] TREJO GASEOUS 6 HOME HOME O2 SYS MEDICAL MEDICAL RENT; EQUIPME EQUIPME FLWMTR HUMIDFR&M ASK O2 CONC 1 E1390 MAY[facility] BUTTS PORT 6 HOME HOME 85%/>02 MEDICAL MEDICAL CONC AT EQUIPME EQUIPME PRSC FLW RATE CT THORAX [address] W/CONTRAS T MATERIAL PLETHYSMO 89730 [facility] GRAPHY 6 NE HEALTH GRA LUNG MEDICAL VOLUMES G W/WO AIRWAY RESIST BRNCDILAT 04700 [facility] RSPSE 6 NE HEALTH GRA SPMTRY MEDICAL PRE&[place] [address] [facility] DIFFUSING 6 NE HEALTH GRA CAPACITY MEDICAL G CONTINUOU E0601 [facility] TREJO S 6 HOME HOME POSITIVE MEDICAL MEDICAL AIRWAY EQUIPME EQUIPME PRESSURE DEVICE TUBING A7037 [facility] TREOJ USED WITH 6 HOME HOME POSITIVE MEDICAL [...] W/POS EQUIPME EQUIPME ARWAY PRESSURE DEVICE POLYSOM 85232 [facility] 6/>YRS 6 FREDY SLEEP 4/> HEMATOLOG ADDL Y ONCO ANDREW [facility] G0463 [facility] OUTPATIEN 6 [facility] T CLIN VISIT ASSESS & MGMT PT O2 CONC 1 E1390 MAY[facility] TREJO DEL PORT 6 HOME HOME 85%/>02 MEDICAL MEDICAL CONC AT EQUIPME EQUIPME PRSC FLW RATE PRTBLE E0431 MAYA MAYA GASEOUS 6 HOME HOME O2 SYS MEDICAL MEDICAL RENT; EQUIPME EQUIPME FLWMTR HUMIDFR&M ASK PULMONARY 24972 [facility] STRESS 6 [facility] TESTING MEDICAL MEDICAL SIMPLE G G ECG 13963 [facility] ROUTINE 6 [facility] ECG MEDICAL MEDICAL W/LEAST G G 12 LDS W/I&R ECG 39281 [facility] ROUTINE 6 [facility] ECG MEDICAL MEDICAL W/LEAST G G 12 LDS W/I&R NATRIURET [address] PEPTIDE RADIOLOGI 40[address] [facility] [place] SCALF LILLIAN C EXAM 6 RADIOLOGY CHEST 2 VIEWS FRONTAL&L ATERAL ECG 51969 [facility] ROUTINE 6 [facility] ECG MEDICAL MEDICAL W/LEAST G G 12 LDS W/I&R RADIOLOGI 55124 [facility] C EXAM 6 E[place]ER KISHA CHEST 2 RADIOLOGY VIEWS ASSOCIAT FRONTAL&L ATERAL CARDIOVER [address] ELECTIVE ARRHYTHMI A EXTERNAL ECG 08799 [facility] ROUTINE 6 [facility] III ECG MEDICAL W/LEAST G 12 LDS W/I&R NORMAL A4256 ARRIVA ARRIVA LOW AND 6 MEDICAL MEDICAL HIGH CALIBRATO R SOLUTION/ CHIPS ECG 61863 [facility] ROUTINE [address] [facility] ECG MEDICAL MEDICAL W/LEAST G G 12 LDS W/I&R CARDIOVER 50468 [facility] FALLUJI [place] [address] [facility] HAKAN ELECTIVE MEDICAL ARRHYTHMI G A EXTERNAL ECG 82920 MATHEW MATHEW ROUTINE 6 AMA AMA ECG W/LEAST 12 LDS W/I&R CREATINE 45831 STEPH[facility] STEPHEN KINASE 6 [facility] TOTAL INC INC ECG 79147 STEPH[facility] MITCHELL ROUTINE 6 [facility] ECG INC INC W/LEAST 12 LDS TRCG ONLY W/O I&R COMPREHEN 40689 STEPH[facility] MITCHELL SIVE 6 [facility] METABOLIC INC INC PANEL CREATINE 23499 STEPHEN MITCHELL KINASE MB 6 [facility] FRACTION INC INC ONLY ECG 97280 STEPHEN CHEN JR ROUTINE 6 [facility] W/LEAST P 12 LDS [place] [address] STEPHEN MITCHELL TROPONIN 6 [facility] QUANTITAT INC INC NANCY BLOOD 36768 STEPHEN MITCHELL COUNT 6 [facility] COMPLETE INC INC AUTO&AUTO DIFRNTL WBC URNLS DIP 47782 [facility] MITCHELL 6 [facility] [...] & NO F/U PLAN REQUIRED CT LOWER 53057 [place] [facility] ALL EXTREMITY 6 MEDICAL W/O IMAGING [...] SPRING-PO A4258 ARRIVA ARRIVA WERED 5 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 INJECTION J3301 DIAZ BEN DIAZ BEN 5 TRIAMCINO LONE ACETONIDE NOS 10 MG INJECTION J0696 DIAZ BEN DIAZ BEN 5 CEFTRIAXO NE SODIUM PER 250 MG INJECTION J2010 IVAN IVAN 5 CARY [facility]ARY LINCOMYCI N HCL UP TO 300 MG INJECTION J1100 IVAN IVAN 5 [place]ARY [place] DEXAMETHO SONE SODIUM PHOSPHATE 1 MG RADIOLOGI 54615 [facility] EXAM 5 LILLIAN CHEST 2 RADIOLOGY VIEWS ASSOCIAT FRONTAL&L ATERAL AFO L1970 PROGRESSI PROGRESSI PLASTIC 5 VE VE WITH PODIATRY PODIATRY ANKLE JOINT CUSTOM FABRICATE D ADD LW L2820 PROGRESSI PROGRESSI EXT ORTH 5 VE VE SFT PODIATRY PODIATRY INTERFCE MOLD BELW KNEE NORMAL A4256 ARRIVA ARRIVA LOW AND 5 MEDICAL MEDICAL HIGH CALIBRATO R SOLUTION/ [facility]IPS RADEX 52925 [place] ALL FOOT 5 MEDICAL COMPLETE IMAGING MINIMUM 3 ASS VIEWS RADEX 63734 [facility] CHRISTIANSENON ANKLE 5 [facility] HOS[facility] MEM [...] CSTM MOLD CSTM EA INJECTION J1030 DIAZ BEN DIAZ BEN 5 [...] SPRING-PO A4258 ARRIVA ARRIVA WERED 5 MEDICAL 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 BLD GLU A4253 ARRIVA [...] SPRING-PO A4258 ARRIVA ARRIVA WERED 4 MEDICAL 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 OPHTHALMO 05189 NEHEMIAH CERNA SCPY 4 GENESIS HURTADO EXTENDED RETINAL DRAWING I&R 1ST OPHTHALMO 78218 NEHEMIAH CERNA SCPY 4 JAM JAM EXTENDED RETINAL DRAWING I&R 1ST CATARACT 91955 NEHEMIAH CERNA REMOVAL 4 JAM JAM INSERTION [...] MEDICAL HIGH CALIBRATO R SOLUTION/ CHIPS OPHTHALMO 02362 NEHEMIAH CERNA SCPY 4 JAM JAM EXTENDED RETINAL DRAWING I&R 1ST ECG 68284 DIAZ BEN DIAZ BEN ROUTINE 4 ECG W/LEAST 12 LDS W/I&R OPHTHALMO 99278 NEHEMIAH CERNA SCPY 4 JAM JAM EXTENDED RETINAL DRAWING I&R 1ST CATARACT 69018 NEHEMIAH CERNA REMOVAL 4 JAM JAM INSERTION [...] SPRING-PO A4258 ARRIVA ARRIVA WERED 4 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 INC. R SOLUTION/ CHIPS BLD GLU A4253 [facility] TEST/REAG 2 MEDICAL MEDICAL T STRIPS SUPPLY SUPPLY HOME BLD [employer]. INC. GLU MON-50 RADIOLOGI 72692 [facility] C EXAM 2 CO CO CHEST 2 [facility] VIEWS FRONTAL&L ATERAL BLD GLU A4253 [facility] LIBERTY TEST/REAG 2 MEDICAL MEDICAL T STRIPS SUPPLY SUPPLY HOME BLD [employer] INC. GLU MON-50 NORMAL A4256 [facility] LOW AND 2 MEDICAL MEDICAL HIGH SUPPLY SUPPLY CALIBRATO [employer] INC. R SOLUTION/ CHIPS LANCETS A4259 [facility] LIBERTY PER BOX 2 MEDICAL MEDICAL OF 100 SUPPLY SUPPLY INC. INC. PO A4258 [facility] LIBERTY WERED 2 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 SUPPLY FOR [employer] LANCET EACH REPL DENZEL A4235 [facility] [...] CALIBRATO R SOLUTION/ CHIPS ADD LW L2275 [facility] EXTRM 1 O AND P O AND P VARUS/VUL [facility] CORNELIO DARRYL PLSTC MOD PADD/LN ADD LW L2820 [facility] EXT ORTH 1 O AND P O AND P SFT [facility] INTERFCE MOLD BELW KNEE FOR DIAB A5512 [facility] ONLY MX 1 O AND P O AND P DNSITY [facility] LLC INSRT DIR FORMD PRFAB EA AFO L1960 [facility] POSTERIOR 1 O AND P O AND P SOLID LLC LLC ANK PLASTIC CUSTOM XOCHITL DIAB ONLY A5500 [facility] FIT CSTM 1 O AND P O AND P PREP&SPL LLC LLC SHOE MX DNSITY INSRT INJECTION J1030 FAMILY DIAZ BEN 1 MEDICINE METHYLPRE ASSOC DNISOLONE FLEMIN ACETATE 40 MG INJECTION J1885 FAMILY DIAZ BEN 1 MEDICINE KETOROLAC ASSOC FLEMIN TROMETHAM INE PER 15 MG RADIOLOGI 25349 [facility] C EXAM 1 [facility] COMPLETE 4/MORE VIEWS BLD GLU A4253 [facility] [...] HIGH SUPPLY SUPPLY CALIBRATO R SOLUTION/ CHIPS [facility] A4258 [facility] LIBERTY WERED 1 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 SUPPLY FOR LANCET EACH REPL DENZEL A4235 [facility] LITHIUM 1 MEDICAL MEDICAL MED NECES SUPPLY SUPPLY SADIA BG MON OWN PT EA BLD GLU A4253 [facility] TEST/REAG 1 MEDICAL MEDICAL T STRIPS SUPPLY SUPPLY HOME BLD GLU MON-50 INJECTION J0696 FAMILY DIAZ BEN 0 MEDICINE CEFTRIAXO ASSOC NE SODIUM FLEMIN PER 250 MG RADIOLOGI 69897 [facility] C EXAM 0 EIDER KISHA CHEST 2 [...] SUPPLY SUPPLY HOME BLD GLU MON-50 DUP-SCAN 47438 [place] IQBAL XTR VEINS 0 GRACIE RADIOLOGY UNILATERA [...] SUPPLY SUPPLY HOME BLD GLU SAT-50 RADIOLOGI 01463 [place] Min MILLER EXAM 9 PEE S CHEST [...] MEDICAL MEDICAL OF 100 SUPPLY SUPPLY LIPID 12124 [facility] PANEL 9 [facility] HEMOGLOBI 54785 [facility] N 9 [facility] SURY A1C COLLECTIO 81791 [facility] N VENOUS 9 [facility] VENIPUNCT URE COMPREHEN 41442 [facility] SIVE 9 [facility] METABOLIC [facility] PANEL RADIOLOGI 28473 [place] PIRES, Min 9 NICK Shahid EXAMINATI ON FOOT 2 VIEWS STRAPPING 44372 [place] PIRES UNNA 9 NICK Shahid BOOT SPRING-PO A4258 [facility] LIBERTY WERED 9 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 FOR LANCET EACH NORMAL A4256 [facility] LOW AND 9 MEDICAL MEDICAL HIGH SUPPLY SUPPLY CALIBRATO R SOLUTION/ CHIPS BLD GLU A4253 [facility] LIBERTY TEST/REAG 9 MEDICAL MEDICAL T STRIPS SUPPLY SUPPLY HOME BLD GLU MON-50 LANCETS A4259 [facility] LIBERTY PER BOX 9 MEDICAL MEDICAL OF 100 SUPPLY SUPPLY URINLS 67148 FAMILY DIAZ, DIP 8 MEDICINE VIKKI G STICK/TAB ASSOC LET [place] REAGNT NON-AUTO MICRSCPY INJECTION J2010 FAMILY DIAZ, 8 MEDICINE VIKKI Downey LINCOMYCI ASSOC N HCL UP [place] TO 300 MG COLLECTIO 18943 [facility] VENOUS 8 [facility] VENIPUNCT URE HEMOGLOBI 75165 [facility] N [facility] SURY A1C BLD GLU A4253 [facility] LIBERTY TEST/REAG 8 MEDICAL MEDICAL T STRIPS SUPPLY SUPPLY HOME BLD GLU MON-50 INJECTION J2010 [facility] MATHEW 8 MEDICINE , [place] LINCOMYCI ASSOC N HCL UP FLESB TO 300 MG INJECTION J1100 [facility] MAT[facility]W 8 MEDICINE , [place] DEXAMETHO ASSOC SONE [place] SODIUM PHOSPHATE 1 MG COLLECTIO 30904 [facility] N VENOUS 8 [facility] VENIPUN[facility] URE COMPREHEN 03981 [facility] SIVE 8 [facility] PANEL RADIOLOGI 77161 [facility] SE[facility] EXAM 8 PEE S CHEST 2 RADIOLOGY VIEWS FRONTAL&L ASSOCIATE FELIX Irving PSC LIPID 17262 [facility] PANEL 8 [facility] HEMOGLOBI 36584 [facility] SURY A1C NATRIURET 96475 [facility] IC 8 [facility] IIV3 14887 FAMILY DIAZ, VACCINE 8 MEDICINE VIKKI Shayan SPLIT ASSOC VIRUS 0.5 [place] ML DOSAGE IM USE ADMINISTR G0008 DIAZ, ATION OF 8 MEDICINE VIKKI G INFLUENZA ASSOC VIRUS [place] VACCINE SPRING- [id number] [facility] LIBERTY WERED 8 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 SUPPLY FOR LANCET EACH LANCETS A4259 [facility] LIBERTY PER BOX 8 MEDICAL MEDICAL OF 100 SUPPLY SUPPLY BLD GLU A4253 [facility] LIBERTY TEST/REAG 8 MEDICAL MEDICAL T STRIPS SUPPLY SUPPLY HOME BLD GLU MON-50 INJECTION J2010 FAMILY MATHEW 8 MEDICINE , [place] [facility] N HCL UP [place] TO 300 MG INJECTION J1100 [facility] MAT[facility]W 8 MEDICINE , [...] SUPPLY CALIBRATO R SOLUTION/ CHIPS INJECTION J0696 [facility] MEDICINE VIKKI Downey CEFTRIAXO ASSOC NE SODIUM [place] PER 250 MG INJECTION J3301 [facility] DIAZ, 8 MEDICINE VIKKI Downey TRIAMCINO ASSOC LONE [place] ACETONIDE NOS 10 MG INJECTION J2010 [facility] DIAZ, 8 MEDICINE VIKKI Downey [facility] N HCL UP [place] TO 300 MG INJECTION J1100 [facility] 8 MEDICINE VIKKI Downey DEXAMETHO ASSOC SONE [place] SODIUM PHOSPHATE 1 MG INJECTION J0696 [facility] 8 MEDICINE MEDICINE CEFTRIAXO ASSOC ASSOC NE SODIUM [place] PER 250 MG INJECTION J1100 [facility] 8 MEDICINE MEDICINE DEXAMETHO ASSOC ASSOC SONE [place] SODIUM PHOSPHATE 1 MG SPRING-PO A4258 [facility] LIBERTY WERED 8 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 SUPPLY FOR LANCET EACH BLD GLU A4253 [facility] LIBERTY TEST/REAG 8 MEDICAL MEDICAL T STRIPS SUPPLY SUPPLY HOME BLD GLU MON-50 LANCETS A4259 [facility] LIBERTY PER BOX 8 MEDICAL MEDICAL OF 100 SUPPLY SUPPLY NORMAL A4256 [facility]ERTY LOW AND 8 MEDICAL MEDICAL HIGH SUPPLY SUPPLY CALIBRATO R SOLUTION/ CHIPS Encounters Encounter Start End Date Code Location Performer Type Date OFFICE 05616 [facility] OUTPAT[facility] 7 7 PHYSICIAN T VISIT S GROUP 25 MINUTES OFFICE 34348 [facility] 7 7 PHYSICIAN T [facility]ISIT S GROUP [facility] 7 7 [facility] 16799 [facility] 7 7 PHYSICIAN T VISIT S GROUP 25 MINUTES OFFICE 61097 [facility] [place] 7 7 MEDICINE T [facility]ISIT ASSOC 25 FLEMIN MINUTES HOME [facility], 7 7 HOME [facility] INPATIENT AGENCY [facility]ICE 74271 [facility] 7 7 PHYSICIAN T NEW 60 S GROUP MINUTES HOSP[facility] [address] OFFICE [address]2110 [facility] [address] [place] [address] T VISIT MEDICAL 15 G MINUTES OFFICE [id number] T VISIT MEDICAL 25 G MINUTES [facility] [address] OFFICE [address] 45 HEMATOLOG MINUTES Y ONCO [facility] [address] [place] - [address] [place] [address] OFFICE 16343 PATRIA CASTILLO [address] III T VISIT MEDICAL 15 G MINUTES [facility] [address] OFFICE [address] [place] [address] PHYSCIAN LES T NEW 30 PRACTICE MINUTES [facility] - 6 6 [facility] OUTPATIEN INC T EMERGENCY 31663 [facility] 6 6 [facility] DEPARTMEN INC T VISIT MODERATE SEVERITY OFFICE 64387 [place] JOSE MIGUEL OUTPATIEN 6 6 MOLLY GAUDENCIO T VISIT 15 MINUTES OFFICE 98759 JOSE MIGUEL JOSE MIGUEL OUTPATIEN 6 6 GAUDENCIO GAUDENCIO T VISIT 15 MINUTES [facility] - 6 6 [facility] 08145 PROGRESSI PROGRESSI OUTPATIEN 6 6 VE VE T VISIT PODIATRY PODIATRY 15 MINUTES OFFICE 42904 DIAZ BEN DIAZ BEN OUTPATIEN 5 5 T VISIT 25 MINUTES OFFICE 59069 IVAN MCNULTYCKER [facility] [place] 5 5 CARY CARY T VISIT 25 MINUTES [facility] - 5 5 [facility] - 5 5 [facility] OFF[facility] 96323 DIAZ BEN DIAZ BEN OUTPATIEN 5 5 T VISIT 25 MINUTES OFFICE 12715 FAMILY MATHEW OUTPATIEN 3 3 MEDICINE AMA T VISIT ASSOC 25 FLEMIN MINUTES [facility]OSPITAL [facility] - 2 2 [facility] T OFFICE 14360 FAMILY DIAZ BEN OUTPATIEN 1 1 MEDICINE T VISIT ASSOC 25 FLEMIN MINUTES OFFICE 64133 FAMILY DIAZ BEN OUTPATIEN 1 1 MEDICINE T VISIT ASSOC 25 FLEMIN MINUTES [facility]OS[facility] - 1 1 [facility] T OFFICE 47034 FAMILY DIAZ BEN OUTPATIEN 1 1 MEDICINE T VISIT ASSOC 25 FLEMIN MINUTES OFFICE 93308 FAMILY DIAZ BEN OUTPATIEN 0 0 MEDICINE T VISIT ASSOC 15 FLEMIN MINUTES [facility]OS[facility] - 0 0 [facility] T OFFICE 34620 FAMILY DIAZ BEN OUTPATIEN 0 0 MEDICINE T VISIT ASSOC 25 FLEMIN MINUTES OFFICE 00136 FAMILY EMILY BEN OUTPATIEN 0 0 MEDICINE T VISIT ASSOC 25 FLEMIN MINUTES [facility] - 0 0 [facility] T OFFICE 48155 FAMILY EMILY BEN OUTPATIEN 0 0 MEDICINE T VISIT ASSOC 25 FLEMIN MINUTES [facility] - 9 9 [facility] T OFFICE 02332 FAMILY DIAZ, OUTPATIEN 9 9 MEDICINE VIKKI Downey T VISIT ASSOC 15 [place] MINUTES OFFICE 32721 FAMILY DIAZ, OUTPATIEN 9 9 MEDICINE VIKKI Downey T VISIT ASSOC 15 [place] MINUTES OFFICE 21595 FAMILY DIAZ, OUTPATIEN 9 9 MEDICINE VIKKI Downey T VISIT ASSOC 15 [place] MINUTES OFFICE 48427 FAMILY DIAZ, OUTPATIEN 9 9 MEDICINE VIKKI Downey T VISIT ASSOC 15 [place] MINUTES [facility] - 9 9 [facility] T OFFICE 38798 FAMILY DIAZ, OUTPATIEN 9 9 MEDICINE VIKKI Downey T VISIT ASSOC 25 [place] MINUTES OFFICE 31214 FAMILY DIAZ, OUTPATIEN 9 9 MEDICINE VIKKI Downey T VISIT ASSOC 15 [place] MINUTES OFFICE 16094 PAWSAT, PAWSAT, OUTPATIEN 9 9 NICK Shahid T VISIT 10 MINUTES OFFICE 33070 FAMILY DIAZ, OUTPATIEN 9 9 MEDICINE VIKKI Downey T VISIT ASSOC 15 [place] MINUTES OFFICE 54053 PAWSAT, PAWSAT, OUTPATIEN 9 9 NICK Shahid T VISIT 15 MINUTES OFFICE 02727 FAMILY DIAZ, OUTPATIEN 9 9 MEDICINE VIKKI Downey T VISIT ASSOC 15 [place] MINUTES OFFICE 68372 FAMILY DIAZ, OUTPATIEN 9 9 MEDICINE VIKKI Oliva VISIT ASSOC 25 [place] MINUTES OFFICE 35581 FAMILY DIAZ, OUTPATIEN 8 8 MEDICINE VIKKI Oliva VISIT ASSOC 15 [place] MINUTES [facility] - 8 8 [facility] T OFFICE 21309 FAMILY DIAZ, OUTPATIEN 8 8 MEDICINE VIKKI Oliva VISIT ASSOC 15 [place] MINUTES OFFICE 31043 FAMILY DIAZ, OUTPATIEN 8 8 MEDICINE VIKKI Oliva VISIT ASSOC 15 [place] MINUTES OFFICE 30909 FAMILY MATHEW OUTPATIEN 8 8 MEDICINE [place] VISIT ASSOC 15 [place] MINUTES [facility] - 8 8 [facility] T OFFICE 27534 FAMILY DIAZ, OUTPATIEN 8 8 MEDICINE VIKKI Oliva VISIT ASSOC 25 [place] MINUTES OFFICE 03396 FAMILY MATHEW OUTPATIEN 8 8 MEDICINE [place] T VISIT ASSOC 15 [place] MINUTES OFFICE 16393 FAMILY DIAZ, OUTPATIEN 8 8 MEDICINE VIKKI Oliva VISIT ASSOC 25 [place] MINUTES OFFICE 63634 FAMILY DIAZ, OUTPATIEN 8 8 MEDICINE VIKKI Oliva VISIT ASSOC 15 [place] MINUTES OFFICE 98696 FAMILY DIAZ, OUTPATIEN 8 8 MEDICINE VIKKI Oliva VISIT ASSOC 15 [place] MINUTES OFFICE 16820 FAMILY FAMILY OUTPATIEN 8 8 MEDICINE MEDICINE T VISIT ASSOC ASSOC 15 [place] MINUTES
[2016-09-17] MEDS ORDERED: XARELTO20 MG PO (14:55)
--- OUTSIDE RECORDS SUMMARY | 2016-09-17 14:56 | External Medical Summary Rpt ---
Author Author , Organization [employer] Address Unknown Phone Unavailable Care Team Providers Care Dough Sheeter Name Role Phone MATHEW, MATHEW Unavailable Unavailable [...] MIGUEL GAUDENCIO, JOSE MIGUEL Unavailable Unavailable GAUDENCIO [facility] Unavailable Unavailable [facility], [facility] Unavailable Unavailable [facility], [facility] FARIDA BOWMAN, IQBAL Unavailable Unavailable GRACIE CORNEA, CORNEA Unavailable Unavailable FALLIS MOLLY, FALLIS Unavailable Unavailable MOLLY FALLUMC HAKAN, FALLUJI Unavailable Unavailable [facility] Unavailable Unavailable [facility], [facility] Unavailable Unavailable [facility], Unavailable Unavailable [facility] Unavailable Unavailable [facility], Unavailable Unavailable [facility], Unavailable Unavailable [facility] CICI BEARD, Unavailable Unavailable CICI BEARD [facility] Unavailable Unavailable INC, [facility] Unavailable Unavailable HOSPITAL P, [facility] ANGELA MILLER Unavailable Unavailable ANGELA SNYDER, ANGELA Unavailable Unavailable LILLIAN PEE MILLER, Unavailable Unavailable PEE MILLER [facility] Unavailable Unavailable AGENCY, [facility], Unavailable Unavailable [facility] WILLIE III SYLVIE, Unavailable Unavailable WILLIE III SYLVIE [facility] Unavailable Unavailable [facility], [facility] Unavailable Unavailable MEDICAL G, [facility] G APRIL JR DWI, APRIL Unavailable Unavailable JR DWI [facility] Unavailable Unavailable [facility], [facility] Unavailable Unavailable [facility] MAGALI, MAGALI Unavailable Unavailable CERNA JAM, Unavailable Unavailable CERNA JAM CERNA JAM, Unavailable Unavailable CERNA JAM [facility] Unavailable Unavailable ASSOCIAT, [facility] Unavailable Unavailable MEDICAL, [facility] MEDICAL [facility], Unavailable Unavailable [facility] NICK PIRES, Unavailable Unavailable [...] Unavailable Unavailable [facility], [facility], Unavailable Unavailable [facility] Unavailable Unavailable [facility], [facility] Unavailable Unavailable [...] DOS Provider Status E119 TYPE 2 08-22-2016 [facility] DIABETES PHYSICIANS MELLITUS GROUP WITHOUT COMPLICATIO NS E669 OBESITY 08-22-2016 [facility] UNSPECIFIED PHYSICIANS GROUP E785 HYPERLIPIDE 08-22-2016 [facility] RICKY PHYSICIANS UNSPECIFIED GROUP G4733 OBSTRUCTIVE 08-22-2016 [facility] SLEEP PHYSICIANS APNEA ADULT GROUP PEDIATRIC I10 ESSENTIAL 08-22-2016 [facility] PRIMARY PHYSICIANS HYPERTENSIO GROUP N I2510 ASHD KOKHANOK 08-22-2016 [facility] 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 ANGINA PECTORIS I4891 UNSPECIFIED 08-22-2016 [facility] ATRIAL PHYSICIANS FIBRILLATIO GROUP N R5383 OTHER 08-22-2016 [facility] FATIGUE PHYSICIANS GROUP I480 PAROXYSMAL 08-17-2016 [facility] ATRIAL HOME FIBRILLATIO MEDICAL N EQUIPME R600 LOCALIZED 08-17-2016 [facility] EDEMA HOME MEDICAL EQUIPME E6601 MORBID 06-21-2016 [facility] SEVERE PHYSICIANS OBESITY DUE GROUP TO EXCESS CALORIES T95896 ATHEROSCLER 06-21-2016 [facility] OSIS CABG PHYSICIANS WITHOUT GROUP ANGINA PECTORIS I5020 UNSPECIFIED 06-21-2016 [facility] SYSTOLIC PHYSICIANS CONGESTIVE GROUP HEART FAILURE N182 CHRONIC 06-01-2016 [facility] DISEASE MEDICAL STAGE 2 MILD R0602 SHORTNESS 05-24-2016 [facility] OF BREATH PHYSICIANS GROUP J449 CHRONIC 05-17-2016 [facility] AREA PULMONARY AGENCY ON DISEASE UNS Z6838 BODY MASS 05-14-2016 FAMILY INDEX BMI MEDICINE 38.0-38.9 ASSOC ADULT [facility] Z789 OTHER 05-14-2016 FAMILY SPECIFIED MEDICINE HEALTH ASSOC STATUS FLEMIN I129 HYPERTENSIV 04-24-2016 [facility] W/STAGE 1-4 AGENCY CKD OR UNS CKD O32904 ASHD KOKHANOK 04-24-2016 [facility] W/UNSTABLE AGENCY ANGINA PECTORIS L80596 CELLULITIS 04-24-2016 [facility] LEFT HOME HLTH LOWER LIMB AGENCY C00340 PRESSURE 04-24-2016 [facility] RIGHT AGENCY BUTTOCK STAGE 2 N183 CHRONIC 04-24-2016 [facility] DISEASE AGENCY STAGE 3 MODERATE I200 UNSTABLE 04-20-2016 [facility] ANGINA HEART I208 OTHER FORMS 04-19-2016 [facility] OF ANGINA PHYSICIANS PECTORIS GROUP R0902 HYPOXEMIA 04-19-2016 [facility] Z720 TOBACCO USE 04-19-2016 [facility] Z951 PRESENCE OF 04-19-2016 [facility] AORTOCORONA ASSOCIAT RY BYPASS GRAFT I252 OLD 03-19-2016 [facility]AR[facility] MEDICAL G I481 PERSISTENT 03-19-2016 [facility] FIBRILLATIO N R9439 ABNORMAL 03-19-2016 [facility] CARDIOVASCU LR FUNCTION STUDY I255 ISCHEMIC 02-18-2016 [facility] CARDIOMYOPA HOME THY MEDICAL EQUIPME E538 DEFICIENCY 02-16-2016 FAMILY OF OTHER MEDICINE SPECIFIED B ASSOC GROUP NOHELIA VITAMINS R531 WEAKNESS 02-07-2016 [facility] NOHELIA Z6841 BODY MASS 02-07-2016 FAMILY INDEX BMI MEDICINE 40.0-44.9 ASSOC ADULT NOHELIA I509 HEART 02-01-2016 [facility] HEALTH UNSPECIFIED MEDICAL G J309 ALLERGIC 11-22-2015 [facility] UNSPECIFIED R918 OTHER 11-22-2015 [facility] ABNORMAL FINDING OF LUNG FIELD R400 SOMNOLENCE 11-09-2015 [facility] MEDICAL G M93116 OTHER LONG 09-30-2015 [facility] CURRENT DRUG THERAPY 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 [facility] CURRENT USE HEALTH OF MEDICAL G ANTICOAGULA NTS E782 MIXED 09-06-2015 [place] HYPERLIPIDE [facility] R079 CHEST PAIN 09-06-2015 [facility] UNSPECIFIED RADIOLOGY ASSOCIAT E1142 TYPE 2 09-02-2015 [facility] MELLITUS W/DIAB POLYNEUROPA THY M1990 UNSPECIFIED 09-02-2015 [facility] OSTEOARTHRI TIS UNSPECIFIED SITE Z885 ALLERGY 09-02-2015 [facility] STATUS TO HOSPITAL NARCOTIC AGENT STATUS E1165 TYPE 2 08-22-2015 [facility] DI[facility]ETES MEDICAL MELLITUS WITH HYPERGLYCEM IA 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 E1140 TYPE 2 DM 07-13-2015 MAT[facility] WITH AMA DIABETIC NEUROPATHY UNSPECIFIED H8123 VESTIBULAR 06-14-2015 [place] [facility]ON[facility] PHYSCIAN BILATERAL PRACTICE H8303 LABYRINTHIT 05-31-2015 [facility] P J65644 PERSONAL 05-31-2015 [facility] P DEPENDENCE 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 MOLLY ARTHROPATHY RIGHT ANKLE AND FOOT M2570 OSTEOPHYTE 05-19-2015 FALLIS MOLLY UNSPECIFIED JOINT M6688 SPONTANEOUS 05-19-2015 FALLIS MOLLY RUPTURE OF OTHER TENDONS OTHER H69218 PAIN IN 05-19-2015 FALLIS MOLLY RIGHT FOOT M1711 UNILATERAL 04-14-2015 [facility] ASS TIS RIGHT KNEE J75518 PRIMARY 04-14-2015 [facility] OSTEOARTHRI MEDICAL TIS RIGHT IMAGING ASS ANKLE AND FOOT M2140 FLAT FOOT 04-14-2015 [facility] PES [facility] ACQUIRED IMAGING ASS UNSPECIFIED FOOT K15344 PAIN IN 04-14-2015 [facility] RIGHT ANKLE MEDICAL IMAGING ASS J069 ACUTE UPPER 02-14-2015 [facility] RESPIRATORY INFECTION UNSPECIFIED J329 CHRONIC 02-11-2015 [place] [place] SINUSITIS UNSPECIFIED R0600 DYSPNEA 01-31-2015 [facility] UNSPECIFIED RADIOLOGY ASSOCIAT D37304 FOOT DROP 01-06-2015 PROGRESSIVE RIGHT FOOT PODIATRY G48666 SPONTANEOUS 01-06-2015 PROGRESSIVE RUPTURE PODIATRY FLEXOR TENDONS RT ANKLE FOOT 27803 DIAB W/O 12-08-2014 [facility] MENTION MEDICAL COMP TYPE II/UNS TYPE UNCNTRL 03281 OSTEOARTHRO 11-11-2014 [place] SIS UNSPEC MEDICAL WHETHER IMAGING ASS GEN/LOC ANK&FOOT 88509 PAIN IN 11-11-2014 [place] JOINT, MEDICAL ANKLE AND IMAGING ASS FOOT 85391 CALCANEAL 11-11-2014 [facility] SPUR [facility] 7295 PAIN IN 11-11-2014 [facility] SOFT MEDICAL TISSUES OF IMAGING ASS LIMB 734 FLAT FOOT 11-11-2014 [facility] 43383 DIAB W/O 08-30-2014 [facility] COMP TYPE PHARMACY #2 II/UNS NOT STATED UNCNTRL 4659 ACUTE URIS 07-14-2014 DIA[facility] BEN OF UNSPECIFIED SITE V4989 OTHER SPEC 07-14-2014 [facility] CONDITIONS INFLUENCING HEALTH STATUS V8541 BODY MASS 07-14-2014 [facility] INDEX 40.0-44.9 ADULT 21029 VITREOUS 10-07-2013 CERNA DEGENERATIO JAM N 06268 NUCLEAR 09-15-2013 C[facility] SCLEROSIS JAM 47246 OTHER 08-18-2013 [facility] SPECIFIED CARDIAC DYSRHYTHMIA S 7851 PALPITATION 08-18-2013 [facility] B[facility] S V8539 BODY MASS 08-18-2013 [facility] B[facility] INDEX 39.0-39.9 ADULT 02806 PAIN IN 02-09-2013 DIA[facility] BEN JOINT, LOWER LEG 462 ACUTE 04-18-2012 FAMILY PHARYNGITIS MEDICINE ASSOC FLE[facility] 4293 CARDIOMEGAL 12-31-2011 [facility] Y RADIOLOGY ASSOCIAT 79953 OTHER 12-31-2011 [facility] RESPIRATORY ABNORMALITI ES V4581 POSTSURGICA 12-31-2011 [facility] L RADIOLOGY AORTOCORONA ASSOCIAT RY BYPASS STATUS 44232 OTHER 01-08-2011 FAMILY ACQUIRED MEDICINE DEFORMITY ASSOC OF ANKLE FLEMIN AND FOOT OTHER 33431 DIAB 01-04-2011 [facility] MANIFESTS TYPE II/UNS NOT UNCNTRL 65033 EFFUSION OF 12-13-2010 [facility] LOWER LEG RADIOLOGY JOINT ASSOCIAT 9599 INJURY 12-13-2010 [facility] OTHER AND RADIOLOGY UNSPECIFIED ASSOCIAT UNSPECIFIED SITE 2722 MIXED 11-14-2010 FAMILY HYPERLIPIDE MEDICINE RICKY ASSOC FLEMIN 4011 ESSENTIAL 11-14-2010 FAMILY HYPERTENSIO MEDICINE N, BENIGN ASSOC FLEMIN 486 PNEUMONIA, 03-01-2010 FAMILY ORGANISM MEDICINE UNSPECIFIED ASSOC FLEMIN 4660 ACUTE 02-27-2010 [facility] 70489 OTHER 02-27-2010 [facility] DISEASES OF RADIOLOGY LUNG NOT ASSOCIAT ELSEWHERE CLASSIFIED 7931 NONSPEC 02-27-2010 [facility] FIND RAD RADIOLOGY OTH EXAM ASSOCIAT BODY STRUCT LUNG FIELD 49346 COR 02-13-2010 FAMILY ATHEROSLERO MEDICINE UNSPEC ASSOC TYPE VESSEL FLEMIN KOKHANOK/BABITA T 490 BRONCHITIS 02-13-2010 FAMILY NOT MEDICINE SPECIFIED ASSOC ACUTE OR FLEMIN CHRONIC 38898 SWELLING OF 11-30-2009 [facility] LIMB RADIOLOGY ASSOCIAT 2724 OTHER AND 11-28-2009 FAMILY UNSPECIFIED MEDICINE ASSOC HYPERLIPIDE FLEMIN RICKY 4019 UNSPECIFIED 11-28-2009 FAMILY ESSENTIAL MEDICINE HYPERTENSIO ASSOC N FLEMIN 4739 UNSPECIFIED 03-16-2009 FAMILY SINUSITIS MEDICINE ASSOC [place] 32034 UNSPECIFIED 03-15-2009 FAMILY MEDICINE CONJUNCTIVI ASSOC TIS [place] 69686 CHEST PAIN 03-15-2009 FAMILY UNSPECIFIED MEDICINE ASSOC [place] 67652 ACUTE 03-03-2009 FAMILY LARYNGITIS, MEDICINE WITHOUT ASSOC MENTION OF [place] OBSTRUCTIO V0481 NEED 03-03-2009 FAMILY PROPHYLACTI MEDICINE C ASSOC VACCINATION [place] &INOCULATIO N FLU 94436 TIBIALIS 06-15-2008 PAWSAT, TENDINITIS NICK D 6470 UNSPECIFIED 03-29-2008 FAMILY CYSTITIS MEDICINE ASSOC [place] 79891 OTHER 02-12-2008 FAMILY ABNORMAL MEDICINE GLUCOSE ASSOC [place] 7862 COUGH 01-30-2008 [facility]ILY MEDICINE ASSOC [place] 4254 OTHER 01-28-2008 [facility] CARDIOMYOPA JABARI 74314 SHORTNESS 01-28-2008 [facility] 4779 ALLERGIC 09-19-2007 FAMILY RHINITIS MEDICINE CAUSE ASSOC UNSPECIFIED [facility] Medications Na ND Rx Da Fi [...] Procedure DOS Code Location Performer Comment ECG 07501 [facility] GIGI ROUTINE 7 PHYSICIAN ECG S GROUP W/LEAST 12 LDS W/I&R STANDARD K0001 [facility] MAYA WHEELCHAI 7 HOME HOME R MEDICAL MEDICAL EQUIPME EQUIPME STANDARD K0001 MAYA MAYA WHEELCHAI 7 HOME HOME R MEDICAL MEDICAL EQUIPME EQUIPME ECG 82027 [facility] GIGI ROUTINE 7 PHYSICIAN ECG S GROUP W/LEAST 12 LDS W/I&R STANDARD K0001 MAYA RICHARDSONRELL WHEELCHAI 7 HOME HOME R MEDICAL MEDICAL EQUIPME EQUIPME COLLECTIO 75711 [facility] MEADOWVIE N VENOUS 7 W W BLOOD REGIONAL REGIONAL VENIPUNCT MEDICAL MEDICAL URE BASIC 40961 MEADOWVIE MEADOWVIE METABOLIC 7 W W PANEL REGIONAL REGIONAL CALCIUM MEDICAL MEDICAL TOTAL BASIC 27682 MEADOWVIE MEADOWVIE METABOLIC 7 W W PANEL REGIONAL REGIONAL CALCIUM MEDICAL MEDICAL TOTAL COLLECTIO 78677 MEADOWVIE MEADOWVIE N VENOUS 7 W W BLOOD REGIONAL REGIONAL VENIPUNCT MEDICAL MEDICAL URE STANDARD K0001 [facility]A TREJO WHEELCHAI 7 HOME HOME R MEDICAL MEDICAL EQUIPME EQUIPME ECG 29574 [facility] GIGI ROUTINE 7 PHYSICIAN ECG S GROUP W/LEAST 12 LDS W/I&R ADLT SZD T4528 PORFIRIOMimesis RepublicNICOLE HERNANDEZ DISPBL 7 HOME HLTH HOME HLTH INCONT AGENCY AGENCY PROD UNDWEAR XTRA LG EA INCONTINE T4541 [facility] RealLifeConnectOOD NCE 7 HOME HLTH HOME HLTH PRODUCT AGENCY AGENCY DISPOSABL E UNDPAD LARGE EA ECHO 04546 [facility] R[facility]T 7 VALLEY 2D HEART W/WOM-MOD E COMPL SPEC&COLR D RADIOLOGI 70046 [facility] EXAM 7 CHEST 2 RADIOLOGY VIEWS ASSOCIAT FRONTAL&L ATERAL STANDARD K0001 [facility] TREJO WHEELCHAI 7 HOME HOME R MEDICAL MEDICAL EQUIPME EQUIPME ECG 46894 [facility] GIGI ROUTINE 7 PHYSICIAN ECG S GROUP W/LEAST 12 LDS W/I&R CV STRS [address] XERS&/OR RX CONT ECG TRCG ONLY INJECTION J2785 [address] REGADENOS ON 0.1 MG STANDARD K0001 [facility] KERRI 6 HOME HOME R MEDICAL MEDICAL EQUIPME EQUIPME CV STRS 03275 [facility] TST 6 [facility] III XERS&/OR MEDICAL RX CONT G ECG I&R ONLY MYOCARDIA 55585 [facility] L SPECT [address] [place] [address] MULTIPLE STUDIES TECHNETIU A9502 [facility] TC-99M [address] [place] [address] TETROFOSM IN DX PER STUDY DOSE ECG 19983 [facility] ROUTINE 6 [facility] ECG MEDICAL MEDICAL W/LEAST G G 12 LDS W/I&R CONTINUOU E0601 [facility] TREJO S 6 HOME HOME POSITIVE MEDICAL MEDICAL AIRWAY EQUIPME EQUIPME PRESSURE DEVICE STANDARD K0001 [facility] TREJO USHAI 6 HOME HOME R MEDICAL MEDICAL EQUIPME EQUIPME THERAPEUT 42703 FAMILY GOODMAN IC 6 MEDICINE PROPHYLAC ASSOC [...] FLEMIN FLEMIN VIPUL TO 1000 MCG THERAPEUT 79945 [facility] MATHEW IC 6 MEDICINE AMA PROPHYLAC ASSOC TIC/DX FLEMIN INJECTION SUBQ/IM INJECTION J3420 [facility] MATHEW VIT B-12 6 MEDICINE AMA ASSOC CYANOCOBA FLEMIN VIPUL TO 1000 MCG ECG 32147 [facility] ROUTINE 6 [facility]ALTH ECG MEDICAL MEDICAL W/LEAST G G 12 LDS W/I&R THERAPEUT 15436 FAMILY REX JENNIFER IC 6 MEDICINE PROPHYLAC ASSOC TIC/DX FLEMIN INJECTION SUBQ/IM INJECTION J3420 FAMILY GOODMAN JENNIFER VIT B-12 6 MEDICINE ASSOC CYANOCOBA FLEMIN VIPUL TO 1000 MCG STANDARD K0001 MAY[facility] TREJO WHEELCHAI 6 HOME HOME R MEDICAL MEDICAL EQUIPME EQUIPME CONTINUOU E0601 MAY[facility] TREJO S 6 HOME HOME POSITIVE MEDICAL MEDICAL AIRWAY EQUIPME EQUIPME PRESSURE DEVICE CARDIOVER 01073 [facility] JEROME [place] 6 NE HEALTH BEN ELECTIVE MEDICAL ARRHYTHMI G A EXTERNAL ANES 07598 ANESTHESI CORNEA INTEG SYS 6 A ELEC ASSOCIATE CONVERSIO S PSC N ARRHYTHMI RADIOLOGI 19617 [facility] [place] WILLIE C 6 RADIOLOGY III SYLVIE EXAMINATI ON CHEST SINGLE VIEW FRONTAL LANCETS A4259 [facility] ARRIVA PER BOX 6 MEDICAL MEDICAL OF 100 BLD GLU A4253 [facility] TEST/REAG 6 MEDICAL MEDICAL T STRIPS HOME BLD GLU MON-50 NORMAL A4256 [facility] AR[facility]IV[facility] LOW AND 6 MEDICAL MEDICAL HIGH CALIBRATO R SOLUTION/ CHIPS REPL DENZEL A4235 [facility] ARRIVA LITHIUM 6 MEDICAL MEDICAL MED NECES SADIA BG MON OWN PT EA SPRING-PO A4258 [facility] ARRIV[facility] WERED 6 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 FOR LANCET EACH O2 CONC 1 E1390 MAY[facility] TREJO DEL PORT 6 HOME HOME 85%/>02 MEDICAL MEDICAL CONC AT EQUIPME EQUIPME PRSC FLW RATE PRTBLE E0431 [facility] TREJO GASEOUS 6 HOME HOME O2 SYS MEDICAL MEDICAL RENT; EQUIPME EQUIPME FLWMTR HUMIDFR&M ASK CONTINUOU E0601 [facility] TREJO S 6 HOME HOME POSITIVE MEDICAL MEDICAL AIRWAY EQUIPME EQUIPME PRESSURE DEVICE HEADGEAR A7035 [facility] TREJO USED 6 HOME HOME W/POSITIV MEDICAL MEDICAL E AIRWAY EQUIPME EQUIPME PRESSURE DEVICE NASL A7034 [facility] TREJO INTRFCE 6 HOME HOME POS ARWAY MEDICAL MEDICAL PRSS EQUIPME EQUIPME DEVC W/WO HEAD STRAP ECG 79576 [facility] ROUTINE 6 NE HEALTH NE HEALTH ECG MEDICAL MEDICAL W/LEAST G G 12 LDS W/I&R O2 CONC 1 E1390 MAYA TREJO DEL PORT 6 HOME HOME 85%/>02 MEDICAL MEDICAL CONC AT EQUIPME EQUIPME PRSC FLW RATE PRTBLE E0431 MAYA MAYA GASEOUS 6 HOME HOME O2 SYS MEDICAL MEDICAL RENT; EQUIPME EQUIPME FLWMTR HUMIDFR&M ASK BRNCDILAT 61056 [facility] RACHELAZEALDwayne RSPSE 6 NE HEALTH GRA SPMTRY MEDICAL PRE&POST- G BRNCDILAT ADMN CT THORAX [address] W/CONTRAS T MATERIAL PLETHYSMO 69308 [facility] BREAZEALE GRAPHY 6 NE HEALTH GRA LUNG MEDICAL VOLUMES G W/[place] [address] [facility] BREA[facility]ALE DIFFUSING 6 NE HEALTH GRA CAPACITY MEDICAL G CONTINUOU E0601 MAYA MAYA S 6 HOME HOME POSITIVE MEDICAL MEDICAL [...] EQUIPME ARWAY PRESSURE DEVICE TUBING A7037 MAY[facility] TREJO USED WITH 6 HOME HOME POSITIVE MEDICAL MEDICAL AIRWAY EQUIPME EQUIPME PRESSURE DEVICE POLYSOM 71284 [facility] ELLEN 6/>YRS 6 FREDY SLEEP 4/> HEMATOLOG ADDL Y ONCO ANDREW [facility] G0463 [facility] OUT[address] T CLIN VISIT ASSESS & MGMT PT O2 CONC 1 E1390 MAYA TREJO DEL PORT 6 HOME HOME 85%/>02 MEDICAL MEDICAL CONC AT EQUIPME EQUIPME PRSC FLW RATE PULMONARY 08-10-201 68218 [facility] STRESS 6 NE HEALTH NE HEALTH TESTING MEDICAL MEDICAL SIMPLE G G PRTBLE E0431 MAYA MAYA GASEOUS 6 HOME HOME O2 SYS MEDICAL MEDICAL RENT; EQUIPME EQUIPME FLWMTR HUMIDFR&M ASK ECG 04651 [facility] ROUTINE 6 [facility] NE HEALTH ECG MEDICAL MEDICAL W/LEAST G G 12 LDS W/I&R ECG 67655 [facility] ROUTINE 6 [facility] NE HEALTH ECG MEDICAL MEDICAL W/LEAST G G 12 LDS W/I&R NATRIURET [address] PEPTIDE RADIOLOGI [address] [facility] [place] SCALF LILLIAN C EXAM 6 RADIOLOGY CHEST 2 VIEWS FRONTAL&L ATERAL ECG 52161 [facility] ROUTINE 6 [facility] ECG MEDICAL MEDICAL W/LEAST G G 12 LDS W/I&R RADIOLOGI 25802 [facility] C EXAM 6 EIDER KISHA CHEST 2 RADIOLOGY VIEWS ASSOCIAT FRONTAL&L ATERAL CARDIOVER [address] ELECTIVE ARRHYTHMI A EXTERNAL ECG 22737 [facility] ROUTINE 6 [facility] III ECG MEDICAL W/LEAST G 12 LDS W/I&R NORMAL A4256 [facility] ARRIVA LOW AND 6 MEDICAL MEDICAL HIGH CALIBRATO R SOLUTION/ CHIPS ECG 44896 [facility] ROUTINE 6 [facility] ECG MEDICAL MEDICAL W/LEAST G G 12 LDS W/I&R CARDIOVER 96612 [facility] FALLUJI [place] 6 NE HEALTH HAKAN ELECTIVE MEDICAL ARRHYTHMI G A EXTERNAL ECG 82001 [facility] MATHEW ROUTINE 6 AMA AMA ECG W/LEAST 12 LDS W/I&R CREATINE 71978 [facility] KINASE 6 [facility] TOTAL INC INC ECG 96918 [facility] ROUTINE 6 [facility] ECG INC INC W/LEAST 12 LDS TRCG ONLY W/O I&R ECG 29793 [facility] CHEN JR ROUTINE 6 [facility] W/LEAST P 12 LDS I&[place] [address] [facility] TROPONIN 6 [facility] QUANTITAT INC INC NANCY BLOOD 76555 [facility] COUNT 6 [facility] COMPLETE INC INC AUTO&AUTO DIFRNTL WBC URNLS DIP 90112 [facility]LL 6 [facility] STICK/TAB INC INC LET REAGENT AUTO MICROSCOP Y COMPREHEN 67158 [facility] SIVE 6 [facility] METABOLIC INC INC PANEL CREATINE 10439 [facility] KINASE MB 6 [facility] [...] READING DOC F/U NOT REQUIRED CT LOWER 11842 [place] [facility] ALL EXTREMITY 6 MEDICAL W/O IMAGING CONTRAST ASS MATERIAL REPL DENZEL A4235 [facility] ARRIVA LITHIUM 5 MEDICAL MEDICAL MED NECES SADIA BG MON OWN PT EA SPRING-PO A4258 [facility] ARRIVA WERED 5 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 FOR LANCET EACH NORMAL A4256 ARRIVA ARRIVA [...] DEXAMETHO SONE SODIUM PHOSPHATE 1 MG RADIOLOGI 11751 [facility] C EXAM 5 LILLIAN CHEST 2 RADIOLOGY VIEWS ASSOCIAT FRONTAL&L ATERAL AFO L1970 PROGRESSI PROGRESSI PLASTIC 5 VE VE WITH PODIATRY PODIATRY ANKLE JOINT CUSTOM FABRICATE D ADD LW L2820 PROGRESSI PROGRESSI EXT ORTH 5 VE VE SFT PODIATRY PODIATRY INTERFCE MOLD BELW KNEE NORMAL A4256 [facility] ARRIVA LOW AND 5 MEDICAL MEDICAL HIGH CALIBRATO R SOLUTION/ CHIPS RADEX 55114 [place] [facility] ALL FOOT 5 MEDICAL COMPLETE IMAGING MINIMUM 3 ASS VIEWS RADEX 88284 [facility] ANKLE 5 [facility] HOS[facility] MEM [...] ARRIVA LITHIUM 5 MEDICAL MEDICAL MED NECES [facility] BG MON OWN PT EA A4258 ARRIVA ARRIVA WERED 5 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 FOR LANCET EACH BLD GLU A4253 ARRIVA [...] ARRIVA ARRIVA LITHIUM 4 MEDICAL MEDICAL MED [facility] BG MON OWN PT EA A4258 ARRIVA ARRIVA WERED 4 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 FOR LANCET EACH OPHTHALMO 19018 NEHEMIAH CERNA SCPY 4 JAM JAM EXTENDED RETINAL DRAWING I&R 1ST OPHTHALMO 08009 NEHEMIAH CERNA SCPY 4 JAM JAM EXTENDED RETINAL DRAWING I&R 1ST CATARACT 63580 NEHEMIAH CERNA REMOVAL 4 JAM JAM INSERTION [...] MEDICAL HIGH CALIBRATO R SOLUTION/ CHIPS OPHTHALMO 19466 NEHEMIAH CERNA SCPY 4 JAM JAM EXTENDED RETINAL DRAWING I&R 1ST ECG 47845 DIAZ BEN DIAZ BEN ROUTINE 4 ECG W/LEAST 12 LDS W/I&R OPHTHALMO 13625 NEHEMIAH CERNA SCPY 4 JAM JAM EXTENDED RETINAL DRAWING I&R 1ST CATARACT 56860 NEHEMIAH CERNA REMOVAL 4 JAM JAM INSERTION OF LENS REPL DENZEL A4235 ARRIVA ARRIVA LITHIUM 4 MEDICAL MEDICAL MED NECES [place] BG MON OWN PT EA SPRING-PO A4258 ARRIVA ARRIVA WERED 4 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 FOR LANCET EACH LANCETS A4259 ARRIVA ARRIVA [...] [employer] GLU SAT-50 RADIOLOGI 27310 [facility] C EXAM 2 CO CO CHEST 2 [facility] VIEWS FRONTAL&L ATERAL BLD GLU A4253 [facility] TEST/REAG 2 MEDICAL MEDICAL T STRIPS SUPPLY SUPPLY [employer] GLU SAT-50 NORMAL A4256 [facility] LOW AND 2 MEDICAL MEDICAL HIGH SUPPLY SUPPLY CALIBRATO [employer] INC. R SOLUTION/ CHIPS LANCETS A4259 [facility] PER BOX 2 MEDICAL MEDICAL OF 100 SUPPLY SUPPLY [employer] INC. SPRING-PO A4258 [facility] LIBERTY WERED 2 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 SUPPLY SUPPLY FOR 51 [employer] INC. LANCET EACH REPL DENZEL A4235 [facility] LITHIUM 2 MEDICAL MEDICAL MED NECES SUPPLY SUPPLY SDAIA BG MON OWN PT EA BLD GLU A4253 [employer] TEST/REAG 2 MEDICAL MEDICAL T STRIPS SUPPLY SUPPLY HOME BLD GLU SAT-50 LANCETS A4259 [facility] PER BOX 2 MEDICAL MEDICAL OF 100 SUPPLY SUPPLY NORMAL A4256 [employer] LOW AND 2 MEDICAL MEDICAL HIGH SUPPLY SUPPLY CALIBRATO R SOLUTION/ CHIPS ADD LW L2275 [employer] EXTRM 1 O AND P O AND P VARUS/VUL [facility] CORNELIO DARRYL PLSTC MOD PADD/LN ADD LW L2820 [employer] EXT ORTH 1 O AND P O AND P SFT [facility] INTERFCE MOLD BELW KNEE FOR DIAB A5512 [employer] ONLY MX 1 O AND P O AND P DNSITY [facility] INSRT DIR FORMD PRFAB EA AFO L1960 [employer] POSTERIOR 1 O AND P O AND P SOLID [facility] ANK PLASTIC CUSTOM XOCHITL DIAB ONLY A5500 [facility] FIT CSTM 1 O AND P O AND P PREP&SPL [facility] SHOE MX DNSITY INSRT INJECTION J1030 FAMILY DIAZ BEN 1 MEDICINE METHYLPRE ASSOC DNISOLONE FLEMIN ACETATE 40 MG INJECTION J1885 FAMILY DIAZ BEN 1 MEDICINE KETOROLAC ASSOC FLEMIN TROMETHAM INE PER 15 MG RADIOLOGI 17997 GERBER MAYES C EXAM 1 CO [facility] COMPLETE 4/MORE VIEWS BLD GLU [...] CENTER A4258 [facility] LIBERTY WERED 1 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 SUPPLY SUPPLY FOR LANCET EACH REPL DENZEL [id number] [facility] LITHIUM 1 MEDICAL MEDICAL MED NECES SUPPLY SUPPLY SADIA BG MON OWN PT EA BLD GLU A4253 [facility] TEST/REAG 1 MEDICAL MEDICAL T STRIPS SUPPLY SUPPLY HOME BLD GLU MON-50 INJECTION [id number] FAMILY DIAZ BEN 0 MEDICINE CEFTRIAXO ASSOC NE SODIUM FLEMIN PER 250 MG RADIOLOGI 04773 [facility] C EXAM 0 EIDER KISHA [...] SUPPLY SUPPLY HOME BLD GLU MON-50 DUP-SCAN 90542 ALBERTA FARIDA XTR VEINS 0 GRACIE RADIOLOGY UNILATERA [...] SUPPLY SUPPLY HOME BLD GLU SAT-50 [facility]I 16987 [facility] PEE S [...] MEDICAL MEDICAL OF 100 SUPPLY SUPPLY LIPID 05836 [facility] PANEL 9 [facility] HEMOGLOBI 31203 [facility] N 9 [facility] SURY A1C COLLECTIO 09904 [facility] N VENOUS 9 [facility] VENIP[facility] URE COMPREHEN 98819 [facility] SIVE 9 [facility] PANEL RADIOLOGI 97212 [place] [facility] C 9 NICK Shahid EXAMINATI ON FOOT 2 VIEWS STRAPPING 03981 [place] [facility] UNNA 9 NICK Shahid BOOT SPRING-PO A4258 [facility] WERED 9 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 SUPPLY SUPPLY FOR LANCET EACH NORMAL A4256 [...] HCL UP [place] TO 300 MG URINLS 08094 FAMILY DIAZ, DIP 8 MEDICINE VIKKI G STICK/TAB ASSOC LET [place] REAGNT NON-AUTO MICRSCPY COLLECTIO 15249 [facility] N VENOUS 8 [facility] VENIPUN[facility] URE HEMOGLOBI 12685 [facility] N 8 [facility] SURY A1C BLD GLU A4253 [facility] TEST/REAG 8 MEDICAL MEDICAL T STRIPS SUPPLY SUPPLY HOME BLD GLU MON-50 INJECTION J2010 FAMILY MATHEW 8 MEDICINE , [place] LINCOMYCI ASSOC N HCL UP [place] TO 300 MG INJECTION J1100 FAMILY MATHEW 8 MEDICINE , [place] DEXAMETHO ASSOC SONE [place] SODIUM PHOSPHATE 1 MG COLLECTIO 28918 [facility]ER[facility] MAYES N VENOUS 8 CO NM BLOOD [facility] VENIPUNCT URE COMPREHEN 90597 GERBER MAYES SIVE 8 CO [facility] PANEL RADIOLOGI 15854 RAiMn SEGUNDO EXAM 8 PEE S CHEST 2 RADIOLOGY VIEWS FRONTAL&L ASSOCIATE ATERAL S PSC LIPID 26707 MAYES GERBER PANEL 8 CO [facility] HEMOGLOBI 03693 GERBER MAYES N [address] [facility] SURY A1C NATRIURET 13394 GERBER MAYES IC 8 CO [facility] IIV3 71037 FAMILY DIAZ, VACCINE 8 MEDICINE VIKKI Shayan SPLIT ASSOC VIRUS 0.5 [place] ML DOSAGE IM USE ADMINISTR G0008 FAMILY DIAZ ATION OF 8 MEDICINE VIKKI Shayan INFLUENZA ASSOC VIRUS [place] VACCINE SPRING-PO A4258 [facility] WERED 8 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 SUPPLY SUPPLY FOR LANCET EACH LANCETS A4259 [facility] PER BOX 8 MEDICAL MEDICAL OF 100 SUPPLY SUPPLY BLD GLU A4253 [facility] TEST/REAG 8 MEDICAL MEDICAL T STRIPS SUPPLY SUPPLY HOME BLD GLU MON-50 INJECTION J1100 [facility] MATHEW 8 MEDICINE , [place] DEXAMETHO ASSOC SONE [place] SODIUM PHOSPHATE 1 MG INJECTION J2010 [facility] MATHEW 8 MEDICINE , [place] LINCOMYCI [...] [place] ACETONIDE NOS 10 MG INJECTION J2010 [facility] VIKKI Downey LINCOMYCI ASSOC N HCL UP [place] TO 300 MG INJECTION J1100 [facility] DIAZ, 8 MEDICINE VIKKI Downey DEXAMETHO ASSOC SONE [place] SODIUM PHOSPHATE 1 MG INJECTION J0696 [place] [address] MEDICINE MEDICINE CEFTRIAXO ASSOC ASSOC NE SODIUM [place] PER 250 MG INJECTION J1100 [facility] 8 MEDICINE MEDICINE DEXAMETHO ASSOC ASSOC SONE [place] SODIUM PHOSPHATE 1 MG SPRING-PO A4258 [facility] LIBERTY WERED 8 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 SUPPLY FOR LANCET EACH BLD GLU A4253 [facility] TEST/REAG 8 MEDICAL MEDICAL T STRIPS SUPPLY SUPPLY HOME BLD GLU MON-50 LANCETS A4259 [facility] PER BOX 8 MEDICAL MEDICAL OF 100 SUPPLY SUPPLY NORMAL A4256 [facility] LOW AND 8 MEDICAL MEDICAL HIGH SUPPLY SUPPLY CALIBRATO R SOLUTION/ CHIPS Encounters Encounter Start End Date Code Location Performer Type Date OFFICE 96725 [facility] GIGI OUTPATIEN 7 7 PHYSICIAN T VISIT S GROUP 25 MINUTES OFFICE 63453 [facility] GIGI OUTPATIEN 7 7 PHYSICIAN T VISIT S GROUP 25 MINUTES [facility] - 7 7 W OUTPATIEN REGIONAL T MEDICAL OFFICE 31534 [facility] GIGI OUTPATIEN 7 7 PHYSICIAN T VISIT S GROUP 25 MINUTES [facility]OSPITAL [facility] - 7 7 W OUTPATIEN REGIONAL MEDICAL OFFICE 68661 [facility] MATHEW OUTPATIEN 7 7 MEDICINE T VISIT ASSOC 25 FLEMIN MINUTES HOME [facility] 7 7 HOME [facility] INPATIENT AGENCY OFFICE 73285 [facility] GIGI OUTPATIEN 7 7 PHYSICIAN T NEW 60 S GROUP MINUTES HOSPITAL [address] OFFICE [address] T VISIT MEDICAL 15 G MINUTES OFFICE 67531 [facility] [address] T VISIT MEDICAL 25 G MINUTES [facility] [address] 45 HEMATOLOG MINUTES Y ONCO [facility] [address] OFFICE [address] [address]STILLO [address] T VISIT MEDICAL 15 G MINUTES [facility] [address] OFFICE [address] [facility] 6 6 PHYSCIAN LES T NEW 30 PRACTICE MINUTES [facility] - 6 6 [facility] OUTPATIEN INC T EMERGENCY 27083 [facility] 6 6 [facility] INC T VISIT MODERATE SEVERITY OFFICE 54450 [place] JOSE MIGUEL OUTPATIEN 6 6 MOLLY GAUDENCIO T VISIT 15 MINUTES OFFICE 15495 JOSE MIGUEL JOSE MIGUEL OUTPATIEN 6 6 GAUDENCIO GAUDENCIO T VISIT 15 MINUTES [facility] - 6 6 [facility]PATIEN INC T OFFICE 01448 [facility] 6 6 VE VE T VISIT PODIATRY PODIATRY 15 MINUTES OFFICE 16875 DIAZ BEN DIAZ BEN OUTPATIEN 5 5 T VISIT 25 MINUT[facility] OFFICE 44725 [facility] 5 5 [place] T VISIT 25 [facility]UTES [facility] - 5 5 [facility]PITAL STEPHEN - 5 5 [facility] T OFFICE 25663 DIAZ BEN DIAZ BEN OUTPATIEN 5 5 T VISIT 25 MINUTES OFFICE 09817 FAMILY MATHEW OUTPATIEN 3 3 MEDICINE AMA T VISIT ASSOC 25 FLEMIN MINUTES HOSPITAL [facility] - 2 2 [facility] T OFFICE 77316 FAMILY DIAZ BEN OUTPATIEN 1 1 MEDICINE T VISIT ASSOC 25 FLEMIN MINUTES [facility]OSPITAL [facility] - 1 1 [facility] T OFFICE 99254 FAMILY DIAZ BEN OUTPATIEN 1 1 MEDICINE T VISIT ASSOC 25 FLEMIN MINUTES OFFICE 85530 FAMILY DIAZ BEN OUTPATIEN 1 1 MEDICINE T VISIT ASSOC 25 FLEMIN MINUTES OFFICE 22732 FAMILY DIAZ BEN OUTPATIEN 0 0 MEDICINE T VISIT ASSOC 15 FLEMIN MINUTES OFFICE 32498 FAMILY DIAZ BEN OUTPATIEN 0 0 MEDICINE T VISIT ASSOC 25 FLEMIN MINUTES [facility]OSPITAL [facility] - 0 0 [facility] T OFFICE 61736 FAMILY DIAZ BEN OUTPATIEN 0 0 MEDICINE T VISIT ASSOC 25 FLEMIN MINUTES [facility]OSPITAL [facility] - 0 0 [facility] T OFFICE 07193 FAMILY DIAZ BEN OUTPATIEN 0 0 MEDICINE T VISIT ASSOC 25 FLEMIN MINUTES OFFICE 29911 FAMILY DIAZ, OUTPATIEN 9 9 MEDICINE VIKKI Oliva VISIT ASSOC 15 [place] MINUTES [facility]OSP[facility] - 9 9 [facility] T OFFICE 05413 FAMILY DIAZ, OUTPATIEN 9 9 MEDICINE VIKKI Oliva VISIT ASSOC 15 [place] MINUTES OFFICE 44505 FAMILY DIAZ, OUTPATIEN 9 9 MEDICINE VIKKI Oliva VISIT ASSOC 15 [place] MINUTES OFFICE 16931 FAMILY DIAZ, OUTPATIEN 9 9 MEDICINE VIKKI Oliva VISIT ASSOC 15 [place] MINUTES [facility] MAYES - 9 9 [facility] OFFICE 09999 FAMILY DIAZ, OUTPATIEN 9 9 MEDICINE VIKKI Oliva VISIT ASSOC 25 [place] MINUTES OFFICE 03433 FAMILY DIAZ, OUTPATIEN 9 9 MEDICINE VIKKI Oliva VISIT ASSOC 15 [place] MINUTES OFFICE 27021 FAMILY DIAZ, OUTPATIEN 9 9 MEDICINE VIKKI Oliva VISIT ASSOC 15 [place] MINUTES OFFICE 24059 PAWSAT, PAWSAT, OUTPATIEN 9 9 NICK Oliva VISIT 10 MINUTES OFFICE 27739 PAWSAT, PAWSAT, OUTPATIEN 9 9 NICK Oliva VISIT 15 MINUTES OFFICE 07321 FAMILY DIAZ, OUTPATIEN 9 9 MEDICINE VIKKI Oliva VISIT ASSOC 15 [place] MINUTES OFFICE 59363 FAMILY DIAZ, OUTPATIEN 9 9 MEDICINE VIKKI Oliva VISIT ASSOC 25 [place] MINUTES OFFICE 83174 FAMILY DIAZ, OUTPATIEN 8 8 MEDICINE VIKKI Oliva VISIT ASSOC 15 [place] MINUTES [facility] - 8 8 [facility] T OFFICE 68116 FAMILY DIAZ, OUTPATIEN 8 8 MEDICINE VIKKI Oliva VISIT ASSOC 15 [place] MINUTES OFFICE 09158 FAMILY DIAZ, OUTPATIEN 8 8 MEDICINE VIKKI Olvia VISIT ASSOC 15 [place] MINUTES OFFICE 53371 FAMILY MATHEW OUTPATIEN 8 8 MEDICINE FATMATA T VISIT ASSOC 15 [place] MINUTES [facility] MAYES - 8 8 [facility] T OFFICE 84167 FAMILY DIAZ, OUTPATIEN 8 8 MEDICINE VIKKI Oliva VISIT ASSOC 25 [place] MINUTES OFFICE 24104 FAMILY MATHEW OUTPATIEN 8 8 MEDICINE [place] VISIT ASSOC 15 [place] MINUTES OFFICE 98431 FAMILY DIAZ, OUTPATIEN 8 8 MEDICINE VIKKI Oliva VISIT ASSOC 25 [place] MINUTES OFFICE 98011 FAMILY DIAZ, OUTPATIEN 8 8 MEDICINE VIKKI Oliva VISIT ASSOC 15 [place] MINUTES OFFICE 59449 FAMILY DIAZ, OUTPATIEN 8 8 MEDICINE VIKKI Oliva VISIT ASSOC 15 [place] MINUTES OFFICE 68962 FAMILY FAMILY OUTPATIEN 8 8 MEDICINE MEDICINE T VISIT ASSOC ASSOC 15 [place] MINUTES
--- OUTSIDE RECORDS SUMMARY | 2016-09-17 14:56 | External Medical Summary Rpt ---
Author Author , Organization [employer] Address Unknown Phone Unavailable Care Team Providers Care Sales Operations Assistant Name Role Phone MATHEW, MATHEW Unavailable Unavailable [...] MIGUEL GAUDENCIO, JOSE MIGUEL Unavailable Unavailable GAUDENCIO [facility] Unavailable Unavailable [facility], [facility] Unavailable Unavailable [facility], [facility] ON FARIDA BOWMAN, IQBAL Unavailable Unavailable GRACIE CORNEA, CORNEA Unavailable Unavailable FALLIS MOLLY, FALLIS Unavailable Unavailable MOLLY FALLUMC HAKAN, FALLUJI Unavailable Unavailable [facility] Unavailable Unavailable [facility], [facility]available Unavailable [facility], [facility], Unavailable Unavailable [facility] Unavailable Unavailable [facility], Unavailable Unavailable [facility], Unavailable Unavailable [facility] CICI BEARD, Unavailable Unavailable CICI BEARD [facility] Unavailable Unavailable INC, [facility] Unavailable Unavailable HOSPITAL P, [facility] ANGELA MILLER Unavailable Unavailable ANGELA SNYDER, ANGELA Unavailable Unavailable LILLIAN PEE MILLER, Unavailable Unavailable PEE MILLER [facility] Unavailable Unavailable AGENCY, [facility], Unavailable Unavailable [facility] WILLIE III SYLVIE, Unavailable Unavailable WILLIE III SYLVIE [facility] Unavailable Unavailable [facility], [facility] Unavailable Unavailable MEDICAL G, [facility] APRIL JR DWI, APRIL Unavailable Unavailable JR DWI [facility] Unavailable Unavailable [facility], [facility] Unavailable Unavailable [facility] MAGALI, MAGALI Unavailable Unavailable CERNA JAM, Unavailable Unavailable CERNA JAM CERNA JAM, Unavailable Unavailable CERNA JAM [facility] Unavailable Unavailable ASSOCIAT, [facility] Unavailable Unavailable MEDICAL, [facility] MEDICAL [facility], Unavailable Unavailable [facility] NICK PIRES, Unavailable Unavailable NICK [...] Unavailable Unavailable E[facility], [facility], Unavailable Unavailable [facility] Unavailable Unavailable [facility] SUHL ELLEN, SUHL ELLEN Unavailable Unavailable [...] DOS Provider Status E119 TYPE 2 08-22-2016 [facility] DIABETES PHYSICIANS MELLITUS GROUP WITHOUT COMPLICATIO NS E669 OBESITY 08-22-2016 [facility] UNSPECIFIED PHYSICIANS GROUP E785 HYPERLIPIDE 08-22-2016 [facility] RICKY PHYSICIANS UNSPECIFIED GROUP G4733 OBSTRUCTIVE 08-22-2016 [facility] SLEEP PHYSICIANS APNEA ADULT GROUP PEDIATRIC I10 ESSENTIAL 08-22-2016 [facility] PRIMARY PHYSICIANS HYPERTENSIO GROUP N I2510 [facility] 08-22-2016 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 ATRIAL PHYSICIANS FIBRILLATIO GROUP N R5383 OTHER 08-22-2016 [facility] FATIGUE PHYSICIANS GROUP I480 PAROXYSMAL 08-17-2016 [facility] HOME FIBRILLATIO MEDICAL N EQUIPME R600 LOCALIZED 08-17-2016 [facility] EDEMA HOME MEDICAL EQUIPME E6601 MORBID 06-21-2016 [facility] SEVERE PHYSICIANS OBESITY DUE GROUP TO EXCESS CALORIES E56779 ATHEROSCLER 06-21-2016 [facility] OSIS CABG PHYSICIANS WITHOUT GROUP ANGINA PECTORIS I5020 UNSPECIFIED 06-21-2016 [facility] SYSTOLIC PHYSICIANS CONGESTIVE GROUP HEART FAILURE N182 CHRONIC 06-01-2016 [facility] DISEASE MEDICAL STAGE 2 MILD R0602 SHORTNESS 05-24-2016 [facility] OF BREATH PHYSICIANS GROUP J449 CHRONIC 05-17-2016 [facility] PULMONARY AGENCY ON DISEASE UNS Z6838 BODY MASS 05-14-2016 [facility] INDEX BMI MEDICINE 38.0-38.9 ASSOC ADULT [facility] Z789 OTHER 05-14-2016 [facility] SPECIFIED MEDICINE HEALTH ASSOC STATUS FLE[facility] I129 HYPERTENSIV 04-24-2016 [facility] W/STAGE 1-4 AGENCY CKD OR UNS CKD N70721 [facility] 04-24-2016 [facility] W/UNSTABLE AGENCY ANGINA PECTORIS M61505 CELLULITIS 04-24-2016 [facility] LEFT HOME HLTH LOWER LIMB AGENCY Z09263 PRESSURE 04-24-2016 [facility] RIGHT AGENCY BUTTOCK STAGE 2 N183 CHRONIC 04-24-2016 [facility] DISEASE AGENCY STAGE 3 MODERATE I200 UNSTABLE 04-20-2016 [facility] ANGINA HEART I208 OTHER FORMS 04-19-2016 [facility] OF ANGINA PHYSICIANS PECTORIS GROUP R0902 HYPOXEMIA 04-19-2016 [facility] Z720 TOBACCO USE 04-19-2016 [facility] Z951 PRESENCE OF 04-19-2016 [facility] AORTOCORONA ASSOCIAT RY BYPASS GRAFT I252 OLD 03-19-2016 [facility]AR[facility] MEDICAL G I481 PERSISTENT 03-19-2016 [facility] FIBRILLATIO N R9439 ABNORMAL 03-19-2016 [facility] CARDIOVASCU LR FUNCTION STUDY I255 ISCHEMIC 02-18-2016 [facility] CARDIOMYOPA HOME THY MEDICAL EQUIPME E538 DEFICIENCY 02-16-2016 FAMILY OF OTHER MEDICINE SPECIFIED B ASSOC GROUP NOHELIA VITAMINS R531 WEAKNESS 02-07-2016 [facility] NOHELIA Z6841 BODY MASS 02-07-2016 [facility] INDEX BMI MEDICINE 40.0-44.9 ASSOC ADULT NOHELIA I509 HEART 02-01-2016 [facility] HEALTH UNSPECIFIED MEDICAL G J309 ALLERGIC 11-22-2015 [facility] UNSPECIFIED R918 OTHER 11-22-2015 [facility] ABNORMAL FINDING OF LUNG FIELD R400 SOMNOLENCE 11-09-2015 [facility] MEDICAL G L15314 OTHER LONG 09-30-2015 [facility] CURRENT DRUG THERAPY Z7901 FRUIT GROWER 09-16-2015 [facility] CURRENT USE HEALTH OF MEDICAL G ANTICOAGULA NTS E782 MIXED 09-06-2015 [facility] R079 CHEST PAIN 09-06-2015 [place] [place] UNSPECIFIED RADIOLOGY ASSOCIAT E1142 TYPE 2 09-02-2015 [facility] MELLITUS W/DIAB POLYNEUROPA THY M1990 UNSPECIFIED 09-02-2015 [facility] OSTEOARTHRI TIS UNSPECIFIED SITE Z885 ALLERGY 09-02-2015 [facility] STATUS TO HOSPITAL NARCOTIC AGENT STATUS E1165 TYPE 2 08-22-2015 [facility] DIABETES MEDICAL MELLITUS WITH HYPERGLYCEM IA 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 MOLLY ARTHROPATHY RIGHT ANKLE AND FOOT M2570 OSTEOPHYTE 05-19-2015 [facility] MOLLY UNSPECIFIED JOINT M6688 SPONTANEOUS 05-19-2015 FALL[facility] MOLLY RUPTURE OF OTHER TENDONS OTHER X84563 PAIN IN 05-19-2015 [facility] MOLLY RIGHT FOOT M1711 UNILATERAL 04-14-2015 [facility] OSTEOARTHRI IMAGING ASS TIS RIGHT KNEE D70363 PRIMARY 04-14-2015 [place] OSTEOARTHRI MEDICAL TIS RIGHT IMAGING ASS ANKLE AND FOOT M2140 FLAT FOOT 04-14-2015 [place] PES [facility]US [facility] ACQUIRED IMAGING ASS UNSPECIFIED FOOT I06241 PAIN IN 04-14-2015 [place] RIGHT ANKLE MEDICAL IMAGING ASS J069 ACUTE UPPER 02-14-2015 [facility] B[facility] RESPIRATORY INFECTION UNSPECIFIED J329 CHRONIC 02-11-2015 [place] [place] SINUSITIS UNSPECIFIED R0600 DYSPNEA 01-31-2015 [place] UNSPECIFIED RADIOLOGY ASSOCIAT S45808 FOOT DROP 01-06-2015 PROGRESSIVE RIGHT FOOT PODIATRY P71488 SPONTANEOUS 01-06-2015 PROGRESSIVE RUPTURE PODIATRY FLEXOR TENDONS RT ANKLE FOOT 25471 DIAB W/O 12-08-2014 [facility] MENTION MEDICAL COMP TYPE II/UNS TYPE UNCNTRL 01534 OSTEOARTHRO 11-11-2014 [place] SIS UNSPEC MEDICAL WHETHER IMAGING ASS GEN/LOC ANK&FOOT 20840 PAIN IN 11-11-2014 [place] JOINT, MEDICAL ANKLE AND IMAGING ASS FOOT 73355 CALCANEAL 11-11-2014 [place] SPUR [facility]ICAL [facility] ASS 7295 PAIN IN 11-11-2014 [place] SOFT MEDICAL TISSUES OF IMAGING ASS LIMB 734 FLAT FOOT 11-11-2014 [facility] 27245 DIAB W/O 08-30-2014 [facility] COMP TYPE PHARMACY #2 II/UNS NOT STATED UNCNTRL 4659 ACUTE URIS 07-14-2014 DIA[facility] BEN OF UNSPECIFIED SITE V4989 OTHER SPEC 07-14-2014 [facility] CONDITIONS INFLUENCING HEALTH STATUS V8541 BODY MASS 07-14-2014 [facility] BEN INDEX 40.0-44.9 ADULT 55388 VITREOUS 10-07-2013 CERNA DEGENERATIO JAM N 20944 NUCLEAR 09-15-2013 [facility] SCLEROSIS JAM 80022 OTHER 08-18-2013 [facility] BEN SPECIFIED CARDIAC DYSRHYTHMIA S 7851 PALPITATION 08-18-2013 [facility] BEN S V8539 BODY MASS 08-18-2013 [facility] BEN INDEX 39.0-39.9 ADULT 04017 PAIN IN 02-09-2013 DIA[facility] BEN JOINT, LOWER LEG 462 ACUTE 04-18-2012 [facility] PHARYNGITIS MEDICINE ASSOC [facility] 4293 CARDIOMEGAL 12-31-2011 [facility] Y [facility] 97117 OTHER 12-31-2011 [facility] RESPIRATORY ABNORMALITI ES V4581 POSTSURGICA 12-31-2011 [facility] L [facility] AORTOCORONA ASSOCIAT RY BYPASS STATUS 92544 OTHER 01-08-2011 FAMILY ACQUIRED MEDICINE DEFORMITY ASSOC OF ANKLE FLEMIN AND FOOT OTHER 92693 DIAB 01-04-2011 [facility] MANIFESTS TYPE II/UNS NOT UNCNTRL 66437 EFFUSION OF 12-13-2010 [place] LOWER LEG RADIOLOGY JOINT ASSOCIAT 9599 INJURY 12-13-2010 [facility] [place] OTHER AND RADIOLOGY UNSPECIFIED ASSOCIAT UNSPECIFIED SITE 2722 MIXED 11-14-2010 FAMILY HYPERLIPIDE MEDICINE RICKY ASSOC FLE[facility] 4011 ESSENTIAL 11-14-2010 FAMILY HYPERTENSIO MEDICINE N, BENIGN ASSOC FLE[facility] 486 PNEUMONIA, 03-01-2010 FAMILY ORGANISM MEDICINE UNSPECIFIED ASSOC FLE[facility] 4660 ACUTE 02-27-2010 [facility] 65964 OTHER 02-27-2010 [place] DISEASES OF RADIOLOGY LUNG NOT ASSOCIAT ELSEWHERE CLASSIFIED 7931 NONSPEC 02-27-2010 [facility] FIND RAD RADIOLOGY OTH EXAM ASSOCIAT BODY STRUCT LUNG FIELD 75021 COR 02-13-2010 FAMILY ATHEROSLERO MEDICINE UNSPEC ASSOC TYPE VESSEL [facility] [place]/BABITA T 490 BRONCHITIS 02-13-2010 FAMILY NOT MEDICINE SPECIFIED ASSOC ACUTE OR FLE[facility] CHRONIC 99624 SWELLING OF 11-30-2009 [facility] LIMB RADIOLOGY ASSOCIAT 2724 OTHER AND 11-28-2009 FAMILY UNSPECIFIED MEDICINE ASSOC HYPERLIPIDE FLEMIN RICKY 4019 UNSPECIFIED 11-28-2009 FAMILY ESSENTIAL MEDICINE HYPERTENSIO ASSOC N FLE[facility] 4739 UNSPECIFIED 03-16-2009 FAMILY SINUSITIS MEDICINE ASSOC [place] 15250 UNSPECIFIED 03-15-2009 FAMILY MEDICINE CONJUNCTIVI ASSOC TIS [place] 66786 CHEST PAIN 03-15-2009 FAMILY UNSPECIFIED MEDICINE ASSOC [place] 03261 ACUTE 03-03-2009 FAMILY LARYNGITIS, MEDICINE WITHOUT ASSOC MENTION OF [place] OBSTRUCTIO V0481 NEED 03-03-2009 FAMILY PROPHYLACTI MEDICINE C ASSOC VACCINATION [place] &INOCULATIO N FLU 79044 TIBIALIS 06-15-2008 PAWSAT, TENDINITIS NICK D 8728 UNSPECIFIED 03-29-2008 [facility] CYSTITIS MEDICINE ASSOC [place] 81089 OTHER 02-12-2008 FAMILY ABNORMAL MEDICINE GLUCOSE ASSOC [place] 7862 COUGH 01-30-2008 [facility] MEDICINE [facility] [place] 4254 OTHER 01-28-2008 [facility] CARDIOMYOPA JABARI 19770 SHORTNESS 01-28-2008 [facility] 4779 ALLERGIC 09-19-2007 FAMILY RHINITIS MEDICINE CAUSE ASSOC UNSPECIFIED [facility] Medications Na ND Rx Da Fi Fi [...] Procedure DOS Code Location Performer Comment ECG [address]2035 [facility] GIGI ROUTINE 7 PHYSICIAN ECG S GROUP W/LEAST 12 LDS W/I&R STANDARD K0001 MAY[facility] MAYA WHEELCHAI 7 HOME HOME R MEDICAL MEDICAL EQUIPME EQUIPME STANDARD K0001 [facility] MAYA WHEELCHAI 7 HOME HOME R MEDICAL MEDICAL EQUIPME EQUIPME ECG [address] [facility] GIG[facility] ROUTINE 7 PHYSICIAN ECG S GROUP W/LEAST 12 LDS W/I&R STANDARD K0001 MAYA RICHARDSONRELL WHEELCHAI 7 HOME HOME R MEDICAL MEDICAL EQUIPME EQUIPME COLLECTIO 96337 [facility] MEADOWVIE N VENOUS 7 W W BLOOD REGIONAL REGIONAL VENIPUNCT MEDICAL MEDICAL URE BASIC 96149 [facility] METABOLIC 7 W W PANEL REGIONAL REGIONAL CALCIUM MEDICAL MEDICAL TOTAL BASIC 81442 MEADOWVIE MEADOWVIE METABOLIC 7 W W PANEL REGIONAL REGIONAL CALCIUM MEDICAL MEDICAL TOTAL COLLECTIO 08915 MEADOWVIE MEADOWVIE N VENOUS 7 W W BLOOD REGIONAL REGIONAL VENIPUNCT MEDICAL MEDICAL URE STANDARD K0001 [facility] TREJO WHEELCHAI 7 HOME HOME R MEDICAL MEDICAL EQUIPME EQUIPME ECG [address]77 [facility] GIGI ROUTINE 7 PHYSICIAN ECG S GROUP W/LEAST 12 LDS W/I&R ADLT SZD T4528 PORFIRIOWangYouNICOLE HERNANDEZ DISPBL 7 HOME HLTH HOME HLTH INCONT AGENCY AGENCY PROD UNDWEAR XTRA LG EA INCONTINE T4541 [facility] [employer] (VIC)OOD NCE 7 HOME HLTH HOME HLTH PRODUCT AGENCY AGENCY DISPOSABL E UNDPAD LARGE EA ECHO 48276 [facility] R[facility]T 7 VALLEY 2D HEART W/WOM-MOD E COMPL SPEC&COLR D RADIOLOGI 48936 [facility] EXAM 7 CHEST 2 RADIOLOGY VIEWS ASSOCIAT FRONTAL&L ATERAL STANDARD K0001 [facility] TREJO WHEELCHAI 7 HOME HOME R MEDICAL MEDICAL EQUIPME EQUIPME ECG [address] [facility] GIGI ROUTINE 7 PHYSICIAN ECG S GROUP W/LEAST 12 LDS W/I&R CV STRS [address] XERS&/OR RX CONT ECG TRCG ONLY INJECTION J2785 [address] REGADENOS ON 0.1 MG STANDARD K0001 [facility] KERRI 6 HOME HOME R MEDICAL MEDICAL EQUIPME EQUIPME CV STRS 92138 [facility] TST 6 [facility] III XERS&/OR MEDICAL RX CONT G ECG I&R ONLY MYOCARDIA 67713 [facility] L SPECT [address] [place] [address] MULTIPLE STUDIES TECHNETIU A9502 [facility] TC-99M [address] [place] [address] TETROFOSM IN DX PER STUDY DOSE ECG 86746 [facility] ROUTINE 6 [facility] ECG MEDICAL MEDICAL W/LEAST G G 12 LDS W/I&R CONTINUOU E0601 MAYA TREJO S 6 HOME HOME POSITIVE MEDICAL MEDICAL AIRWAY EQUIPME EQUIPME PRESSURE DEVICE STANDARD K0001 [facility] TREJO USHAI 6 HOME HOME R MEDICAL MEDICAL EQUIPME EQUIPME THERAPEUT 58401 FAMILY GOODMAN IC 6 MEDICINE PROPHYLAC ASSOC [...] FLEMIN FLEMIN VIPUL TO 1000 MCG THERAPEUT 03707 [facility] MATHEW IC 6 MEDICINE AMA PROPHYLAC ASSOC TIC/DX FLEMIN INJECTION SUBQ/IM INJECTION J3420 [facility] MATHEW VIT B-12 6 MEDICINE AMA ASSOC CYANOCOBA FLEMIN VIPUL TO 1000 MCG ECG 55316 [facility] ROUTINE 6 [facility] ECG MEDICAL MEDICAL W/LEAST G G 12 LDS W/I&R THERAPEUT 61387 FAMILY REX JENNIFER IC 6 MEDICINE PROPHYLAC ASSOC TIC/DX FLEMIN INJECTION SUBQ/IM INJECTION J3420 FAMILY GODOMAN JENNIFER VIT B-12 6 MEDICINE ASSOC CYANOCOBA FLEMIN VIPUL TO 1000 MCG STANDARD K0001 [facility] TREJO WHEELCHAI 6 HOME HOME R MEDICAL MEDICAL EQUIPME EQUIPME CONTINUOU E0601 [facility] TREJO S 6 HOME HOME POSITIVE MEDICAL MEDICAL AIRWAY EQUIPME EQUIPME PRESSURE DEVICE CARDIOVER 16991 [facility] JEROME [place] 6 NE HEALTH BEN ELECTIVE MEDICAL ARRHYTHMI G A EXTERNAL ANES 05501 ANESTHESI CORNEA INTEG SYS 6 A ELEC ASSOCIATE CONVERSIO S PSC N ARRHYTHMI RADIOLOGI 48518 [facility] [place] WILLIE C 6 RADIOLOGY III [...] SPRING-PO A4258 ARRIV[facility] ARRIVA WERED 6 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 O2 CONC 1 E1390 [...] EQUIPME EQUIPME DEVC W/WO HEAD STRAP ECG 39834 [facility] ROUTINE 6 [facility]ALTH NE HEALTH ECG MEDICAL MEDICAL W/LEAST G G 12 LDS W/I&R O2 CONC 1 E1390 MAYA TREJO DEL PORT 6 HOME HOME 85%/>02 MEDICAL MEDICAL CONC AT EQUIPME EQUIPME PRSC FLW RATE PRTBLE E0431 MAYA MAYA GASEOUS 6 HOME HOME O2 SYS MEDICAL MEDICAL RENT; EQUIPME EQUIPME FLWMTR HUMIDFR&M ASK BRNCDILAT 57033 [facility] RACHELAZEALDwayne RSPSE 6 NE HEALTH GRA SPMTRY MEDICAL PRE&POST- G BRNCDILAT ADMN CT THORAX [address] W/CONTRAS T MATERIAL PLETHYSMO 59884 [facility] BREAZEALE GRAPHY 6 NE HEALTH GRA LUNG MEDICAL VOLUMES G W/[place] [address] [facility] BREAZEALE DIFFUSING 6 NE HEALTH GRA [...] MEDICAL AIRWAY EQUIPME EQUIPME PRESSURE DEVICE POLYSOM 33599 [facility] ELLEN 6/>YRS 6 FREDY SLEEP 4/> HEMATOLOG ADDL Y ONCO ANDREW [facility] G0463 [facility] [address]PATI[address] T CLIN VISIT ASSESS & MGMT PT O2 CONC 1 E1390 MAYA TREJO DEL PORT 6 HOME HOME 85%/>02 MEDICAL MEDICAL CONC AT EQUIPME EQUIPME PRSC FLW RATE PULMONARY 08-10-201 37644 [facility] STRESS 6 NE HEALTH NE HEALTH TESTING MEDICAL MEDICAL SIMPLE G G PRTBLE E0431 MAYA MAYA GASEOUS 6 HOME HOME O2 SYS MEDICAL MEDICAL RENT; EQUIPME EQUIPME FLWMTR HUMIDFR&M ASK ECG 32197 [facility] ROUTINE 6 [facility] NE HEALTH ECG MEDICAL MEDICAL W/LEAST G G 12 LDS W/I&R ECG 59068 [facility] ROUTINE 6 NE [facility] NE HEALTH ECG MEDICAL MEDICAL W/LEAST G G 12 LDS W/I&R NATRIURET [address] PEPTIDE RADIOLOGI 94289 [facility] [place] SCALF LILLIAN C EXAM 6 RADIOLOGY CHEST 2 VIEWS FRONTAL&L ATERAL ECG 75842 [facility] ROUTINE 6 [facility] ECG MEDICAL MEDICAL W/LEAST G G 12 LDS W/I&R RADIOLOGI 20402 [facility] C EXAM 6 EIDER KISHA CHEST 2 RADIOLOGY VIEWS ASSOCIAT FRONTAL&L ATERAL CARDIOVER [address] ELECTIVE ARRHYTHMI A EXTERNAL ECG 05803 [facility] ROUTINE 6 [facility] III ECG MEDICAL W/LEAST G 12 LDS W/I&R NORMAL A4256 ARRIVA ARRIVA LOW AND 6 MEDICAL MEDICAL HIGH CALIBRATO R SOLUTION/ CHIPS ECG 74150 [facility] ROUTINE 6 [facility] ECG MEDICAL MEDICAL W/LEAST G G 12 LDS W/I&R CARDIOVER 28455 [facility] FALLUJI [place] 6 [facility] HAKAN ELECTIVE MEDICAL ARRHYTHMI G A EXTERNAL ECG 45126 MATHEW MATHEW ROUTINE 6 AMA AMA ECG W/LEAST 12 LDS W/I&R CREATINE 16386 [facility] KINASE 6 [facility] TOTAL INC INC ECG 87203 [facility] ROUTINE 6 [facility] ECG INC INC W/LEAST 12 LDS TRCG ONLY W/O I&R ECG 64417 [facility] CHEN JR ROUTINE 6 [facility] W/LEAST P 12 LDS I&[place] [address] [facility] MITCHELL TROPONIN 6 [facility] QUANTITAT INC INC NANCY BLOOD 31425 [facility] MITCHELL COUNT 6 [facility] COMPLETE INC INC AUTO&AUTO DIFRNTL WBC URNLS DIP 73827 [facility] MITCHELL 6 [facility] STICK/TAB INC INC LET REAGENT AUTO MICROSCOP Y COMPREHEN 07417 [facility] SIVE 6 [facility] METABOLIC INC INC PANEL CREATINE 87058 [facility] MITCHELL KINASE MB 6 [facility] [...] READING DOC F/U NOT REQUIRED CT LOWER 67231 [place] ALL EXTREMITY 6 MEDICAL W/O IMAGING CONTRAST ASS MATERIAL REPL DENZEL A4235 ARRIVA ARRIVA LITHIUM 5 MEDICAL MEDICAL MED NECES [place] BG MON OWN PT EA SPRING-PO A4258 ARRIVA ARRIVA WERED 5 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 NORMAL A4256 ARRIVA ARRIVA [...] DEXAMETHO SONE SODIUM PHOSPHATE 1 MG RADIOLOGI 47771 [facility] C EXAM 5 LILLIAN CHEST 2 RADIOLOGY VIEWS ASSOCIAT FRONTAL&L ATERAL AFO L1970 PROGRESSI PROGRESSI PLASTIC 5 VE VE WITH PODIATRY PODIATRY ANKLE JOINT CUSTOM FABRICATE D ADD LW L2820 PROGRESSI PROGRESSI EXT ORTH 5 VE VE SFT PODIATRY PODIATRY INTERFCE MOLD BELW KNEE NORMAL A4256 ARRIVA ARRIVA LOW AND 5 MEDICAL MEDICAL HIGH CALIBRATO R SOLUTION/ CHIPS RADEX 62934 [place] BROWN ALL FOOT 5 MEDICAL COMPLETE IMAGING MINIMUM 3 ASS VIEWS RADEX 65984 [facility] MITCHELL ANKLE 5 [facility] HOS[facility] MEM [...] ARRIVA LITHIUM 5 MEDICAL MEDICAL MED NECES [facility] BG MON OWN PT EA A4258 ARRIVA ARRIVA WERED 5 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 OPHTHALMO 17804 NEHE[facility]IAH CERNA SCPY 4 JAM JAM EXTENDED RETINAL DRAWING I&R 1ST OPHTHALMO 99244 NEHEMIAH CERNA SCPY 4 JAM JAM EXTENDED RETINAL DRAWING I&R 1ST CATARACT 64969 NEHEMIAH CERNA REMOVAL 4 JAM JAM INSERTION [...] MEDICAL HIGH CALIBRATO R SOLUTION/ CHIPS OPHTHALMO 97553 NEHEMIAH CERNA SCPY 4 JAM JAM EXTENDED RETINAL DRAWING I&R 1ST ECG 84664 DIAZ BEN DIAZ BEN ROUTINE 4 ECG W/LEAST 12 LDS W/I&R OPHTHALMO 10093 NEHEMIAH CERNA SCPY 4 JAM JAM EXTENDED RETINAL DRAWING I&R 1ST CATARACT 88718 NEHEMIAH CERNA REMOVAL 4 JAM JAM INSERTION OF LENS REPL DENZEL A4235 ARRIVA ARRIVA LITHIUM 4 MEDICAL MEDICAL MED NECES SADIA BG MON OWN PT EA SPRING-PO A4258 ARRIVA ARRIVA WERED 4 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 INC. GLU SAT-50 RADIOLOGI 01169 [facility] C EXAM 2 CO CO CHEST 2 [facility] VIEWS FRONTAL&L ATERAL BLD GLU A4253 [facility] TEST/REAG 2 MEDICAL MEDICAL T STRIPS SUPPLY SUPPLY HOME BLD INC. INC. GLU SAT-50 NORMAL A4256 [facility] LOW AND 2 MEDICAL MEDICAL HIGH SUPPLY SUPPLY [employer]. R SOLUTION/ CHIPS LANCETS A4259 [facility] PER BOX 2 MEDICAL MEDICAL OF 100 SUPPLY SUPPLY [employer]. INC. SPRING-PO A4258 [facility] WERED 2 MEDICAL TOXICOLOGY TEACHER SUPPLY SUPPLY FOR [employer] LANCET EACH REPL DENZEL A4235 [facility] [...] CALIBRATO R SOLUTION/ CHIPS ADD LW L2275 [facility] EXTRM 1 O AND P O AND P VARUS/VUL [facility] CORNELIO DARRYL PLSTC MOD PADD/LN ADD LW L2820 [facility] EXT ORTH 1 O AND P O AND P SFT [facility] INTERFCE MOLD BELW KNEE FOR DIAB A5512 [facility] ONLY MX 1 O AND P O AND P DNSITY [facility] INSRT DIR FORMD PRFAB EA AFO L1960 [facility] POSTERIOR 1 O AND P O AND P SOLID [employer] ANK PLASTIC CUSTOM XOCHITL DIAB ONLY A5500 [facility] FIT CSTM 1 O AND P O AND P PREP&SPL [facility] SHOE MX DNSITY INSRT INJECTION J1030 FAMILY DIAZ BEN 1 MEDICINE METHYLPRE ASSOC DNISOLONE FLEMIN ACETATE 40 MG INJECTION J1885 FAMILY DIAZ BEN 1 MEDICINE KETOROLAC ASSOC FLEMIN TROMETHAM INE PER 15 MG RADIOLOGI 68681 [facility] C EXAM 1 CO [facility] COMPLETE 4/MORE VIEWS BLD GLU A4253 [facility] [...] HIGH SUPPLY SUPPLY CALIBRATO R SOLUTION/ CHIPS [facility] A4258 [facility] WERED 1 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 EACH REPL DENZEL A4235 [facility] LITHIUM 1 MEDICAL MEDICAL MED NECES SUPPLY SUPPLY SADIA BG MON OWN PT EA BLD GLU A4253 [facility] TEST/REAG 1 MEDICAL MEDICAL T STRIPS SUPPLY SUPPLY HOME BLD GLU MON-50 INJECTION J0696 FAMILY DIAZ BEN 0 MEDICINE CEFTRIAXO ASSOC NE SODIUM FLEMIN PER 250 MG RADIOLOGI 88484 [facility] EXAM 0 EIDER KISHA CHEST 2 [...] SUPPLY SUPPLY HOME BLD GLU MON-50 DUP-SCAN 63833 [place] XTR VEINS 0 GRACIE RADIOLOGY UNILATERA [...] SUPPLY SUPPLY HOME BLD GLU SAT-50 [facility]I 15075 [facility] PEE S CHEST [...] MEDICAL MEDICAL OF 100 SUPPLY SUPPLY LIPID 50861 [facility] PANEL 9 [facility] HEMOGLOBI 48111 [facility] N 9 [facility] SURY A1C COLLECTIO 17572 [facility] N VENOUS 9 [facility] VENIPUNCT URE COMPREHEN 51299 [facility] SIVE 9 [facility] PANEL RADIOLOGI 63269 [facility] C 9 NICK Shahid EXAMINATI ON FOOT 2 VIEWS STRAPPING 51921 [facility] UNNA 9 NICK Shahid BOOT SPRING-PO A4258 [facility] WERED 9 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 EACH NORMAL A4256 [...] HCL UP FLEMINGSB TO 300 MG URINLS 09873 FAMILY IDAZ, DIP 8 MEDICINE VIKKI G STICK/TAB ASSOC LET FLEMINGSB REAGNT NON-AUTO MICRSCPY COLLECTIO 48375 [facility] N VENOUS 8 [facility] VENIPUNCT URE HEMOGLOBI 12662 [facility] N 8 [facility] SURY A1C BLD GLU A4253 [facility] TEST/REAG 8 MEDICAL MEDICAL T STRIPS SUPPLY SUPPLY HOME BLD GLU MON-50 INJECTION J2010 FAMILY MATHEW 8 MEDICINE , [facility] N HCL UP FLEMINGSB TO 300 MG INJECTION J1100 FAMILY MATHEW 8 MEDICINE , FATMATA DEXAMETHO ASSOC SONE [place] SODIUM PHOSPHATE 1 MG COLLECTIO 70651 GERBER MAYES N VENOUS 8 CO [place] BLOOD [facility] VENIPUNCT URE COMPREHEN 74783 GERBER MAYES SIVE 8 CO [facility] PANEL RADIOLOGI 31265 RAMin SEGUNDO EXAM 8 PEE S CHEST 2 RADIOLOGY VIEWS FRONTAL&L ASSOCIATE ATERAL S PSC LIPID 23081 MAYES GERBER PANEL 8 CO [facility] HEMOGLOBI 07487 GERBER MAYES N 8 CO [facility] SURY A1C NATRIURET 61641 GERBER MAYES IC 8 CO [facility] IIV3 55204 FAMILY DIAZ, VACCINE 8 MEDICINE VIKKI Shayan SPLIT ASSOC VIRUS 0.5 [place] ML DOSAGE IM USE ADMINISTR G0008 FAMILY DIAZ ATION OF 8 MEDICINE VKIKI Shayan INFLUENZA ASSOC VIRUS [place] VACCINE SPRING-PO A4258 LIBERTY LIBERTY WERED 8 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 EACH LANCETS A4259 [facility]ERTY LIBERTY PER BOX 8 MEDICAL MEDICAL OF 100 SUPPLY SUPPLY BLD GLU A4253 [facility] LIBERTY TEST/REAG 8 MEDICAL MEDICAL T STRIPS SUPPLY SUPPLY HOME BLD GLU MON-50 INJECTION J1100 [facility] MATHEW 8 MEDICINE , [place] DEXAMETHO ASSOC SONE [place] SODIUM PHOSPHATE 1 MG INJECTION J2010 [facility] MATHEW 8 MEDICINE , FATMATA LINCOMYCI [...] [place] ACETONIDE NOS 10 MG INJECTION J2010 [facility] VIKKI Downey LINCOMYCI ASSOC N HCL UP [place] TO 300 MG INJECTION J1100 [facility] DIAZ, 8 MEDICINE VIKKI Downey DEXAMETHO ASSOC SONE [place] SODIUM PHOSPHATE 1 MG INJECTION J0696 [place] [address] MEDICINE MEDICINE CEFTRIAXO ASSOC ASSOC NE SODIUM [place] PER 250 MG INJECTION J1100 [facility] 8 MEDICINE MEDICINE DEXAMETHO ASSOC ASSOC SONE [place] SODIUM PHOSPHATE 1 MG SPRING-PO [id number] LIBERTY LIBERTY WERED 8 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 GIGI OUTPATIEN 7 7 PHYSICIAN T VISIT S GROUP [address] [facility] G[facility] OUT[facility] 7 7 PHYSICIAN T VISIT S GROUP 25 MINUTES [facility]OSP[facility] - 7 7 W OUTPATIEN REGIONAL T MEDICAL OFFICE 66216 [facility] OUTPATIEN 7 7 PHYSICIAN T VISIT S GROUP 25 MINUTES HOSPITAL [facility] - 7 7 W OUTPATIEN REGIONAL MEDICAL OFFICE 90874 [facility] MATHEW OUTPATIEN 7 7 MEDICINE T VISIT ASSOC 25 FLEMIN MINUTES HOME [facility] 7 7 HOME [facility] INPATIENT AGENCY OFFICE 47435 [facility] GIGI OUTPATIEN 7 7 PHYSICIAN T NEW 60 S GROUP MINUTES HOSP[facility] [address] OFFICE [address] T VISIT MEDICAL 15 G MINUTES OFFICE 49179 [facility] [address] T VISIT MEDICAL 25 G MINUTES [facility] [address]ICE [id number] 45 HEMATOLOG MINUTES Y ONCO [facility] [address] OFFICE [address] [address] CASTILLO [address] T VISIT MEDICAL 15 G MINUTES [facility] [address] OFFICE [address]8931 [facility] 6 6 PHYSCIAN LES T NEW 30 PRACTICE MINUTES [facility] STEPHEN - 6 6 [facility] OUTPATIEN INC T EMERGENCY 94179 [facility] 6 6 [facility] T VISIT MODERATE SEVERITY OFFICE 51456 FALLIS JOSE MIGUEL OUTPATIEN 6 6 MOLLY GAUDENCIO T VISIT 15 MINUTES OFFICE 89984 JOSE MIGUEL JOSE MIGUEL OUTPATIEN 6 6 GAUDENCIO GAUDENCIO T VISIT 15 MINUTES HOSPITAL [facility] - 6 6 [facility] OUTPATIEN INC T OFFICE 14838 [facility] VE VE T VISIT PODIATRY PODIATRY 15 MINUTES OFFICE 78911 DIAZ BEN DIAZ BEN OUTPATIEN 5 5 T VISIT 25 MINUTES OFFICE 93648 [facility] 5 5 [place] T VISIT 25 MINUTES HOSPITAL MAYES - 5 5 [facility] HOSPITAL STEPHEN - 5 5 [facility] T OFFICE 51663 DIAZ BEN DIAZ BEN OUTPATIEN 5 5 T VISIT 25 MINUTES OFFICE 38472 FAMILY MATHEW OUTPATIEN 3 3 MEDICINE AMA T VISIT ASSOC 25 FLEMIN MINUTES HOSPITAL MAYES - 2 2 [facility] T OFFICE 98332 FAMILY DIAZ BEN OUTPATIEN 1 1 MEDICINE T VISIT ASSOC 25 FLEMIN MINUTES HOSPITAL MAYES - 1 1 [facility] T OFFICE 90754 FAMILY DIAZ BEN OUTPATIEN 1 1 MEDICINE T VISIT ASSOC 25 FLEMIN MINUTES OFFICE 68747 FAMILY DIAZ BEN OUTPATIEN 1 1 MEDICINE T VISIT ASSOC 25 FLEMIN MINUTES OFFICE 68577 FAMILY DIAZ BEN OUTPATIEN 0 0 MEDICINE T VISIT ASSOC 15 FLEMIN MINUTES OFFICE 90625 FAMILY DIAZ BEN OUTPATIEN 0 0 MEDICINE T VISIT ASSOC 25 FLEMIN MINUTES HOSPITAL MAYES - 0 0 [facility] T OFFICE 92661 FAMILY DIAZ BEN OUTPATIEN 0 0 MEDICINE T VISIT ASSOC 25 FLEMIN MINUTES [facility]OSPITAL MAYES - 0 0 [facility] T OFFICE 36910 FAMILY DIAZ BEN OUTPATIEN 0 0 MEDICINE T VISIT ASSOC 25 FLEMIN MINUTES OFFICE 38085 FAMILY DIAZ, OUTPATIEN 9 9 MEDICINE VIKKI Oliva VISIT ASSOC 15 [place] MINUTES HOSPITAL MAYES - 9 9 [facility] T OFFICE 41963 FAMILY DIAZ, OUTPATIEN 9 9 MEDICINE VIKKI Oliva VISIT ASSOC 15 [place] MINUTES OFFICE 44682 FAMILY DIAZ, OUTPATIEN 9 9 MEDICINE VIKKI Oliva VISIT ASSOC 15 [place] MINUTES OFFICE 02166 FAMILY DIAZ, OUTPATIEN 9 9 MEDICINE VIKKI Oliva VISIT ASSOC 15 [place] MINUTES [facility] MAYES - 9 9 [facility] OFFICE 64184 FAMILY DIAZ, OUTPATIEN 9 9 MEDICINE VIKKI Oliva VISIT ASSOC 25 [place] MINUTES OFFICE 84892 FAMILY DIAZ, OUTPATIEN 9 9 MEDICINE VIKKI Oliva VISIT ASSOC 15 [place] MINUTES OFFICE 59608 FAMILY DIAZ, OUTPATIEN 9 9 MEDICINE VIKKI Oliva VISIT ASSOC 15 [place] MINUTES OFFICE 91262 PAWSAT, PAWSAT, OUTPATIEN 9 9 NICK Oliva VISIT 10 MINUTES OFFICE 60254 PAWSAT, PAWSAT, OUTPATIEN 9 9 NICK Oliva VISIT 15 MINUTES OFFICE 51162 FAMILY DIAZ, OUTPATIEN 9 9 MEDICINE VIKKI Oliva VISIT ASSOC 15 [place] MINUTES OFFICE 78550 FAMILY DIAZ, OUTPATIEN 9 9 MEDICINE VIKKI Oliva VISIT ASSOC 25 [place] MINUTES OFFICE 87057 FAMILY DIAZ, OUTPATIEN 8 8 MEDICINE VIKKI Oliva VISIT ASSOC 15 [place] MINUTES [facility]OSPITAL [facility]YES - 8 8 [facility] T OFFICE 10455 FAMILY DIAZ, OUTPATIEN 8 8 MEDICINE VIKKI Oliva VISIT ASSOC 15 [place] MINUTES OFFICE 11443 FAMILY DIAZ, OUTPATIEN 8 8 MEDICINE VIKKI Oliva VISIT ASSOC 15 [place] MINUTES OFFICE 37320 FAMILY MATHEW OUTPATIEN 8 8 MEDICINE FATMATA T VISIT ASSOC 15 [place] MINUTES [facility] MAYES - 8 8 [facility] T OFFICE 11687 FAMILY DIAZ, OUTPATIEN 8 8 MEDICINE VIKKI Oliva VISIT ASSOC 25 [place] MINUTES OFFICE 80402 FAMILY MATHEW OUTPATIEN 8 8 MEDICINE FATMATA VISIT ASSOC 15 [place] MINUTES OFFICE 31160 FAMILY DIAZ, OUTPATIEN 8 8 MEDICINE VIKKI Oliva VISIT ASSOC 25 [place] MINUTES OFFICE 79309 FAMILY DIAZ, OUTPATIEN 8 8 MEDICINE VIKKI Oliva VISIT ASSOC 15 [place] MINUTES OFFICE 07584 FAMILY DIAZ, OUTPATIEN 8 8 MEDICINE VIKKI Oliva VISIT ASSOC 15 [place] MINUTES OFFICE 67895 FAMILY FAMILY OUTPATIEN 8 8 MEDICINE MEDICINE T VISIT ASSOC ASSOC 15 [place] MINUTES
--- OUTSIDE RECORDS SUMMARY | 2016-09-17 14:57 | External Medical Summary Rpt ---
Author Author [employer], [employer] Organization [employer] Address Unknown Phone Unavailable Results Comprehensive metabolic 2000 panel in Serum or Plasma Observa Value Referen Units Interpr Notes Date tion ce etation Range Albumin/G 1.1 - 1.8 No Low No Sep 17 lobulin informati informati 2017 1:35 [Mass on in on in PM ratio] in source source Serum or data data Plasma Albumin 3.4 - 5.0 gm/dL Normal No Sep 17 [Mass/vol informati 2017 1:35 ume] in on in PM Serum or source Plasma data Alkaline 46 - 116 U/L Normal No Sep 17 phosphata informati 2017 1:35 se on in PM [Enzymati source c data activity/ volume] in Serum or Plasma Bilirubin 0.2 - 1.0 mg/dL Normal No Sep 17 .total informati 2017 1:35 [Mass/vol on in PM ume] in source Serum or data Plasma Urea 7 - 18 mg/dL High No Sep 17 nitrogen informati 2017 1:35 [Mass/vol on in PM ume] in source Serum or data Plasma Calcium 8.5 - mg/dL Normal No Sep 17 [Mass/vol 10.1 informati 2017 1:35 ume] in on in PM Serum or source Plasma data Chloride 98 - 107 mmoL/L Normal No Sep 17 [Moles/vo informati 2017 1:35 lume] in on in PM Serum or source Plasma data Carbon 21.0 - mmoL/L Normal No Sep 17 dioxide, 32.0 informati 2017 1:35 total on in PM [Moles/vo source lume] in data Serum or Plasma Creatinin 0.55 - mg/dL High No Sep 17 e 1.02 informati 2017 1:35 [Mass/vol on in PM ume] in source Serum or data Plasma Creatinin 50 - 200 ML/MIN Low No Sep 17 e renal informati 2017 1:35 clearance on in PM source predicted data by Cockcroft -Gault formula Estimated 59- ML/MIN Low REFERENCE Josiah RANGE: 2017 1:35 glomerula >60 PM r ML/MIN/1. filtratio 73 SQUARE n rate METERSIf (GF this patient is -A merican, then multiply theresult by 1.210. Globulin 1.3 - 3.2 gm/dL High No Sep 17 [Mass/vol informati 2016 1:35 ume] in on in PM Serum source data Glucose 74 - 106 mg/dL High No Sep 17 [Mass/vol informati 2016 1:35 ume] in on in PM Serum or source Plasma data Potassium 3.5 - 5.1 mmoL/L Normal No Sep 172016 1:35 [Moles/vo on in PM lume] in source Serum or data Plasma Sodium 136 - 145 mmoL/L Normal No Sep 17 [Moles/vo 2016 1:35 lume] in on in PM Serum or source Plasma data Aspartate 15 - 37 U/L Low No Sep 172016 1:35 aminotran on in PM sferase source [Enzymati data c activity/ volume] in Serum or Plasma Alanine 12 - 78 U/L Normal No Sep 17 aminotran 2016 1:35 sferase on in PM [Enzymati source c data activity/ volume] in Serum or Plasma Protein 6.4 - 8.2 gm/dL Normal No Sep 17 [Mass/vol informati 2016 1:35 ume] in on in PM Serum or source Plasma data CBC W Auto Differential panel in Blood Observa Value Referen Units Interpr Notes Date tion ce etation Range Basophils 0 - 0.2 K/MM3 Normal No Sep 172016 1:35 [#/volume on in PM ] in source Blood by data Automated count Basophils 0.1 - 2.0 % Normal No Sep 17 / inform2016 1:35 leukocyte on in PM s in source Blood by data Automated count Eosinophi 0.0 - 0.4 K/mm3 Normal No Sep 17 ls ati 2016 1:35 [#/volume on in PM ] in source Blood by data Automated count Eosinophi 0.1 - % Normal No Sep 17 ls/100 12.0 informati 2016 1:35 leukocyte on in PM s in source Blood by data Automated count Granulocy 1.8 - 7.8 K/mm3 Normal No Sep 17 ciro 2016 1:35 [#/volume on in PM ] in source Blood by data Automated count Granulocy 37.0 - % High No Sep 17 ciro/100 80.0 informati 2016 1:35 leukocyte on in PM s in source Blood by data Automated count Hematocri 37.0 - % Low No Sep 17 t [Volume 47.0 informati 2016 1:35 on in PM Fraction] source of Blood data Hemoglobi 12.2 - g/dL Low No Sep 17 n 16.2 informati 2016 1:35 [Mass/vol on in PM ume] in source Blood data Lymphocyt 0.7 - 4.5 K/mm3 Normal No Sep 17 es informati 2016 1:35 [#/volume on in PM ] in source Unspecifi data ed specimen by Automated count Lymphocyt 10 - 50.0 % Normal No Sep 17 es informati 2016 1:35 [#/volume on in PM ] in source Unspecifi data ed specimen by Automated count Erythrocy 27 - 31.2 pg Normal No Sep 17 te mean informati 2016 1:35 corpuscul on in PM ar source hemoglobi data n [Entitic mass] Erythrocy 31.8 - g/dl Low No Sep 17 te mean 35.4 informati 2016 1:35 corpuscul on in PM ar source hemoglobi data n concentra tion [Mass/vol ume] by Automated count Erythrocy 82.2 - fl High No Sep 17 te mean 97.8 informati 2016 1:35 corpuscul on in PM ar volume source [Entitic data volume] by Automated count Monocytes 0.1 - 1.0 K/mm3 Normal No Sep 17 informati 2016 1:35 [#/volume on in PM ] in source Blood by data Automated count Monocytes 1.7 - 9.3 % Normal No Sep 17 /100 informati 2017 1:35 leukocyte on in PM s in source Blood by data Automated count Platelet 7.4 - fl Low No Sep 17 mean 10.4 informati 2017 1:35 volume on in PM [Entitic source volume] data in Blood by Automated count Platelets 142 - 424 K/mm3 Normal No Sep 17 informati 2016 1:35 [#/volume on in PM ] in source Blood data Erythrocy 4.2 - 5.4 M/mm3 Low No Sep 17 ciro informati 2017 1:35 [#/volume on in PM ] in source Amniotic data fluid Erythrocy 11.5 - % Normal No Sep 17 te 17.5 informati 2017 1:35 distribut on in PM ion width source [Entitic data volume] by Automated count Leukocyte 4.8 - K/MM3 Normal No Sep 17 s 10.8 informati 2017 1:35 [#/volume on in PM ] in source Blood data INR in Blood by Coagulation assay Observa Value Referen Units Interpr Notes Date tion ce etation Range IS PATIENT ON ANTICOAGULANTS? Y LIST ANTICOAGULANTS: NONE SPECIFIED INR in 0.9 - 1.1 No High INDICATIO Sep 17 Blood by informati N 2016 1:35 Coagulati on in PM on assay source INR data RANGETHER APY FOR DVT, PE, ATRIAL FIB; 2.0 - 3.0PROPHY LAXIS FOR VTETHERAP Y FOR MECHANICA L HEART 2.5 - 3.5VALVE; PREVENTIO N OF SYSTEMICE MBOLISM SECONDARY TO AMI Prothromb 9.4 - SECONDS High No Sep 17 in time 11.8 informati 2016 1:35 (PT) in on in PM Platelet source poor data plasma by Coagulati on assay Activated partial thrombplastin time (aPTT) in Platelet poor plasma by Coagulation assay Observa Value Referen Units Interpr Notes Date tion ce etation Range IS PATIENT ON ANTICOAGULANTS? Y LIST ANTICOAGULANTS: NONE SPECIFIED Activated 23.6 - SECONDS Normal No Sep 17 partial 34.0 informati 2016 1:35 thrombpla on in PM stin time source (aPTT) data in Platelet poor plasma by Coagulati on assay Basic metabolic panel in Blood Observa Value [...] 59- ML/MIN Low REFERENCE Sep 17 RANGE: 2016 7:15 glomerula >60 AM r ML/MIN/1. filtratio [...] Interpr Notes Date tion ce etation Range Thyroxine 0.76 - ng/dL Normal No Sep 17 (T4) 1.46 informati 2016 7:15 free on in AM [Mass/vol source [...] - 0.2 K/MM3 Normal No Sep 17 inform2016 7:15 [#/volume on in AM ] in source Blood by data Automated count Basophils 0.1 - 2.0 % Normal No Sep 17 /100 informati 2016 7:15 leukocyte on in AM [...] Normal No Sep 17 ciro/100 80.0 informati 2017 7:15 leukocyte on in AM [...] Lymphocyt 10 - 50.0 % Normal No Sep 17 es informati 2016 7:15 [#/volume on in AM ] in source Unspecifi data ed specimen by Automated count Erythrocy 27 - 31.2 pg High No Sep 17 te mean informati 2016 7:15 corpuscul on in AM ar source hemoglobi data n [Entitic mass] Erythrocy 31.8 - g/dl Low No Sep 17 te mean 35.4 informati 2016 7:15 corpuscul on in AM ar source hemoglobi data n concentra tion [Mass/vol ume] by Automated count Erythrocy 82.2 - fl High No Sep 17 te mean 97.8 informati 2016 7:15 corpuscul on in AM ar volume source [Entitic data volume] by Automated count Monocytes 0.1 - 1.0 K/mm3 Normal No Sep 17 informati 2017 7:15 [...] Platelets 142 - 424 K/mm3 No No Sep 17 informati informati 2016 7:15 [#/volume on in on in AM ] in source source Blood data data Erythrocy 4.2 - 5.4 M/mm3 Low No Sep 17 ciro informati 2016 7:15 [#/volume on in AM ] in source Amniotic data fluid Erythrocy 11.5 - % Normal No Sep 17 te 17.5 informati 2016 7:15 distribut on in AM ion width source [Entitic data volume] by Automated count Leukocyte 4.8 - K/MM3 Normal No Sep 17 s 10.8 informati 2016 7:15 [#/volume on in AM ] in source Blood data Aspartate aminotransferase [Enzymatic activity/volume] in Serum or Plasma by With P-5'-P Observa Value Referen Units Interpr Notes Date tion ce etation Range Asparta 9 15 - 37 IU/L Low No Sep 05 te inform2015 aminotr tion in 1:56 PM ansfera source se data [Enzyma tic activit y/volum e] in Serum or Plasma Thyrotropin [Units/volume] in Serum or Plasma by Detection limit <= 0.05 mIU/L Observa Value Referen Units Interpr Notes Date tion ce etation Range Thyrotr 4.05 0.36 - uIU/mL High No Sep 05 opin 3.74 informa 2016 [Units/ tion in 1:56 PM volume] source [...] source source PM data data data data [facility] L\.br\ [address]br \ [facility] [place] [address]\. br\\.br \ ------- --NAME- ------- - NUMBER SEX AGE ADMIT DISC. XRAY# F/C TYPE\.b r\ FRYMAN ROSA [id number] F 75 09/06/15 09/06/15 62382 MB O/P\.br \ DATE OF : 9[birth year] M/R# [id number] #: RM\.br\ LOCATIO N: TRANSCR IBED: 6 17:11\. br\ [place] [address] COMPLET ED:06/0 10/14 15:41 [facility] [address]\. br\ {REASON FOR CHEST: CHEST PAIN\.b r\\.br\ [...] cardiop ulmonar y disease .\.br\\ .br\\.b r\Elect ronmaritza ly Signed By:\.br \ROSARIO ONTIVEROS MD,RADI OLOGIST \.br\Da te/Time : 6 17:11 6.1722. RLH.to BA\.br\ CHEST AP [place] Observa Value Referen Units Interpr Notes Date tion ce etation Range CHEST No No No No Nov 2 AP [place] informa informa informa informa 2014 ti in ti in tion in tion in 12:47 source source source source PM data data data data [facility] L\.br\ [address]br \ [place] [address]\. br\\.br \ RADIOLO GY REPORT\ .br\ Name: SKYLER LEE\.b r\ Patient #: [id number] Stay Type: O/P\.br \ Age: 74 Room:\. br\ : 942 Sex: F\.br\ Orderin g Phys: DIAZ WM MR#: [id number]\. br\ Family Phys: DIAZ WM Pt Phone: [phone] /[phone]\. br\ Admitti ng Phys: DIAZ WM\.br\ Unsig moinca Transcr iptions represe nt a prelimi nary report and do\.br\ not reflect a medical or legal documen t.\.b r\\.br\ \.br\ [place] [address] COMPLET E:01/31 14:07 [facility]H 7412\.b r\ (REASON [...] 16:33\. br\\.br \ Dictati on Date/Ti me: 01/31/15:46 Dictate d By: PEE MILLER MD RADIOLO GIST\.b r\ Transcr . Date/Ti me: 15:52 Transcr . Init.: [facility]\.br \\.br\ Copy for: EMILY FLOREZ M.D. via fax\.br \\.br\ CHEST AP [place] Observa Value Referen Units Interpr Notes Date tion ce etation Range CHEST No No No No Dec 30 AP [place] informa informa informa informa 2011 tion in tion in tion in tion in 11:36 source source source source AM data data data data [facility] L\.br\ [address]br \ [place] [address]\. br\\.br \ RADIOLO GY REPORT\ .br\ Name: SKYELR LEE\.b r\ Patient #: [id number] Stay Type: O/P\.br \ Age: 71 Room:\. br\ : 942 Sex: F\.br\ Orderin g Phys: DIAZ WM MR#: [id number]\. br\ Family Phys: DIAZ WM Pt Phone: [phone] /[phone]\. br\ Admitti ng Phys: DIAZ WM\.br\ Unsig monica Transcr iptions represe nt a prelimi nary report and do\.br\ not reflect a medical or legal documen t.\.b r\\.br\ [place] [address] COMPLET E:12/30 11:53 CGS 16350\. br\ Diagnos is: DYSPNEA \.br\\. br\ HISTORY [...] RADIOLO GIST\.b r\ Transcr . Date/Ti me: 20:18 Transcr . Init.: eladio\.br \\.br\ Copy for: EMILY FLOREZ M.D. via fax\.br \\.br\
--- OUTSIDE RECORDS SUMMARY | 2016-09-17 14:57 | External Medical Summary Rpt ---
[...] source source PM data data data data [facility] L\.br\ [address]br \ [facility] [place] [address]\. br\\.br \ ------- --NAME- ------- - NUMBER SEX AGE ADMIT DISC. XRAY# F/C TYPE\.b r\ FRYMAN ROSA [id number] F 75 09/06/15 09/06/15 61209 MB O/P\.br \ DATE OF : 9[birth year] M/R# [id number] #: RM\.br\ LOCATIO N: TRANSCR IBED: 6 17:11\. br\ [place] [address] COMPLET ED:06/0 10/14 15:41 [facility] [address]\. br\ {REASON FOR CHEST: CHEST PAIN\.b r\\.br\ [...] source source PM data data data data [facility] L\.br\ [address]br \ [facility] [place] [place] [place] [address]\. br\\.br \ RADIOLO GY REPORT\ .br\ Name: SKYLER LEE\.b r\ Patient #: [id number] Stay Type: O/P\.br \ Age: 74 Room:\. br\ : 942 Sex: F\.br\ Orderin g Phys: DIAZ WM MR#: [id number]\. br\ Family Phys: DIAZ WM Pt Phone: [phone] /[phone]\. br\ Admitti ng Phys: DIAZ WM\.br\ Unsig monica Transcr iptions represe nt a prelimi nary report and do\.br\ not reflect a medical or legal documen t.\.b r\\.br\ \.br\ [place] [address] COMPLET E:01/31 14:07 RL[facility] 7412\.b r\ (REASON [...] . Date/Ti me: 15:52 Transcr . Init.: [facility]\.br \\.br\ Copy for: EMILY FLOREZ M.D. via fax\.br \\.br\ CHEST AP [place] Observa Value Referen Units Interpr Notes Date tion ce etation Range CHEST No No No No Dec 30 AP [place] informa informa informa informa 2011 tion in tion in tion in tion in 11:36 source source source source AM data data data data [facility] L\.br\ [address]br \ [facility] [place] [place] [address]\. br\\.br \ RADIOLO GY REPORT\ .br\ Name: SKYLER LEE\.b r\ Patient #: [id number] Stay Type: O/P\.br \ Age: 71 Room:\. br\ : 942 Sex: F\.br\ Orderin g Phys: DIAZ WM MR#: [id number]\. br\ Family Phys: DIAZ WM Pt Phone: [phone] /[phone]\. br\ Admitti ng Phys: DIAZ WM\.br\ Unsig monica Transcr iptions represe nt a prelimi nary report and do\.br\ not reflect a medical or legal documen t.\.b r\\.br\ [place] [address] COMPLET E:12/30 11:53 CGS 94428\. br\ Diagnos is: DYSPNEA \.br\\. br\ HISTORY [...]
[2016-09-17 15:35] LABS: STOOL OCCULT BLOOD POSITIVE (NEG)
[2016-09-17 16:36] LABS: ABO BLOOD TYPE O; RH BLOOD TYPE POSITIVE
--- NOTE | 2016-09-17 17:59 | HISTORY AND PHYSICAL REPORT ---
Demographics: Admit date: 09/17/16 Chief complaint: Fatigue/abnormal stress test PRIMARY DIAGNOSIS: ANEMIA ABNORMAL STRESS TEST Allergies: Coded Allergies: codeine (05/31/15) History of present illness: History of present illness: Patient with chronic anemia, takes iron; patient of Dr. Kirkpatrick; received blood transfusion approximately six months ago in [place]. Underwent stress test today per Dr. Vincent and was told to go to ER for evaluation of anemia. No abdominal pain, denies blood from above or below. Andrés Mccarty states would like the patient admitted to service doctor, transfused to a hemoglobin of 10, then reassessed by Dr. Vincent as he may need to repeat testing to see if correcting the anemia will resolve her abnormal stress test. Currently patient has no complaints, no chest pain, no dyspnea, eating supper. Past medical history: Family HX Diabetes Yes CAD Yes Hypertension Yes Hyperlipidemia No Cancer Yes TB No Immunization HX DT/Tetanus > 10 Years Ago Pneumonia Received In Past TB Test in last year No General CAD? Yes Angina: No [place]: Yes Hypertension? Yes Hyperlipidemia? Yes CHF? Yes DVT? No PE? No COPD? No Asthma? No Anemia? No GERD? No Gastric ulcers? No GI Bleed? No Hernia? No Thyroid Problems? No Hypothyroidism? No CVA? No Seizures? No Diabetes? Yes Insulin Dependent: No Insulin Pump: No Home FSBS? Yes Renal Insuffiency? No UTI? No Stones? No BPH? No GB Disease: No Nephritic Syndrome? No Asplenia? No Hepatitis? No Sickle Cell Disease? No Arthritis? No Migraines? No Cataracts? Yes Glaucoma? No MRSA? No HIV? No TB? No Anxiety? No Depression? No Cancer? No More? No Past Surgical HX Previous Surgery?Y OPEN HEART SURGERY Tubal Ligation GALLBLADDER CARDIAC STENT X2 Current home meds: Reported Medications Rivaroxaban (Xarelto) 20 MG PO DAILY #90 Metformin HCl (Metformin) 500 MG PO BID 90 Days Furosemide 40 MG PO DAILY 90 Days Atorvastatin Calcium 10 MG PO QHS 90 Days Carvedilol (Carvedilol 25MG) 25 MG PO BID #180 Pantoprazole Sodium 40 MG PO DAILY #90 CLOPIDOGREL BISULFATE (Clopidogrel) 75 MG PO DAILY #90 Spironolactone (Aldactone) 25 MG PO DAILY #180 Ferrous Sulfate 325 MG PO BID #180 Isosorbide Dinitrate 30 MG PO DAILY #90 Social Hx: Smoking HX Tobacco No Are you/the child exposed to second-hand smoke: Yes Alcohol Alcohol: No Hx of Drug Use Drug Use? No Patient's support system is good Review of systems: Constitutional malaise, weakness. Respiratory No: no symptoms reported. Cardiovascular see HPI Gastrointestinal/Abdominal No no symptoms reported Genitourinary No: no symptoms reported. Musculoskeletal No: no symptoms reported. Neurological No: see HPI. Exam: Lab data for last 24 hours: Laboratory Tests 09/17/16 1716: POC Glucose 216 H 09/17/16 1522: Antibody Screen NEGATIVE, Miscellaneous Test POSITIVE 09/17/16 1500: Stool Occult Blood POSITIVE 09/17/16 1335: Sodium 142, Potassium 4.9, Chloride 105, Carbon Dioxide 30, BUN 53 H, Creatinine 2.2 H, Estimated Creat Clear 35 L, Estimated GFR (MDRD) 22 L, Glucose 193 H, Calcium 9.2, Total Bilirubin 0.7, AST 3 L, ALT 13, Alkaline Phosphatase 88, Total Protein 7.3, Albumin 3.6, Globulin 3.7 H, Albumin/ Globulin Ratio 1.0 L, PT 14.6 H, INR 1.36 H, APTT 27.8, WBC 6.5, RBC 2.80 L, Hgb 8.7 L, Hct 28.3 L, MCV 100.8 H, RDW 15.3, Plt Count 247, MPV 7.3 L, Gran % 82.2 H, Gran # 5.4, Lymphocytes % 11.3, Monocytes % 5.0, Eosinophils % 1.2, Basophils % 0.3, Lymphocytes # 0.7, Monocytes # 0.3, Eosinophils # 0.1, Basophils # 0.0, PUBS MCHC 30.8 L, MCH 31.0 Admission vital signs: 1ST Vital Signs Result Date Time Pulse Ox 90 09/17 1249 B/P 140/64 09/17 1249 Temp 98.0 09/17 1249 Pulse 72 09/17 1249 Resp 18 09/17 1249 O2 Delivery ROOM AIR 09/17 1648 Additional information: Patient is awake, no jaundice, alert, oriented. ENT exam clear. Heart rate regular. Previously noted holosystolic murmur. Lungs clear. No edema. Morbid obesity limits her exam. Plan: Problem List 1. Anemia 2. Abnormal stress test Plan: Plan will be to admit for 2 units of packed cells. Reassess tomorrow, redo stress test if hemoglobin is acceptable. at 2428
[2016-09-17 21:18] LABS: ANTIHUMAN GLOB CROSSMATCH COMPAT
[2016-09-18] VITALS (21 sets, daily range): BP systolic 110–159; BP diastolic 48–88
[2016-09-18 03:45] LABS: HEMOGLOBIN 9.3 g/dL (12.2-16.2)
[2016-09-18 06:12] LABS: LYMPH # 1.1 K/mm3 (0.7-4.5); LYMPH % 20.5 % (10-50.0)
--- NOTE | 2016-09-18 07:24 | PHARMACY CLINIC NOTE ---
Patient Demographics Patient Demographics Admission date: 09/17/16 Date: 09/18/16 Time: 07 Allergies Coded Allergies: codeine (05/31/15) HEIGHT- FT: 5 IN: 5.00 K.[id number] VTE General Information Labs: Laboratory Tests 09/18 09/18 09/17 0605 0330 1335 Coagulation PT (9.4 - 11.8 SECONDS) 14.6 H INR (0.9 - 1.1) 1.36 H APTT (23.6 - 34.0 SECONDS) 27.8 Hematology Hgb (12.2 - 16.2 g/dL) 10.0 L 9.3 L 8.7 L Hct (37.0 - 47.0 %) 31.8 L 30.0 L 28.3 L Plt Count (142 - 424 K/mm3) 208 247 Disclaimer The following section includes nursing documentation that has been pulled in for pharmacy review. Patient's VTE score: 6 Patient's VTE Risk: MOD RISK Clinical trial participant? No VTE prophylaxis [id number] VTE prophylaxis ordered? Yes Type of prophylaxis/treatment: SURY at 0724
--- NOTE | 2016-09-18 07:49 | ACUTE CARE PROGRESS NOTE (QUA) ---
Progress Notes Subjective Date 09/18/16 Time 0748 Note Patient states "I feel better but I'm tired." Has had no chest pain overnight. Heart rate regular, lungs clear, patient is pleasant and alert. Objective Findings Last VS-Temp:96.9 B/P:117/62 Pulse:72 Resp:18 SaO2:97 ROOM AIR Last weight lbs:222 oz:5 K.839 Method:Bed Scales Assessment/Plan Problem List 1. Anemia Qualifiers: Anemia type: unspecified type Qualified Code: D64.9 - Anemia, unspecified 2. Abnormal stress test Patient condition Improving Plan: consult construction management instructor This inpt stay is expected to cross 2 MNs from start of care Yes at 0749
--- NOTE | 2016-09-18 07:49 | ACUTE CARE PROGRESS NOTE (QUA) ---
Progress Notes Subjective Date 09/18/16 Time 0748 Note Patient states "I feel better but I'm tired." Has had no chest pain overnight. Heart rate regular, lungs clear, patient is pleasant and alert. Objective Findings Last VS-Temp:96.9 B/P:117/62 Pulse:72 Resp:18 SaO2:97 ROOM AIR Last weight lbs:222 oz:5 K.839 Method:Bed Scales Assessment/Plan Problem List 1. Anemia Qualifiers: Anemia type: unspecified type Qualified Code: D64.9 - Anemia, unspecified 2. 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
--- NOTE | 2016-09-18 08:50 | CONSULT NOTE ---
Standard Demographics Patient Demo Date of Consultation: 09/18/16 Referring Provider: Gucci Ross MD Reason for Consultation: Abnormal stress test, CAD PRIMARY DIAGNOSIS: ANEMIA ABNORMAL STRESS TEST Problem list Problem list: 1 coronary artery disease A. History of coronary bypass grafting, 1999 B. Drug-eluting stent placement, 05/2016. 2. Hypertension 3. Recurrent anemia 4. History of paroxysmal atrial fibrillation, on Xarelto A. History of multiple cardioversions in the past 5. Chronic kidney disease stage IV with creatinine 2.3 GFR 21 6. Diabetes mellitus 7. Obstructive sleep apnea History of present illness: History of present illness: Patient with chronic anemia, takes iron; patient of Dr. Kirkpatrick; received blood transfusion approximately six months ago in [place]. Underwent stress test today per Dr. Vincent and was told to go to ER for evaluation of anemia. No abdominal pain, denies blood from above or below. [facility] would like the patient admitted to service doctor, transfused to a hemoglobin of 10, then reassessed by Dr. Vincent as he may need to repeat testing to see if correcting the anemia will resolve her abnormal stress test. Currently patient has no complaints, no chest pain, no dyspnea, eating supper. The above per Dr. Garza. Patient was transfused to a hemoglobin of 10 overnight. She continues to complain of fatigue and weakness which are the symptoms she had prior to recent coronary stenting. Past Medical History: General: Hypertension Yes CVA No Seizures No TB No COPD No Asthma No Diabetes Yes Insulin Dependent No Insulin Pump No Angina No MD Yes Hyperlipidemia Yes Cancer No MRSA No GB Disease No Past Surgical HX: Previous Surgery?Y OPEN HEART SURGERY Tubal Ligation GALLBLADDER CARDIAC STENT X2 Allergies Coded Allergies: codeine (05/31/15) Home medications: Reported Medications Furosemide 40 MG PO DAILY 90 Days Carvedilol (Carvedilol 25MG) 25 MG PO BID #180 TAB CLOPIDOGREL BISULFATE (Clopidogrel) 75 MG PO DAILY #90 TAB Spironolactone (Aldactone) 25 MG PO DAILY #180 TAB Isosorbide Dinitrate 30 MG PO DAILY #90 TAB Rivaroxaban (Xarelto) 20 MG PO DAILY #90 TAB Metformin HCl (Metformin) 500 MG PO BID 90 Days Atorvastatin Calcium 10 MG PO QHS 90 Days Pantoprazole Sodium 40 MG PO DAILY #90 Ferrous Sulfate 325 MG PO BID #180 Current Medications: Current Medications Carvedilol 12.5 MG BID PO Clopidogrel Bisulfate 75 MG DAILY PO Furosemide 40 MG DAILY PO Pantoprazole Sodium 40 MG DAILY PO Spironolactone 25 MG DAILY PO Fentanyl Citrate 25 MCG PRN PRN IV Fentanyl Citrate 50 MCG PRN PRN IV Flumazenil 0.2 MG PRN PRN IV Heparin Sodium (Beef Lung) 5,000 UNITS PRN PRN IV Heparin Sodium/Sodium Chloride 3,000 UNITS PRN PRN IV Lidocaine HCl 20 ML ONCE ONE IJ (DC) Midazolam HCl 1 MG PRN PRN IV Midazolam HCl 1 MG PRN PRN IV Naloxone HCl 0.4 MG [id number] PRN IV Nitroglycerin 800 MCG PRN PRN IV Verapamil HCl 5 MG PRN PRN IV Insulin Human [rDNA origin] 0 .STK-MED ONE SC (DC) Insulin Human [rDNA origin] 0 .STK-MED ONE SC (DC) Atorvastatin Calcium 10 MG QHS PO Carvedilol 25 MG BID PO (DC) Ferrous Sulfate 325 MG BID PO Metformin HCl 500 MG BID PO (CANr) Sodium Chloride 500 ML .STK-MED ONE IV (DC) Sodium Chloride 250 ML .Q10H IV (DC) Sodium Chloride 250 ML .STK-MED ONE IV (DC) Diagnostic Test (Pha) 1 EACH W/MEALS&HS FS Insulin Human [rDNA origin] SEE ADMIN CRITERIA FOR LOW INTENSITY SS W/MEALS&HS SC Sodium Chloride 10 ML PRN PRN IV Sodium Chloride 10 ML PRN PRN IV Immunization HX DT/Tetanus > 10 Years Pneumonia RECEIVED IN PAST TB Test in last year No Family history Family HX Family Hx Insignificant No Diabetes Yes CAD Yes Hypertension Yes Hyperlipidemia No Cancer Yes TB No Social Hx: Smoking HX Tobacco No Are you/the child exposed to second-hand smoke: Yes Alcohol Alcohol: No Hx of Drug Use Drug Use? No Review of systems: Constitutional weakness. Respiratory SOB with excertion. Cardiovascular see HPI, chest pain Gastrointestinal/Abdominal No no symptoms reported Genitourinary No: no symptoms reported. Musculoskeletal back pain. Neurological No: no symptoms reported. Exam: Admission Vital Signs: 1ST Vital Signs Result Date Time Pulse Ox 90 09/17 1249 B/P 140/64 09/17 1249 Temp 98.0 09/17 1249 Pulse 72 09/17 1249 Resp 18 09/17 1249 O2 Delivery ROOM AIR 09/17 1648 Last Vital Signs: Vital Signs Result Date Time Pulse Ox 97 09/18 0800 B/P 117/62 09/18 08 Temp 96.9 09/18 0800 Pulse 72 09/18 0800 Resp 18 09/18 0800 O2 Delivery ROOM AIR 09/18 08 Exam General appearance: alert, awake, no acute distress Cardiovascular: regular rate & rhythm Respiratory: clear to auscultation ABD: soft, no tenderness Extremities: moves all, edema Neuro: alert, intact, oriented Laboratory data: Laboratory Tests 09/18/16 0605: WBC 5.4, RBC 3.26 L, Hgb 10.0 L, Hct 31.8 L, MCV 97.7, RDW 15.8, Plt Count 208, MPV 8.4, Gran % 70.5, Gran # 3.8, Lymphocytes % 20.5, Monocytes % 5.3, Eosinophils % 3.3, Basophils % 0.4, Lymphocytes # 1.1, Monocytes # 0.3, Eosinophils # 0.2, Basophils # 0.0, PUBS MCHC 31.5 L, MCH 30.7 09/18/16 0557: POC Glucose 208 H 09/18/16 0330: Hgb 9.3 L, Hct 30.0 L 09/18/16 0000: Misc Test Units BLOOD UNIT RELEASE 09/17/16 2130: Misc Test Units BLOOD UNIT RELEASE 09/17/16 1944: POC Glucose 191 H 09/17/16 1716: POC Glucose 216 H 09/17/16 1522: Antibody Screen NEGATIVE, Miscellaneous Test POSITIVE 09/17/16 1500: Stool Occult Blood POSITIVE 09/17/16 1335: Sodium 142, Potassium 4.9, Chloride 105, Carbon Dioxide 30, BUN 53 H, Creatinine 2.2 H, Estimated Creat Clear 35 L, Estimated GFR (MDRD) 22 L, Glucose 193 H, Calcium 9.2, Total Bilirubin 0.7, AST 3 L, ALT 13, Alkaline Phosphatase 88, Total Protein 7.3, Albumin 3.6, Globulin 3.7 H, Albumin/ Globulin Ratio 1.0 L, PT 14.6 H, INR 1.36 H, APTT 27.8, WBC 6.5, RBC 2.80 L, Hgb 8.7 L, Hct 28.3 L, MCV 100.8 H, RDW 15.3, Plt Count 247, MPV 7.3 L, Gran % 82.2 H, Gran # 5.4, Lymphocytes % 11.3, Monocytes % 5.0, Eosinophils % 1.2, Basophils % 0.3, Lymphocytes # 0.7, Monocytes # 0.3, Eosinophils # 0.1, Basophils # 0.0, PUBS MCHC 30.8 L, MCH 31.0 Plan: Assessment: 1. Abnormal stress test coupled with recurrent angina equivalent symptoms in this diabetic patient with recent coronary artery stenting. Proceed with cardiac catheterization today. 2. Diabetes mellitus 3. Chronic kidney disease stage IV 4. Recurrent anemia, status post transfusions yesterday and in April of this year. 5. Paroxysmal atrial fibrillation, on Xarelto therapy, CHADS-VASc score of at least 6. Recommendations: Discussed with Dr. Vincent. We'll proceed with repeat LEFT heart catheterization today. Xarelto was held yesterday. at 7047
[2016-09-19 04:08] VITALS: BP 117/69
[2016-09-19 08:00] VITALS: BP 143/83
--- NOTE | 2016-09-19 08:19 | ACUTE CARE PROGRESS NOTE (QUA) ---
Progress Notes Subjective Date 09/19/16 Time 0818 Note Patient overall feels good, tolerated LEFT heart cath yesterday. Results of cath noted in chart. Did not prompt any stents or medication change. Hemoglobin this morning is stable. Heart rate regular, lungs clear. Patient pleasant, alert/oriented. Objective Findings Last VS-Temp:97.8 B/P:117/69 Pulse:85 Resp:18 SaO2:93 ROOM AIR Last weight lbs:225 oz:4 K.172 Method:Bed Scales Assessment/Plan Problem List 1. Anemia Qualifiers: Anemia type: unspecified type Qualified Code: D64.9 - Anemia, unspecified 2. Abnormal stress test Patient condition Stable Plan: continue current care, initiate discharge plan, plan will be to discharge home. Continue current cardiac medications. Follow-up in office in a week to evaluate anemia workup. This inpt stay is expected to cross 2 MNs from start of care Yes at 0818
--- NOTE | 2016-09-19 08:25 | DISCHARGE SUMMARY STANDARD ---
Demographics Admit date: 09/17/16 Discharge date: 09/19/16 History of present illness History of present illness Patient with chronic anemia, takes iron; patient of Dr. Kirkpatrick; received blood transfusion approximately six months ago in [place]. Underwent stress test today per Dr. Vincent and was told to go to ER for evaluation of anemia. No abdominal pain, denies blood from above or below. Andrés Mccarty states would like the patient admitted to service doctor, transfused to a hemoglobin of 10, then reassessed by Dr. Vincent as he may need to repeat testing to see if correcting the anemia will resolve her abnormal stress test. Currently patient has no complaints, no chest pain, no dyspnea, eating supper. The above per Dr. Garza. Patient was transfused to a hemoglobin of 10 overnight. She continues to complain of fatigue and weakness which are the symptoms she had prior to recent coronary stenting. Hospital Course Hospital Course: Patient was admitted hospital, ruled out for myocardial infarction. After hemoglobin was adjusted to over 10 g with transfusion she was subjected to LEFT heart cath which revealed no changes over baseline and no cardiac medications were changed. She felt well this morning. She'll be discharged home. We will begin workup for her outpatient anemia by requesting records from other institutions and doing a tagged RBC scan. Discharge diagnoses Problem List 1. Anemia 2. Abnormal stress test Medications Medications: Discharge meds are as noted. Follow up Follow up in office in: 7 DAYS with: RISHI GUPTA APRN at 0824
--- NOTE | 2016-09-19 08:27 | ACUTE CARE PROGRESS NOTE (QUA) ---
Progress Notes Subjective Date 09/19/16 Time 0824 Note 76 yo WF in bed in NAD. No chest pains. Objective Findings Last VS-Temp:97.8 B/P:117/69 Pulse:85 Resp:18 SaO2:93 ROOM AIR Last weight lbs:225 oz:4 K.172 Method:Bed Scales Exam General appearance: alert, awake, no acute distress Cardiovascular: irregularly irregular Respiratory: clear to auscultation Extremities: moves all, no peripheral edema Neuro: alert, intact, oriented Reviewed: medications, vital signs, lab results Assessment/Plan Problem List 1. Anemia Qualifiers: Anemia type: unspecified type Qualified Code: D64.9 - Anemia, unspecified 2. Abnormal stress test 3. CAD (coronary artery disease) Patient condition Stable Plan: [facility] yesterday showed stable coronary disease without need for intervention. Ok for discharge home from cardiac standpoint on plavix and Xarelto. Follow up in 2 wks. This inpt stay is expected to cross 2 MNs from start of care Yes at 0845
--- NOTE | 2016-09-19 08:27 | ACUTE CARE PROGRESS NOTE (QUA) ---
Progress Notes Subjective Date 09/19/16 Time 0824 Note 76 yo WF in bed in NAD. No chest pains. Objective Findings Last VS-Temp:97.8 B/P:117/69 Pulse:85 Resp:18 SaO2:93 ROOM AIR Last weight lbs:225 oz:4 K.172 Method:Bed Scales Exam General appearance: alert, awake, no acute distress Cardiovascular: irregularly irregular Respiratory: clear to auscultation Extremities: moves all, no peripheral edema Neuro: alert, intact, oriented Reviewed: medications, vital signs, lab results Assessment/Plan Problem List 1. Anemia Qualifiers: Anemia type: unspecified type Qualified Code: D64.9 - Anemia, unspecified 2. Abnormal stress test 3. CAD (coronary artery disease) Patient condition Stable Plan: [facility] yesterday showed stable coronary disease without need for intervention. Ok for discharge home from cardiac standpoint on plavix and Xarelto. Follow up in 2 wks. This inpt stay is expected to cross 2 MNs from start of care Yes at 0854
[2016-09-19 10:08] VITALS: BP 143/83
--- NOTE | 2016-10-12 10:30 | RADIOLOGY REPORT PS360 ---
CARDIAC CATHETERIZATION DATE OF CATHETERIZATION:10/12/2016 10:16 AM PROCEDURES: 1. Left heart catheterization 2. Left ventriculogram 3. Selective coronary angiogram 4. Selective engagement of the saphenous vein graft to the circumflex artery 5. Left internal mammary angiography to the LAD 6. Selective engagement of the saphenous vein graft right coronary artery 7. Selective engagement of the saphenous vein graft to the diagonal artery INDICATION FOR TEST: 1. Coronary artery disease 2. History of coronary artery bypass surgery 3. Abnormal Myoview 4. Unstable angina/acute coronary syndrome Clinical history: 76-year-old lady with established coronary artery disease and history of coronary bypass surgery who also suffers from advanced stage IV chronic kidney disease who presented to the clinic with unstable angina/acute coronary syndrome. Patient underwent stenting earlier this year and has had a subsequently abnormal stress test. She is being admitted to the hospital for anticipated coronary angiography Informed consent was obtained prior to the procedure. COMPLICATIONS: None ESTIMATED BLOOD LOSS: Less than 10 ml. TECHNIQUE: One percent lidocaine was used to anesthetize the right groin. The right femoral artery was accessed via the Seldinger technique. A 4-Micronesian sheath was placed in the right femoral artery.. Over 3 J-wire a JL 4 JR4 multipurpose catheter JL 5 catheter were used for diagnostic left heart catheterization left ventriculogram selective coronary angiography as well as selective engagement of 3 saphenous vein grafts and left internal mammary angiography. At the end of the procedure the patient transferred to the postop holding area in stable condition for sheath removal ANGIOGRAPHIC RESULTS: 1. The left main artery normal 2. The left anterior descending artery ostially critically stenosed and then proximally subtotally occluded 3. The circumflex artery is a nondominant vessel which has severe proximal 70% followed by 90% stenoses. There are very small spindly obtuse marginal arteries all less than 1 mm diameter 4. The right coronary artery is a dominant vessel and has proximal 90% followed by additional 90% followed by subtotal occlusion proximal to the RV marginal branch 5. The ADAIR ventriculogram reveals mid anterior apical and inferior apical hypokinesis with an estimated ejection fraction 45% 6. The left ventricular end-diastolic pressure 18 mmHg 7. The saphenous vein graft to the small obtuse marginal artery is a patent graft with a proximal 40% mid vessel 40 and 50% stenosis and a distal 50% stenosis. There is a large mismatch between the diameter of the vein graft and the [place] obtuse marginal artery to supply 8. The saphenous vein graft to the diagonal artery is ostially occluded 9. The saphenous vein graft to the posterior descending artery has proximal 50 and 60% eccentric stenosis and is then patent as it makes its anastomosis on to the posterior descending artery and then backfills a moderate-sized posterior lateral ventricular branch IMPRESSION: 1. Coronary artery disease as described above 2. Adequate coronary artery revascularization 3. Reduced ejection fraction with regional wall motion abnormality 4. Mildly elevated LVEDP PLAN: 1. Standard therapy for ischemic heart disease 2. Maximize antianginal medication 3. No attempt will be made to provide additional revascularization at this time 4. LDL less than 55 5. Cardiac rehabilitation 6. Avoidance of tobacco products
== END 2016-09-19 11:40 | disposition home or self-care (01) | DRG 812 ==
LOC: ER 12:41 → 2ND 14:41
PROVIDERS: Emergency Medicine; Internal Medicine; Internal Medicine Adolescent Medicine
PROC: 4A023N7 Measurement of Cardiac Sampling and Pressure, Left Heart, Percutaneous Approach (ICD-10-PCS; principal; 2016-09-18 11:00)
DX: D64.9 Anemia, unspecified (principal); N18.4 Chronic kidney disease, stage 4 (severe); I48.0 Paroxysmal atrial fibrillation; E11.22 Type 2 diabetes mellitus with diabetic chronic kidney disease; I25.110 Atherosclerotic heart disease of native coronary artery with unstable angina pectoris; R94.39 Abnormal result of other cardiovascular function study; Z72.0 Tobacco use; Z95.1 Presence of aortocoronary bypass graft; Z95.5 Presence of coronary angioplasty implant and graft; Z79.01 Long term (current) use of anticoagulants; G47.33 Obstructive sleep apnea (adult) (pediatric); F51.9 Sleep disorder not due to a substance or known physiological condition, unspecified; I12.9 Hypertensive chronic kidney disease with stage 1 through stage 4 chronic kidney disease, or unspecified chronic kidney disease
CPT/HCPCS: A9502; C1725; C1769; G0328; J1644; J2785; P9016; Q9967

== ENCOUNTER → 2016-11-30 | Outpatient (CLI) | payer MEDICARE, MEDICAID ==
[~2016-11-30] MED LIST changes: +ALDACTONE 25MG25 MG PO; +B-121000 MC1 IM; +CARVEDILOL 25MG25 MG PO; +CLOPIDOGREL75 M2 PO; +IRON325 M1 PO; +ISOSORBIDE DINI30 MG PO; +LEVOTHYROXINE0.05 MG PO; +PANTOPRAZOLE SO40 M1 PO; +TRADJENTA5 MG PO; +XARELTO20 MG PO
[2016-11-30 13:49] LABS: HEMOGLOBIN 9.3 g/dL (12.2-16.2); LYMPH # 0.8 K/mm3 (0.7-4.5); LYMPH % 15.9 % (10-50.0)
[2016-11-30 14:57] LABS: BUN 38 mg/dL (7-18)
[2016-11-30 15:11] LABS: GFR (ESTIMATED) 18 ML/MIN (59-)
[2016-11-30 15:25] LABS: NEUTROPHILS 77 % (42-76)
== END ==
LOC: LAB 11:51
PROVIDERS: Nurse Practitioner Family
DX: N18.4 Chronic kidney disease, stage 4 (severe) (principal); D64.9 Anemia, unspecified

== ENCOUNTER → 2016-12-27 | Outpatient (CLI) | payer MEDICARE, MEDICAID ==
[2016-12-27 16:04] LABS: HEMOGLOBIN 9.6 g/dL (12.2-16.2)
[2016-12-27 16:05] LABS: LYMPH # 0.9 K/mm3 (0.7-4.5); LYMPH % 17.7 % (10-50.0)
[2016-12-27 18:55] LABS: BUN 42 mg/dL (7-18)
[2016-12-27 19:22] LABS: GFR (ESTIMATED) 20 ML/MIN (59-)
== END ==
LOC: LAB 15:14
PROVIDERS: Nurse Practitioner Family
DX: D50.9 Iron deficiency anemia, unspecified (principal); N18.4 Chronic kidney disease, stage 4 (severe)

== ENCOUNTER 2017-01-07 09:10 | Day surgery (SDC) | payer MEDICARE, MEDICAID ==
[~2017-01-07] VITALS: Ht 165.1 cm; Wt 102.1 kg
--- NOTE | 2017-01-07 11:05 | Operative Note ---
Colonoscopy ([place]) Procedure date: 01/07/17 Date of : 42 Procedure:Colonoscopy Colonoscopy with cold snare polypectomy Indications: Mrs. Hall is a 76-year-old female who is here for diagnostic colonoscopy. The patient does have iron deficiency anemia with hemoglobin 9.6 and hematocrit 29.3. She is on some relative and Plavix. Her CEA level was normal at 1.1. She has never had a colonoscopy. She reports no abdominal pain, weight loss, change in her bowel habits or rectal bleeding. She reports no melena. Performing Provider: Michelet Sahni MD Referrring Provider: Gucci Ross M.D. Sedation: MAC sedation Procedure: Prior to the procedure, a history and physical exam was performed, and patient medications and allergies were reviewed. The risks and benefits of the procedure and the sedation options and risks were discussed with the patient. All questions were answered and informed consent was obtained. Patient identification and proposed procedure were verified by the physician and the nurse. The patient was placed in a left lateral decubitus position. Throughout the procedure, the patient's blood pressure, pulse, and oxygen saturations were monitored continuously. Findings: On digital rectal examination there was normal rectal tone. There were no external hemorrhoids. The colonoscope was introduced through the anal canal to the rectum and advanced to the cecum. The ileocecal valve and appendiceal orifice were identified. The scope was advanced a short distance into the ileum which appeared grossly normal. The scope was then withdrawn into the colon. The cecum, ascending and transverse colon and mucosa were grossly normal. There were scattered diverticuli throughout the descending and sigmoid colon (LEFT colon). There was a single polyp in the sigmoid colon removed via cold snare polypectomy that was 5 mm in size. The rectum itself was normal. Upon retroflexion within the rectum there were grade 1 internal hemorrhoids. Impressions: 1. Diminutive sigmoid polyp 2. Left-sided diverticulosis 3. Grade 1 internal hemorrhoids Recommendations: There was no source for the patient's iron deficiency anemia. I would recommend Hemoccult testing. If the patient is strongly Hemoccult-positive, I would recommend upper endoscopy and possibly video capsule enteroscopy. Complications: None EBL (ml): 0 at 1104
[2017-01-07 12:40] VITALS: BP 140/75
== END 2017-01-07 11:55 | disposition home or self-care (01) ==
LOC: SDC 09:10
PROVIDERS: Internal Medicine Gastroenterology
PROC: 0DBN8ZX Excision of Sigmoid Colon, Via Natural or Artificial Opening Endoscopic, Diagnostic (ICD-10-PCS; principal; 2017-01-07 10:00)
DX: D50.9 Iron deficiency anemia, unspecified (principal); K63.5 Polyp of colon; K64.0 First degree hemorrhoids; K57.30 Diverticulosis of large intestine without perforation or abscess without bleeding; Z79.02 Long term (current) use of antithrombotics/antiplatelets; Z79.01 Long term (current) use of anticoagulants; Z79.84 Long term (current) use of oral hypoglycemic drugs; Z79.899 Other long term (current) drug therapy